=== PATIENT | male | born 1960 | race African-American/Black ===

== ENCOUNTER 2016-06-17 18:36 | Inpatient (IN) | payer OTHER ==
[2016-06-17] MEDS ORDERED: SODIUM CHLORIDE 0.9% 500 ML INFUS.BAG IV ONE (19:38)
[2016-06-17] MEDS ORDERED: morphine CARPU-JECT 2 MG/1 ML DISP.SYRIN IVPUSH ONE (19:38)
--- NOTE | 2016-06-17 19:41 | PDOC ---
History of Present Illness - General History Source: Patient, Old Records Exam Limitations: No Limitations, Other - History of Present Illness Initial Comments: 06/17/16 19:53 The patient is a 56 year old male with significant past medical history of ESRD on HD (MWF), hypertension, diabetes with neuropathy, and etoh abuse who presents to the ED BIBA from [facility] with generalized body aches and weakness. Patient is a poor historian. He describes his pain as soreness. The patient denies fever, chills, cough, SOB, and chest pain. The patient denies nausea, vomiting, and diarrhea. Allergies: NKDA Social History: etoh abuse; polysubstance abuse (heroin, cocaine, marijuana) Past Surgical History: Denies abdominal surgery PCP: Dr. José Browne Nephrology: Dr. Ben Lunsford <Pau Villavicencio - Last Filed: 06/18/16 00:44> <Brittany Rosado - Last Filed: 06/18/16 01:59> - General Chief Complaint: Pain Stated Complaint: ABD PAIN Past History <Pau Villavicencio - Last Filed: 06/18/16 00:44> - Past Medical History Anemia: Yes (NOT ON SUPPLEMENT CURRENTLY) Asthma: No Cancer: No Cardiac Disorders: No CVA: No COPD: No CHF: No Dementia: No Diabetes: Yes (Patient reported history of diabetes, but not on medication at this time,) GI Disorders: No Disorders: Yes (ESRD) HTN: Yes (Patient reported history of HTN) Hypercholesterolemia: No Kidney Stones: No Liver Disease: No Suicide Attempt (Hx): No Seizures: No Thyroid Disease: No - Surgical History Abdominal Surgery: No Appendectomy: No Cardiac Surgery: No Cholecystectomy: No Lung Surgery: No Neurologic Surgery: No Orthopedic Surgery: Yes (GANGLIONIC CYST SX IN 1987 [facility]; left rotator cuff sx) - Reproductive History Testicular Surgery: No - Immunization History Immunization Up to Date: No - Psycho/Social/Smoking Cessation Hx Anxiety: No Suicidal Ideation: No Smoking History: Former smoker Have you smoked in the past 12 months: No Information on smoking cessation initiated: No 'Breaking Loose' booklet given: 05/15/14 Hx Alcohol Use: No Drug/Substance Use Hx: No Substance Use Type: Heroin, Marijuana Hx Substance Use Treatment: Yes <Brittany Rosado - Last Filed: 06/18/16 01:59> - Past Medical History Allergies/Adverse Reactions: Allergies Allergy/AdvReac Type Severity Reaction Status Date / Time No Known Drug Allergies Allergy Unknown Verified 06/17/16 19:01 lactose AdvReac Unknown LACTOSE Verified 06/17/16 19:01 INTOLERANCE Home Medications: Ambulatory Orders Amlodipine Besylate [Norvasc -] 10 mg PO DAILY #30 tablet 07/31/14 Ferrous Sulfate [Feosol] 325 mg PO TID #90 ud 07/31/14 Gabapentin [Neurontin -] 600 mg PO Q8H 30 Days 07/31/14 Acetaminophen [Tylenol .Regular Strength -] 650 mg PO Q6H PRN #0 tablet Aspirin [Ecotrin] 81 mg PO DAILY #30 tablet.dr 01/22/15 Furosemide [Lasix -] 40 mg PO DAILY tablet 01/22/15 Hydralazine HCl [Apresoline -] 100 mg PO TID tablet 01/22/15 Thiamine HCl [Vitamin B1 -] 100 mg PO HS tablet 01/22/15 Cinacalcet HCl [Sensipar -] 30 mg PO DAILY 03/13/16 Oxycodone HCl/Acetaminophen [Percocet 5-325 mg Tablet] 1 - 2 tab PO Q8H PRN Sevelamer Carbonate [Renvela] 800 mg PO TID 03/13/16 Vitamin B Complex 1 each PO DAILY 03/13/16 Meloxicam [Mobic] 1 tab PO DAILY PRN #30 03/14/16 Review of Systems - Review of Systems Able to Perform ROS?: Yes Comments:: 06/17/16 19:53 CONSTITUTIONAL: +generalized weakness Absent: fever, no chills, no fatigue EYES: Absent: visual changes ENT: Absent: ear pain, no sore throat CARDIOVASCULAR: Absent: chest pain, no palpitations RESPIRATORY: Absent: cough, no SOB GI: Absent: no nausea, no vomiting, no constipation, no diarrhea GENITOURINARY: Absent: dysuria, no frequency, no hematuria MUSKULOSKELETAL: +generalized body aches SKIN: Absent: rash NEURO: Absent: headache <Pau Villavicencio - Last Filed: 06/18/16 00:44> *Physical Exam - Vital Signs Last Vital Signs Temp Pulse Resp BP Pulse Ox 98.6 F 120 H 20 131/76 92 L 06/17/16 18:38 06/17/16 18:38 06/17/16 18:38 06/17/16 18:38 06/17/16 18:38 - Physical Exam Comments: 06/18/16 00:43 GENERAL: Pt is afebrile. Well developed, well nourished. Awake and alert. Mild-moderate distress. HEENT: Normocephalic, atraumatic. PERRLA, EOMI. No conjunctival pallor. Sclera are icteric. Moist mucous membranes. Oropharynx is clear. Chest pain with swallowing. NECK: Supple. Full ROM. No JVD. Carotid pulses 2+ and symmetric, without bruits. No thyromegaly. No lymphadenopathy. CARDIOVASCULAR: Tachycardia. Regular rhythm. No murmurs, rubs, or gallops. Distal pulses are 2+ and symmetric. PULMONARY: No evidence of respiratory distress. Lungs clear to auscultation bilaterally. No wheezing, rales or rhonchi. ABDOMINAL: Soft. Diffuse abdominal tenderness. Distended. Positive guarding. No rebound. No organomegaly. Normoactive bowel sounds. MUSCULOSKELETAL Normal range of motion at all joints. No bony deformities. No CVA tenderness. EXTREMITIES: No cyanosis. No clubbing. No edema. AV fistula left upper extremity. No calf tenderness. SKIN: Warm and dry. Normal capillary refill. No rashes. No jaundice. NEUROLOGICAL: Alert and awake. Answering yes and no questions, but distracted secondary to pain. Cranial nerves 2-12 grossly intact. Moving all extremities. PSYCHIATRIC: Answering yes and no questions, but distracted secondary to pain. <Pau Villavicencio - Last Filed: 06/18/16 00:44> - Vital Signs Last Vital Signs Temp Pulse Resp BP Pulse Ox 98.6 F 120 H 20 131/76 92 L 06/17/16 18:38 06/17/16 18:38 06/17/16 18:38 06/17/16 18:38 06/17/16 18:38 <Brittany Rosado - Last Filed: 06/18/16 01:59> ED Treatment Course - LABORATORY CBC & Chemistry Diagram: 06/17/16 19:34 06/17/16 21:00 - RADIOLOGY Radiograph Interpretation: 06/17/16 22:03 CT/ABDOMEN PELVIS CT WITH CONTR CT/CHEST CT WITH CONTRAST Radiologist's Impression: Chest CT with intravenous contrast Abdomen and pelvis CT with intravenous contrast Clinical information: evaluate for dissection; abdominal pain, total body pain Multiplanar arterial phase imaging was performed following the intravenous administration of nonionic contrast. No previous CT studies are available at this facility for direct comparison. Evaluation of the thoracic and abdominal aorta demonstrates no evidence of aneurysm, dissection, intramural hematoma or penetrating atherosclerotic ulcer. The periaortic soft tissue planes appear intact. No mediastinal or retroperitoneal hematoma is identified. There is concentric continuous wall thickening involving the length of the thoracic esophagus with probable associated mild dilatation of the esophageal lumen. Minimal bilateral pleural effusions are visualized. Mild bibasilar opacity probably representing atelectasis, and less likely combination of atelectasis and infiltrate. Correlate clinically. The remaining intrathoracic structures demonstrate no definite CT abnormality. No discrete lymphadenopathy. A small amount of free intraperitoneal fluid is seen within the rectovesical space of the lower pelvis. There is mild dilatation of several mid and distal jejunal bowel loops with probable minimal to mild dilatation of several ileal bowel loops. No obvious associated wall edema is identified. Possible mild concentric wall thickening is seen along the ascending and descending colon. Evaluation this regard is somewhat difficult due to lack of intraluminal contrast. No definite pericolonic or perienteric edema. The appendix cannot be definitely visualized however there are no indirect CT signs of acute appendicitis. No CT evidence of acute diverticulitis. Bilateral renal atrophy. The patient is scheduled for dialysis following this CT exam. On the basis of arterial phase imaging only, the liver, spleen, pancreas, gallbladder, and adrenal glands demonstrate no obvious abnormality. No definite abdominal/pelvic lymphadenopathy. Marked L4-L5 degenerative facet arthropathy. Minimal to mild L4-L5 spondylolisthesis. Moderate to marked L5-S1 degenerative disc space narrowing. IMPRESSION: No dissection is seen involving the thoracoabdominal aorta. There is continuous concentric wall thickening involving the length of the thoracic esophagus with associated mild dilatation of the esophageal lumen - ? severe esophagitis. Minimal bilateral pleural effusions. Mild bibasilar pulmonary opacity probably on the basis of atelectasis (versus representing a combination of atelectasis and small infiltrates). A small amount of free fluid is seen within the lower pelvis in the region of the rectovesical space. There is mild dilatation of several small bowel loops probably on the basis of an ileus. There is no definite evidence of obstruction at this time. Correlate with close follow-up radiography or CT. Allowing for lack of intraluminal contrast there is probable mild concentric continuous wall thickening along the length of the ascending and descending colon suggestive of possible acute colitis. Bilateral renal atrophy. <Pau Villavicencio - Last Filed: 06/18/16 00:44> - LABORATORY CBC & Chemistry Diagram: 06/17/16 19:34 06/17/16 21:00 <Brittany Rosado - Last Filed: 06/18/16 01:59> Medical Decision Making - Medical Decision Making 06/17/16 19:[address] José Browne (via answering service) at 19:54 Awaiting call back Patient's case discussed with Dr. Browne at 19:55 06/17/16 19:[address] Ben Lunsford (via answering service) at 19:59 Awaiting call back Patient's case discussed with Dr. Lunsford at 20:02 06/17/16 22:[address] José Browne (via answering service) at 22:07 Awaiting call back Patient's case discussed with Dr. Browne at 22:12 06/17/16 22:[address] Ben Lunsford (via answering service) at 22:14 Awaiting call back Patient's case discussed with Dr. Lunsford at 22:18 <HerbkenyattabuddyPau - Last Filed: 06/18/16 00:44> - Medical Decision Making 06/18/16 01:51 Pt comes from [facility] for abdominal pain. Pt is ESRD and states that he gets dialysis M,W,F. Pt states that he did not miss dialysis sessions; however , he has peaked T waves on EKG and based on this we treated with insulin and D50. Pt has diffuse abdominal pain and is tachycardic to 122. He states that his abdominal pain radiates to his back and he has total body pains. Pt's BP is low and I am concerned about severe pathology/sepsis/dissection. CT abd pelvis and chest with IV contrast demonstrates no dissection, but pt has esophagitis, and ileus, and possible pneumonia (atelectasis vs infiltrate) seen on CT scan. Pt will be treated with abx, as he has an elevated lactic acid. Case was also discussed with MARIANNE Browne as well as group product manager, who came in to dialyze the patient given that his BUN and Cr are double/triple what it normally is. Pt will be admitted to the ICU for hyperkalemia, ileus, tachycardia, esophagitis, pneumonia, fluid overload, hyponatremia. <Brittany Rosado - Last Filed: 06/18/16 01:59> *DC/Admit/Observation/Transfer - Attestations Scribe Attestion: 06/17/16 19:54 Documentation prepared by Pau Villavicenico, acting as medical instrument technician for Brittany Rosado MD <Pau Villavicencio - Last Filed: 06/18/16 00:44> - Discharge Dispostion Admit: Yes <Brittany Rosado - Last Filed: 06/18/16 01:59> Diagnosis at time of Disposition: Esophagitis, Pneumonia, Ileus, Sepsis - Discharge Dispostion Condition at time of disposition: Poor - Referrals
[2016-06-17 19:47] LABS: MCH 32.4 pg (25.7-33.7); MCHC 34.2 g/dl (32.0-35.9); MEAN CELL VOLUME 94.8 fl (80-96); MEAN PLT VOLUME 9.1 fl (7.5-11.1); PLATELET COUNT 235 K/MM3 (134-434); RDW 15.1 % (11.9-15.9); WHITE BLOOD COUNT 9.5 K/mm3 (4.0-10.0)
[2016-06-17] MEDS ORDERED: DEXTROSE 50%-WATER 50 ML VIAL IVPUSH ONE (19:49)
[2016-06-17] MEDS ORDERED: INSULIN REGULAR HUMAN 100 UNITS/ML *VIAL IVPUSH ONE (19:49)
[2016-06-17 20:14] LABS: INR 1.31 (0.82-1.09); PROTHROMBIN TIME (PATIENT) 14.5 SEC (9.98-11.88)
[2016-06-17] MEDS ORDERED: INSULIN REGULAR HUMAN 100 UNITS/ML *VIAL ONE (20:35)
[2016-06-17] MEDS ORDERED: DEXTROSE 50%-WATER 50 ML DISP.SYRIN ONE (20:35)
[2016-06-17 21:30] LABS: METAMYELOCYTE 5 % (0-2); PLATELET COMMENT2 MOD LARGE PLTS; PLATELET ESTIMATE ADEQUATE (NORMAL)
[2016-06-17 21:31] LABS: PLATELET COMMENT3 FEW GIANT PLTS
[2016-06-17 21:32] LABS: ALBUMIN 2.5 g/dl (3.4-5.0); BILIRUBIN,TOTAL 0.6 mg/dL (0.2-1.0); CALCIUM 8.7 mg/dL (8.5-10.1); TOT PROT 6.5 g/dl (6.4-8.2)
[2016-06-17 21:38] LABS: TROPONIN I 0.02 ng/ml (0.00-0.05)
[2016-06-17 21:52] LABS: CREATININE 19.7 mg/dL (0.7-1.3)
[2016-06-17] MEDS ORDERED: PIPERACILLIN/TAZOB 3.375 GM 3.375 GM in DEXTROSE 5%-WATER - 50 ML IVPB ONE (22:00)
[2016-06-17] MEDS ORDERED: METRONIDAZOLE 500 MG PREMIXED 100 ML IVPB ONE ×2 (22:01→23:09)
[2016-06-17] MEDS ORDERED: SODIUM POLYSTYRENE SULFONATE 15 GM/60 ML BOTTLE PO ONE (22:19)
[2016-06-17] MEDS ORDERED: PIPERACILLIN/TAZOB 3.375 GM 50 ML IVPB ONE (23:09)
[2016-06-17] MEDS ORDERED: SODIUM POLYSTYRENE SULFONATE 15 GM/60 ML BOTTLE ONE (23:09)
--- NOTE | 2016-06-17 23:30 | CONSULT ---
Consult Consult Specialty:: nephrology - History of Present Illness Chief Complaint: weakness, body aches History of Present Illness: This is a 56 year old man with a history of dm, htn, esrd, etoh and substance abuse who presents with c/o generalized weakness and pain. he missed dialysis yesterday. History is very difficult as he repeats himself and does not remember what is said to him. He is uremic and hyponatremic. So Im here for emergent HD. - History Source History Provided By: Patient, Medical Record Limitations to Obtaining History: Poor Historian - Past Medical History Cardio/Vascular: Yes: HTN, Hyperlipdemia Renal/: Yes: Renal Inusuff, Hemodialysis Endocrine: Yes: Diabetes Mellitus Additional Medical History: polysubstance abuse - Past Surgical History Past Surgical History: Yes: AV Fistula/Graft - Alcohol/Substance Use Hx Alcohol Use: No History of Substance Use: reports: Cocaine, Heroin, Marijuana - Smoking History Smoking history: Former smoker Have you smoked in the past 12 months: No - Social History Usual Living Arrangement: Assisted Living Home Medications - Allergies Allergies/Adverse Reactions: Allergies Allergy/AdvReac Type Severity Reaction Status Date / Time No Known Drug Allergies Allergy Unknown Verified 06/17/16 19:01 lactose AdvReac Unknown LACTOSE Verified 06/17/16 19:01 INTOLERANCE - Home Medications Home Medications: Ambulatory Orders Amlodipine Besylate [Norvasc -] 10 mg PO DAILY #30 tablet 07/31/14 Ferrous Sulfate [Feosol] 325 mg PO TID #90 ud 07/31/14 Gabapentin [Neurontin -] 600 mg PO Q8H 30 Days 07/31/14 Acetaminophen [Tylenol .Regular Strength -] 650 mg PO Q6H PRN #0 tablet Aspirin [Ecotrin] 81 mg PO DAILY #30 tablet. 01/22/15 Furosemide [Lasix -] 40 mg PO DAILY tablet 01/22/15 Hydralazine HCl [Apresoline -] 100 mg PO TID tablet 01/22/15 Thiamine HCl [Vitamin B1 -] 100 mg PO HS tablet 01/22/15 Cinacalcet HCl [Sensipar -] 30 mg PO DAILY 03/13/16 Oxycodone HCl/Acetaminophen [Percocet 5-325 mg Tablet] 1 - 2 tab PO Q8H PRN Sevelamer Carbonate [Renvela] 800 mg PO TID 03/13/16 Vitamin B Complex 1 each PO DAILY 03/13/16 Meloxicam [Mobic] 1 tab PO DAILY PRN #30 03/14/16 Family Disease History - Family Disease History Family Disease History: Diabetes: Mother (ESRD), Brother (ESRD), CA: Father ( stomach,), Other: Mother, Brother Review of Systems Unable to obtain ROS, reason: pt is a poor historian Nephrology Consult - Height Height: 5 ft 9 in - Weight Weight: 205 lb - BMI Body Mass Index (BMI): 30.2 - Lab Results CBC,BMP: CBC, BMP 06/17/16 19:34 06/17/16 21:00 Anion Gap: Anion Gap Anion Gap 25 (8-16) H 06/17/16 21:00 - Imaging Chest X-ray: Image Reviewed Cat Scan: Report Reviewed (no aortic dissection) - Physical Examination Vital Signs: Vital Signs Temperature 98.6 F 06/17/16 18:38 Pulse Rate 120 H 06/17/16 18:38 Respiratory Rate 20 06/17/16 18:38 Blood Pressure 131/76 06/17/16 18:38 O2 Sat by Pulse Oximetry (%) 92 L 06/17/16 18:38 Constitutional: Yes: Well Nourished, No Distress Eyes: Yes: Conjunctiva Clear HENT: Yes: Atraumatic, Normocephalic Neck: Yes: Supple, Trachea Midline Cardiovascular: Yes: Regular Rate and Rhythm, Tachycardia Respiratory: Yes: Diminished Gastrointestinal: Yes: Normal Bowel Sounds Renal/: No: Bladder Distention Access for Hemodialysis: AV Fistula Musculoskeletal: Yes: Muscle Pain Extremities: Yes: WNL Edema: No Neurological: Yes: Alert, Oriented (not to time), Asterixis, Confusion, Tremors Psychiatric: Yes: Alert Assessment/Plan IMPRESSION esrd encephalopathy- probably uremic but also from medications since he is on gabapentin which can do this Uremia in part due to missing treatments, but will need to evaluate access as well bandemia of 30 percent with other immature polys- ?sepsis vs CML (doubt) dm htn h/o etoh use on thiamine chronically hyperkalemia hyponatremia PLAN hold neurontin for now will attempt to dialyze tonight to get kayexalate in the mean time sepsis work up HD should help sodium and potassium MV
[2016-06-18 00:51] VITALS: BMI 29.2
--- NOTE | 2016-06-18 00:56 | CONSULT ---
Consult Consult Specialty:: Pulm/CC - History of Present Illness History of Present Illness: Pt is a 56yr old man with PMHx of HTN, ESRD (HD on M//), DM, neuropathy. He presents to the ER from [facility] with CC of body aches and weakness. In the ER his initial vital signs are 131/76, HR 120, RR 20, 92%, 98.6. Labs notable for BUN/Cr 183/19.7, K 6.9, 30% bands and lactic acid of 3.879. CT shows bilateral pleural effusions, esophagitis, ileus without definite obstruction and possible acute colitis. Pt admitted to the ICU for emergency HD and continued management. Upon assessment pt is confused, unable to get further history. Uremic breath. - Past Medical History Cardio/Vascular: Yes: HTN, Hyperlipdemia Renal/: Yes: Renal Inusuff, Hemodialysis Endocrine: Yes: Diabetes Mellitus Additional Medical History: polysubstance abuse - Past Surgical History Past Surgical History: Yes: AV Fistula/Graft - Alcohol/Substance Use Hx Alcohol Use: No History of Substance Use: reports: Cocaine, Heroin, Marijuana - Smoking History Smoking history: Former smoker Have you smoked in the past 12 months: No - Social History Usual Living Arrangement: Assisted Living <Raegan Diego - Last Filed: 06/18/16 05:32> Home Medications <Raegan Diego - Last Filed: 06/18/16 05:32> <Heriberto Nath MD - Last Filed: 06/18/16 11:40> - Allergies Allergies/Adverse Reactions: Allergies Allergy/AdvReac Type Severity Reaction Status Date / Time No Known Drug Allergies Allergy Unknown Verified 06/17/16 19:01 lactose AdvReac Unknown LACTOSE Verified 06/17/16 19:01 INTOLERANCE - Home Medications Home Medications: Ambulatory Orders Amlodipine Besylate [Norvasc -] 10 mg PO DAILY #30 tablet 07/31/14 Ferrous Sulfate [Feosol] 325 mg PO TID #90 ud 07/31/14 Gabapentin [Neurontin -] 600 mg PO Q8H 30 Days 07/31/14 Acetaminophen [Tylenol .Regular Strength -] 650 mg PO Q6H PRN #0 tablet Aspirin [Ecotrin] 81 mg PO DAILY #30 tablet. 01/22/15 Furosemide [Lasix -] 40 mg PO DAILY tablet 01/22/15 Hydralazine HCl [Apresoline -] 100 mg PO TID tablet 01/22/15 Thiamine HCl [Vitamin B1 -] 100 mg PO HS tablet 01/22/15 Cinacalcet HCl [Sensipar -] 30 mg PO DAILY 03/13/16 Oxycodone HCl/Acetaminophen [Percocet 5-325 mg Tablet] 1 - 2 tab PO Q8H PRN Sevelamer Carbonate [Renvela] 800 mg PO TID 03/13/16 Vitamin B Complex 1 each PO DAILY 03/13/16 Meloxicam [Mobic] 1 tab PO DAILY PRN #30 03/14/16 Family Disease History - Family Disease History Family History: Unable to Obtain Family Disease History: Diabetes: Mother (ESRD), Brother (ESRD), CA: Father ( stomach,), Other: Mother, Brother <Raegan Diego - Last Filed: 06/18/16 05:32> Review of Systems Unable to obtain ROS, reason: ALF <Raegan Diego - Last Filed: 06/18/16 05:32> Physical Exam Vital Signs: Vital Signs Period Temp Pulse Resp BP Sys/Galaviz Pulse Ox Last 24 Hr 98.6 F-98.8 F 75-120 18-22 128-139/70-87 92-100 Intake & Output 06/15/16 06/16/16 06/17/16 06/18/16 23:59 23:59 23:59 23:59 Weight 205 lb 198 lb 5 oz Constitutional: Yes: Well Nourished Eyes: Yes: PERRL, Sclera Icterus HENT: Yes: Other (uremic breath) Neck: Yes: WNL Cardiovascular: Yes: Tachycardia Respiratory: Yes: Diminished (bilaterally), On Nasal O2. No: Rhonchi, Wheezes Gastrointestinal: Yes: Normal Bowel Sounds, Abdomen, Obese, Distention, Tenderness (diffuse) ...Rectal Exam: Yes: Deferred Renal/: Yes: CVA Tenderness - Left, CVA Tenderness - Right, Oliguria Edema: No Peripheral Pulses WNL: (+2 rt radial, lt ulner w/ doppler, rt pedal w/ doppler , lt pedal/radial not) Integumentary: Yes: Other (appears dry) Neurological: Yes: Confusion, Other (no focal deficit appreciated) Labs: Abnormal Lab Results 06/17/16 06/17/16 06/17/16 19:34 19:34 19:47 RBC 3.81 L D Neutrophils % 26.0 L D Monocytes % 17.0 H D Band Neutrophils 30.0 H Metamyelocytes 5 H INR 1.31 H Sodium Potassium Chloride Anion Gap BUN Creatinine Random Glucose Lactic Acid 3.879 H* CK-MB (CK-2) Albumin 06/17/16 06/17/16 21:00 23:30 RBC Neutrophils % Monocytes % Band Neutrophils Metamyelocytes INR Sodium 125 L D Potassium 6.9 H* D Chloride 79 L D Anion Gap 25 H BUN 183 H* D Creatinine 19.7 H* D Random Glucose 220 H D Lactic Acid 2.287 H* CK-MB (CK-2) 3.977 H Albumin 2.5 L D <Raegan Diego - Last Filed: 06/18/16 05:32> Vital Signs: Vital Signs Temperature 97.9 F 06/18/16 10:00 Pulse Rate 112 H 06/18/16 10:00 Respiratory Rate 20 06/18/16 10:00 Blood Pressure 158/70 06/18/16 10:00 O2 Sat by Pulse Oximetry (%) 98 06/18/16 00:21 Labs: CBC, BMP 06/18/16 04:30 06/18/16 04:30 <Heriberto Nath MD - Last Filed: 06/18/16 11:40> Imaging - Results Chest X-ray: Image Reviewed Cat Scan: Report Reviewed <Raegan Diego - Last Filed: 06/18/16 05:32> Assessment/Plan Pt is a 56yr old man with PMHx of HTN, ESRD (HD on M/W/F), DM, neuropathy. Now in the ICU for acute on chronic renal failure with profound uremia requiring emergency HD with AMS and sepsis. Pulm -o2 support prn for sat >94% -STAT abg -f/u chest xray in a.m ID: Sepsis AEB bandemia, lactic acidosis, tachycardic. Possible sources - hcap, acute colitis. -Consult -F/U cultures -Empiric Vanc/Zosyn -Flagyl -Trend lactic acid -HIV testing Renal: -Dr. Lunsford following -STAT HD -Renal dose medication -Will likely need HD again tomorrow -Repeat labs after HD Neuro: AMS likely in setting of metabolic encephalopathy from uremia -Consult -Seizure precautions -Monitor BUN -f/u ammonia level -Neuro checks -Consider head CT -Pain management GI: Esophagitis, ileus, possible acute colitis -Consult -NPO for now -PPI -F/U ammonia level -f/u hepatitis panel Cardiovascular -f/u enzymes -BP control -Unable to appreciate left pedal with doppler, will get duplex Prophylactic -DVT <Raegna Diego - Last Filed: 06/18/16 05:32> Pt seen and examined, agree with above, will HD today, trend lactate, continue empiric antibiotics, f/u cultures, get fistulogram to evaluate access Heriberto Nath MD <Heriberto Nath MD - Last Filed: 06/18/16 11:40>
[2016-06-18] MEDS ORDERED: VANCOMYCIN 1 GRAM (PRE-DOCKED) 250 ML IVPB ONE (01:06)
[2016-06-18 01:09] LABS: ARTERIAL BLD GAS O2 SATURATION 95.1 % (90-98.9); ARTERIAL BLOOD GAS BASE EXCESS -6.2 meq/l (-2-2); ARTERIAL BLOOD GAS HCO3 19.3 meq/L (22-26)
[2016-06-18 01:10] LABS: ALLENS TEST POSITIVE; ART PUNCT SITE RIGHT RADIAL; LPM/O2% 2.0LPM; PT. ON O2? YES; TYPE OF O2 NASAL CANNULA
[2016-06-18] MEDS ORDERED: METRONIDAZOLE 500 MG PREMIXED 100 ML IVPB SCH (02:00)
[2016-06-18] MEDS ORDERED: SODIUM CHLORIDE IVPB ONE (02:21)
[2016-06-18] MEDS ORDERED: PANTOPRAZOLE SODIUM IVPB ONE (02:21)
[2016-06-18] MEDS ORDERED: PANTOPRAZOLE IVPB ONE (05:00)
[2016-06-18] MEDS: hydrALAZINE HCL 50 MG TABLET (FP) PO SCH ×3 (05:03→21:46)
[2016-06-18 05:39] LABS: MCH 32.1 pg (25.7-33.7); MCHC 34.2 g/dl (32.0-35.9); MEAN CELL VOLUME 93.8 fl (80-96); MEAN PLT VOLUME 9.1 fl (7.5-11.1); PLATELET COUNT 239 K/MM3 (134-434); RDW 14.8 % (11.9-15.9); WHITE BLOOD COUNT 9.3 K/mm3 (4.0-10.0)
[2016-06-18 05:58] LABS: INR 1.24 (0.82-1.09); PROTHROMBIN TIME (PATIENT) 13.7 SEC (9.98-11.88)
[2016-06-18] MEDS ORDERED: GABAPENTIN 300 MG CAPSULE (FP) PO SCH (06:00)
[2016-06-18 06:01] LABS: ACTIVATED PTT 26.9 SECONDS (26.9-34.4)
[2016-06-18 06:05] LABS: ALBUMIN 3.1 g/dl (3.4-5.0); BILIRUBIN,TOTAL 0.7 mg/dL (0.2-1.0); CALCIUM 8.6 mg/dL (8.5-10.1); PHOSPHOROUS 4.2 mg/dL (2.5-4.9); TOT PROT 7.8 g/dl (6.4-8.2)
[2016-06-18 06:06] LABS: CHOLESTEROL 163 mg/dL (50-200); LDL CHOLESTEROL (ONLY SJRH) 48 mg/dL (5-100)
[2016-06-18 06:11] LABS: TROPONIN I 0.02 ng/ml (0.00-0.05)
[2016-06-18] MEDS ORDERED: LEVOFLOXACIN 500 MG IVPB 100 ML IVPB ONE (08:00)
[2016-06-18 09:33] LABS: CREATININE 9.3 mg/dL (0.7-1.3)
[2016-06-18] MEDS ORDERED: PANTOPRAZOLE SODIUM 100 ML IVPB SCH (10:00)
--- NOTE | 2016-06-18 10:08 | HP ---
Admitting History and Physical - Primary Care Physician PCP: José Browne - Admission Chief Complaint: body aches, abd pain , chills History of Present Illness: 56 yrs old male sent from [facility] for abdominal pain , weakness and chills He has been c/o abd pain intermittent for a few days No nausea or vomiting No fever Never missed dialysis- was found to have hyperkalemia with peaked T waves on EKG - had a ct scan which showed ileus , Pneumonia, acute colitis Currently he is awake, but is confused-- his baseline is AAOx3 He received dialysis early this AM He has tremors History Source: Patient Limitations to Obtaining History: No Limitations - Past Medical History Cardiovascular: Yes: HTN, Hyperlipdemia Renal/: Yes: Renal Inusuff, Hemodialysis Heme/Onc: Yes: Anemia Endocrine: Yes: Diabetes Mellitus - Past Surgical History Past Surgical History: Yes: AV Fistula/Graft - Smoking History Smoking history: Former smoker Have you smoked in the past 12 months: No - Alcohol/Substance Use Hx Alcohol Use: No History of Substance Use: reports: Cocaine, Heroin, Marijuana Home Medications - Allergies Allergies/Adverse Reactions: Allergies Allergy/AdvReac Type Severity Reaction Status Date / Time No Known Drug Allergies Allergy Unknown Verified 06/17/16 19:01 lactose AdvReac Unknown LACTOSE Verified 06/17/16 19:01 INTOLERANCE - Home Medications Home Medications: Ambulatory Orders Amlodipine Besylate [Norvasc -] 10 mg PO DAILY #30 tablet 07/31/14 Ferrous Sulfate [Feosol] 325 mg PO TID #90 ud 07/31/14 Gabapentin [Neurontin -] 600 mg PO Q8H 30 Days 07/31/14 Acetaminophen [Tylenol .Regular Strength -] 650 mg PO Q6H PRN #0 tablet Aspirin [Ecotrin] 81 mg PO DAILY #30 tablet. 01/22/15 Furosemide [Lasix -] 40 mg PO DAILY tablet 01/22/15 Hydralazine HCl [Apresoline -] 100 mg PO TID tablet 01/22/15 Thiamine HCl [Vitamin B1 -] 100 mg PO HS tablet 01/22/15 Cinacalcet HCl [Sensipar -] 30 mg PO DAILY 03/13/16 Oxycodone HCl/Acetaminophen [Percocet 5-325 mg Tablet] 1 - 2 tab PO Q8H PRN Sevelamer Carbonate [Renvela] 800 mg PO TID 03/13/16 Vitamin B Complex 1 each PO DAILY 03/13/16 Meloxicam [Mobic] 1 tab PO DAILY PRN #30 03/14/16 Family Disease History - Family Disease History Family Disease History: Diabetes: Mother (ESRD), Brother (ESRD), CA: Father ( stomach,), Other: Mother, Brother Review of Systems - Review of Systems Constitutional: reports: Loss of Appetite, Weakness. denies: Chills, Fever Cardiovascular: denies: Chest Pain, Palpitations Respiratory: denies: Cough, SOB Gastrointestinal: reports: Abdominal Pain Physical Examination Vital Signs: Vital Signs Temperature 98.4 F 06/18/16 06:00 Pulse Rate 111 H 06/18/16 08:00 Respiratory Rate 14 06/18/16 08:00 Blood Pressure 117/71 06/18/16 08:00 O2 Sat by Pulse Oximetry (%) 98 06/18/16 00:21 Constitutional: Yes: No Distress, Calm Cardiovascular: Yes: Regular Rate and Rhythm Respiratory: Yes: Diminished Gastrointestinal: Yes: Normal Bowel Sounds, Soft, Tenderness (lowe quadrant- left). No: Abdomen, Obese, Distention Extremities: Yes: Other (left AVF- thrill+) Edema: No Neurological: Yes: Alert, Other (confused) Psychiatric: Yes: Alert Labs: CBC, BMP 06/18/16 04:30 06/18/16 04:30 Imaging - Results Chest X-ray: Image Reviewed Cat Scan: Image Reviewed (possibility of pneumonia vs atelectasis, colitis and Ileus) EKG: Image Reviewed (Sinus tachycardia, peaked T waves) Problem List - Problems (1) Esophagitis Code(s): K20.9 - ESOPHAGITIS, UNSPECIFIED (2) Ileus Code(s): K56.7 - ILEUS, UNSPECIFIED (3) Pneumonia Code(s): J18.9 - PNEUMONIA, UNSPECIFIED ORGANISM Qualifiers: Pneumonia type: due to unspecified organism (4) Sepsis Code(s): A41.9 - SEPSIS, UNSPECIFIED ORGANISM (5) Hyperkalemia Code(s): E87.5 - HYPERKALEMIA (6) HTN (hypertension) Code(s): I10 - ESSENTIAL (PRIMARY) HYPERTENSION (7) Uremia Code(s): N19 - UNSPECIFIED KIDNEY FAILURE Assessment/Plan PLAN -- pt was dialysed this AM -- still has tremors -- Nephrology evaluation and GI evaluation --GI prophylaxis and esophagitis-- PPI -- on Iv antibiotics for colitis, possible pneumonia -- Blood cultures pending -- stool for cdiff pending -- influenza negative -- clear liquid diet -- nebs as needed -- DVT prophylaxis- Heparin sc -- time spent 40 min -- examination , documentation , records, speaking to staff
[2016-06-18] MEDS: VITAMIN B COMPLEX W/C COMBO TABLET (FP) PO SCH (11:02)
[2016-06-18] MEDS: FUROSEMIDE 40 MG TABLET (FP) PO SCH (11:02)
[2016-06-18] MEDS: amLODIPine BESYLATE 10 MG TABLET (FP) PO SCH (11:02)
[2016-06-18] MEDS: SEVELAMER CARBONATE 800 MG TAB (FP) PO SCH ×3 (11:02→18:36)
[2016-06-18] MEDS: FERROUS SO4 325 MG TABLET (FP) PO SCH ×3 (11:02→18:36)
--- NOTE | 2016-06-18 11:03 | PN ---
Progress Note, Physician History of Present Illness: Pt seen and examined at bedside. He denies shortness of breath. He denies chest pain. He tolerated HD last night. - Current Medication List Current Medications: Active Medications Acetaminophen (Tylenol -) 650 mg PO Q6H PRN PRN Reason: FEVER OR PAIN Amlodipine Besylate (Norvasc -) 10 mg PO DAILY [facility] Aspirin (Asa -) 81 mg PO DAILY [facility] Cinacalcet (Sensipar -) 30 mg PO DAILY [facility] Ferrous Sulfate (Feosol -) 325 mg PO TIDCM TUNG Furosemide (Lasix -) 40 mg PO DAILY [facility] Heparin Sodium (Porcine) (Heparin -) 5,000 unit SQ BID TUNG Hydralazine HCl (Apresoline -) 100 mg PO TID TUNG Last Admin: 06/18/16 05:03 Dose: 100 mg Levofloxacin (Levaquin 250 Mg Premixed Ivpb -) 50 mls @ 50 mls/hr IVPB Q48H TUNG Pantoprazole Sodium (Protonix 40mg Ivpb (Pre-Docked)) 100 mls @ 200 mls/hr IVPB BID TUNG Metronidazole (Flagyl 500mg Premixed Ivpb -) 100 mls @ 100 mls/hr IVPB Q8H-IV [facility] Multivitamins (Total B With C -) 1 each PO DAILY T[facility]G Sevelamer Carbonate (Renvela -) 800 mg PO TIDCM TUNG Thiamine HCl (Vitamin B1 -) 100 mg PO HS TUNG - Objective Vital Signs: Vital Signs Temperature 97.9 F 06/18/16 10:00 Pulse Rate 112 H 06/18/16 10:00 Respiratory Rate 20 06/18/16 10:00 Blood Pressure 158/70 06/18/16 10:00 O2 Sat by Pulse Oximetry (%) 98 06/18/16 00:21 Constitutional: Yes: Calm Eyes: Yes: Conjunctiva Clear HENT: Yes: Atraumatic Cardiovascular: Yes: S1, S2 Respiratory: Yes: On Nasal O2 Gastrointestinal: Yes: Soft Genitourinary: Yes: WNL Musculoskeletal: Yes: WNL Edema: No Neurological: Yes: Oriented Psychiatric: Yes: Oriented Labs: CBC, BMP 06/18/16 04:30 06/18/16 04:30 INR, PTT INR 1.24 (0.82-1.09) H 06/18/16 04:30 - ....Imaging Chest X-ray: Report Reviewed Problem List - Problems (1) Hyperkalemia Code(s): E87.5 - HYPERKALEMIA (2) HTN (hypertension) Code(s): I10 - ESSENTIAL (PRIMARY) HYPERTENSION (3) ESRD (end stage renal disease) Code(s): N18.6 - END STAGE RENAL DISEASE Assessment/Plan Current Medications Generic Name Dose Route Start Last Admin Trade Name Freq PRN Reason Stop Dose Admin Acetaminophen 650 mg 06/17/16 23:04 Tylenol - PO Q6H PRN FEVER OR PAIN Amlodipine Besylate 10 mg 06/18/16 10:00 Norvasc - PO DAILY [facility] Aspirin 81 mg 06/18/16 10:00 Asa - PO DAILY [facility] Cinacalcet 30 mg 06/18/16 10:00 Sensipar - PO DAILY [facility] Ferrous Sulfate 325 mg 06/18/16 08:00 Feosol - PO TIDCM T[facility]G Furosemide 40 mg 06/18/16 10:00 Lasix - PO DAILY [facility] Heparin Sodium (Porcine) 5,000 unit 06/18/16 22:00 Heparin - SQ BID TUNG Hydralazine HCl 100 mg 06/18/16 06:00 06/18/16 05:03 Apresoline - PO 100 mg TID [facility]UNG Administration Levofloxacin 50 mls @ 50 mls/hr 06/20/16 10:00 Levaquin 250 Mg Premixed Ivpb - IVPB Q48H TUNG Pantoprazole Sodium 100 mls @ 200 mls/hr 06/18/16 10:00 Protonix 40mg Ivpb (Pre-Docked) IVPB BID TUNG Metronidazole 100 mls @ 100 mls/hr 06/18/16 10:00 Flagyl 500mg Premixed Ivpb - IVPB Q8H-IV [facility]G Multivitamins 1 each 06/18/16 10:00 Total B With C - PO DAILY [facility] Sevelamer Carbonate 800 mg 06/18/16 08:00 Renvela - PO TIDCM TUNG Thiamine HCl 100 mg 06/18/16 22:00 Vitamin B1 - PO HS TUNG Impression 1. ESRD 2. hyperkalemia 3. HTN 4. non compliance 5. DM 6. encephalopathy 7. hyponatremia Plan - will arrange for HD today - pt was dialyzed for 2 hours last night - discussed compliance with pt - monitor bp - resume home meds - monitor mental status Dr Almazan
[2016-06-18 11:05] LABS: METAMYELOCYTE 4 % (0-2)
[2016-06-18] MEDS: METRONIDAZOLE 500 MG PREMIXED 100 ML IVPB SCH ×2 (11:24→18:35)
[2016-06-18] MEDS: ASPIRIN 81 MG CHEWABLE TABLETS PO SCH (11:24)
--- NOTE | 2016-06-18 11:58 | EKG ---
Test Reason : Blood Pressure : / mmHG Vent. Rate : 122 BPM Atrial Rate : 122 BPM P-R Int : 166 ms QRS Dur : 094 ms QT Int : 312 ms P-R-T Axes : 032 029 007 degrees QTc Int : 444 ms SINUS TACHYCARDIA POSSIBLE LEFT ATRIAL ENLARGEMENT ANTERIOR INFARCT , AGE UNDETERMINED ABNORMAL ECG WHEN COMPARED WITH ECG OF 13-MAR-2016 05:45, VENT. RATE HAS INCREASED BY 56 BPM Confirmed by ASHU KENNEY, DARBY ([id number]) on 06/18/2016 11:58:14 AM Referred By: Confirmed By:DARBY WAKEFIELD MD
--- NOTE | 2016-06-18 14:30 | PN ---
Progress Note, Physician History of Present Illness: patient feels better still confused but improved - Current Medication List Current Medications: Active Medications Acetaminophen (Tylenol -) 650 mg PO Q6H PRN PRN Reason: FEVER OR PAIN Amlodipine Besylate (Norvasc -) 10 mg PO DAILY [facility] Last Admin: 06/18/16 11:02 Dose: 10 mg Aspirin (Asa -) 81 mg PO DAILY [facility] Last Admin: 06/18/16 11:24 Dose: 81 mg Cinacalcet (Sensipar -) 30 mg PO DAILY [facility] Ferrous Sulfate (Feosol -) 325 mg PO TIDCM [facility] Last Admin: 06/18/16 11:02 Dose: 325 mg Furosemide (Lasix -) 40 mg PO DAILY [facility] Last Admin: 06/18/16 11:02 Dose: 40 mg Heparin Sodium (Porcine) (Heparin -) 5,000 unit SQ BID [facility] Hydralazine HCl (Apresoline -) 100 mg PO TID [facility] Last Admin: 06/18/16 05:03 Dose: 100 mg Levofloxacin (Levaquin 250 Mg Premixed Ivpb -) 50 mls @ 50 mls/hr IVPB Q48H [facility] Metronidazole (Flagyl 500mg Premixed Ivpb -) 100 mls @ 100 mls/hr IVPB Q8H-IV [facility] Last Admin: 06/18/16 11:24 Dose: 100 mls/hr Multivitamins (Total B With C -) 1 each PO DAILY [facility] Last Admin: 06/18/16 11:02 Dose: 1 each Sevelamer Carbonate (Renvela -) 800 mg PO TIDCM [facility] Last Admin: 06/18/16 11:02 Dose: 800 mg Thiamine HCl (Vitamin B1 -) 100 mg PO [facility] - Objective Vital Signs: Vital Signs Temperature 98.0 F 06/18/16 14:00 Pulse Rate 109 H 06/18/16 14:00 Respiratory Rate 12 06/18/16 14:00 Blood Pressure 135/81 06/18/16 14:00 O2 Sat by Pulse Oximetry (%) 98 06/18/16 09:00 Constitutional: Yes: Well Nourished Eyes: Yes: EOM Intact HENT: Yes: Atraumatic Cardiovascular: Yes: Tachycardia Respiratory: Yes: CTA Bilaterally Gastrointestinal: Yes: Soft, Abdomen, Obese, Tenderness (mildly tender) Edema: No Neurological: Yes: [employer] Labs: CBC, BMP 06/18/16 04:30 06/18/16 04:30 INR, PTT INR 1.24 (0.82-1.09) H 06/18/16 04:30 Assessment/Plan Pt is a 56yr old man with PMHx of HTN, ESRD (HD on M/W/F), DM, neuropathy. Now in the ICU for acute on chronic renal failure with profound uremia hyperkalemia requiring emergency HD with AMS. patient missed dialysis Sepsis: possible PNA likely colitis continue levaquin flagyl f/u culture Trend CBC ESRD: dialyzed yesterday will dialyze again today trend lytes Will need fistulagram/duplex to evaluate access given patient symptomatic and lab abnormalities from missing only 1 session of dialysis HTN: continue hydralazine continue lasix continue norvasc AMS: liekly from uremia improving with dialysis trend BUN continue thiamine Anemia: continue iron PPx: HSQ Protonix PT consult FEN: no IVF hyperkalemia will dialyze on diet
[2016-06-18] MEDS: CINACALCET HCL 30 MG TAB (FP) PO SCH (17:54)
[2016-06-18] MEDS: ACETAMINOPHEN 325 MG TABLET (FP) PO PRN (21:47)
[2016-06-18] MEDS: HEPARIN NA (PORCINE) 5,000 UNITS/ML 1ML VIAL SQ SCH (21:47)
[2016-06-18] MEDS ORDERED: THIAMINE HCL 100 MG TABLET (FP) PO SCH (22:00)
--- NOTE | 2016-06-18 23:22 | CONSULT ---
Consult Consult Specialty:: GI Referred by:: Hospitalist Reason for Consultation:: colitis on CT and esophagitis on CT - History of Present Illness Chief Complaint: abdominal pain History of Present Illness: 56 M with DM, HTN, ESRD on HD, polysubstance abuse, admitted with weakness and abdominal pain. He is a poor historian and has poor short-term memory. - History Source History Provided By: Patient, Medical Record, Caregiver Limitations to Obtaining History: Clinical Condition - Past Medical History Cardio/Vascular: Yes: HTN, Hyperlipdemia Renal/: Yes: Renal Inusuff, Hemodialysis Endocrine: Yes: Diabetes Mellitus Additional Medical History: polysubstance abuse - Past Surgical History Past Surgical History: Yes: AV Fistula/Graft - Alcohol/Substance Use Hx Alcohol Use: No History of Substance Use: reports: Cocaine, Heroin, Marijuana - Smoking History Smoking history: Former smoker Have you smoked in the past 12 months: No - Social History Usual Living Arrangement: Assisted Living Home Medications - Allergies Allergies/Adverse Reactions: Allergies Allergy/AdvReac Type Severity Reaction Status Date / Time No Known Drug Allergies Allergy Unknown Verified 06/17/16 19:01 lactose AdvReac Unknown LACTOSE Verified 06/17/16 19:01 INTOLERANCE - Home Medications Home Medications: Ambulatory Orders Amlodipine Besylate [Norvasc -] 10 mg PO DAILY #30 tablet 07/31/14 Ferrous Sulfate [Feosol] 325 mg PO TID #90 ud 07/31/14 Gabapentin [Neurontin -] 600 mg PO Q8H 30 Days 07/31/14 Acetaminophen [Tylenol .Regular Strength -] 650 mg PO Q6H PRN #0 tablet Aspirin [Ecotrin] 81 mg PO DAILY #30 tablet. 01/22/15 Furosemide [Lasix -] 40 mg PO DAILY tablet 01/22/15 Hydralazine HCl [Apresoline -] 100 mg PO TID tablet 01/22/15 Thiamine HCl [Vitamin B1 -] 100 mg PO HS tablet 01/22/15 Cinacalcet HCl [Sensipar -] 30 mg PO DAILY 03/13/16 Oxycodone HCl/Acetaminophen [Percocet 5-325 mg Tablet] 1 - 2 tab PO Q8H PRN Sevelamer Carbonate [Renvela] 800 mg PO TID 03/13/16 Vitamin B Complex 1 each PO DAILY 03/13/16 Meloxicam [Mobic] 1 tab PO DAILY PRN #30 03/14/16 Family Disease History - Family Disease History Family Disease History: Diabetes: Mother (ESRD), Brother (ESRD), CA: Father ( stomach,), Other: Mother, Brother Physical Exam-GI Vital Signs: Vital Signs Temperature 98.1 F 06/18/16 18:00 Pulse Rate 102 H 06/18/16 20:00 Respiratory Rate 21 06/18/16 20:00 Blood Pressure 129/94 06/18/16 20:00 O2 Sat by Pulse Oximetry (%) 98 06/18/16 20:57 Constitutional: Yes: Well Nourished, No Distress HENT: Yes: Normocephalic Neck: Yes: Supple Cardiovascular: Yes: Regular Rate and Rhythm Respiratory: Yes: CTA Bilaterally Gastrointestinal Inspection: Yes: Distention ...Auscultate: Yes: Normoactive Bowel Sounds ...Palpate: Yes: Tenderness (diffuse with no rebouond) ...Percussion: Yes: Tympanitic Neurological: Yes: Confusion Labs: CBC, BMP 06/18/16 04:30 06/18/16 04:30 INR, PTT INR 1.24 (0.82-1.09) H 06/18/16 04:30 Assessment/Plan BUN 183/Cr 19.7 on admission with abdominal pain on admission. Lactate 3.88 likely related to renal failure. CT shows circumerential thickening in the colon (?ischemia) and the esophagus ( likely esophagitis) Rec: Gentle hydration, AbRx and bowel rest at this time. Check CPK and myoglobin Follow CBC, lactate. IV PPI started AXR in AM
[2016-06-19] MEDS: PANTOPRAZOLE SODIUM 100 ML IVPB SCH ×2 (03:12→09:14)
[2016-06-19] MEDS: METRONIDAZOLE 500 MG PREMIXED 100 ML IVPB SCH ×3 (03:13→17:06)
[2016-06-19 06:04] LABS: BASOPHIL 0.2 % (0-2.0); EOSINOPHIL 0.6 % (0-4.5); MCH 32.1 pg (25.7-33.7); MCHC 33.8 g/dl (32.0-35.9); MEAN PLT VOLUME 8.5 fl (7.5-11.1); NEUTROPHILS 79.1 % (42.8-82.8); PLATELET COUNT 199 K/MM3 (134-434); RDW 14.8 % (11.9-15.9); WHITE BLOOD COUNT 13.4 K/mm3 (4.0-10.0)
[2016-06-19] MEDS: hydrALAZINE HCL 50 MG TABLET (FP) PO SCH ×3 (06:56→22:18)
[2016-06-19 07:02] LABS: ALBUMIN 2.4 g/dl (3.4-5.0); BILIRUBIN,TOTAL 0.6 mg/dL (0.2-1.0); CALCIUM 8.7 mg/dL (8.5-10.1); MAGNESIUM 2.1 mg/dL (1.8-2.4); PHOSPHOROUS 6.7 mg/dL (2.5-4.9)
[2016-06-19 07:31] LABS: ARTERIAL BLOOD GAS BASE EXCESS 3.8 meq/l (-2-2); ARTERIAL BLOOD GAS HCO3 27.7 meq/L (22-26); ARTERIAL BLOOD GAS PO2 90.1 mmHg (80-100); ARTERIAL BLOOD GAS pH 7.45 (7.35-7.45)
[2016-06-19 07:32] LABS: ALLENS TEST POSITIVE; ART PUNCT SITE RIGHT RADIAL; LPM/O2% 2 LPM; PT. ON O2? YES; TYPE OF O2 N/C
[2016-06-19 08:06] LABS: CREATININE 9.2 mg/dL (0.7-1.3)
[2016-06-19] MEDS: SEVELAMER CARBONATE 800 MG TAB (FP) PO SCH ×3 (09:13→17:06)
[2016-06-19] MEDS: HEPARIN NA (PORCINE) 5,000 UNITS/ML 1ML VIAL SQ SCH ×2 (09:14→22:18)
[2016-06-19] MEDS: ASPIRIN 81 MG CHEWABLE TABLETS PO SCH (09:14)
[2016-06-19] MEDS: amLODIPine BESYLATE 10 MG TABLET (FP) PO SCH (09:14)
[2016-06-19] MEDS: CINACALCET HCL 30 MG TAB (FP) PO SCH (09:14)
[2016-06-19] MEDS: ACETAMINOPHEN 325 MG TABLET (FP) PO PRN (09:15)
[2016-06-19] MEDS: VITAMIN B COMPLEX W/C COMBO TABLET (FP) PO SCH (09:15)
[2016-06-19] MEDS: FERROUS SO4 325 MG TABLET (FP) PO SCH ×3 (09:15→17:06)
--- NOTE | 2016-06-19 10:04 | PN ---
Progress Note, Physician Chief Complaint: Had dialysis yesterday No jerky movements has pain in abdomen- not severe No SOB - Current Medication List Current Medications: Active Medications Acetaminophen (Tylenol -) 650 mg PO Q6H PRN PRN Reason: FEVER OR PAIN Last Admin: 06/19/16 09:15 Dose: 650 mg Amlodipine Besylate (Norvasc -) 10 mg PO DAILY [facility] Last Admin: 06/19/16 09:14 Dose: 10 mg Aspirin (Asa -) 81 mg PO DAILY [facility] Last Admin: 06/19/16 09:14 Dose: 81 mg Cinacalcet (Sensipar -) 30 mg PO DAILY [facility] Last Admin: 06/19/16 09:14 Dose: 30 mg Ferrous Sulfate (Feosol -) 325 mg PO TIDCM [facility] Last Admin: 06/19/16 09:15 Dose: 325 mg Furosemide (Lasix -) 40 mg PO DAILY [facility] Last Admin: 06/18/16 11:02 Dose: 40 mg Heparin Sodium (Porcine) (Heparin -) 5,000 unit SQ BID [facility] Last Admin: 06/19/16 09:14 Dose: 5,000 unit Hydralazine HCl (Apresoline -) 100 mg PO TID [facility] Last Admin: 06/19/16 06:56 Dose: 100 mg Levofloxacin (Levaquin 250 Mg Premixed Ivpb -) 50 mls @ 50 mls/hr IVPB Q48H TUNG Metronidazole (Flagyl 500mg Premixed Ivpb -) 100 mls @ 100 mls/hr IVPB Q8H-IV [facility] Last Admin: 06/19/16 09:56 Dose: 100 mls/hr Pantoprazole Sodium (Protonix 40mg Ivpb (Pre-Docked)) 100 mls @ 200 mls/hr IVPB BID [facility] Last Admin: 06/19/16 09:14 Dose: 200 mls/hr Multivitamins (Total B With C -) 1 each PO DAILY [facility] Last Admin: 06/19/16 09:15 Dose: 1 each Sevelamer Carbonate (Renvela -) 800 mg PO TIDCM [facility] Last Admin: 06/19/16 09:13 Dose: 800 mg Thiamine HCl (Vitamin B1 -) 100 mg PO HS [facility] Last Admin: 06/18/16 21:47 Dose: 100 mg - Objective Vital Signs: Vital Signs Temperature 98.8 F 06/19/16 09:59 Pulse Rate 98 H 06/19/16 09:59 Respiratory Rate 22 06/19/16 09:59 Blood Pressure 148/73 06/19/16 09:59 O2 Sat by Pulse Oximetry (%) 95 06/19/16 09:40 Constitutional: Yes: No Distress, Calm Cardiovascular: Yes: Regular Rate and Rhythm Respiratory: Yes: Diminished Gastrointestinal: Yes: Normal Bowel Sounds, Soft, Tenderness (right and left LQ) . No: Distention, Vomiting Edema: No Psychiatric: Yes: Alert, Oriented Labs: CBC, BMP 06/19/16 05:05 06/19/16 05:05 INR, PTT INR 1.24 (0.82-1.09) H 06/18/16 04:30 - ....Imaging X-ray: Report Reviewed Problem List - Problems (1) Esophagitis Code(s): K20.9 - ESOPHAGITIS, UNSPECIFIED (2) Ileus Code(s): K56.7 - ILEUS, UNSPECIFIED (3) Pneumonia Code(s): J18.9 - PNEUMONIA, UNSPECIFIED ORGANISM Qualifiers: Pneumonia type: due to unspecified organism (4) Sepsis Code(s): A41.9 - SEPSIS, UNSPECIFIED ORGANISM (5) Hyperkalemia Code(s): E87.5 - HYPERKALEMIA (6) HTN (hypertension) Code(s): I10 - ESSENTIAL (PRIMARY) HYPERTENSION (7) Uremia Code(s): N19 - UNSPECIFIED KIDNEY FAILURE Assessment/Plan PLAN -- pt was dialysed yesterday -- Nephrology evaluation and GI evaluation appreciated -- spoke with [employer] -- possibly pt consumed alcohol? unsure as pt is [place] resident but he does go out on pass --GI prophylaxis and esophagitis-- PPI -- on Iv antibiotics for colitis, possible pneumonia -- Blood cultures negative -- stool for cdiff negative -- influenza negative -- tolerating liquid diet -- nebs as needed -- DVT prophylaxis- Heparin sc
[2016-06-19] MEDS: FUROSEMIDE 40 MG TABLET (FP) PO SCH (10:33)
--- NOTE | 2016-06-19 10:51 | PN ---
Progress Note, Physician History of Present Illness: Pt seen and examined at bedside. He is more awake and alert today. He denies shortness of breath. - Current Medication List Current Medications: Active Medications Acetaminophen (Tylenol -) 650 mg PO Q6H PRN PRN Reason: FEVER OR PAIN Last Admin: 06/19/16 09:15 Dose: 650 mg Amlodipine Besylate (Norvasc -) 10 mg PO DAILY [facility] Last Admin: 06/19/16 09:14 Dose: 10 mg Aspirin (Asa -) 81 mg PO DAILY [facility] Last Admin: 06/19/16 09:14 Dose: 81 mg Cinacalcet (Sensipar -) 30 mg PO DAILY [facility] Last Admin: 06/19/16 09:14 Dose: 30 mg Ferrous Sulfate (Feosol -) 325 mg PO TIDCM [facility] Last Admin: 06/19/16 09:15 Dose: 325 mg Furosemide (Lasix -) 40 mg PO DAILY [facility] Last Admin: 06/19/16 10:33 Dose: 40 mg Heparin Sodium (Porcine) (Heparin -) 5,000 unit SQ BID [facility] Last Admin: 06/19/16 09:14 Dose: 5,000 unit Hydralazine HCl (Apresoline -) 100 mg PO TID [facility] Last Admin: 06/19/16 06:56 Dose: 100 mg Levofloxacin (Levaquin 250 Mg Premixed Ivpb -) 50 mls @ 50 mls/hr IVPB Q48H [facility]G Metronidazole (Flagyl 500mg Premixed Ivpb -) 100 mls @ 100 mls/hr IVPB Q8H-IV [facility] Last Admin: 06/19/16 09:56 Dose: 100 mls/hr Pantoprazole Sodium (Protonix 40mg Ivpb (Pre-Docked)) 100 mls @ 200 mls/hr IVPB BID [facility] Last Admin: 06/19/16 09:14 Dose: 200 mls/hr Multivitamins (Total B With C -) 1 each PO DAILY [facility] Last Admin: 06/19/16 09:15 Dose: 1 each Sevelamer Carbonate (Renvela -) 800 mg PO TIDCM [facility] Last Admin: 06/19/16 09:13 Dose: 800 mg Thiamine HCl (Vitamin B1 -) 100 mg PO HS [facility] Last Admin: 06/18/16 21:47 Dose: 100 mg - Objective Vital Signs: Vital Signs Temperature 98.8 F 06/19/16 09:59 Pulse Rate 98 H 06/19/16 09:59 Respiratory Rate 22 06/19/16 09:59 Blood Pressure 148/73 06/19/16 09:59 O2 Sat by Pulse Oximetry (%) 95 06/19/16 09:40 Constitutional: Yes: Calm Eyes: Yes: Conjunctiva Clear HENT: Yes: Atraumatic Cardiovascular: Yes: S1, S2 Respiratory: Yes: CTA Bilaterally, On Nasal O2 Gastrointestinal: Yes: Soft Musculoskeletal: Yes: WNL Edema: No Neurological: Yes: Oriented Psychiatric: Yes: Oriented Labs: CBC, BMP 06/19/16 05:05 06/19/16 05:05 INR, PTT INR 1.24 (0.82-1.09) H 06/18/16 04:30 Problem List - Problems (1) Hyperkalemia Code(s): E87.5 - HYPERKALEMIA (2) HTN (hypertension) Code(s): I10 - ESSENTIAL (PRIMARY) HYPERTENSION (3) ESRD (end stage renal disease) Code(s): N18.6 - END STAGE RENAL DISEASE Assessment/Plan Current Medications Generic Name Dose Route Start Last Admin Trade Name Freq PRN Reason Stop Dose Admin Acetaminophen 650 mg 06/17/16 23:04 06/19/16 09:15 Tylenol - PO 650 mg Q6H PRN Administration FEVER OR PAIN Amlodipine Besylate 10 mg 06/18/16 10:00 06/19/16 09:14 Norvasc - PO 10 mg DAILY [facility] Administration Aspirin 81 mg 06/18/16 10:00 06/19/16 09:14 Asa - PO 81 mg DAILY [facility] Administration Cinacalcet 30 mg 06/18/16 10:00 06/19/16 09:14 Sensipar - PO 30 mg DAILY [facility] Administration Ferrous Sulfate 325 mg 06/18/16 08:00 06/19/16 09:15 Feosol - PO 325 mg TIDCM [facility] Administration Furosemide 40 mg 06/18/16 10:00 06/19/16 10:33 Lasix - PO 40 mg DAILY [facility] Administration Heparin Sodium (Porcine) 5,000 unit 06/18/16 22:00 06/19/16 09:14 Heparin - SQ 5,000 unit BID [facility] Administration Hydralazine HCl 100 mg 06/18/16 06:00 06/19/16 06:56 Apresoline - PO 100 mg TID [facility] Administration Levofloxacin 50 mls @ 50 mls/hr 06/20/16 10:00 Levaquin 250 Mg Premixed Ivpb - IVPB Q48H [facility] Metronidazole 100 mls @ 100 mls/hr 06/18/16 10:00 06/19/16 09:56 Flagyl 500mg Premixed Ivpb - IVPB 100 mls/hr Q8H-IV [facility] Administration Pantoprazole Sodium 100 mls @ 200 mls/hr 06/18/16 23:45 06/19/16 09:14 Protonix 40mg Ivpb (Pre-Docked) IVPB 200 mls/hr BID [facility] Administration Multivitamins 1 each 06/18/16 10:00 06/19/16 09:15 Total B With C - PO 1 each DAILY [facility] Administration Sevelamer Carbonate 800 mg 06/18/16 08:00 06/19/16 09:13 Renvela - PO 800 mg TIDCM [facility] Administration Thiamine HCl 100 mg 06/18/16 22:00 06/18/16 21:47 Vitamin B1 - PO 100 mg HS [facility] Administration Impression 1. ESRD 2. hyperkalemia 3. HTN 4. non compliance 5. DM 6. encephalopathy 7. hyponatremia Plan - will arrange for HD tomorrow - would not restart neurontin at this time, will need lower dose - epogen for anemia - mental status is markedly improved - will increase HD time to 4 hours - will order pre and post BUN to calculate URR - monitor bp - monitor mental status Dr Almazan
--- NOTE | 2016-06-19 11:56 | PN ---
Teaching Attending Note Name of Resident: Gerry Monaco ATTENDING PHYSICIAN STATEMENT I saw and evaluated the patient. I reviewed the resident's note and discussed the case with the resident. I agree with the resident's findings and plan as documented. SUBJECTIVE: Pt seen and examined in the ICU. Dialyzed yesterday. More alert, awake today. No shortness of breath or chest pain. OBJECTIVE: Last Vital Signs Temp Pulse Resp BP Pulse Ox 98.8 F 98 H 22 148/73 95 06/19/16 09:59 06/19/16 09:59 06/19/16 09:59 06/19/16 09:59 06/19/16 11:47 Intake & Output 06/16/16 06/17/16 06/18/16 06/19/16 23:59 23:59 23:59 23:59 Intake Total 2450 440 Balance 2450 440 Weight 205 lb 197 lb 1 oz Gen: more alert, awake, asterixis improving Heart: RRR Lung: decreased breath sounds at the bases Abd: soft, nontender Ext: no edema CBC, BMP 06/19/16 05:05 06/19/16 05:05 Active Medications Acetaminophen (Tylenol -) 650 mg PO Q6H PRN PRN Reason: FEVER OR PAIN Last Admin: 06/19/16 09:15 Dose: 650 mg Amlodipine Besylate (Norvasc -) 10 mg PO DAILY [facility] Last Admin: 06/19/16 09:14 Dose: 10 mg Aspirin (Asa -) 81 mg PO DAILY [facility] Last Admin: 06/19/16 09:14 Dose: 81 mg Cinacalcet (Sensipar -) 30 mg PO DAILY [facility] Last Admin: 06/19/16 09:14 Dose: 30 mg Epoetin Mario (Epogen -) 4,000 units IVPUSH ONCE ONE Stop: 06/20/16 10:52 Ferrous Sulfate (Feosol -) 325 mg PO TIDCM [facility] Last Admin: 06/19/16 09:15 Dose: 325 mg Furosemide (Lasix -) 40 mg PO DAILY [facility] Last Admin: 06/19/16 10:33 Dose: 40 mg Heparin Sodium (Porcine) (Heparin -) 5,000 unit SQ BID [facility] Last Admin: 06/19/16 09:14 Dose: 5,000 unit Hydralazine HCl (Apresoline -) 100 mg PO TID [facility] Last Admin: 06/19/16 06:56 Dose: 100 mg Levofloxacin (Levaquin 250 Mg Premixed Ivpb -) 50 mls @ 50 mls/hr IVPB Q48H TUNG Metronidazole (Flagyl 500mg Premixed Ivpb -) 100 mls @ 100 mls/hr IVPB Q8H-IV [facility] Last Admin: 06/19/16 09:56 Dose: 100 mls/hr Pantoprazole Sodium (Protonix 40mg Ivpb (Pre-Docked)) 100 mls @ 200 mls/hr IVPB BID [facility] Last Admin: 06/19/16 09:14 Dose: 200 mls/hr Multivitamins (Total B With C -) 1 each PO DAILY [facility] Last Admin: 06/19/16 09:15 Dose: 1 each Sevelamer Carbonate (Renvela -) 800 mg PO TIDCM [facility] Last Admin: 06/19/16 09:13 Dose: 800 mg Thiamine HCl (Vitamin B1 -) 100 mg PO HS [facility] Last Admin: 06/18/16 21:47 Dose: 100 mg ASSESSMENT AND PLAN: Altered Mental Status likely from Uremia from missed HD session vs med effect ESRD on HD Hyperkalemia improved Hyponatremia improved r/o Colitis DM Anemia - HD per renal - on empiric antibiotics - f/u cultures - BP control - PO as tolerated - DVT prophylaxis - can monitor on floor
--- NOTE | 2016-06-19 12:02 | PN ---
Progress Note, Physician History of Present Illness: patient feels better mental status improved - Current Medication List Current Medications: Active Medications Acetaminophen (Tylenol -) 650 mg PO Q6H PRN PRN Reason: FEVER OR PAIN Last Admin: 06/19/16 09:15 Dose: 650 mg Amlodipine Besylate (Norvasc -) 10 mg PO DAILY [facility] Last Admin: 06/19/16 09:14 Dose: 10 mg Aspirin (Asa -) 81 mg PO DAILY [facility] Last Admin: 06/19/16 09:14 Dose: 81 mg Cinacalcet (Sensipar -) 30 mg PO DAILY [facility] Last Admin: 06/19/16 09:14 Dose: 30 mg Epoetin Mario (Epogen -) 4,000 units IVPUSH ONCE ONE Stop: 06/20/16 10:52 Ferrous Sulfate (Feosol -) 325 mg PO TIDCM [facility] Last Admin: 06/19/16 09:15 Dose: 325 mg Furosemide (Lasix -) 40 mg PO DAILY [facility] Last Admin: 06/19/16 10:33 Dose: 40 mg Heparin Sodium (Porcine) (Heparin -) 5,000 unit SQ BID [facility] Last Admin: 06/19/16 09:14 Dose: 5,000 unit Hydralazine HCl (Apresoline -) 100 mg PO TID [facility] Last Admin: 06/19/16 06:56 Dose: 100 mg Levofloxacin (Levaquin 250 Mg Premixed Ivpb -) 50 mls @ 50 mls/hr IVPB Q48H TUNG Metronidazole (Flagyl 500mg Premixed Ivpb -) 100 mls @ 100 mls/hr IVPB Q8H-IV [facility] Last Admin: 06/19/16 09:56 Dose: 100 mls/hr Pantoprazole Sodium (Protonix 40mg Ivpb (Pre-Docked)) 100 mls @ 200 mls/hr IVPB BID [facility] Last Admin: 06/19/16 09:14 Dose: 200 mls/hr Multivitamins (Total B With C -) 1 each PO DAILY [facility] Last Admin: 06/19/16 09:15 Dose: 1 each Sevelamer Carbonate (Renvela -) 800 mg PO TIDCM [facility] Last Admin: 06/19/16 09:13 Dose: 800 mg Thiamine HCl (Vitamin B1 -) 100 mg PO HS [facility] Last Admin: 06/18/16 21:47 Dose: 100 mg - Objective Vital Signs: Vital Signs Temperature 98.8 F 06/19/16 09:59 Pulse Rate 98 H 06/19/16 09:59 Respiratory Rate 22 06/19/16 09:59 Blood Pressure 148/73 06/19/16 09:59 O2 Sat by Pulse Oximetry (%) 95 06/19/16 11:47 Constitutional: Yes: Well Nourished Eyes: Yes: EOM Intact HENT: Yes: Atraumatic Cardiovascular: Yes: RRR Respiratory: Yes: CTA Bilaterally Gastrointestinal: Yes: Soft, Abdomen, Obese, no tenderness Edema: No Labs: CBC, BMP 06/19/16 05:05 06/19/16 05:05 INR, PTT INR 1.24 (0.82-1.09) H 06/18/16 04:30 - ....Imaging X-ray: Report Reviewed, Image Reviewed (abdominal XR) Assessment/Plan Pt is a 56yr old man with PMHx of HTN, ESRD (HD on M/W/F), DM, neuropathy. Now in the ICU for acute on chronic renal failure with profound uremia hyperkalemia requiring emergency HD with AMS. patient missed dialysis Sepsis: possible PNA likely colitis GI consult appreciated KUB showed distended loops continue levaquin flagyl f/u culture no growth so far Trend CBC ESRD: dialyzed yesterday will dialyze again tomorrow trend lytes fistula duplex no significant stenosis HTN: continue hydralazine continue lasix continue norvasc AMS: likely from uremia-resolved cotnineu thiamine Anemia: continue iron PPx: HSQ Protonix PT consult FEN: no IVF no electrolyte issues on diet
--- NOTE | 2016-06-19 20:23 | PN ---
GI Progress Note Subjective: seen in the ICU, complaining of indigestion and abdominal distention - Objective Vital Signs: Vital Signs Temperature 98.4 F 06/19/16 18:00 Pulse Rate 91 H 06/19/16 18:00 Respiratory Rate 18 06/19/16 18:00 Blood Pressure 116/73 06/19/16 18:00 O2 Sat by Pulse Oximetry (%) 95 06/19/16 15:25 Constitutional: No Distress Eyes: Yes: Conjunctiva Clear HENT: Yes: Atraumatic Neck: Yes: Supple Cardiovascular: Yes: Regular Rate and Rhythm Respiratory: Yes: CTA Bilaterally Gastrointestinal Inspection: Yes: Distention ...Auscultate: Yes: Normoactive Bowel Sounds ...Palpate: Yes: Soft. No: Firm/Rigid, Guarding, Hepatomegaly, Mass, Pulsatile Mass, Splenomegaly, Tenderness ...Percussion: Yes: Tympanitic Labs: CBC, BMP 06/19/16 05:05 06/19/16 05:05 INR, PTT INR 1.24 (0.82-1.09) H 06/18/16 04:30 Problem List - Problems (1) Ileus Assessment/Plan: vs SBO R> NGT keep NPO KUB in AM surgical consult Code(s): K56.7 - ILEUS, UNSPECIFIED
--- NOTE | 2016-06-19 20:49 | CONSULT ---
Consult Consult Specialty:: Surgery Referred by:: Pavan Kumar - History of Present Illness Chief Complaint: Abdominal discomfort, ? upper abdominal pain.. - History Source History Provided By: Patient Limitations to Obtaining History: No Limitations - Past Medical History Cardio/Vascular: Yes: HTN, Hyperlipdemia Renal/: Yes: Renal Inusuff, Hemodialysis Endocrine: Yes: Diabetes Mellitus Additional Medical History: polysubstance abuse - Past Surgical History Past Surgical History: Yes: AV Fistula/Graft - Alcohol/Substance Use Hx Alcohol Use: No History of Substance Use: reports: Cocaine, Heroin, Marijuana - Smoking History Smoking history: Former smoker Have you smoked in the past 12 months: No - Social History Usual Living Arrangement: Assisted Living Home Medications - Allergies Allergies/Adverse Reactions: Allergies Allergy/AdvReac Type Severity Reaction Status Date / Time No Known Drug Allergies Allergy Unknown Verified 06/17/16 19:01 lactose AdvReac Unknown LACTOSE Verified 06/17/16 19:01 INTOLERANCE - Home Medications Home Medications: Ambulatory Orders Amlodipine Besylate [Norvasc -] 10 mg PO DAILY #30 tablet 07/31/14 Ferrous Sulfate [Feosol] 325 mg PO TID #90 ud 07/31/14 Gabapentin [Neurontin -] 600 mg PO Q8H 30 Days 07/31/14 Acetaminophen [Tylenol .Regular Strength -] 650 mg PO Q6H PRN #0 tablet Aspirin [Ecotrin] 81 mg PO DAILY #30 tablet.dr 01/22/15 Furosemide [Lasix -] 40 mg PO DAILY tablet 01/22/15 Hydralazine HCl [Apresoline -] 100 mg PO TID tablet 01/22/15 Thiamine HCl [Vitamin B1 -] 100 mg PO HS tablet 01/22/15 Cinacalcet HCl [Sensipar -] 30 mg PO DAILY 03/13/16 Oxycodone HCl/Acetaminophen [Percocet 5-325 mg Tablet] 1 - 2 tab PO Q8H PRN Sevelamer Carbonate [Renvela] 800 mg PO TID 03/13/16 Vitamin B Complex 1 each PO DAILY 03/13/16 Meloxicam [Mobic] 1 tab PO DAILY PRN #30 03/14/16 Family Disease History - Family Disease History Family Disease History: Diabetes: Mother (ESRD), Brother (ESRD), CA: Father ( stomach,), Other: Mother, Brother Review of Systems - Review of Systems Gastrointestinal: reports: Abdominal Pain, Bloating Physical Exam Vital Signs: Vital Signs Temperature 98.4 F 06/19/16 18:00 Pulse Rate 91 H 06/19/16 18:00 Respiratory Rate 18 06/19/16 18:00 Blood Pressure 116/73 06/19/16 18:00 O2 Sat by Pulse Oximetry (%) 95 06/19/16 15:25 Gastrointestinal: Yes: WNL, Normal Bowel Sounds, Soft Labs: CBC, BMP 06/19/16 05:05 06/19/16 05:05 Imaging - Results X-ray: Report Reviewed, Image Reviewed Cat Scan: Report Reviewed, Image Reviewed Problem List - Problems (1) Abdominal distention Code(s): R14.0 - ABDOMINAL DISTENSION (GASEOUS) (2) Colitis Code(s): K52.9 - NONINFECTIVE GASTROENTERITIS AND COLITIS, UNSPECIFIED (3) Renal failure Code(s): N19 - UNSPECIFIED KIDNEY FAILURE (4) Essential hypertension Code(s): I10 - ESSENTIAL (PRIMARY) HYPERTENSION (5) Sepsis Code(s): A41.9 - SEPSIS, UNSPECIFIED ORGANISM Assessment/Plan Patient does not seem to have intestinal obstruction , NG tube is placed, very little gastric contents aspirated . Patient feels better after insertion of NG tube. CT scan was done only with IV contrast and no oral contrast. Will repeat abdominal CT scan with oral contrast only. will follow. Doubt any acute intrabdominal process, needing acute surgical intervention.
[2016-06-19] MEDS ORDERED: hydrALAZINE HCL 20 MG/ML VIAL IVPUSH PRN (22:13)
[2016-06-19] MEDS: PANTOPRAZOLE SODIUM 40MG/100 ML IVPB SCH (22:18)
[2016-06-19] MEDS: THIAMINE HCL 100 MG TABLET (FP) PO SCH (22:19)
[2016-06-20 00:07] LABS: HEP B SURFACE AB Reactive (.)
[2016-06-20] MEDS: METRONIDAZOLE 500 MG PREMIXED 100 ML IVPB SCH ×3 (03:00→17:50)
[2016-06-20 06:15] LABS: MCH 32.4 pg (25.7-33.7); MCHC 33.9 g/dl (32.0-35.9); MEAN CELL VOLUME 95.5 fl (80-96); MEAN PLT VOLUME 8.3 fl (7.5-11.1); PLATELET COUNT 229 K/MM3 (134-434); RDW 14.6 % (11.9-15.9); WHITE BLOOD COUNT 16.8 K/mm3 (4.0-10.0)
[2016-06-20] MEDS: hydrALAZINE HCL 50 MG TABLET (FP) PO SCH ×3 (07:00→21:30)
[2016-06-20 07:30] LABS: CALCIUM 8.6 mg/dL (8.5-10.1)
[2016-06-20] MEDS: FERROUS SO4 325 MG TABLET (FP) PO SCH ×3 (08:00→16:50)
[2016-06-20] MEDS: SEVELAMER CARBONATE 800 MG TAB (FP) PO SCH ×3 (08:00→16:50)
[2016-06-20 08:38] LABS: CREATININE 11.9 mg/dL (0.7-1.3)
[2016-06-20] MEDS ORDERED: EPOETIN ALFA 2,000 UNITS/1 ML VIAL IVPUSH ONE ×2 (09:00→10:51)
[2016-06-20] MEDS: amLODIPine BESYLATE 10 MG TABLET (FP) PO SCH (09:35)
[2016-06-20] MEDS: FUROSEMIDE 40 MG TABLET (FP) PO SCH (09:35)
[2016-06-20] MEDS: ASPIRIN 81 MG CHEWABLE TABLETS PO SCH (09:35)
[2016-06-20] MEDS: CINACALCET HCL 30 MG TAB (FP) PO SCH (09:36)
[2016-06-20] MEDS: VITAMIN B COMPLEX W/C COMBO TABLET (FP) PO SCH (09:37)
--- NOTE | 2016-06-20 09:48 | PN ---
Progress Note, Physician History of Present Illness: feels worse today more tired appearing than yesterday NG tube placed by GI feculent vomitus this AM being dialyzed for CT ABD this AM with PO contrast - Current Medication List Current Medications: Active Medications Acetaminophen (Tylenol -) 650 mg PO Q6H PRN PRN Reason: FEVER OR PAIN Amlodipine Besylate (Norvasc -) 10 mg PO DAILY [facility] Last Admin: 06/20/16 09:35 Dose: Not Given Aspirin (Asa -) 81 mg PO DAILY [facility] Last Admin: 06/20/16 09:35 Dose: Not Given Cinacalcet (Sensipar -) 30 mg PO DAILY [facility] Last Admin: 06/20/16 09:36 Dose: Not Given Ferrous Sulfate (Feosol -) 325 mg PO TIDCM [facility] Last Admin: 06/20/16 08:00 Dose: Not Given Furosemide (Lasix -) 40 mg PO DAILY [facility] Last Admin: 06/20/16 09:35 Dose: Not Given Heparin Sodium (Porcine) (Heparin -) 5,000 unit SQ BID [facility] Last Admin: 06/19/16 22:18 Dose: 5,000 unit Hydralazine HCl (Apresoline -) 100 mg PO TID [facility] Last Admin: 06/20/16 07:00 Dose: Not Given Hydralazine HCl (Apresoline Injection -) 10 mg IVPUSH Q6H PRN PRN Reason: HYPERTENSION Metronidazole (Flagyl 500mg Premixed Ivpb -) 100 mls @ 100 mls/hr IVPB Q8H-IV [facility] Last Admin: 06/20/16 03:00 Dose: 100 mls/hr Levofloxacin (Levaquin 250 Mg Premixed Ivpb -) 50 mls @ 50 mls/hr IVPB Q48H TUNG Pantoprazole Sodium (Protonix 40mg Ivpb (Pre-Docked)) 100 mls @ 200 mls/hr IVPB BID [facility] Last Admin: 06/19/16 22:18 Dose: 200 mls/hr Multivitamins (Total B With C -) 1 each PO DAILY [facility] Last Admin: 06/20/16 09:37 Dose: Not Given Sevelamer Carbonate (Renvela -) 800 mg PO TIDCM [facility] Last Admin: 06/20/16 08:00 Dose: Not Given Thiamine HCl (Vitamin B1 -) 100 mg PO HS [facility] Last Admin: 06/19/16 22:19 Dose: Not Given - Objective Vital Signs: Vital Signs Temperature 98.1 F 06/20/16 06:55 Pulse Rate 105 H 06/20/16 08:00 Respiratory Rate 21 06/20/16 08:00 Blood Pressure 147/81 06/20/16 08:00 O2 Sat by Pulse Oximetry (%) 96 06/20/16 08:00 Constitutional: Yes: Well Nourished Eyes: Yes: EOM Intact HENT: Yes: Atraumatic Cardiovascular: Yes: RRR Respiratory: Yes: CTA Bilaterally Gastrointestinal: Yes: Soft, Abdomen obese mildly distended slight tenderness to palpation over epigastrium Edema: No Labs: CBC, BMP 06/20/16 05:35 06/20/16 06:00 INR, PTT INR 1.24 (0.82-1.09) H 06/18/16 04:30 - ....Imaging X-ray: Report Reviewed, Image Reviewed Assessment/Plan Pt is a 56yr old man with PMHx of HTN, ESRD (HD on /W/), DM, neuropathy. Now in the ICU for acute on chronic renal failure with profound uremia hyperkalemia requiring emergency HD with AMS. patient missed dialysis Sepsis: possible PNA likely colitis GI consult appreciated surgery consult appreciated patient now with NGT concern for SBO will get CT scan with PO contrast KUB showed distended loops unchanged continue levaquin flagyl f/u culture no growth so far Trend CBC ESRD: dialyzed today trend lytes fistula duplex no significant stenosis HTN: continue hydralazine continue lasix continue norvasc AMS: likely from uremia-resolved cotnineu thiamine Anemia: continue iron PPx: HSQ Protonix PT consult FEN: no IVF no electrolyte issues on diet
[2016-06-20] MEDS: PANTOPRAZOLE SODIUM 40MG/100 ML IVPB SCH ×2 (09:52→21:28)
[2016-06-20] MEDS: LEVOFLOXACIN 250 MG IVPB 50 ML IVPB SCH (09:52)
[2016-06-20] MEDS ORDERED: LEVOFLOXACIN 250 MG IVPB 50 ML IVPB SCH (10:00)
--- NOTE | 2016-06-20 11:18 | PN ---
Progress Note (short form) - Note Progress Note: SUBJECTIVE: Patient seen and examined in the ICU. Just finished dialysis. All follow ups noted. Feels better now. Reports pain is better. OBJECTIVE: Vital Signs - 8 hr 06/20/16 06/20/16 06/20/16 04:00 06:00 06:55 Temperature 97 F L 98.1 F Pulse Rate 95 H 92 H 91 H Respiratory 19 20 23 Rate Blood Pressure 121/71 132/78 136/73 O2 Sat by Pulse Oximetry (%) 06/20/16 06/20/16 06/20/16 07:00 07:30 08:00 Temperature Pulse Rate 88 98 H 105 H Respiratory 25 H 17 21 Rate Blood Pressure 132/78 150/82 147/81 O2 Sat by Pulse 94 L Oximetry (%) 06/20/16 06/20/16 06/20/16 08:30 09:00 09:30 Temperature Pulse Rate 113 H 112 H 111 H Respiratory 18 17 15 Rate Blood Pressure 114/68 120/85 132/106 O2 Sat by Pulse Oximetry (%) 06/20/16 06/20/16 06/20/16 10:00 10:30 11:00 Temperature 97.2 F L Pulse Rate 116 H 113 H 113 H Respiratory 22 21 18 Rate Blood Pressure 133/83 128/89 100/63 O2 Sat by Pulse Oximetry (%) 06/20/16 11:14 Temperature Pulse Rate 117 H Respiratory 24 Rate Blood Pressure 124/79 O2 Sat by Pulse Oximetry (%) Intake & Output 06/19/16 06/20/16 06/20/16 23:59 07:59 15:59 Intake Total 1130 200 Output Total 0 25 Balance 1130 175 Weight 89 kg Intake: IVPB 100 200 Oral 1030 Output: Gastric Drainage 25 Urine 0 Void 0 Other: Voiding Method Urinal # Unmeasured Voids Void 0 Weight Measurement Method Built in [facility] Active Medications Acetaminophen (Tylenol -) 650 mg PO Q6H PRN PRN Reason: FEVER OR PAIN Amlodipine Besylate (Norvasc -) 10 mg PO DAILY [facility] Last Admin: 06/20/16 09:35 Dose: Not Given Aspirin (Asa -) 81 mg PO DAILY [facility] Last Admin: 06/20/16 09:35 Dose: Not Given Cinacalcet (Sensipar -) 30 mg PO DAILY [facility] Last Admin: 06/20/16 09:36 Dose: Not Given Ferrous Sulfate (Feosol -) 325 mg PO TIDCM [facility] Last Admin: 06/20/16 08:00 Dose: Not Given Furosemide (Lasix -) 40 mg PO DAILY [facility] Last Admin: 06/20/16 09:35 Dose: Not Given Heparin Sodium (Porcine) (Heparin -) 5,000 unit SQ BID [facility] Last Admin: 06/19/16 22:18 Dose: 5,000 unit Hydralazine HCl (Apresoline -) 100 mg PO TID [facility] Last Admin: 06/20/16 07:00 Dose: Not Given Hydralazine HCl (Apresoline Injection -) 10 mg IVPUSH Q6H PRN PRN Reason: HYPERTENSION Metronidazole (Flagyl 500mg Premixed Ivpb -) 100 mls @ 100 mls/hr IVPB Q8H-IV [facility] Last Admin: 06/20/16 09:52 Dose: 100 mls/hr Levofloxacin (Levaquin 250 Mg Premixed Ivpb -) 50 mls @ 50 mls/hr IVPB Q48H [facility] Last Admin: 06/20/16 09:52 Dose: 50 mls/hr Pantoprazole Sodium (Protonix 40mg Ivpb (Pre-Docked)) 100 mls @ 200 mls/hr IVPB BID [facility] Last Admin: 06/20/16 09:52 Dose: 200 mls/hr Multivitamins (Total B With C -) 1 each PO DAILY [facility] Last Admin: 06/20/16 09:37 Dose: Not Given Sevelamer Carbonate (Renvela -) 800 mg PO TIDCM [facility] Last Admin: 06/20/16 08:00 Dose: Not Given Thiamine HCl (Vitamin B1 -) 100 mg PO [facility] Last Admin: 06/19/16 22:19 Dose: Not Given CBC, BMP 06/20/16 05:35 Laboratory Results - last 24 hr 06/18/16 06/19/16 06/20/16 04:30 16:17 05:35 WBC 16.8 H RBC 2.91 L Hgb 9.4 L Hct 27.8 L MCV 95.5 MCHC 33.9 RDW 14.6 Plt Count 229 MPV 8.3 Sodium Potassium Chloride Carbon Dioxide Anion Gap BUN Creatinine POC Glucometer [id number] Random Glucose Lactic Acid Calcium Phosphorus Hepatitis A IgM Ab Negative Hepatitis A Ab Total Positive H Hep Bs Antigen Negative Hep Bs Antibody Reactive Hep B Core Total Ab Negative 06/20/16 06/20/16 06/20/16 05:35 05:35 06:00 WBC RBC Hgb Hct MCV MCHC RDW Plt Count MPV Sodium 135 L Potassium 4.8 Chloride 94 L Carbon Dioxide 27 Anion Gap 14 BUN 92 H D Creatinine 11.9 H* D POC Glucometer Random Glucose 110 H Lactic Acid 0.743 Calcium 8.6 Phosphorus 7.8 H Hepatitis A IgM Ab Hepatitis A Ab Total Hep Bs Antigen Hep Bs Antibody Hep B Core Total Ab Microbiology 06/17/16 23:30 Blood Culture - Preliminary Blood - Peripheral Venous NO GROWTH OBTAINED AFTER 48 HOURS, INCUBATION TO CONTINUE FOR 3 DAYS. 06/17/16 23:30 Blood Culture - Preliminary Blood - Peripheral Venous NO GROWTH OBTAINED AFTER 48 HOURS, INCUBATION TO CONTINUE FOR 3 DAYS. PHYSICAL EXAMINATION: Constitutional: Yes: No Distress, Calm NG Tube is present. Cardiovascular: Yes: Regular Rate and Rhythm Respiratory: Yes: Diminished Gastrointestinal: Yes: Quiet/ Soft. Edema: No Psychiatric: Yes: Alert, Oriented ASSESSMENT & PLAN: - Small bowel ileus versus obstruction. - Surgical consult noted. - Continue present care. - Monitor labs. - KUB noted. - CT scan with oral contrast pending. - Will follow. - Continue close monitoring. Problem List - Problems (1) Esophagitis Code(s): K20.9 - ESOPHAGITIS, UNSPECIFIED (2) Ileus Code(s): K56.7 - ILEUS, UNSPECIFIED (3) Pneumonia Code(s): J18.9 - PNEUMONIA, UNSPECIFIED ORGANISM Qualifiers: Pneumonia type: due to unspecified organism (4) Sepsis Code(s): A41.9 - SEPSIS, UNSPECIFIED ORGANISM (5) Hyperkalemia Code(s): E87.5 - HYPERKALEMIA (6) HTN (hypertension) Code(s): I10 - ESSENTIAL (PRIMARY) HYPERTENSION (7) Uremia Code(s): N19 - UNSPECIFIED KIDNEY FAILURE Documentation prepared by Dawn Ward, acting as a medical review specialist for José Browne MD.
[2016-06-20 11:46] LABS: CREATININE 3.5 mg/dL (0.7-1.3)
[2016-06-20] MEDS ORDERED: HEPARIN NA (PORCINE) 5,000 UNITS/ML 1ML VIAL ONE (12:07)
--- NOTE | 2016-06-20 12:21 | PN ---
Teaching Attending Note Name of Resident: Gerry Monaco ATTENDING PHYSICIAN STATEMENT I saw and evaluated the patient. I reviewed the resident's note and discussed the case with the resident. I agree with the resident's findings and plan as documented. SUBJECTIVE: Patient seen and examined in the ICU. Currently on HD. Apparently more awake and alert than yesterday. NGT in place. Reports some abdominal discomfort. Intake & Output 06/17/16 06/18/16 06/19/16 06/20/16 23:59 23:59 23:59 23:59 Intake Total 2450 2310 200 Output Total 0 25 Balance 2450 2310 175 Weight 205 lb 197 lb 1 oz 196 lb 3.382 oz Last Vital Signs Temp Pulse Resp BP Pulse Ox 97.0 F L 117 H 24 122/74 96 06/20/16 12:00 06/20/16 12:00 06/20/16 12:00 06/20/16 12:00 06/20/16 08:00 Active Medications Acetaminophen (Tylenol -) 650 mg PO Q6H PRN PRN Reason: FEVER OR PAIN Amlodipine Besylate (Norvasc -) 10 mg PO DAILY [facility] Last Admin: 06/20/16 09:35 Dose: Not Given Aspirin (Asa -) 81 mg PO DAILY [facility] Last Admin: 06/20/16 09:35 Dose: Not Given Cinacalcet (Sensipar -) 30 mg PO DAILY [facility] Last Admin: 06/20/16 09:36 Dose: Not Given Ferrous Sulfate (Feosol -) 325 mg PO TIDCM [facility] Last Admin: 06/20/16 12:07 Dose: Not Given Furosemide (Lasix -) 40 mg PO DAILY [facility] Last Admin: 06/20/16 09:35 Dose: Not Given Heparin Sodium (Porcine) (Heparin -) 5,000 unit SQ BID [facility] Last Admin: 06/19/16 22:18 Dose: 5,000 unit Hydralazine HCl (Apresoline -) 100 mg PO TID [facility] Last Admin: 06/20/16 07:00 Dose: Not Given Hydralazine HCl (Apresoline Injection -) 10 mg IVPUSH Q6H PRN PRN Reason: HYPERTENSION Metronidazole (Flagyl 500mg Premixed Ivpb -) 100 mls @ 100 mls/hr IVPB Q8H-IV [facility] Last Admin: 06/20/16 09:52 Dose: 100 mls/hr Levofloxacin (Levaquin 250 Mg Premixed Ivpb -) 50 mls @ 50 mls/hr IVPB Q48H [facility] Last Admin: 06/20/16 09:52 Dose: 50 mls/hr Pantoprazole Sodium (Protonix 40mg Ivpb (Pre-Docked)) 100 mls @ 200 mls/hr IVPB BID [facility] Last Admin: 06/20/16 09:52 Dose: 200 mls/hr Morphine Sulfate (Morphine Injection -) 2 mg IVPUSH Q3H PRN PRN Reason: PAIN Multivitamins (Total B With C -) 1 each PO DAILY [facility] Last Admin: 06/20/16 09:37 Dose: Not Given Sevelamer Carbonate (Renvela -) 800 mg PO TIDCM [facility] Last Admin: 06/20/16 12:07 Dose: Not Given Thiamine HCl (Vitamin B1 -) 100 mg PO HS [facility] Last Admin: 06/19/16 22:19 Dose: Not Given Gen: more alert, awake, asterixis improving Heart: RRR Lung: decreased breath sounds at the bases Abd: soft, nontender Ext: no edema Laboratory Results - last 24 hr 06/18/16 06/19/16 06/20/16 04:30 16:17 05:35 WBC 16.8 H RBC 2.91 L Hgb 9.4 L Hct 27.8 L MCV 95.5 MCHC 33.9 RDW 14.6 Plt Count 229 MPV 8.3 Sodium Potassium Chloride Carbon Dioxide Anion Gap BUN Creatinine POC Glucometer [id number] Random Glucose Lactic Acid Calcium Phosphorus Hepatitis A IgM Ab Negative Hepatitis A Ab Total Positive H Hep Bs Antigen Negative Hep Bs Antibody Reactive Hep B Core Total Ab Negative 06/20/16 06/20/16 06/20/16 05:35 05:35 06:00 WBC RBC Hgb Hct MCV MCHC RDW Plt Count MPV Sodium 135 L Potassium 4.8 Chloride 94 L Carbon Dioxide 27 Anion Gap 14 BUN 92 H D Creatinine 11.9 H* D POC Glucometer Random Glucose 110 H Lactic Acid 0.743 Calcium 8.6 Phosphorus 7.8 H Hepatitis A IgM Ab Hepatitis A Ab Total Hep Bs Antigen Hep Bs Antibody Hep B Core Total Ab 06/20/16 11:05 WBC RBC Hgb Hct MCV MCHC RDW Plt Count MPV Sodium Potassium Chloride Carbon Dioxide Anion Gap BUN 26 H D Creatinine 3.5 H D POC Glucometer Random Glucose Lactic Acid Calcium Phosphorus Hepatitis A IgM Ab Hepatitis A Ab Total Hep Bs Antigen Hep Bs Antibody Hep B Core Total Ab ASSESSMENT AND PLAN: Altered Mental Status likely from Uremia from missed HD session vs med effect ESRD on HD Hyperkalemia improved Hyponatremia improved r/o Colitis DM Anemia - HD per renal - on empiric antibiotics - For repeat CT Ab/Pelvis with oral contrast - PO as tolerated - DVT prophylaxis - Pain control - Floor is no acute pathology on repeat imaging Dr Kan CCTime 35"
[2016-06-20] MEDS: morphine CARPU-JECT 2 MG/1 ML DISP.SYRIN IVPUSH PRN (12:25)
[2016-06-20] MEDS: HEPARIN NA (PORCINE) 5,000 UNITS/ML 1ML VIAL SQ SCH ×2 (12:29→21:30)
--- NOTE | 2016-06-20 16:56 | PN ---
Progress Note, Physician History of Present Illness: Pt seen and examined at bedside. He complains of nausea today. - Current Medication List Current Medications: Active Medications Acetaminophen (Tylenol -) 650 mg PO Q6H PRN PRN Reason: FEVER OR PAIN Amlodipine Besylate (Norvasc -) 10 mg PO DAILY [facility] Last Admin: 06/20/16 09:35 Dose: Not Given Aspirin (Asa -) 81 mg PO DAILY [facility] Last Admin: 06/20/16 09:35 Dose: Not Given Cinacalcet (Sensipar -) 30 mg PO DAILY [facility] Last Admin: 06/20/16 09:36 Dose: Not Given Ferrous Sulfate (Feosol -) 325 mg PO TIDCM [facility] Last Admin: 06/20/16 16:50 Dose: Not Given Furosemide (Lasix -) 40 mg PO DAILY [facility] Last Admin: 06/20/16 09:35 Dose: Not Given Heparin Sodium (Porcine) (Heparin -) 5,000 unit SQ BID [facility] Last Admin: 06/20/16 12:29 Dose: 5,000 unit Hydralazine HCl (Apresoline -) 100 mg PO TID [facility] Last Admin: 06/20/16 13:30 Dose: Not Given Hydralazine HCl (Apresoline Injection -) 10 mg IVPUSH Q6H PRN PRN Reason: HYPERTENSION Metronidazole (Flagyl 500mg Premixed Ivpb -) 100 mls @ 100 mls/hr IVPB Q8H-IV [facility] Last Admin: 06/20/16 09:52 Dose: 100 mls/hr Levofloxacin (Levaquin 250 Mg Premixed Ivpb -) 50 mls @ 50 mls/hr IVPB Q48H [facility] Last Admin: 06/20/16 09:52 Dose: 50 mls/hr Pantoprazole Sodium (Protonix 40mg Ivpb (Pre-Docked)) 100 mls @ 200 mls/hr IVPB BID [facility] Last Admin: 06/20/16 09:52 Dose: 200 mls/hr Morphine Sulfate (Morphine Injection -) 2 mg IVPUSH Q3H PRN PRN Reason: PAIN Last Admin: 06/20/16 12:25 Dose: 2 mg Multivitamins (Total B With C -) 1 each PO DAILY [facility] Last Admin: 06/20/16 09:37 Dose: Not Given Sevelamer Carbonate (Renvela -) 800 mg PO TIDCM [facility] Last Admin: 06/20/16 16:50 Dose: Not Given Thiamine HCl (Vitamin B1 -) 100 mg PO HS [facility] Last Admin: 06/19/16 22:19 Dose: Not Given - Objective Vital Signs: Vital Signs Temperature 97.0 F L 06/20/16 12:00 Pulse Rate 117 H 06/20/16 12:00 Respiratory Rate 24 06/20/16 12:00 Blood Pressure 122/74 06/20/16 12:00 O2 Sat by Pulse Oximetry (%) 96 06/20/16 08:00 Constitutional: Yes: Calm Eyes: Yes: Conjunctiva Clear HENT: Yes: Atraumatic Neck: Yes: Supple Cardiovascular: Yes: S1, S2 Respiratory: Yes: CTA Bilaterally Gastrointestinal: Yes: Soft, Other (has ng tube) Genitourinary: Yes: WNL Musculoskeletal: Yes: WNL Edema: No Neurological: Yes: Oriented Psychiatric: Yes: Oriented Labs: CBC, BMP 06/20/16 05:35 06/20/16 11:05 INR, PTT INR 1.24 (0.82-1.09) H 06/18/16 04:30 Problem List - Problems (1) Hyperkalemia Code(s): E87.5 - HYPERKALEMIA (2) HTN (hypertension) Code(s): I10 - ESSENTIAL (PRIMARY) HYPERTENSION (3) ESRD (end stage renal disease) Code(s): N18.6 - END STAGE RENAL DISEASE Assessment/Plan Current Medications Generic Name Dose Route Start Last Admin Trade Name Freq PRN Reason Stop Dose Admin Acetaminophen 650 mg 06/19/16 12:07 Tylenol - PO Q6H PRN FEVER OR PAIN Amlodipine Besylate 10 mg 06/20/16 10:00 06/20/16 09:35 Norvasc - PO Not Given DAILY [facility] Aspirin 81 mg 06/20/16 10:00 06/20/16 09:35 Asa - PO Not Given DAILY [facility] Cinacalcet 30 mg 06/20/16 10:00 06/20/16 09:36 Sensipar - PO Not Given DAILY [facility] Ferrous Sulfate 325 mg 06/19/16 17:30 06/20/16 16:50 Feosol - PO Not Given TIDCM [facility] Furosemide 40 mg 06/20/16 10:00 06/20/16 09:35 Lasix - PO Not Given DAILY [facility] Heparin Sodium (Porcine) 5,000 unit 06/19/16 22:00 06/20/16 12:29 Heparin - SQ 5,000 unit BID [facility] Administration Hydralazine HCl 100 mg 06/19/16 14:00 06/20/16 13:30 Apresoline - PO Not Given TID [facility] Hydralazine HCl 10 mg 06/19/16 22:13 Apresoline Injection - IVPUSH Q6H PRN HYPERTENSION Metronidazole 100 mls @ 100 mls/hr 06/19/16 18:00 06/20/16 09:52 Flagyl 500mg Premixed Ivpb - IVPB 100 mls/hr Q8H-IV [facility] Administration Levofloxacin 50 mls @ 50 mls/hr 06/20/16 10:00 06/20/16 09:52 Levaquin 250 Mg Premixed Ivpb - IVPB 50 mls/hr Q48H [facility] Administration Pantoprazole Sodium 100 mls @ 200 mls/hr 06/19/16 22:00 06/20/16 09:52 Protonix 40mg Ivpb (Pre-Docked) IVPB 200 mls/hr BID [facility] Administration Morphine Sulfate 2 mg 06/20/16 12:11 06/20/16 12:25 Morphine Injection - IVPUSH 2 mg Q3H PRN Administration PAIN Multivitamins 1 each 06/20/16 10:00 06/20/16 09:37 Total B With C - PO Not Given DAILY [facility] Sevelamer Carbonate 800 mg 06/19/16 17:30 06/20/16 16:50 Renvela - PO Not Given TIDCM [facility] Thiamine HCl 100 mg 06/19/16 22:00 06/19/16 22:19 Vitamin B1 - PO Not Given HS [facility] Impression 1. ESRD 2. hyperkalemia 3. HTN 4. non compliance 5. DM 6. encephalopathy 7. hyponatremia Plan - pt did well on HD - URR is about 71 - follow up abdominal ct scan - cont current meds - neurontin on hold - epogen for anemia - mental status is markedly improved - will increase HD time to 4 hours - monitor bp - monitor mental status Dr Almazan
--- NOTE | 2016-06-20 18:23 | PN ---
Progress Note, Physician Chief Complaint: Upper abdominal discomfort , pain. Has not had a bowel movement. NG tube in place. Gastric drainage only 250 ml in 24 hours. - Current Medication List Current Medications: Active Medications Acetaminophen (Tylenol -) 650 mg PO Q6H PRN PRN Reason: FEVER OR PAIN Amlodipine Besylate (Norvasc -) 10 mg PO DAILY [facility] Last Admin: 06/20/16 09:35 Dose: Not Given Aspirin (Asa -) 81 mg PO DAILY [facility] Last Admin: 06/20/16 09:35 Dose: Not Given Cinacalcet (Sensipar -) 30 mg PO DAILY [facility] Last Admin: 06/20/16 09:36 Dose: Not Given Ferrous Sulfate (Feosol -) 325 mg PO TIDCM [facility] Last Admin: 06/20/16 16:50 Dose: Not Given Furosemide (Lasix -) 40 mg PO DAILY [facility] Last Admin: 06/20/16 09:35 Dose: Not Given Heparin Sodium (Porcine) (Heparin -) 5,000 unit SQ BID [facility] Last Admin: 06/20/16 12:29 Dose: 5,000 unit Hydralazine HCl (Apresoline -) 100 mg PO TID [facility] Last Admin: 06/20/16 13:30 Dose: Not Given Hydralazine HCl (Apresoline Injection -) 10 mg IVPUSH Q6H PRN PRN Reason: HYPERTENSION Metronidazole (Flagyl 500mg Premixed Ivpb -) 100 mls @ 100 mls/hr IVPB Q8H-IV [facility] Last Admin: 06/20/16 17:50 Dose: 100 mls/hr Levofloxacin (Levaquin 250 Mg Premixed Ivpb -) 50 mls @ 50 mls/hr IVPB Q48H [facility] Last Admin: 06/20/16 09:52 Dose: 50 mls/hr Pantoprazole Sodium (Protonix 40mg Ivpb (Pre-Docked)) 100 mls @ 200 mls/hr IVPB BID [facility] Last Admin: 06/20/16 09:52 Dose: 200 mls/hr Morphine Sulfate (Morphine Injection -) 2 mg IVPUSH Q3H PRN PRN Reason: PAIN Last Admin: 06/20/16 12:25 Dose: 2 mg Multivitamins (Total B With C -) 1 each PO DAILY [facility] Last Admin: 06/20/16 09:37 Dose: Not Given Sevelamer Carbonate (Renvela -) 800 mg PO TIDCM [facility] Last Admin: 06/20/16 16:50 Dose: Not Given Thiamine HCl (Vitamin B1 -) 100 mg PO HS [facility] Last Admin: 06/19/16 22:19 Dose: Not Given - Objective Vital Signs: Vital Signs Temperature 97.0 F L 06/20/16 12:00 Pulse Rate 117 H 06/20/16 12:00 Respiratory Rate 24 06/20/16 12:00 Blood Pressure 122/74 06/20/16 12:00 O2 Sat by Pulse Oximetry (%) 96 06/20/16 08:00 Labs: CBC, BMP 06/20/16 05:35 06/20/16 11:05 INR, PTT INR 1.24 (0.82-1.09) H 06/18/16 04:30 Problem List - Problems (1) Abdominal distention Code(s): R14.0 - ABDOMINAL DISTENSION (GASEOUS) (2) Colitis Code(s): K52.9 - NONINFECTIVE GASTROENTERITIS AND COLITIS, UNSPECIFIED (3) Renal failure Code(s): N19 - UNSPECIFIED KIDNEY FAILURE (4) Essential hypertension Code(s): I10 - ESSENTIAL (PRIMARY) HYPERTENSION (5) Sepsis Code(s): A41.9 - SEPSIS, UNSPECIFIED ORGANISM Assessment/Plan Abdomen is mildly distended, soft . Not tender. Ct scan reviewed, suggestive of mid small bowel obstruction , with thickening of distal esophagus. No colitis seen on repeat abdominal CT with oral conrtrast. If intestinal obstruction persists, he may need surgical intervention. Patient is informed. Continue NG tube aspiration, hydrate. Follow up abdominal X-ray tomorrow.
[2016-06-20] MEDS: DEXTROSE 5%-NORMAL SALINE 1,000 ML IV SCH (21:30)
[2016-06-20] MEDS: ACETAMINOPHEN 325 MG TABLET (FP) PO PRN (21:31)
[2016-06-20] MEDS: THIAMINE HCL 100 MG TABLET (FP) PO SCH (21:31)
[2016-06-21] MEDS: METRONIDAZOLE 500 MG PREMIXED 100 ML IVPB SCH ×3 (02:59→17:08)
[2016-06-21] MEDS: hydrALAZINE HCL 50 MG TABLET (FP) PO SCH ×3 (06:30→21:41)
[2016-06-21 07:49] LABS: MCH 32.4 pg (25.7-33.7); MCHC 33.3 g/dl (32.0-35.9); MEAN CELL VOLUME 97.3 fl (80-96); MEAN PLT VOLUME 7.9 fl (7.5-11.1); PLATELET COUNT 253 K/MM3 (134-434); RDW 14.6 % (11.9-15.9); WHITE BLOOD COUNT 19.5 K/mm3 (4.0-10.0)
[2016-06-21 08:38] LABS: CALCIUM 8.7 mg/dL (8.5-10.1); MAGNESIUM 2.1 mg/dL (1.8-2.4); PHOSPHOROUS 6.2 mg/dL (2.5-4.9)
[2016-06-21 09:06] LABS: CREATININE 8.2 mg/dL (0.7-1.3)
--- NOTE | 2016-06-21 09:10 | PN ---
Progress Note (short form) - Note Progress Note: Feels better. denies pain. Had 2 bowel movements last night and one today. passing gas. denies pain. kub - still shows sbo. wbc rising - pt is non toxic looking / afebrile Vital Signs Temp 99.6 F 06/21/16 05:48 Pulse 112 H 06/21/16 05:48 Resp 18 06/21/16 05:48 BP 144/64 06/21/16 05:48 Pulse Ox 96 06/20/16 21:00 Intake & Output 06/20/16 06/20/16 06/21/16 11:59 23:59 11:59 Intake Total 200 450 400 Output Total 25 250 0 Balance 175 200 400 Weight 196 lb 3.382 oz 192 lb Intake: IV 300 D5-Ns - 1,000 ml @ 40 mls 300 /hr IV ASDIR [facility] Rx#: [id number] IVPB 200 450 100 Oral 0 Output: Gastric Drainage 25 250 Urine 0 0 Void 0 0 Other: Voiding Method Urinal Urinal Bowel Movement Yes Weight Measurement Method [facility] Active Medications Acetaminophen (Tylenol -) 650 mg PO Q6H PRN PRN Reason: FEVER OR PAIN Last Admin: 06/20/16 21:31 Dose: 650 mg Amlodipine Besylate (Norvasc -) 10 mg PO DAILY [facility] Last Admin: 06/20/16 09:35 Dose: Not Given Aspirin (Asa -) 81 mg PO DAILY [facility] Last Admin: 06/20/16 09:35 Dose: Not Given Cinacalcet (Sensipar -) 30 mg PO DAILY [facility] Last Admin: 06/20/16 09:36 Dose: Not Given Ferrous Sulfate (Feosol -) 325 mg PO TIDCM [facility] Last Admin: 06/20/16 16:50 Dose: Not Given Furosemide (Lasix -) 40 mg PO DAILY [facility] Last Admin: 06/20/16 09:35 Dose: Not Given Heparin Sodium (Porcine) (Heparin -) 5,000 unit SQ BID [facility] Last Admin: 06/20/16 21:30 Dose: 5,000 unit Hydralazine HCl (Apresoline -) 100 mg PO TID [facility] Last Admin: 06/21/16 06:30 Dose: Not Given Hydralazine HCl (Apresoline Injection -) 10 mg IVPUSH Q6H PRN PRN Reason: HYPERTENSION Metronidazole (Flagyl 500mg Premixed Ivpb -) 100 mls @ 100 mls/hr IVPB Q8H-IV [facility] Last Admin: 06/21/16 02:59 Dose: 100 mls/hr Levofloxacin (Levaquin 250 Mg Premixed Ivpb -) 50 mls @ 50 mls/hr IVPB Q48H [facility] Last Admin: 06/20/16 09:52 Dose: 50 mls/hr Pantoprazole Sodium (Protonix 40mg Ivpb (Pre-Docked)) 100 mls @ 200 mls/hr IVPB BID [facility] Last Admin: 06/20/16 21:28 Dose: 200 mls/hr Dextrose/Sodium Chloride (D5-Ns -) 1,000 mls @ 40 mls/hr IV ASDIR [facility] Last Admin: 06/20/16 21:30 Dose: 40 mls/hr Insulin Aspart (Novolog Vial Sliding Scale -) 1 vial SQ BIDAC [facility] PRN Reason: Protocol Morphine Sulfate (Morphine Injection -) 2 mg IVPUSH Q3H PRN PRN Reason: PAIN Last Admin: 06/20/16 12:25 Dose: 2 mg Multivitamins (Total B With C -) 1 each PO DAILY [facility] Last Admin: 06/20/16 09:37 Dose: Not Given Sevelamer Carbonate (Renvela -) 800 mg PO TIDCM [facility] Last Admin: 06/20/16 16:50 Dose: Not Given Thiamine HCl (Vitamin B1 -) 100 mg PO HS [facility] Last Admin: 06/20/16 21:31 Dose: Not Given CBC, BMP 06/21/16 07:30 06/21/16 07:30 PHYSICAL EXAMINATION: Constitutional: Yes: No Distress, Calm NG Tube is present. Cardiovascular: Yes: Regular Rate and Rhythm Respiratory: Yes: Diminished at bases Gastrointestinal: Yes: Quiet/ Soft./ non tender Edema: No Psychiatric: Yes: Alert, Oriented ASSESSMENT & PLAN: - clinically better. - continue present care - Continue close monitoring. surgery to follow will follow monitor cbc ambulate Problem List - Problems (1) Esophagitis Code(s): K20.9 - ESOPHAGITIS, UNSPECIFIED (2) Ileus Code(s): K56.7 - ILEUS, UNSPECIFIED (3) Pneumonia Code(s): J18.9 - PNEUMONIA, UNSPECIFIED ORGANISM Qualifiers: Pneumonia type: due to unspecified organism (4) Sepsis Code(s): A41.9 - SEPSIS, UNSPECIFIED ORGANISM (5) Hyperkalemia Code(s): E87.5 - HYPERKALEMIA (6) HTN (hypertension) Code(s): I10 - ESSENTIAL (PRIMARY) HYPERTENSION (7) Uremia Code(s): N19 - UNSPECIFIED KIDNEY FAILURE
[2016-06-21] MEDS: FUROSEMIDE 40 MG TABLET (FP) PO SCH (09:25)
[2016-06-21] MEDS: amLODIPine BESYLATE 10 MG TABLET (FP) PO SCH (09:25)
[2016-06-21] MEDS: CINACALCET HCL 30 MG TAB (FP) PO SCH (09:25)
[2016-06-21] MEDS: VITAMIN B COMPLEX W/C COMBO TABLET (FP) PO SCH (09:25)
[2016-06-21] MEDS: ASPIRIN 81 MG CHEWABLE TABLETS PO SCH (09:26)
[2016-06-21] MEDS: FERROUS SO4 325 MG TABLET (FP) PO SCH ×3 (09:26→16:45)
[2016-06-21] MEDS: SEVELAMER CARBONATE 800 MG TAB (FP) PO SCH ×3 (09:26→16:45)
[2016-06-21] MEDS: PANTOPRAZOLE SODIUM 40MG/100 ML IVPB SCH ×2 (09:39→21:49)
[2016-06-21] MEDS: HEPARIN NA (PORCINE) 5,000 UNITS/ML 1ML VIAL SQ SCH ×2 (09:41→21:49)
[2016-06-21 11:05] LABS: ANISOCYTOSIS 1+; HYPOCHROMIA 1+; PLATELET COMMENT2 NO CLOTTING DETECTED; PLATELET COMMENT3 FEW LARGE PLTS; PLATELET ESTIMATE ADEQUATE (NORMAL); POIKILOCYTOSIS 1+
--- NOTE | 2016-06-21 11:16 | PN ---
Progress Note (short form) - Note Progress Note: RENAL Pt is awake and alert had an ngt in place felt hungry Current Medications Generic Name Dose Route Start Last Admin Trade Name Freq PRN Reason Stop Dose Admin Acetaminophen 650 mg 06/19/16 12:07 06/20/16 21:31 Tylenol - PO 650 mg Q6H PRN Administration FEVER OR PAIN Amlodipine Besylate 10 mg 06/20/16 10:00 06/21/16 09:25 Norvasc - PO Not Given DAILY [facility] Aspirin 81 mg 06/20/16 10:00 06/21/16 09:26 Asa - PO Not Given DAILY [facility] Cinacalcet 30 mg 06/20/16 10:00 06/21/16 09:25 Sensipar - PO Not Given DAILY [facility] Ferrous Sulfate 325 mg 06/19/16 17:30 06/21/16 09:26 Feosol - PO Not Given TIDCM [facility] Furosemide 40 mg 06/20/16 10:00 06/21/16 09:25 Lasix - PO Not Given DAILY [facility] Heparin Sodium (Porcine) 5,000 unit 06/19/16 22:00 06/21/16 09:41 Heparin - SQ 5,000 unit BID [facility] Administration Hydralazine HCl 100 mg 06/19/16 14:00 06/21/16 06:30 Apresoline - PO Not Given TID [facility] Hydralazine HCl 10 mg 06/19/16 22:13 Apresoline Injection - IVPUSH Q6H PRN HYPERTENSION Metronidazole 100 mls @ 100 mls/hr 06/19/16 18:00 06/21/16 09:41 Flagyl 500mg Premixed Ivpb - IVPB 100 mls/hr Q8H-IV [facility] Administration Levofloxacin 50 mls @ 50 mls/hr 06/20/16 10:00 06/20/16 09:52 Levaquin 250 Mg Premixed Ivpb - IVPB 50 mls/hr Q48H [facility] Administration Pantoprazole Sodium 100 mls @ 200 mls/hr 06/19/16 22:00 06/21/16 09:39 Protonix 40mg Ivpb (Pre-Docked) IVPB 200 mls/hr BID [facility] Administration Dextrose/Sodium Chloride 1,000 mls @ 40 mls/hr 06/20/16 20:30 06/20/16 21:30 D5-Ns - IV 40 mls/hr ASDIR [facility] Administration Insulin Aspart 1 vial 06/21/16 16:30 Novolog Vial Sliding Scale - SQ BIDAC [facility] Protocol Morphine Sulfate 2 mg 06/20/16 12:11 06/20/16 12:25 Morphine Injection - IVPUSH 2 mg Q3H PRN Administration PAIN Multivitamins 1 each 06/20/16 10:00 06/21/16 09:25 Total B With C - PO Not Given DAILY [facility] Sevelamer Carbonate 800 mg 06/19/16 17:30 06/21/16 09:26 Renvela - PO Not Given TIDCM [facility] Thiamine HCl 100 mg 06/19/16 22:00 06/20/16 21:31 Vitamin B1 - PO Not Given [facility] Last Vital Signs Temp Pulse Resp BP Pulse Ox 99.6 F 112 H 18 144/64 96 06/21/16 05:48 06/21/16 05:48 06/21/16 05:48 06/21/16 05:48 06/20/16 21:00 PE awake and alert lying flat comfortably lungs clear cvs [id number] rr +tu abd soft ext no edema neuro a+ox3 CBC, BMP 06/21/16 09:17 06/21/16 07:30 Impression 1. ESRD 2. hyperkalemia resolved 3. HTN 4. non compliance 5. DM 6. encephalopathy in part due to gabapentin 7. hyponatremia Plan - neurontin on hold - epogen for anemia - mental status is markedly improved - monitor bp - monitor mental status - would consider feeding MV
[2016-06-21] MEDS ORDERED: SODIUM PHOSPHATE/NA BIPHOS 133 ML ENEMA PR ONE (14:49)
--- NOTE | 2016-06-21 15:19 | PN ---
Progress Note, Physician - Current Medication List Current Medications: Active Medications Acetaminophen (Tylenol -) 650 mg PO Q6H PRN PRN Reason: FEVER OR PAIN Last Admin: 06/20/16 21:31 Dose: 650 mg Amlodipine Besylate (Norvasc -) 10 mg PO DAILY [facility] Last Admin: 06/21/16 09:25 Dose: Not Given Aspirin (Asa -) 81 mg PO DAILY [facility] Last Admin: 06/21/16 09:26 Dose: Not Given Cinacalcet (Sensipar -) 30 mg PO DAILY [facility] Last Admin: 06/21/16 09:25 Dose: Not Given Ferrous Sulfate (Feosol -) 325 mg PO TIDCM [facility] Last Admin: 06/21/16 12:10 Dose: Not Given Furosemide (Lasix -) 40 mg PO DAILY [facility] Last Admin: 06/21/16 09:25 Dose: Not Given Heparin Sodium (Porcine) (Heparin -) 5,000 unit SQ BID [facility] Last Admin: 06/21/16 09:41 Dose: 5,000 unit Hydralazine HCl (Apresoline -) 100 mg PO TID [facility] Last Admin: 06/21/16 14:00 Dose: Not Given Hydralazine HCl (Apresoline Injection -) 10 mg IVPUSH Q6H PRN PRN Reason: HYPERTENSION Metronidazole (Flagyl 500mg Premixed Ivpb -) 100 mls @ 100 mls/hr IVPB Q8H-IV [facility] Last Admin: 06/21/16 09:41 Dose: 100 mls/hr Levofloxacin (Levaquin 250 Mg Premixed Ivpb -) 50 mls @ 50 mls/hr IVPB Q48H [facility] Last Admin: 06/20/16 09:52 Dose: 50 mls/hr Pantoprazole Sodium (Protonix 40mg Ivpb (Pre-Docked)) 100 mls @ 200 mls/hr IVPB BID [facility] Last Admin: 06/21/16 09:39 Dose: 200 mls/hr Dextrose/Sodium Chloride (D5-Ns -) 1,000 mls @ 40 mls/hr IV ASDIR [facility] Last Admin: 06/20/16 21:30 Dose: 40 mls/hr Insulin Aspart (Novolog Vial Sliding Scale -) 1 vial SQ BIDAC [facility] PRN Reason: Protocol Morphine Sulfate (Morphine Injection -) 2 mg IVPUSH Q3H PRN PRN Reason: PAIN Last Admin: 06/20/16 12:25 Dose: 2 mg Multivitamins (Total B With C -) 1 each PO DAILY [facility] Last Admin: 06/21/16 09:25 Dose: Not Given Sevelamer Carbonate (Renvela -) 800 mg PO TIDCM [facility] Last Admin: 06/21/16 12:10 Dose: Not Given Sodium Phosphate (Fleet Adult Rectal Enema -) 133 ml [place] ONCE ONE Stop: 06/21/16 14:50 Thiamine HCl (Vitamin B1 -) 100 mg PO HS [facility] Last Admin: 06/20/16 21:31 Dose: Not Given - Objective Vital Signs: Vital Signs Temperature 98.4 F 06/21/16 13:56 Pulse Rate 95 H 06/21/16 13:56 Respiratory Rate 20 06/21/16 13:56 Blood Pressure 133/80 06/21/16 13:56 O2 Sat by Pulse Oximetry (%) 96 06/20/16 21:00 Labs: CBC, BMP 06/21/16 09:17 06/21/16 07:30 INR, PTT INR 1.24 (0.82-1.09) H 06/18/16 04:30 Problem List - Problems (1) Abdominal distention Code(s): R14.0 - ABDOMINAL DISTENSION (GASEOUS) (2) Colitis Code(s): K52.9 - NONINFECTIVE GASTROENTERITIS AND COLITIS, UNSPECIFIED (3) Renal failure Code(s): N19 - UNSPECIFIED KIDNEY FAILURE (4) Essential hypertension Code(s): I10 - ESSENTIAL (PRIMARY) HYPERTENSION (5) Sepsis Code(s): A41.9 - SEPSIS, UNSPECIFIED ORGANISM Assessment/Plan Surgery: Patient feels better , has had 2-3 bowel movements , with well formed stools. This is witmessed by the nurse. He denies any abdominal pain. Abdomen is soft , not distended , not tender. WBC is rising, [address]. Creatinine 8.2 Abdominal X-ray still suggestive of small intestinal obstruction. Clinically , patient does not appear to be obstructed. There is no NG output. he is not nauseous, and not vomiting. Will hold laparotomy. Repeat abdominal X-ray. Renal consult .
[2016-06-21] MEDS: INSULIN SLIDING SCALE (NOVOLOG) 1 VIAL SQ SCH (16:11)
[2016-06-21] MEDS: DEXTROSE 5%-NORMAL SALINE 1,000 ML IV SCH (20:30)
[2016-06-21] MEDS: THIAMINE HCL 100 MG TABLET (FP) PO SCH (21:41)
[2016-06-22] MEDS: METRONIDAZOLE 500 MG PREMIXED 100 ML IVPB SCH ×3 (01:25→17:07)
[2016-06-22] MEDS: morphine CARPU-JECT 2 MG/1 ML DISP.SYRIN IVPUSH PRN (01:38)
[2016-06-22] MEDS: hydrALAZINE HCL 50 MG TABLET (FP) PO SCH ×3 (06:15→21:53)
[2016-06-22] MEDS: INSULIN SLIDING SCALE (NOVOLOG) 1 VIAL SQ SCH ×2 (06:18→16:34)
[2016-06-22] MEDS: SEVELAMER CARBONATE 800 MG TAB (FP) PO SCH ×3 (08:08→16:35)
[2016-06-22] MEDS: FERROUS SO4 325 MG TABLET (FP) PO SCH ×3 (08:08→16:35)
[2016-06-22 08:49] LABS: BASOPHIL 0.2 % (0-2.0); EOSINOPHIL 0.8 % (0-4.5); MCH 32.3 pg (25.7-33.7); MCHC 32.8 g/dl (32.0-35.9); MEAN CELL VOLUME 98.5 fl (80-96); MEAN PLT VOLUME 7.8 fl (7.5-11.1); NEUTROPHILS 82.4 % (42.8-82.8); PLATELET COUNT 266 K/MM3 (134-434); RDW 14.6 % (11.9-15.9); WHITE BLOOD COUNT 16.7 K/mm3 (4.0-10.0)
[2016-06-22] MEDS: FUROSEMIDE 40 MG TABLET (FP) PO SCH (09:51)
[2016-06-22] MEDS: CINACALCET HCL 30 MG TAB (FP) PO SCH (09:51)
[2016-06-22] MEDS: amLODIPine BESYLATE 10 MG TABLET (FP) PO SCH (09:51)
[2016-06-22] MEDS: ASPIRIN 81 MG CHEWABLE TABLETS PO SCH (09:51)
[2016-06-22] MEDS: VITAMIN B COMPLEX W/C COMBO TABLET (FP) PO SCH (09:53)
[2016-06-22] MEDS ORDERED: EPOETIN ALFA 2,000 UNITS/1 ML VIAL IVPUSH ONE (10:00)
[2016-06-22] MEDS: HEPARIN NA (PORCINE) 5,000 UNITS/ML 1ML VIAL SQ SCH ×2 (10:08→21:53)
[2016-06-22] MEDS: PANTOPRAZOLE SODIUM 40MG/100 ML IVPB SCH ×2 (10:08→21:53)
--- NOTE | 2016-06-22 10:34 | PN ---
Progress Note (short form) - Note Progress Note: RENAL Pt is awake and alert had an ngt in place no ngt output Current Medications Generic Name Dose Route Start Last Admin Trade Name Freq PRN Reason Stop Dose Admin Acetaminophen 650 mg 06/19/16 12:07 06/20/16 21:31 Tylenol - PO 650 mg Q6H PRN Administration FEVER OR PAIN Amlodipine Besylate 10 mg 06/20/16 10:00 06/22/16 09:51 Norvasc - PO Not Given DAILY [facility] Aspirin 81 mg 06/20/16 10:00 06/22/16 09:51 Asa - PO Not Given DAILY [facility] Cinacalcet 30 mg 06/20/16 10:00 06/22/16 09:51 Sensipar - PO Not Given DAILY [facility] Ferrous Sulfate 325 mg 06/19/16 17:30 06/22/16 08:08 Feosol - PO Not Given TIDCM [facility] Furosemide 40 mg 06/20/16 10:00 06/22/16 09:51 Lasix - PO Not Given DAILY [facility] Heparin Sodium (Porcine) 5,000 unit 06/19/16 22:00 06/22/16 10:08 Heparin - SQ 5,000 unit BID [facility] Administration Hydralazine HCl 100 mg 06/19/16 14:00 06/22/16 06:15 Apresoline - PO Not Given TID [facility] Hydralazine HCl 10 mg 06/19/16 22:13 Apresoline Injection - IVPUSH Q6H PRN HYPERTENSION Metronidazole 100 mls @ 100 mls/hr 06/19/16 18:00 06/22/16 10:09 Flagyl 500mg Premixed Ivpb - IVPB 100 mls/hr Q8H-IV [facility] Administration Levofloxacin 50 mls @ 50 mls/hr 06/20/16 10:00 06/20/16 09:52 Levaquin 250 Mg Premixed Ivpb - IVPB 50 mls/hr Q48H [facility] Administration Pantoprazole Sodium 100 mls @ 200 mls/hr 06/19/16 22:00 06/22/16 10:08 Protonix 40mg Ivpb (Pre-Docked) IVPB 200 mls/hr BID [facility] Administration Dextrose/Sodium Chloride 1,000 mls @ 40 mls/hr 06/20/16 20:30 06/21/16 20:30 D5-Ns - IV Not Given ASDIR [facility] Insulin Aspart 1 vial 06/21/16 16:30 06/22/16 06:18 Novolog Vial Sliding Scale - SQ Not Given BIDAC [facility] Protocol Morphine Sulfate 2 mg 06/20/16 12:11 06/22/16 01:38 Morphine Injection - IVPUSH 2 mg Q3H PRN Administration PAIN Multivitamins 1 each 06/20/16 10:00 06/22/16 09:53 Total B With C - PO Not Given DAILY [facility] Sevelamer Carbonate 800 mg 06/19/16 17:30 06/22/16 08:08 Renvela - PO Not Given TIDCM [facility] Thiamine HCl 100 mg 06/19/16 22:00 06/21/16 21:41 Vitamin B1 - PO Not Given [facility] Last Vital Signs Temp Pulse Resp BP Pulse Ox 98.1 F 99 H 20 157/89 94 L 06/22/16 09:00 06/22/16 09:00 06/22/16 09:00 06/22/16 09:00 06/21/16 22:00 PE awake and alert lying flat comfortably lungs clear cvs s1s2 rr +tu abd soft ext no edema neuro a+ox3 CBC, BMP 06/22/16 07:45 06/21/16 07:30 Impression 1. ESRD 2. hyperkalemia resolved 3. HTN 4. non compliance 5. DM 6. encephalopathy in part due to gabapentin 7. hyponatremia Plan - neurontin on hold - epogen for anemia - mental status is markedly improved - monitor bp - monitor mental status - would consider feeding. Surgery holding laparotomy -HD tomorrow MV
--- NOTE | 2016-06-22 11:16 | PN ---
Progress Note (short form) - Note Progress Note: Anxious. wants ngt out no out put denies pain. passing gas. having bm Vital Signs Period Temp Pulse Resp BP Sys/Galaviz Pulse Ox Last 24 Hr 97.6 F-98.9 F 92-101 18-20 133-157/80-89 94 Active Medications Acetaminophen (Tylenol -) 650 mg PO Q6H PRN PRN Reason: FEVER OR PAIN Last Admin: 06/20/16 21:31 Dose: 650 mg Amlodipine Besylate (Norvasc -) 10 mg PO DAILY [facility] Last Admin: 06/22/16 09:51 Dose: Not Given Aspirin (Asa -) 81 mg PO DAILY [facility] Last Admin: 06/22/16 09:51 Dose: Not Given Cinacalcet (Sensipar -) 30 mg PO DAILY [facility] Last Admin: 06/22/16 09:51 Dose: Not Given Epoetin Mario (Epogen -) 4,000 units IVPUSH ONCE ONE Stop: 06/22/16 10:38 Ferrous Sulfate (Feosol -) 325 mg PO TIDCM [facility] Last Admin: 06/22/16 08:08 Dose: Not Given Furosemide (Lasix -) 40 mg PO DAILY [facility] Last Admin: 06/22/16 09:51 Dose: Not Given Heparin Sodium (Porcine) (Heparin -) 5,000 unit SQ BID [facility] Last Admin: 06/22/16 10:08 Dose: 5,000 unit Heparin Sodium (Porcine) (Heparin -) 1,000 unit IVPUSH ONCE ONE Stop: 06/22/16 10:38 Heparin Sodium (Porcine) (Heparin -) 500 unit IVPUSH Q1H [facility] Stop: 06/22/16 12:46 Hydralazine HCl (Apresoline -) 100 mg PO TID [facility] Last Admin: 06/22/16 06:15 Dose: Not Given Hydralazine HCl (Apresoline Injection -) 10 mg IVPUSH Q6H PRN PRN Reason: HYPERTENSION Metronidazole (Flagyl 500mg Premixed Ivpb -) 100 mls @ 100 mls/hr IVPB Q8H-IV [facility] Last Admin: 06/22/16 10:09 Dose: 100 mls/hr Levofloxacin (Levaquin 250 Mg Premixed Ivpb -) 50 mls @ 50 mls/hr IVPB Q48H [facility] Last Admin: 06/20/16 09:52 Dose: 50 mls/hr Pantoprazole Sodium (Protonix 40mg Ivpb (Pre-Docked)) 100 mls @ 200 mls/hr IVPB BID [facility] Last Admin: 06/22/16 10:08 Dose: 200 mls/hr Dextrose/Sodium Chloride (D5-Ns -) 1,000 mls @ 40 mls/hr IV ASDIR [facility] Last Admin: 06/21/16 20:30 Dose: Not Given Insulin Aspart (Novolog Vial Sliding Scale -) 1 vial SQ BIDAC [facility] PRN Reason: Protocol Last Admin: 06/22/16 06:18 Dose: Not Given Morphine Sulfate (Morphine Injection -) 2 mg IVPUSH Q3H PRN PRN Reason: PAIN Last Admin: 06/22/16 01:38 Dose: 2 mg Multivitamins (Total B With C -) 1 each PO DAILY [facility] Last Admin: 06/22/16 09:53 Dose: Not Given Sevelamer Carbonate (Renvela -) 800 mg PO TIDCM [facility] Last Admin: 06/22/16 08:08 Dose: Not Given Thiamine HCl (Vitamin B1 -) 100 mg PO HS [facility] Last Admin: 06/21/16 21:41 Dose: Not Given CBC, BMP 06/22/16 07:45 06/21/16 07:30 fua -- sbo PHYSICAL EXAMINATION: Constitutional: Yes: No Distress, Anxious NG Tube is present. Cardiovascular: Yes: Regular Rate and Rhythm Respiratory: Yes: Diminished at bases Gastrointestinal: Yes: Quiet/ Soft./ non tender Edema: No Psychiatric: Yes: Alert, Oriented ASSESSMENT & PLAN: - clinically better. - continue present care - surgery to follow - decreased wbc - surgery to follow - start on feeding ? surgery to update- continue mild hydration for now - will follow Problem List - Problems (1) Esophagitis Code(s): K20.9 - ESOPHAGITIS, UNSPECIFIED (2) Ileus Code(s): K56.7 - ILEUS, UNSPECIFIED (3) Pneumonia Code(s): J18.9 - PNEUMONIA, UNSPECIFIED ORGANISM Qualifiers: Pneumonia type: due to unspecified organism (4) Sepsis Code(s): A41.9 - SEPSIS, UNSPECIFIED ORGANISM (5) Hyperkalemia Code(s): E87.5 - HYPERKALEMIA (6) HTN (hypertension) Code(s): I10 - ESSENTIAL (PRIMARY) HYPERTENSION (7) Uremia Code(s): N19 - UNSPECIFIED KIDNEY FAILURE
[2016-06-22] MEDS: PHENOL 177 ML SPRAY BOTTLE MM PRN (12:10)
[2016-06-22] MEDS: LEVOFLOXACIN 250 MG IVPB 50 ML IVPB SCH (12:11)
--- NOTE | 2016-06-22 14:09 | PN ---
Progress Note, Physician - Current Medication List Current Medications: Active Medications Acetaminophen (Tylenol -) 650 mg PO Q6H PRN PRN Reason: FEVER OR PAIN Last Admin: 06/20/16 21:31 Dose: 650 mg Amlodipine Besylate (Norvasc -) 10 mg PO DAILY [facility] Last Admin: 06/22/16 09:51 Dose: Not Given Aspirin (Asa -) 81 mg PO DAILY [facility] Last Admin: 06/22/16 09:51 Dose: Not Given Cinacalcet (Sensipar -) 30 mg PO DAILY [facility] Last Admin: 06/22/16 09:51 Dose: Not Given Epoetin Mario (Epogen -) 4,000 units IVPUSH ONCE ONE Stop: 06/22/16 10:38 Ferrous Sulfate (Feosol -) 325 mg PO TIDCM [facility] Last Admin: 06/22/16 11:46 Dose: Not Given Furosemide (Lasix -) 40 mg PO DAILY [facility] Last Admin: 06/22/16 09:51 Dose: Not Given Heparin Sodium (Porcine) (Heparin -) 5,000 unit SQ BID [facility] Last Admin: 06/22/16 10:08 Dose: 5,000 unit Heparin Sodium (Porcine) (Heparin -) 1,000 unit IVPUSH ONCE ONE Stop: 06/22/16 10:38 Heparin Sodium (Porcine) (Heparin -) 500 unit IVPUSH Q1H [facility] Stop: 06/22/16 12:46 Hydralazine HCl (Apresoline -) 100 mg PO TID [facility] Last Admin: 06/22/16 06:15 Dose: Not Given Hydralazine HCl (Apresoline Injection -) 10 mg IVPUSH Q6H PRN PRN Reason: HYPERTENSION Metronidazole (Flagyl 500mg Premixed Ivpb -) 100 mls @ 100 mls/hr IVPB Q8H-IV [facility] Last Admin: 06/22/16 10:09 Dose: 100 mls/hr Levofloxacin (Levaquin 250 Mg Premixed Ivpb -) 50 mls @ 50 mls/hr IVPB Q48H [facility] Last Admin: 06/22/16 12:11 Dose: 50 mls/hr Pantoprazole Sodium (Protonix 40mg Ivpb (Pre-Docked)) 100 mls @ 200 mls/hr IVPB BID [facility] Last Admin: 06/22/16 10:08 Dose: 200 mls/hr Dextrose/Sodium Chloride (D5-Ns -) 1,000 mls @ 40 mls/hr IV ASDIR [facility] Last Admin: 06/21/16 20:30 Dose: Not Given Insulin Aspart (Novolog Vial Sliding Scale -) 1 vial SQ BIDAC [facility] PRN Reason: Protocol Last Admin: 06/22/16 06:18 Dose: Not Given Morphine Sulfate (Morphine Injection -) 2 mg IVPUSH Q3H PRN PRN Reason: PAIN Last Admin: 06/22/16 01:38 Dose: 2 mg Multivitamins (Total B With C -) 1 each PO DAILY [facility] Last Admin: 06/22/16 09:53 Dose: Not Given Phenol/Menthol (Chloraseptic -) 1 spray MM Q6H PRN Last Admin: 06/22/16 12:10 Dose: 1 spray Sevelamer Carbonate (Renvela -) 800 mg PO TIDCM [facility] Last Admin: 06/22/16 11:46 Dose: Not Given Thiamine HCl (Vitamin B1 -) 100 mg PO HS [facility] Last Admin: 06/21/16 21:41 Dose: Not Given - Objective Vital Signs: Vital Signs Temperature 98.1 F 06/22/16 09:00 Pulse Rate 99 H 06/22/16 09:00 Respiratory Rate 20 06/22/16 09:00 Blood Pressure 157/89 06/22/16 09:00 O2 Sat by Pulse Oximetry (%) 94 L 06/22/16 09:00 Labs: CBC, BMP 06/22/16 07:45 06/21/16 07:30 INR, PTT INR 1.24 (0.82-1.09) H 06/18/16 04:30 Problem List - Problems (1) Abdominal distention Code(s): R14.0 - ABDOMINAL DISTENSION (GASEOUS) (2) Colitis Code(s): K52.9 - NONINFECTIVE GASTROENTERITIS AND COLITIS, UNSPECIFIED (3) Renal failure Code(s): N19 - UNSPECIFIED KIDNEY FAILURE (4) Essential hypertension Code(s): I10 - ESSENTIAL (PRIMARY) HYPERTENSION (5) Sepsis Code(s): A41.9 - SEPSIS, UNSPECIFIED ORGANISM Assessment/Plan Surgery: Patient has no abdominal pain, He has been passing flatus. Abdomen is soft , not tender and not distended. NG drainage , nil , inspite of patient taking ice chips. Clinically does nor appear to have intestinal obstruction, But there is no change in radiological findings. Patient was explained and informed. WBC [id number]. Will repeat abdominal CT scan tomorrow with oral contrast , tomorrow as per radiologist's suggestion. Will clamp NG tube and resume liquid diet. Diagnosis: Renal failure, ? Intestinal obstruction , ? partial, Esophageal thickening, ?Colonic thickening. Anemia. Pneumonia.
[2016-06-22] MEDS: DEXTROSE 5%-NORMAL SALINE 1,000 ML IV SCH ×2 (15:07→20:30)
[2016-06-22 17:26] LABS: URINE APPEARANCE SLCLOUDY; URINE BILIRUBIN NEGATIVE (NEGATIVE); URINE COLOR AMBER; URINE GLUCOSE (UA) NEGATIVE (NEGATIVE); URINE KETONE NEGATIVE (NEGATIVE); URINE NITRITE POSITIVE (NEGATIVE); URINE UROBILINOGEN NEGATIVE E.U./dl (0.2-1.0)
[2016-06-22 17:28] LABS: URINE BLOOD 2+ (NEGATIVE); URINE LEUK ESTERASE 1+ (NEGATIVE); URINE PROTEIN 2+ (NEGATIVE)
[2016-06-22 17:35] LABS: URINE MUCUS RARE; URINE RBC 2 /hpf (0-3); URINE WBC 6 /hpf (3-5)
[2016-06-22] MEDS: THIAMINE HCL 100 MG TABLET (FP) PO SCH (21:52)
[2016-06-23] MEDS: METRONIDAZOLE 500 MG PREMIXED 100 ML IVPB SCH ×4 (01:20→17:12)
[2016-06-23] MEDS: INSULIN SLIDING SCALE (NOVOLOG) 1 VIAL SQ SCH ×2 (06:09→16:16)
[2016-06-23] MEDS: hydrALAZINE HCL 50 MG TABLET (FP) PO SCH ×4 (06:17→22:35)
[2016-06-23] MEDS: FERROUS SO4 325 MG TABLET (FP) PO SCH ×4 (07:48→16:42)
[2016-06-23] MEDS: SEVELAMER CARBONATE 800 MG TAB (FP) PO SCH ×3 (07:48→16:42)
[2016-06-23] MEDS ORDERED: EPOETIN ALFA 2,000 UNITS/1 ML VIAL IVPUSH ONE (10:00)
[2016-06-23] MEDS ORDERED: HEPARIN NA (PORCINE) 5,000 UNITS/ML 1ML VIAL IVPUSH ONE (10:00)
--- NOTE | 2016-06-23 10:09 | PN ---
Progress Note (short form) - Note Progress Note: Subjective Patient seen and examined. Comfortable. Just came back from CT scan. All follow ups noted. Having bowel movements now. Denies any pain. Objective Last Vital Signs Temp Pulse Resp BP Pulse Ox 98.3 F 92 H 20 155/102 94 L 06/23/16 08:20 06/23/16 08:20 06/23/16 08:20 06/23/16 08:20 06/23/16 08:20 CBC, BMP 06/22/16 07:45 06/21/16 07:30 PHYSICAL EXAMINATION: Constitutional: Yes: Comfortable. Cardiovascular: Yes: Regular Rate and Rhythm Respiratory: Yes: Diminished at bases Gastrointestinal: Yes: Quiet/ Soft./ non tender Edema: No Psychiatric: Yes: Alert, Oriented ASSESSMENT & PLAN: - Stable - Follow up CT scan - Patient to have HD now. - Further recommendations after CT scan report. - Will review. - Repeat CBC with dialysis today. Will follow. Documentation prepared by Autumn Kidd, acting as a medical assistant float for José Browne MD.
[2016-06-23] MEDS: ASPIRIN 81 MG CHEWABLE TABLETS PO SCH (10:20)
[2016-06-23] MEDS: FUROSEMIDE 40 MG TABLET (FP) PO SCH (10:20)
[2016-06-23] MEDS: CINACALCET HCL 30 MG TAB (FP) PO SCH (10:20)
[2016-06-23] MEDS: amLODIPine BESYLATE 10 MG TABLET (FP) PO SCH (10:20)
[2016-06-23] MEDS: HEPARIN NA (PORCINE) 5,000 UNITS/ML 1ML VIAL IVPUSH SCH ×3 (10:30→12:36)
[2016-06-23] MEDS: VITAMIN B COMPLEX W/C COMBO TABLET (FP) PO SCH (11:50)
[2016-06-23 14:40] LABS: BASOPHIL 0.2 % (0-2.0); EOSINOPHIL 0.5 % (0-4.5); MCH 32.1 pg (25.7-33.7); MCHC 33.2 g/dl (32.0-35.9); MEAN CELL VOLUME 96.6 fl (80-96); PLATELET COUNT 325 K/MM3 (134-434); RDW 14.3 % (11.9-15.9); WHITE BLOOD COUNT 16.3 K/mm3 (4.0-10.0)
--- NOTE | 2016-06-23 14:44 | PN ---
Progress Note, Physician History of Present Illness: Pt seen and examined at bedside. He is awake and alert. He is currently getting HD. He complains of loose stool. - Current Medication List Current Medications: Active Medications Acetaminophen (Tylenol -) 650 mg PO Q6H PRN PRN Reason: FEVER OR PAIN Last Admin: 06/20/16 21:31 Dose: 650 mg Amlodipine Besylate (Norvasc -) 10 mg PO DAILY [facility] Last Admin: 06/23/16 10:20 Dose: Not Given Aspirin (Asa -) 81 mg PO DAILY [facility] Last Admin: 06/23/16 10:20 Dose: Not Given Cinacalcet (Sensipar -) 30 mg PO DAILY [facility] Last Admin: 06/23/16 10:20 Dose: Not Given Ferrous Sulfate (Feosol -) 325 mg PO TIDCM [facility] Last Admin: 06/23/16 13:39 Dose: Not Given Furosemide (Lasix -) 40 mg PO DAILY [facility] Last Admin: 06/23/16 10:20 Dose: Not Given Heparin Sodium (Porcine) (Heparin -) 5,000 unit SQ BID [facility] Last Admin: 06/22/16 21:53 Dose: 5,000 unit Hydralazine HCl (Apresoline -) 100 mg PO TID [facility] Last Admin: 06/23/16 06:17 Dose: 100 mg Hydralazine HCl (Apresoline Injection -) 10 mg IVPUSH Q6H PRN PRN Reason: HYPERTENSION Metronidazole (Flagyl 500mg Premixed Ivpb -) 100 mls @ 100 mls/hr IVPB Q8H-IV [facility] Last Admin: 06/23/16 01:20 Dose: 100 mls/hr Levofloxacin (Levaquin 250 Mg Premixed Ivpb -) 50 mls @ 50 mls/hr IVPB Q48H [facility] Last Admin: 06/22/16 12:11 Dose: 50 mls/hr Pantoprazole Sodium (Protonix 40mg Ivpb (Pre-Docked)) 100 mls @ 200 mls/hr IVPB BID [facility] Last Admin: 06/22/16 21:53 Dose: 200 mls/hr Dextrose/Sodium Chloride (D5-Ns -) 1,000 mls @ 40 mls/hr IV ASDIR [facility] Last Admin: 06/22/16 20:30 Dose: Not Given Insulin Aspart (Novolog Vial Sliding Scale -) 1 vial SQ BIDAC [facility] PRN Reason: Protocol Last Admin: 06/23/16 06:09 Dose: Not Given Multivitamins (Total B With C -) 1 each PO DAILY [facility] Last Admin: 06/23/16 11:50 Dose: Not Given Phenol/Menthol (Chloraseptic -) 1 spray MM Q6H PRN Last Admin: 06/22/16 12:10 Dose: 1 spray Sevelamer Carbonate (Renvela -) 800 mg PO TIDCM [facility] Last Admin: 06/23/16 13:39 Dose: Not Given Thiamine HCl (Vitamin B1 -) 100 mg PO HS [facility] Last Admin: 06/22/16 21:52 Dose: 100 mg - Objective Vital Signs: Vital Signs Temperature 97.8 F 06/23/16 10:30 Pulse Rate 80 06/23/16 14:05 Respiratory Rate 18 06/23/16 14:05 Blood Pressure 113/60 06/23/16 14:05 O2 Sat by Pulse Oximetry (%) 94 L 06/23/16 08:20 Constitutional: Yes: Calm Cardiovascular: Yes: S1, S2 Respiratory: Yes: CTA Bilaterally Gastrointestinal: Yes: Soft Genitourinary: Yes: WNL Musculoskeletal: Yes: WNL Edema: No Neurological: Yes: Oriented Psychiatric: Yes: Oriented Labs: CBC, BMP 06/21/16 07:30 INR, PTT INR 1.24 (0.82-1.09) H 06/18/16 04:30 Problem List - Problems (1) Hyperkalemia Code(s): E87.5 - HYPERKALEMIA (2) HTN (hypertension) Code(s): I10 - ESSENTIAL (PRIMARY) HYPERTENSION (3) ESRD (end stage renal disease) Code(s): N18.6 - END STAGE RENAL DISEASE Assessment/Plan Current Medications Generic Name Dose Route Start Last Admin Trade Name Freq PRN Reason Stop Dose Admin Acetaminophen 650 mg 06/19/16 12:07 06/20/16 21:31 Tylenol - PO 650 mg Q6H PRN Administration FEVER OR PAIN Amlodipine Besylate 10 mg 06/20/16 10:00 06/23/16 10:20 Norvasc - PO Not Given DAILY [facility] Aspirin 81 mg 06/20/16 10:00 06/23/16 10:20 Asa - PO Not Given DAILY [facility] Cinacalcet 30 mg 06/20/16 10:00 06/23/16 10:20 Sensipar - PO Not Given DAILY [facility] Ferrous Sulfate 325 mg 06/19/16 17:30 06/23/16 13:39 Feosol - PO Not Given TIDCM [facility] Furosemide 40 mg 06/20/16 10:00 06/23/16 10:20 Lasix - PO Not Given DAILY [facility] Heparin Sodium (Porcine) 5,000 unit 06/19/16 22:00 06/22/16 21:53 Heparin - SQ 5,000 unit BID [facility] Administration Hydralazine HCl 100 mg 06/19/16 14:00 06/23/16 06:17 Apresoline - PO 100 mg TID [facility] Administration Hydralazine HCl 10 mg 06/19/16 22:13 Apresoline Injection - IVPUSH Q6H PRN HYPERTENSION Metronidazole 100 mls @ 100 mls/hr 06/19/16 18:00 06/23/16 01:20 Flagyl 500mg Premixed Ivpb - IVPB 100 mls/hr Q8H-IV [facility] Administration Levofloxacin 50 mls @ 50 mls/hr 06/20/16 10:00 06/22/16 12:11 Levaquin 250 Mg Premixed Ivpb - IVPB 50 mls/hr Q48H [facility] Administration Pantoprazole Sodium 100 mls @ 200 mls/hr 06/19/16 22:00 06/22/16 21:53 Protonix 40mg Ivpb (Pre-Docked) IVPB 200 mls/hr BID [facility] Administration Dextrose/Sodium Chloride 1,000 mls @ 40 mls/hr 06/20/16 20:30 06/22/16 20:30 D5-Ns - IV Not Given ASDIR [facility] Insulin Aspart 1 vial 06/21/16 16:30 06/23/16 06:09 Novolog Vial Sliding Scale - SQ Not Given BIDAC [facility] Protocol Multivitamins 1 each 06/20/16 10:00 06/23/16 11:50 Total B With C - PO Not Given DAILY [facility] Phenol/Menthol 1 spray 06/22/16 11:25 06/22/16 12:10 Chloraseptic - MM 1 spray Q6H PRN Administration Sevelamer Carbonate 800 mg 06/19/16 17:30 06/23/16 13:39 Renvela - PO Not Given TIDCM [facility] Thiamine HCl 100 mg 06/19/16 22:00 06/22/16 21:52 Vitamin B1 - PO 100 mg HS [facility] Administration Impression 1. ESRD 2. hyperkalemia 3. HTN 4. non compliance 5. DM 6. encephalopathy 7. hyponatremia Plan - cont with HD today - surgery follow up - cont current meds - neurontin on hold - epogen for anemia - monitor bp - mental status is improving Dr Almazan
[2016-06-23] MEDS: PANTOPRAZOLE SODIUM 40MG/100 ML IVPB SCH ×3 (14:52→22:41)
[2016-06-23] MEDS: HEPARIN NA (PORCINE) 5,000 UNITS/ML 1ML VIAL SQ SCH ×2 (14:52→22:41)
[2016-06-23] MEDS: PHENOL 177 ML SPRAY BOTTLE MM PRN (16:08)
[2016-06-23] MEDS: VANCOMYCIN 250 MG/5 ML ORAL SOLUTION PO SCH (17:15)
[2016-06-23] MEDS: DEXTROSE 5%-NORMAL SALINE 1,000 ML IV SCH (20:30)
[2016-06-23] MEDS: THIAMINE HCL 100 MG TABLET (FP) PO SCH (22:36)
[2016-06-24] MEDS: VANCOMYCIN 250 MG/5 ML ORAL SOLUTION PO SCH ×4 (00:23→17:34)
[2016-06-24] MEDS: METRONIDAZOLE 500 MG PREMIXED 100 ML IVPB SCH ×3 (01:29→17:34)
[2016-06-24] MEDS: hydrALAZINE HCL 50 MG TABLET (FP) PO SCH ×3 (06:06→22:40)
[2016-06-24] MEDS: INSULIN SLIDING SCALE (NOVOLOG) 1 VIAL SQ SCH ×3 (06:08→16:27)
[2016-06-24] MEDS: DEXTROSE 5%-NORMAL SALINE 1,000 ML IV SCH ×2 (06:12→20:30)
[2016-06-24] MEDS: FERROUS SO4 325 MG TABLET (FP) PO SCH ×3 (08:04→17:36)
[2016-06-24] MEDS: SEVELAMER CARBONATE 800 MG TAB (FP) PO SCH ×3 (08:04→17:36)
--- NOTE | 2016-06-24 09:00 | PN ---
Progress Note, Physician - Current Medication List Current Medications: Active Medications Acetaminophen (Tylenol -) 650 mg PO Q6H PRN PRN Reason: FEVER OR PAIN Last Admin: 06/20/16 21:31 Dose: 650 mg Amlodipine Besylate (Norvasc -) 10 mg PO DAILY [facility] Last Admin: 06/23/16 10:20 Dose: Not Given Aspirin (Asa -) 81 mg PO DAILY [facility] Last Admin: 06/23/16 10:20 Dose: Not Given Cinacalcet (Sensipar -) 30 mg PO DAILY [facility] Last Admin: 06/23/16 10:20 Dose: Not Given Ferrous Sulfate (Feosol -) 325 mg PO TIDCM [facility] Last Admin: 06/24/16 08:04 Dose: Not Given Furosemide (Lasix -) 40 mg PO DAILY [facility] Last Admin: 06/23/16 10:20 Dose: Not Given Heparin Sodium (Porcine) (Heparin -) 5,000 unit SQ BID [facility] Last Admin: 06/23/16 22:41 Dose: 5,000 unit Hydralazine HCl (Apresoline -) 100 mg PO TID [facility] Last Admin: 06/24/16 06:06 Dose: Not Given Hydralazine HCl (Apresoline Injection -) 10 mg IVPUSH Q6H PRN PRN Reason: HYPERTENSION Metronidazole (Flagyl 500mg Premixed Ivpb -) 100 mls @ 100 mls/hr IVPB Q8H-IV [facility] Last Admin: 06/24/16 01:29 Dose: 100 mls/hr Pantoprazole Sodium (Protonix 40mg Ivpb (Pre-Docked)) 100 mls @ 200 mls/hr IVPB BID [facility] Last Admin: 06/23/16 22:41 Dose: 200 mls/hr Dextrose/Sodium Chloride (D5-Ns -) 1,000 mls @ 40 mls/hr IV ASDIR [facility] Last Admin: 06/24/16 06:12 Dose: 40 mls/hr Insulin Aspart (Novolog Vial Sliding Scale -) 1 vial SQ BIDAC [facility] PRN Reason: Protocol Last Admin: 06/24/16 06:08 Dose: Not Given Multivitamins (Total B With C -) 1 each PO DAILY [facility] Last Admin: 06/23/16 11:50 Dose: Not Given Phenol/Menthol (Chloraseptic -) 1 spray MM Q6H PRN Last Admin: 06/23/16 16:08 Dose: 1 spray Sevelamer Carbonate (Renvela -) 800 mg PO TIDCM [facility] Last Admin: 06/24/16 08:04 Dose: Not Given Thiamine HCl (Vitamin B1 -) 100 mg PO HS [facility] Last Admin: 06/23/16 22:36 Dose: Not Given Vancomycin HCl (Vancomycin Oral Solution) 250 mg PO Q6HPO [facility] Last Admin: 06/24/16 06:06 Dose: 250 mg - Objective Vital Signs: Vital Signs Temperature 99.0 F 06/24/16 06:46 Pulse Rate 101 H 06/24/16 06:46 Respiratory Rate 17 06/24/16 06:46 Blood Pressure 133/70 06/24/16 06:46 O2 Sat by Pulse Oximetry (%) 94 L 06/23/16 22:00 Labs: CBC, BMP 06/23/16 13:30 06/21/16 07:30 INR, PTT INR 1.24 (0.82-1.09) H 06/18/16 04:30 Problem List - Problems (1) Abdominal distention Code(s): R14.0 - ABDOMINAL DISTENSION (GASEOUS) (2) Colitis Code(s): K52.9 - NONINFECTIVE GASTROENTERITIS AND COLITIS, UNSPECIFIED (3) Renal failure Code(s): N19 - UNSPECIFIED KIDNEY FAILURE (4) Essential hypertension Code(s): I10 - ESSENTIAL (PRIMARY) HYPERTENSION (5) Sepsis Code(s): A41.9 - SEPSIS, UNSPECIFIED ORGANISM Assessment/Plan Surgery: Patient is having bowel movements. Abdomen is soft , not distended. Follow up CT scan , shows relief of intestinal obstruction , but thickening of the cecum and ascending colon. Patient needs upper and lower endoscopy, for thickening of the esophagus, as well as colonoscopy to rule out neoplasm , of the right colon , with intestinal obstruction. Will follow endoscopy findings.
[2016-06-24] MEDS: amLODIPine BESYLATE 10 MG TABLET (FP) PO SCH (09:18)
[2016-06-24] MEDS: ASPIRIN 81 MG CHEWABLE TABLETS PO SCH (09:18)
[2016-06-24] MEDS: CINACALCET HCL 30 MG TAB (FP) PO SCH (09:18)
[2016-06-24] MEDS: VITAMIN B COMPLEX W/C COMBO TABLET (FP) PO SCH (09:18)
[2016-06-24] MEDS: FUROSEMIDE 40 MG TABLET (FP) PO SCH (09:18)
[2016-06-24] MEDS: PANTOPRAZOLE SODIUM 40MG/100 ML IVPB SCH ×2 (09:21→22:39)
--- NOTE | 2016-06-24 11:59 | PN ---
Progress Note, Physician Chief Complaint: Events noted has pain on swallowing possible EGD today As per nurse, he vomits when he tries to eat food No abd pain no diarrhea - Current Medication List Current Medications: Active Medications Acetaminophen (Tylenol -) 650 mg PO Q6H PRN PRN Reason: FEVER OR PAIN Last Admin: 06/20/16 21:31 Dose: 650 mg Amlodipine Besylate (Norvasc -) 10 mg PO DAILY [facility] Last Admin: 06/24/16 09:18 Dose: Not Given Aspirin (Asa -) 81 mg PO DAILY [facility] Last Admin: 06/24/16 09:18 Dose: Not Given Cinacalcet (Sensipar -) 30 mg PO DAILY [facility] Last Admin: 06/24/16 09:18 Dose: Not Given Ferrous Sulfate (Feosol -) 325 mg PO TIDCM [facility] Last Admin: 06/24/16 11:44 Dose: Not Given Furosemide (Lasix -) 40 mg PO DAILY [facility] Last Admin: 06/24/16 09:18 Dose: Not Given Heparin Sodium (Porcine) (Heparin -) 5,000 unit SQ BID [facility] Last Admin: 06/23/16 22:41 Dose: 5,000 unit Hydralazine HCl (Apresoline -) 100 mg PO TID [facility] Last Admin: 06/24/16 06:06 Dose: Not Given Hydralazine HCl (Apresoline Injection -) 10 mg IVPUSH Q6H PRN PRN Reason: HYPERTENSION Metronidazole (Flagyl 500mg Premixed Ivpb -) 100 mls @ 100 mls/hr IVPB Q8H-IV [facility] Last Admin: 06/24/16 10:27 Dose: 100 mls/hr Pantoprazole Sodium (Protonix 40mg Ivpb (Pre-Docked)) 100 mls @ 200 mls/hr IVPB BID [facility] Last Admin: 06/24/16 09:21 Dose: 200 mls/hr Dextrose/Sodium Chloride (D5-Ns -) 1,000 mls @ 40 mls/hr IV ASDIR [facility] Last Admin: 06/24/16 06:12 Dose: 40 mls/hr Insulin Aspart (Novolog Vial Sliding Scale -) 1 vial SQ BIDAC [facility] PRN Reason: Protocol Last Admin: 06/24/16 06:08 Dose: Not Given Multivitamins (Total B With C -) 1 each PO DAILY [facility] Last Admin: 06/24/16 09:18 Dose: Not Given Phenol/Menthol (Chloraseptic -) 1 spray MM Q6H PRN Last Admin: 06/23/16 16:08 Dose: 1 spray Sevelamer Carbonate (Renvela -) 800 mg PO TIDCM [facility] Last Admin: 06/24/16 11:44 Dose: Not Given Thiamine HCl (Vitamin B1 -) 100 mg PO HS [facility] Last Admin: 06/23/16 22:36 Dose: Not Given Vancomycin HCl (Vancomycin Oral Solution) 250 mg PO Q6HPO [facility] Last Admin: 06/24/16 06:06 Dose: 250 mg - Objective Vital Signs: Vital Signs Temperature 98.2 F 06/24/16 10:00 Pulse Rate 99 H 06/24/16 10:00 Respiratory Rate 16 06/24/16 10:00 Blood Pressure 152/77 06/24/16 10:00 O2 Sat by Pulse Oximetry (%) 94 L 06/23/16 22:00 Constitutional: Yes: No Distress, Calm Cardiovascular: Yes: Regular Rate and Rhythm Respiratory: Yes: Diminished Gastrointestinal: Yes: Normal Bowel Sounds, Soft. No: Distention, Tenderness Edema: No Neurological: Yes: Alert, Oriented Labs: CBC, BMP 06/23/16 13:30 06/21/16 07:30 INR, PTT INR 1.24 (0.82-1.09) H 06/18/16 04:30 Problem List - Problems (1) Esophagitis Code(s): K20.9 - ESOPHAGITIS, UNSPECIFIED (2) Ileus Code(s): K56.7 - ILEUS, UNSPECIFIED (3) Pneumonia Code(s): J18.9 - PNEUMONIA, UNSPECIFIED ORGANISM Qualifiers: Pneumonia type: due to unspecified organism (4) Sepsis Code(s): A41.9 - SEPSIS, UNSPECIFIED ORGANISM (5) Hyperkalemia Code(s): E87.5 - HYPERKALEMIA (6) HTN (hypertension) Code(s): I10 - ESSENTIAL (PRIMARY) HYPERTENSION (7) Uremia Code(s): N19 - UNSPECIFIED KIDNEY FAILURE (8) Colitis Code(s): K52.9 - NONINFECTIVE GASTROENTERITIS AND COLITIS, UNSPECIFIED (9) ESRD (end stage renal disease) Code(s): N18.6 - END STAGE RENAL DISEASE Assessment/Plan PLAN -- HD per renal -- GI eval for EGD -- On iv antibiotics -- continue with meds -- repeat CT abd noted -- pain control -- continue with meds -- protonix IV -- Heparin sc for DVT prophylaxis
--- NOTE | 2016-06-24 12:24 | PN ---
Progress Note, Physician History of Present Illness: Pt seen and examined at bedside. He is awake and alert. He says he has appetite and wants to eat. He denies vomiting. He still has diarrhea. - Current Medication List Current Medications: Active Medications Acetaminophen (Tylenol -) 650 mg PO Q6H PRN PRN Reason: FEVER OR PAIN Last Admin: 06/20/16 21:31 Dose: 650 mg Amlodipine Besylate (Norvasc -) 10 mg PO DAILY [facility] Last Admin: 06/24/16 09:18 Dose: Not Given Aspirin (Asa -) 81 mg PO DAILY [facility] Last Admin: 06/24/16 09:18 Dose: Not Given Cinacalcet (Sensipar -) 30 mg PO DAILY [facility] Last Admin: 06/24/16 09:18 Dose: Not Given Ferrous Sulfate (Feosol -) 325 mg PO TIDCM [facility] Last Admin: 06/24/16 11:44 Dose: Not Given Furosemide (Lasix -) 40 mg PO DAILY [facility] Last Admin: 06/24/16 09:18 Dose: Not Given Heparin Sodium (Porcine) (Heparin -) 5,000 unit SQ BID [facility] Last Admin: 06/23/16 22:41 Dose: 5,000 unit Hydralazine HCl (Apresoline -) 100 mg PO TID [facility] Last Admin: 06/24/16 06:06 Dose: Not Given Hydralazine HCl (Apresoline Injection -) 10 mg IVPUSH Q6H PRN PRN Reason: HYPERTENSION Metronidazole (Flagyl 500mg Premixed Ivpb -) 100 mls @ 100 mls/hr IVPB Q8H-IV [facility] Last Admin: 06/24/16 10:27 Dose: 100 mls/hr Pantoprazole Sodium (Protonix 40mg Ivpb (Pre-Docked)) 100 mls @ 200 mls/hr IVPB BID [facility] Last Admin: 06/24/16 09:21 Dose: 200 mls/hr Dextrose/Sodium Chloride (D5-Ns -) 1,000 mls @ 40 mls/hr IV ASDIR [facility] Last Admin: 06/24/16 06:12 Dose: 40 mls/hr Insulin Aspart (Novolog Vial Sliding Scale -) 1 vial SQ BIDAC [facility] PRN Reason: Protocol Last Admin: 06/24/16 06:08 Dose: Not Given Multivitamins (Total B With C -) 1 each PO DAILY [facility] Last Admin: 06/24/16 09:18 Dose: Not Given Phenol/Menthol (Chloraseptic -) 1 spray MM Q6H PRN Last Admin: 06/23/16 16:08 Dose: 1 spray Sevelamer Carbonate (Renvela -) 800 mg PO TIDCM [facility] Last Admin: 06/24/16 11:44 Dose: Not Given Thiamine HCl (Vitamin B1 -) 100 mg PO HS [facility] Last Admin: 06/23/16 22:36 Dose: Not Given Vancomycin HCl (Vancomycin Oral Solution) 250 mg PO Q6HPO [facility] Last Admin: 06/24/16 12:13 Dose: 250 mg - Objective Vital Signs: Vital Signs Temperature 98.2 F 06/24/16 10:00 Pulse Rate 99 H 06/24/16 10:00 Respiratory Rate 16 06/24/16 10:00 Blood Pressure 152/77 06/24/16 10:00 O2 Sat by Pulse Oximetry (%) 94 L 06/23/16 22:00 Constitutional: Yes: Calm Eyes: Yes: Conjunctiva Clear HENT: Yes: Atraumatic Neck: Yes: Supple Cardiovascular: Yes: S1, S2 Gastrointestinal: Yes: Soft Musculoskeletal: Yes: WNL Extremities: Yes: Other (fitula with thrill and bruit) Edema: No Neurological: Yes: Oriented Psychiatric: Yes: Oriented Labs: CBC, BMP 06/23/16 13:30 06/21/16 07:30 INR, PTT INR 1.24 (0.82-1.09) H 06/18/16 04:30 Problem List - Problems (1) Hyperkalemia Code(s): E87.5 - HYPERKALEMIA (2) HTN (hypertension) Code(s): I10 - ESSENTIAL (PRIMARY) HYPERTENSION (3) ESRD (end stage renal disease) Code(s): N18.6 - END STAGE RENAL DISEASE Assessment/Plan Current Medications Generic Name Dose Route Start Last Admin Trade Name Freq PRN Reason Stop Dose Admin Acetaminophen 650 mg 06/19/16 12:07 06/20/16 21:31 Tylenol - PO 650 mg Q6H PRN Administration FEVER OR PAIN Amlodipine Besylate 10 mg 06/20/16 10:00 06/24/16 09:18 Norvasc - PO Not Given DAILY [facility] Aspirin 81 mg 06/20/16 10:00 06/24/16 09:18 Asa - PO Not Given DAILY [facility] Cinacalcet 30 mg 06/20/16 10:00 06/24/16 09:18 Sensipar - PO Not Given DAILY [facility] Ferrous Sulfate 325 mg 06/19/16 17:30 06/24/16 11:44 Feosol - PO Not Given TIDCM [facility] Furosemide 40 mg 06/20/16 10:00 06/24/16 09:18 Lasix - PO Not Given DAILY [facility] Heparin Sodium (Porcine) 5,000 unit 06/19/16 22:00 06/23/16 22:41 Heparin - SQ 5,000 unit BID [facility] Administration Hydralazine HCl 100 mg 06/19/16 14:00 06/24/16 06:06 Apresoline - PO Not Given TID [facility] Hydralazine HCl 10 mg 06/19/16 22:13 Apresoline Injection - IVPUSH Q6H PRN HYPERTENSION Metronidazole 100 mls @ 100 mls/hr 06/19/16 18:00 06/24/16 10:27 Flagyl 500mg Premixed Ivpb - IVPB 100 mls/hr Q8H-IV [facility] Administration Pantoprazole Sodium 100 mls @ 200 mls/hr 06/19/16 22:00 06/24/16 09:21 Protonix 40mg Ivpb (Pre-Docked) IVPB 200 mls/hr BID [facility] Administration Dextrose/Sodium Chloride 1,000 mls @ 40 mls/hr 06/20/16 20:30 06/24/16 06:12 D5-Ns - IV 40 mls/hr ASDIR [facility] Administration Insulin Aspart 1 vial 06/21/16 16:30 06/24/16 06:08 Novolog Vial Sliding Scale - SQ Not Given BIDAC [facility] Protocol Multivitamins 1 each 06/20/16 10:00 06/24/16 09:18 Total B With C - PO Not Given DAILY [facility] Phenol/Menthol 1 spray 06/22/16 11:25 06/23/16 16:08 Chloraseptic - MM 1 spray Q6H PRN Administration Sevelamer Carbonate 800 mg 06/19/16 17:30 06/24/16 11:44 Renvela - PO Not Given TIDCM [facility] Thiamine HCl 100 mg 06/19/16 22:00 06/23/16 22:36 Vitamin B1 - PO Not Given HS [facility] Vancomycin HCl 250 mg 06/23/16 18:00 06/24/16 12:13 Vancomycin Oral Solution PO 250 mg Q6HPO [facility] Administration Impression 1. ESRD 2. hyperkalemia 3. HTN 4. non compliance 5. DM 6. encephalopathy 7. hyponatremia 8. diarrhea Plan - pt tolerated HD yesterday - will arrange for HD in am - will order pre HD bloodwork - surgery input appreciated, upper and lower endoscopy was recommended - neurontin on hold - epogen for anemia - monitor bp Dr Almazan
[2016-06-24] MEDS: THIAMINE HCL 100 MG TABLET (FP) PO SCH (22:40)
[2016-06-25] MEDS: VANCOMYCIN 250 MG/5 ML ORAL SOLUTION PO SCH ×4 (00:28→17:12)
[2016-06-25] MEDS: METRONIDAZOLE 500 MG PREMIXED 100 ML IVPB SCH ×3 (01:47→17:15)
[2016-06-25] MEDS: hydrALAZINE HCL 50 MG TABLET (FP) PO SCH ×3 (06:04→22:19)
[2016-06-25] MEDS: INSULIN SLIDING SCALE (NOVOLOG) 1 VIAL SQ SCH ×2 (06:07→16:16)
[2016-06-25] MEDS: SEVELAMER CARBONATE 800 MG TAB (FP) PO SCH ×3 (08:11→17:16)
[2016-06-25] MEDS: FERROUS SO4 325 MG TABLET (FP) PO SCH ×3 (08:11→17:16)
[2016-06-25] MEDS: PANTOPRAZOLE SODIUM 40MG/100 ML IVPB SCH ×2 (09:44→22:19)
[2016-06-25] MEDS: FUROSEMIDE 40 MG TABLET (FP) PO SCH (11:30)
[2016-06-25] MEDS: amLODIPine BESYLATE 10 MG TABLET (FP) PO SCH (11:30)
[2016-06-25] MEDS: ASPIRIN 81 MG CHEWABLE TABLETS PO SCH (11:30)
[2016-06-25] MEDS: CINACALCET HCL 30 MG TAB (FP) PO SCH (11:31)
[2016-06-25] MEDS: VITAMIN B COMPLEX W/C COMBO TABLET (FP) PO SCH (11:31)
--- NOTE | 2016-06-25 11:37 | PN ---
Progress Note, Physician Chief Complaint: Events noted has pain on swallowing did not go for EGD - Current Medication List Current Medications: Active Medications Acetaminophen (Tylenol -) 650 mg PO Q6H PRN PRN Reason: FEVER OR PAIN Last Admin: 06/20/16 21:31 Dose: 650 mg Amlodipine Besylate (Norvasc -) 10 mg PO DAILY [facility] Last Admin: 06/25/16 11:30 Dose: Not Given Aspirin (Asa -) 81 mg PO DAILY [facility] Last Admin: 06/25/16 11:30 Dose: Not Given Cinacalcet (Sensipar -) 30 mg PO DAILY [facility] Last Admin: 06/25/16 11:31 Dose: Not Given Epoetin Mario (Epogen -) 4,000 units IVPUSH ONCE ONE Stop: 06/25/16 12:25 Ferrous Sulfate (Feosol -) 325 mg PO TIDCM [facility] Last Admin: 06/25/16 08:11 Dose: Not Given Furosemide (Lasix -) 40 mg PO DAILY [facility] Last Admin: 06/25/16 11:30 Dose: Not Given Heparin Sodium (Porcine) (Heparin -) 5,000 unit SQ BID [facility] Last Admin: 06/23/16 22:41 Dose: 5,000 unit Hydralazine HCl (Apresoline -) 100 mg PO TID [facility] Last Admin: 06/25/16 06:04 Dose: Not Given Hydralazine HCl (Apresoline Injection -) 10 mg IVPUSH Q6H PRN PRN Reason: HYPERTENSION Metronidazole (Flagyl 500mg Premixed Ivpb -) 100 mls @ 100 mls/hr IVPB Q8H-IV [facility] Last Admin: 06/25/16 10:40 Dose: 100 mls/hr Pantoprazole Sodium (Protonix 40mg Ivpb (Pre-Docked)) 100 mls @ 200 mls/hr IVPB BID [facility] Last Admin: 06/25/16 09:44 Dose: 200 mls/hr Dextrose/Sodium Chloride (D5-Ns -) 1,000 mls @ 40 mls/hr IV ASDIR [facility] Last Admin: 06/24/16 20:30 Dose: Not Given Insulin Aspart (Novolog Vial Sliding Scale -) 1 vial SQ BIDAC [facility] PRN Reason: Protocol Last Admin: 06/25/16 06:07 Dose: Not Given Multivitamins (Total B With C -) 1 each PO DAILY [facility] Last Admin: 06/25/16 11:31 Dose: Not Given Phenol/Menthol (Chloraseptic -) 1 spray MM Q6H PRN Last Admin: 06/23/16 16:08 Dose: 1 spray Sevelamer Carbonate (Renvela -) 800 mg PO TIDCM [facility] Last Admin: 06/25/16 08:11 Dose: Not Given Thiamine HCl (Vitamin B1 -) 100 mg PO HS [facility] Last Admin: 06/24/16 22:40 Dose: Not Given Vancomycin HCl (Vancomycin Oral Solution) 250 mg PO Q6HPO [facility] Last Admin: 06/25/16 06:04 Dose: 250 mg - Objective Vital Signs: Vital Signs Temperature 98.1 F 06/25/16 09:35 Pulse Rate 91 H 06/25/16 09:35 Respiratory Rate 20 06/25/16 09:35 Blood Pressure 159/76 06/25/16 09:35 O2 Sat by Pulse Oximetry (%) 95 06/24/16 22:00 Constitutional: Yes: No Distress Cardiovascular: Yes: Regular Rate and Rhythm Respiratory: Yes: Diminished Gastrointestinal: Yes: Normal Bowel Sounds, Soft. No: Distention, Tenderness Edema: No Labs: CBC, BMP 06/23/16 13:30 06/21/16 07:30 INR, PTT INR 1.24 (0.82-1.09) H 06/18/16 04:30 Problem List - Problems (1) Esophagitis Code(s): K20.9 - ESOPHAGITIS, UNSPECIFIED (2) Ileus Code(s): K56.7 - ILEUS, UNSPECIFIED (3) Pneumonia Code(s): J18.9 - PNEUMONIA, UNSPECIFIED ORGANISM Qualifiers: Pneumonia type: due to unspecified organism (4) Sepsis Code(s): A41.9 - SEPSIS, UNSPECIFIED ORGANISM (5) Hyperkalemia Code(s): E87.5 - HYPERKALEMIA (6) HTN (hypertension) Code(s): I10 - ESSENTIAL (PRIMARY) HYPERTENSION (7) Uremia Code(s): N19 - UNSPECIFIED KIDNEY FAILURE (8) Colitis Code(s): K52.9 - NONINFECTIVE GASTROENTERITIS AND COLITIS, UNSPECIFIED (9) ESRD (end stage renal disease) Code(s): N18.6 - END STAGE RENAL DISEASE Assessment/Plan PLAN -- HD per renal -- GI eval for EGD -- On iv antibiotics -- continue with meds -- spoke with surgeon-- will definitely need colonoscopy- if not then he recommends capsule endoscopy -- pain control -- continue with meds -- protonix IV -- Heparin sc for DVT prophylaxis
[2016-06-25] MEDS: DEXTROSE 5%-0.45% SALINE 1,000 ML IV SCH ×2 (12:57→17:07)
[2016-06-25 13:04] LABS: MCH 32.7 pg (25.7-33.7); MCHC 33.2 g/dl (32.0-35.9); MEAN CELL VOLUME 98.6 fl (80-96); MEAN PLT VOLUME 7.6 fl (7.5-11.1); PLATELET COUNT 344 K/MM3 (134-434); RDW 14.2 % (11.9-15.9); WHITE BLOOD COUNT 11.2 K/mm3 (4.0-10.0)
--- NOTE | 2016-06-25 13:42 | PN ---
Progress Note, Physician - Current Medication List Current Medications: Active Medications Acetaminophen (Tylenol -) 650 mg PO Q6H PRN PRN Reason: FEVER OR PAIN Last Admin: 06/20/16 21:31 Dose: 650 mg Amlodipine Besylate (Norvasc -) 10 mg PO DAILY [facility] Last Admin: 06/25/16 11:30 Dose: Not Given Cinacalcet (Sensipar -) 30 mg PO DAILY [facility] Last Admin: 06/25/16 11:31 Dose: Not Given Epoetin Mario (Epogen -) 4,000 units IVPUSH ONCE ONE Stop: 06/25/16 12:25 Ferrous Sulfate (Feosol -) 325 mg PO TIDCM [facility] Last Admin: 06/25/16 12:57 Dose: Not Given Furosemide (Lasix -) 40 mg PO DAILY [facility] Last Admin: 06/25/16 11:30 Dose: Not Given Heparin Sodium (Porcine) (Heparin -) 5,000 unit SQ BID [facility] Last Admin: 06/23/16 22:41 Dose: 5,000 unit Hydralazine HCl (Apresoline -) 100 mg PO TID [facility] Last Admin: 06/25/16 06:04 Dose: Not Given Hydralazine HCl (Apresoline Injection -) 10 mg IVPUSH Q6H PRN PRN Reason: HYPERTENSION Metronidazole (Flagyl 500mg Premixed Ivpb -) 100 mls @ 100 mls/hr IVPB Q8H-IV [facility] Last Admin: 06/25/16 10:40 Dose: 100 mls/hr Pantoprazole Sodium (Protonix 40mg Ivpb (Pre-Docked)) 100 mls @ 200 mls/hr IVPB BID [facility] Last Admin: 06/25/16 09:44 Dose: 200 mls/hr Dextrose/Sodium Chloride (D5-1/2ns -) 1,000 mls @ 30 mls/hr IV ASDIR [facility] Last Admin: 06/25/16 12:57 Dose: Not Given Insulin Aspart (Novolog Vial Sliding Scale -) 1 vial SQ BIDAC [facility] PRN Reason: Protocol Last Admin: 06/25/16 06:07 Dose: Not Given Multivitamins (Total B With C -) 1 each PO DAILY [facility] Last Admin: 06/25/16 11:31 Dose: Not Given Phenol/Menthol (Chloraseptic -) 1 spray MM Q6H PRN Last Admin: 06/23/16 16:08 Dose: 1 spray Sevelamer Carbonate (Renvela -) 800 mg PO TIDCM [facility] Last Admin: 06/25/16 12:57 Dose: Not Given Thiamine HCl (Vitamin B1 -) 100 mg PO HS [facility] Last Admin: 06/24/16 22:40 Dose: Not Given Vancomycin HCl (Vancomycin Oral Solution) 250 mg PO Q6HPO [facility] Last Admin: 06/25/16 12:57 Dose: Not Given - Objective Vital Signs: Vital Signs Temperature 98.4 F 06/25/16 11:53 Pulse Rate 87 06/25/16 12:30 Respiratory Rate 18 06/25/16 12:30 Blood Pressure 166/93 06/25/16 12:30 O2 Sat by Pulse Oximetry (%) 95 06/24/16 22:00 Labs: CBC, BMP 06/25/16 12:00 INR, PTT INR 1.24 (0.82-1.09) H 06/18/16 04:30 Problem List - Problems (1) Abdominal distention Code(s): R14.0 - ABDOMINAL DISTENSION (GASEOUS) (2) Colitis Code(s): K52.9 - NONINFECTIVE GASTROENTERITIS AND COLITIS, UNSPECIFIED (3) Renal failure Code(s): N19 - UNSPECIFIED KIDNEY FAILURE (4) Essential hypertension Code(s): I10 - ESSENTIAL (PRIMARY) HYPERTENSION (5) Sepsis Code(s): A41.9 - SEPSIS, UNSPECIFIED ORGANISM Assessment/Plan Surgery: Patient is tolerating diet. Needs complete g.i. work up, including upper endoscopy and colonoscopy, to rule out malignancy as the cause of intestinal obstruction. Capsule endoscopy is another alternative. [place] [id number].
[2016-06-25 13:51] LABS: ALBUMIN 2.4 g/dl (3.4-5.0); BILIRUBIN,TOTAL 0.7 mg/dL (0.2-1.0); CALCIUM 8.6 mg/dL (8.5-10.1); MAGNESIUM 1.9 mg/dL (1.8-2.4); PHOSPHOROUS 8.2 mg/dL (2.5-4.9); TOT PROT 6.2 g/dl (6.4-8.2)
[2016-06-25 14:11] LABS: CREATININE 10.8 mg/dL (0.7-1.3)
[2016-06-25] MEDS ORDERED: EPOETIN ALFA 2,000 UNITS/1 ML VIAL IVPUSH ONE (15:00)
--- NOTE | 2016-06-25 17:37 | PN ---
Progress Note, Physician History of Present Illness: Pt seen and examined at bedside. He is awake and alert. He still complains of dysphagia. - Current Medication List Current Medications: Active Medications Acetaminophen (Tylenol -) 650 mg PO Q6H PRN PRN Reason: FEVER OR PAIN Last Admin: 06/20/16 21:31 Dose: 650 mg Amlodipine Besylate (Norvasc -) 10 mg PO DAILY [facility] Last Admin: 06/25/16 11:30 Dose: Not Given Cinacalcet (Sensipar -) 30 mg PO DAILY [facility] Last Admin: 06/25/16 11:31 Dose: Not Given Ferrous Sulfate (Feosol -) 325 mg PO TIDCM [facility] Last Admin: 06/25/16 17:16 Dose: Not Given Furosemide (Lasix -) 40 mg PO DAILY [facility] Last Admin: 06/25/16 11:30 Dose: Not Given Heparin Sodium (Porcine) (Heparin -) 5,000 unit SQ BID [facility] Last Admin: 06/23/16 22:41 Dose: 5,000 unit Hydralazine HCl (Apresoline -) 100 mg PO TID [facility] Last Admin: 06/25/16 14:25 Dose: Not Given Hydralazine HCl (Apresoline Injection -) 10 mg IVPUSH Q6H PRN PRN Reason: HYPERTENSION Metronidazole (Flagyl 500mg Premixed Ivpb -) 100 mls @ 100 mls/hr IVPB Q8H-IV [facility] Last Admin: 06/25/16 17:15 Dose: 100 mls/hr Pantoprazole Sodium (Protonix 40mg Ivpb (Pre-Docked)) 100 mls @ 200 mls/hr IVPB BID [facility] Last Admin: 06/25/16 09:44 Dose: 200 mls/hr Dextrose/Sodium Chloride (D5-1/2ns -) 1,000 mls @ 30 mls/hr IV ASDIR [facility] Last Admin: 06/25/16 17:07 Dose: 30 mls/hr Insulin Aspart (Novolog Vial Sliding Scale -) 1 vial SQ BIDAC [facility] PRN Reason: Protocol Last Admin: 06/25/16 16:16 Dose: Not Given Multivitamins (Total B With C -) 1 each PO DAILY [facility] Last Admin: 06/25/16 11:31 Dose: Not Given Phenol/Menthol (Chloraseptic -) 1 spray MM Q6H PRN Last Admin: 06/23/16 16:08 Dose: 1 spray Sevelamer Carbonate (Renvela -) 800 mg PO TIDCM [facility] Last Admin: 06/25/16 17:16 Dose: Not Given Thiamine HCl (Vitamin B1 -) 100 mg PO HS [facility] Last Admin: 06/24/16 22:40 Dose: Not Given Vancomycin HCl (Vancomycin Oral Solution) 250 mg PO Q6HPO [facility] Last Admin: 06/25/16 17:12 Dose: 250 mg - Objective Vital Signs: Vital Signs Temperature 98.4 F 06/25/16 11:53 Pulse Rate 93 H 06/25/16 16:11 Respiratory Rate 18 06/25/16 16:11 Blood Pressure 163/95 06/25/16 16:11 O2 Sat by Pulse Oximetry (%) 95 06/24/16 22:00 Constitutional: Yes: Calm Eyes: Yes: Conjunctiva Clear HENT: Yes: Atraumatic Neck: Yes: Supple Cardiovascular: Yes: S1, S2 Respiratory: Yes: CTA Bilaterally Gastrointestinal: Yes: Soft Genitourinary: Yes: WNL Musculoskeletal: Yes: WNL Edema: No Neurological: Yes: Oriented Psychiatric: Yes: Oriented Labs: CBC, BMP 06/25/16 12:00 06/25/16 12:00 INR, PTT INR 1.24 (0.82-1.09) H 06/18/16 04:30 Problem List - Problems (1) Hyperkalemia Code(s): E87.5 - HYPERKALEMIA (2) HTN (hypertension) Code(s): I10 - ESSENTIAL (PRIMARY) HYPERTENSION (3) ESRD (end stage renal disease) Code(s): N18.6 - END STAGE RENAL DISEASE Assessment/Plan Current Medications Generic Name Dose Route Start Last Admin Trade Name Freq PRN Reason Stop Dose Admin Acetaminophen 650 mg 06/19/16 12:07 06/20/16 21:31 Tylenol - PO 650 mg Q6H PRN Administration FEVER OR PAIN Amlodipine Besylate 10 mg 06/20/16 10:00 06/25/16 11:30 Norvasc - PO Not Given DAILY [facility] Cinacalcet 30 mg 06/20/16 10:00 06/25/16 11:31 Sensipar - PO Not Given DAILY [facility] Ferrous Sulfate 325 mg 06/19/16 17:30 06/25/16 17:16 Feosol - PO Not Given TIDCM [facility] Furosemide 40 mg 06/20/16 10:00 06/25/16 11:30 Lasix - PO Not Given DAILY [facility] Heparin Sodium (Porcine) 5,000 unit 06/19/16 22:00 06/23/16 22:41 Heparin - SQ 5,000 unit BID [facility] Administration Hydralazine HCl 100 mg 06/19/16 14:00 06/25/16 14:25 Apresoline - PO Not Given TID [facility] Hydralazine HCl 10 mg 06/19/16 22:13 Apresoline Injection - IVPUSH Q6H PRN HYPERTENSION Metronidazole 100 mls @ 100 mls/hr 06/19/16 18:00 06/25/16 17:15 Flagyl 500mg Premixed Ivpb - IVPB 100 mls/hr Q8H-IV [facility] Administration Pantoprazole Sodium 100 mls @ 200 mls/hr 06/19/16 22:00 06/25/16 09:44 Protonix 40mg Ivpb (Pre-Docked) IVPB 200 mls/hr BID [facility] Administration Dextrose/Sodium Chloride 1,000 mls @ 30 mls/hr 06/25/16 12:00 06/25/16 17:07 D5-1/2ns - IV 30 mls/hr ASDIR [facility] Administration Insulin Aspart 1 vial 06/21/16 16:30 06/25/16 16:16 Novolog Vial Sliding Scale - SQ Not Given BIDAC [facility] Protocol Multivitamins 1 each 06/20/16 10:00 06/25/16 11:31 Total B With C - PO Not Given DAILY [facility] Phenol/Menthol 1 spray 06/22/16 11:25 06/23/16 16:08 Chloraseptic - MM 1 spray Q6H PRN Administration Sevelamer Carbonate 800 mg 06/19/16 17:30 06/25/16 17:16 Renvela - PO Not Given TIDCM [facility] Thiamine HCl 100 mg 06/19/16 22:00 06/24/16 22:40 Vitamin B1 - PO Not Given HS [facility] Vancomycin HCl 250 mg 06/23/16 18:00 06/25/16 17:12 Vancomycin Oral Solution PO 250 mg Q6HPO [facility] Administration Impression 1. ESRD 2. hyperkalemia 3. HTN 4. non compliance 5. DM 6. encephalopathy 7. hyponatremia 8. diarrhea Plan - HD today - GI eval for scope - surgery input appreciated - bloodwork reviewed - neurontin on hold - epogen for anemia - monitor bp Dr Almazan
--- NOTE | 2016-06-25 18:34 | PN ---
GI Progress Note Subjective: Patient comfortable. No complaints. - Objective Vital Signs: Vital Signs Temperature 98.4 F 06/25/16 11:53 Pulse Rate 93 H 06/25/16 16:11 Respiratory Rate 18 06/25/16 16:11 Blood Pressure 163/95 06/25/16 16:11 O2 Sat by Pulse Oximetry (%) 95 06/24/16 22:00 Constitutional: No Distress HENT: Yes: Normocephalic Neck: Yes: Supple Cardiovascular: Yes: Regular Rate and Rhythm Respiratory: Yes: CTA Bilaterally Gastrointestinal Inspection: Yes: WNL ...Auscultate: Yes: Normoactive Bowel Sounds ...Palpate: Yes: Soft Labs: CBC, BMP 06/25/16 12:00 06/25/16 12:00 INR, PTT INR 1.24 (0.82-1.09) H 06/18/16 04:30 - ....Imaging Cat Scan: Report Reviewed (Thickening of distal esophagus and colon.) Assessment/Plan BUN 183/Cr 19.7 on admission with abdominal pain on admission. Lactate 3.88 likely related to renal failure. CT shows circumerential thickening in the colon (?ischemia) and the esophagus ( likely esophagitis) However, dysphagia is profound and colon findings have not improved since admission. For colon/EGD tomorrow AM to better evaluate
[2016-06-25] MEDS: LACTULOSE 20 GM/30 ML UDC (FOR ORAL USE ONLY) PO SCH ×3 (18:59→23:40)
[2016-06-25] MEDS ORDERED: LACTULOSE 20 GM/30 ML UDC (FOR ORAL USE ONLY) PO SCH (22:00)
[2016-06-25] MEDS: THIAMINE HCL 100 MG TABLET (FP) PO SCH (22:19)
[2016-06-26] MEDS: VANCOMYCIN 250 MG/5 ML ORAL SOLUTION PO SCH ×6 (00:09→18:02)
[2016-06-26] MEDS ORDERED: PT OWN MED DRAWER 7, Y5N ONE ×3 (02:04→18:28)
[2016-06-26] MEDS: METRONIDAZOLE 500 MG PREMIXED 100 ML IVPB SCH ×3 (02:09→17:57)
[2016-06-26] MEDS: hydrALAZINE HCL 50 MG TABLET (FP) PO SCH ×3 (05:25→22:13)
[2016-06-26] MEDS: INSULIN SLIDING SCALE (NOVOLOG) 1 VIAL SQ SCH ×2 (06:16→16:27)
[2016-06-26] MEDS ORDERED: PROPOFOL 20 ML ONE ×3 (08:12)
[2016-06-26] MEDS ORDERED: LIDOCAINE HCL/PF 1% SDV 5ML VIAL ONE (08:12)
[2016-06-26] MEDS: SEVELAMER CARBONATE 800 MG TAB (FP) PO SCH ×3 (08:48→17:40)
[2016-06-26] MEDS: FERROUS SO4 325 MG TABLET (FP) PO SCH ×3 (08:48→17:40)
[2016-06-26] MEDS: VITAMIN B COMPLEX W/C COMBO TABLET (FP) PO SCH (10:14)
[2016-06-26] MEDS: CINACALCET HCL 30 MG TAB (FP) PO SCH (10:14)
[2016-06-26] MEDS: amLODIPine BESYLATE 10 MG TABLET (FP) PO SCH (10:14)
[2016-06-26] MEDS: FUROSEMIDE 40 MG TABLET (FP) PO SCH (10:14)
[2016-06-26] MEDS: PANTOPRAZOLE SODIUM 40MG/100 ML IVPB SCH ×2 (11:26→22:12)
--- NOTE | 2016-06-26 12:08 | PN ---
Progress Note, Physician Chief Complaint: has EGd/Colonoscopy today - Current Medication List Current Medications: Active Medications Acetaminophen (Tylenol -) 650 mg PO Q6H PRN PRN Reason: FEVER OR PAIN Last Admin: 06/20/16 21:31 Dose: 650 mg Amlodipine Besylate (Norvasc -) 10 mg PO DAILY [facility] Last Admin: 06/26/16 10:14 Dose: Not Given Cinacalcet (Sensipar -) 30 mg PO DAILY [facility] Last Admin: 06/26/16 10:14 Dose: Not Given Ferrous Sulfate (Feosol -) 325 mg PO TIDCM [facility] Last Admin: 06/26/16 08:48 Dose: Not Given Furosemide (Lasix -) 40 mg PO DAILY [facility] Last Admin: 06/26/16 10:14 Dose: Not Given Heparin Sodium (Porcine) (Heparin -) 5,000 unit SQ BID [facility] Last Admin: 06/23/16 22:41 Dose: 5,000 unit Hydralazine HCl (Apresoline -) 100 mg PO TID [facility] Last Admin: 06/26/16 05:25 Dose: Not Given Hydralazine HCl (Apresoline Injection -) 10 mg IVPUSH Q6H PRN PRN Reason: HYPERTENSION Metronidazole (Flagyl 500mg Premixed Ivpb -) 100 mls @ 100 mls/hr IVPB Q8H-IV [facility] Last Admin: 06/26/16 10:10 Dose: 100 mls/hr Pantoprazole Sodium (Protonix 40mg Ivpb (Pre-Docked)) 100 mls @ 200 mls/hr IVPB BID [facility] Last Admin: 06/26/16 11:26 Dose: 200 mls/hr Dextrose/Sodium Chloride (D5-1/2ns -) 1,000 mls @ 30 mls/hr IV ASDIR [facility] Last Admin: 06/25/16 17:07 Dose: 30 mls/hr Insulin Aspart (Novolog Vial Sliding Scale -) 1 vial SQ BIDAC [facility] PRN Reason: Protocol Last Admin: 06/26/16 06:16 Dose: Not Given Multivitamins (Total B With C -) 1 each PO DAILY [facility] Last Admin: 06/26/16 10:14 Dose: Not Given Phenol/Menthol (Chloraseptic -) 1 spray MM Q6H PRN Last Admin: 06/23/16 16:08 Dose: 1 spray Sevelamer Carbonate (Renvela -) 800 mg PO TIDCM [facility] Last Admin: 06/26/16 08:48 Dose: Not Given Thiamine HCl (Vitamin B1 -) 100 mg PO HS [facility] Last Admin: 06/25/16 22:19 Dose: Not Given Vancomycin HCl (Vancomycin Oral Solution) 125 mg PO Q6HPO [facility] Vancomycin HCl (Vancomycin Oral Solution) 125 mg PO Q6HPO [facility] - Objective Vital Signs: Vital Signs Temperature 98.5 F 06/26/16 10:00 Pulse Rate 108 H 06/26/16 10:00 Respiratory Rate 20 06/26/16 10:00 Blood Pressure 140/76 06/26/16 10:00 O2 Sat by Pulse Oximetry (%) 95 06/26/16 09:00 Constitutional: Yes: No Distress Cardiovascular: Yes: Regular Rate and Rhythm Respiratory: Yes: CTA Bilaterally Gastrointestinal: Yes: Normal Bowel Sounds, Soft. No: Distention, Tenderness Edema: No Labs: CBC, BMP 06/25/16 12:00 06/25/16 12:00 INR, PTT INR 1.24 (0.82-1.09) H 06/18/16 04:30 Problem List - Problems (1) Esophagitis Code(s): K20.9 - ESOPHAGITIS, UNSPECIFIED (2) Ileus Code(s): K56.7 - ILEUS, UNSPECIFIED (3) Pneumonia Code(s): J18.9 - PNEUMONIA, UNSPECIFIED ORGANISM Qualifiers: Pneumonia type: due to unspecified organism (4) Sepsis Code(s): A41.9 - SEPSIS, UNSPECIFIED ORGANISM (5) Hyperkalemia Code(s): E87.5 - HYPERKALEMIA (6) HTN (hypertension) Code(s): I10 - ESSENTIAL (PRIMARY) HYPERTENSION (7) Uremia Code(s): N19 - UNSPECIFIED KIDNEY FAILURE (8) Colitis Code(s): K52.9 - NONINFECTIVE GASTROENTERITIS AND COLITIS, UNSPECIFIED (9) ESRD (end stage renal disease) Code(s): N18.6 - END STAGE RENAL DISEASE Assessment/Plan PLAN -- HD per renal -- On iv antibiotics -- continue with meds -- pain control -- continue with meds -- protonix IV -- Heparin sc for DVT prophylaxis -- EGD/Colonoscopy findings -- polyp in distal esophagus, duodenitis, gastritis , ischemic colitis
[2016-06-26] MEDS: MAG HYDROX/ALH/SMC/DPHA/LIDO 240 ML MOUTHWASH MM SCH ×2 (14:45→17:38)
[2016-06-26] MEDS: DEXTROSE 5%-0.45% SALINE 1,000 ML IV SCH (14:55)
--- NOTE | 2016-06-26 15:32 | PN ---
Progress Note, Physician - Current Medication List Current Medications: Active Medications Acetaminophen (Tylenol -) 650 mg PO Q6H PRN PRN Reason: FEVER OR PAIN Last Admin: 06/20/16 21:31 Dose: 650 mg Amlodipine Besylate (Norvasc -) 10 mg PO DAILY [facility] Last Admin: 06/26/16 10:14 Dose: Not Given Cinacalcet (Sensipar -) 30 mg PO DAILY [facility] Last Admin: 06/26/16 10:14 Dose: Not Given Ferrous Sulfate (Feosol -) 325 mg PO TIDCM [facility] Last Admin: 06/26/16 12:58 Dose: Not Given Furosemide (Lasix -) 40 mg PO DAILY [facility] Last Admin: 06/26/16 10:14 Dose: Not Given Heparin Sodium (Porcine) (Heparin -) 5,000 unit SQ BID [facility] Last Admin: 06/23/16 22:41 Dose: 5,000 unit Hydralazine HCl (Apresoline -) 100 mg PO TID [facility] Last Admin: 06/26/16 14:50 Dose: 100 mg Hydralazine HCl (Apresoline Injection -) 10 mg IVPUSH Q6H PRN PRN Reason: HYPERTENSION Metronidazole (Flagyl 500mg Premixed Ivpb -) 100 mls @ 100 mls/hr IVPB Q8H-IV [facility] Last Admin: 06/26/16 10:10 Dose: 100 mls/hr Pantoprazole Sodium (Protonix 40mg Ivpb (Pre-Docked)) 100 mls @ 200 mls/hr IVPB BID [facility] Last Admin: 06/26/16 11:26 Dose: 200 mls/hr Dextrose/Sodium Chloride (D5-1/2ns -) 1,000 mls @ 30 mls/hr IV ASDIR [facility] Last Admin: 06/26/16 14:55 Dose: 30 mls/hr Insulin Aspart (Novolog Vial Sliding Scale -) 1 vial SQ BIDAC [facility] PRN Reason: Protocol Last Admin: 06/26/16 06:16 Dose: Not Given Lidocaine/Aluminum/Magnesium/Simeth (Magic Mouthwash *Sjr Formula* -) 5 ml MM TIDAC [facility] Last Admin: 06/26/16 14:45 Dose: 5 ml Multivitamins (Total B With C -) 1 each PO DAILY [facility] Last Admin: 06/26/16 10:14 Dose: Not Given Phenol/Menthol (Chloraseptic -) 1 spray MM Q6H PRN Last Admin: 06/23/16 16:08 Dose: 1 spray Sevelamer Carbonate (Renvela -) 800 mg PO TIDCM [facility] Last Admin: 06/26/16 12:59 Dose: Not Given Thiamine HCl (Vitamin B1 -) 100 mg PO HS [facility] Last Admin: 06/25/16 22:19 Dose: Not Given Vancomycin HCl (Vancomycin Oral Solution) 125 mg PO Q6HPO [facility] Last Admin: 06/26/16 12:21 Dose: 125 ml Vancomycin HCl (Vancomycin Oral Solution) 125 mg PO Q6HPO [facility] Last Admin: 06/26/16 12:23 Dose: Not Given - Objective Vital Signs: Vital Signs Temperature 99.1 F 06/26/16 14:08 Pulse Rate 108 H 06/26/16 14:08 Respiratory Rate 20 06/26/16 10:00 Blood Pressure 139/91 06/26/16 14:08 O2 Sat by Pulse Oximetry (%) 95 06/26/16 09:00 Labs: CBC, BMP 06/25/16 12:00 06/25/16 12:00 INR, PTT INR 1.24 (0.82-1.09) H 06/18/16 04:30 Problem List - Problems (1) Abdominal distention Code(s): R14.0 - ABDOMINAL DISTENSION (GASEOUS) (2) Colitis Code(s): K52.9 - NONINFECTIVE GASTROENTERITIS AND COLITIS, UNSPECIFIED (3) Renal failure Code(s): N19 - UNSPECIFIED KIDNEY FAILURE (4) Essential hypertension Code(s): I10 - ESSENTIAL (PRIMARY) HYPERTENSION (5) Sepsis Code(s): A41.9 - SEPSIS, UNSPECIFIED ORGANISM Assessment/Plan Patient is unable to eat solids. Endoscopy findings notes. Polyp in esophagus, and colitis in right colon , ? ischemic. No obstructive lesions noted. Will sign off .
--- NOTE | 2016-06-26 16:59 | PN ---
Progress Note, Physician History of Present Illness: Pt seen and examined at bedside. He is awake and alert. He complains of dysphagia. - Current Medication List Current Medications: Active Medications Acetaminophen (Tylenol -) 650 mg PO Q6H PRN PRN Reason: FEVER OR PAIN Last Admin: 06/20/16 21:31 Dose: 650 mg Amlodipine Besylate (Norvasc -) 10 mg PO DAILY [facility] Last Admin: 06/26/16 10:14 Dose: Not Given Cinacalcet (Sensipar -) 30 mg PO DAILY [facility] Last Admin: 06/26/16 10:14 Dose: Not Given Ferrous Sulfate (Feosol -) 325 mg PO TIDCM [facility] Last Admin: 06/26/16 12:58 Dose: Not Given Furosemide (Lasix -) 40 mg PO DAILY [facility] Last Admin: 06/26/16 10:14 Dose: Not Given Heparin Sodium (Porcine) (Heparin -) 5,000 unit SQ BID [facility] Last Admin: 06/23/16 22:41 Dose: 5,000 unit Hydralazine HCl (Apresoline -) 100 mg PO TID [facility] Last Admin: 06/26/16 14:50 Dose: 100 mg Hydralazine HCl (Apresoline Injection -) 10 mg IVPUSH Q6H PRN PRN Reason: HYPERTENSION Metronidazole (Flagyl 500mg Premixed Ivpb -) 100 mls @ 100 mls/hr IVPB Q8H-IV [facility] Last Admin: 06/26/16 10:10 Dose: 100 mls/hr Pantoprazole Sodium (Protonix 40mg Ivpb (Pre-Docked)) 100 mls @ 200 mls/hr IVPB BID [facility] Last Admin: 06/26/16 11:26 Dose: 200 mls/hr Dextrose/Sodium Chloride (D5-1/2ns -) 1,000 mls @ 30 mls/hr IV ASDIR [facility] Last Admin: 06/26/16 14:55 Dose: 30 mls/hr Insulin Aspart (Novolog Vial Sliding Scale -) 1 vial SQ BIDAC [facility] PRN Reason: Protocol Last Admin: 06/26/16 16:27 Dose: Not Given Lidocaine/Aluminum/Magnesium/Simeth (Magic Mouthwash *Sjr Formula* -) 5 ml MM TIDAC [facility] Last Admin: 06/26/16 14:45 Dose: 5 ml Multivitamins (Total B With C -) 1 each PO DAILY [facility] Last Admin: 06/26/16 10:14 Dose: Not Given Phenol/Menthol (Chloraseptic -) 1 spray MM Q6H PRN Last Admin: 06/23/16 16:08 Dose: 1 spray Sevelamer Carbonate (Renvela -) 800 mg PO TIDCM [facility] Last Admin: 06/26/16 12:59 Dose: Not Given Thiamine HCl (Vitamin B1 -) 100 mg PO HS [facility] Last Admin: 06/25/16 22:19 Dose: Not Given Vancomycin HCl (Vancomycin Oral Solution) 125 mg PO Q6HPO [facility] Last Admin: 06/26/16 12:21 Dose: 125 ml Vancomycin HCl (Vancomycin Oral Solution) 125 mg PO Q6HPO [facility] Last Admin: 06/26/16 12:23 Dose: Not Given - Objective Vital Signs: Vital Signs Temperature 99.1 F 06/26/16 14:08 Pulse Rate 108 H 06/26/16 14:08 Respiratory Rate 20 06/26/16 10:00 Blood Pressure 139/91 06/26/16 14:08 O2 Sat by Pulse Oximetry (%) 95 06/26/16 09:00 Constitutional: Yes: Calm Eyes: Yes: Conjunctiva Clear HENT: Yes: Atraumatic Neck: Yes: Supple Cardiovascular: Yes: S1, S2 Respiratory: Yes: CTA Bilaterally Gastrointestinal: Yes: Normal Bowel Sounds, Soft Genitourinary: Yes: WNL Musculoskeletal: Yes: WNL Edema: No Neurological: Yes: Oriented Psychiatric: Yes: Oriented Labs: CBC, BMP 06/25/16 12:00 06/25/16 12:00 INR, PTT INR 1.24 (0.82-1.09) H 06/18/16 04:30 Problem List - Problems (1) Hyperkalemia Code(s): E87.5 - HYPERKALEMIA (2) HTN (hypertension) Code(s): I10 - ESSENTIAL (PRIMARY) HYPERTENSION (3) ESRD (end stage renal disease) Code(s): N18.6 - END STAGE RENAL DISEASE Assessment/Plan Current Medications Generic Name Dose Route Start Last Admin Trade Name Freq PRN Reason Stop Dose Admin Acetaminophen 650 mg 06/19/16 12:07 06/20/16 21:31 Tylenol - PO 650 mg Q6H PRN Administration FEVER OR PAIN Amlodipine Besylate 10 mg 06/20/16 10:00 06/26/16 10:14 Norvasc - PO Not Given DAILY [facility] Cinacalcet 30 mg 06/20/16 10:00 06/26/16 10:14 Sensipar - PO Not Given DAILY [facility] Ferrous Sulfate 325 mg 06/19/16 17:30 06/26/16 12:58 Feosol - PO Not Given TIDCM [facility] Furosemide 40 mg 06/20/16 10:00 06/26/16 10:14 Lasix - PO Not Given DAILY [facility] Heparin Sodium (Porcine) 5,000 unit 06/19/16 22:00 06/23/16 22:41 Heparin - SQ 5,000 unit BID [facility] Administration Hydralazine HCl 100 mg 06/19/16 14:00 06/26/16 14:50 Apresoline - PO 100 mg TID [facility] Administration Hydralazine HCl 10 mg 06/19/16 22:13 Apresoline Injection - IVPUSH Q6H PRN HYPERTENSION Metronidazole 100 mls @ 100 mls/hr 06/19/16 18:00 06/26/16 10:10 Flagyl 500mg Premixed Ivpb - IVPB 100 mls/hr Q8H-IV [facility] Administration Pantoprazole Sodium 100 mls @ 200 mls/hr 06/19/16 22:00 06/26/16 11:26 Protonix 40mg Ivpb (Pre-Docked) IVPB 200 mls/hr BID [facility] Administration Dextrose/Sodium Chloride 1,000 mls @ 30 mls/hr 06/25/16 12:00 06/26/16 14:55 D5-1/2ns - IV 30 mls/hr ASDIR [facility] Administration Insulin Aspart 1 vial 06/21/16 16:30 06/26/16 16:27 Novolog Vial Sliding Scale - SQ Not Given BIDAC [facility] Protocol Lidocaine/Aluminum/Magnesium/Simeth 5 ml 06/26/16 16:30 06/26/16 14:45 Magic Mouthwash *Sjr Formula* - MM 5 ml TIDAC [facility] Administration Multivitamins 1 each 06/20/16 10:00 06/26/16 10:14 Total B With C - PO Not Given DAILY [facility] Phenol/Menthol 1 spray 06/22/16 11:25 06/23/16 16:08 Chloraseptic - MM 1 spray Q6H PRN Administration Sevelamer Carbonate 800 mg 06/19/16 17:30 06/26/16 12:59 Renvela - PO Not Given TIDCM [facility] Thiamine HCl 100 mg 06/19/16 22:00 06/25/16 22:19 Vitamin B1 - PO Not Given HS [facility] Vancomycin HCl 125 mg 06/26/16 12:00 06/26/16 12:21 Vancomycin Oral Solution PO 125 ml Q6HPO [facility] Administration Vancomycin HCl 125 mg 06/26/16 12:00 06/26/16 12:23 Vancomycin Oral Solution PO Not Given Q6HPO [facility] Impression 1. ESRD 2. hyperkalemia 3. HTN 4. non compliance 5. DM 6. encephalopathy 7. hyponatremia 8. diarrhea Plan - will arrange for HD in am - discussed with PMD - surgery input appreciated - bloodwork reviewed - stop fluid once he is able to eat - neurontin on hold - epogen for anemia - monitor bp Dr Almazan
[2016-06-26] MEDS: THIAMINE HCL 100 MG TABLET (FP) PO SCH (22:13)
[2016-06-27] MEDS: METRONIDAZOLE 500 MG PREMIXED 100 ML IVPB SCH ×2 (01:35→12:39)
[2016-06-27] MEDS: VANCOMYCIN 250 MG/5 ML ORAL SOLUTION PO SCH ×4 (01:36→17:58)
[2016-06-27] MEDS: MAG HYDROX/ALH/SMC/DPHA/LIDO 240 ML MOUTHWASH MM SCH ×3 (06:31→17:58)
[2016-06-27] MEDS: hydrALAZINE HCL 50 MG TABLET (FP) PO SCH ×3 (06:34→22:48)
[2016-06-27] MEDS: INSULIN SLIDING SCALE (NOVOLOG) 1 VIAL SQ SCH ×2 (06:34→17:58)
[2016-06-27] MEDS: FERROUS SO4 325 MG TABLET (FP) PO SCH ×3 (08:00→17:58)
[2016-06-27] MEDS: SEVELAMER CARBONATE 800 MG TAB (FP) PO SCH ×3 (08:00→17:58)
[2016-06-27] MEDS ORDERED: EPOETIN ALFA 2,000 UNITS/1 ML VIAL IVPUSH ONE (09:00)
--- NOTE | 2016-06-27 09:56 | PN ---
Progress Note (short form) - Note Progress Note: Subjective Patient seen and examined in HD. Chart reviewed. S/p EGD and colonoscopy Having loose bowel movements Denies abdominal pain Afebrile Not able to eat much Objective Last Vital Signs Temp Pulse Resp BP Pulse Ox 98.5 F 109 H 18 142/68 98 06/27/16 06:05 06/27/16 08:40 06/27/16 08:40 06/27/16 08:40 06/26/16 21:00 Problem List - Problems (1) Esophagitis Code(s): K20.9 - ESOPHAGITIS, UNSPECIFIED (2) Ileus Code(s): K56.7 - ILEUS, UNSPECIFIED (3) Pneumonia Code(s): J18.9 - PNEUMONIA, UNSPECIFIED ORGANISM Qualifiers: Pneumonia type: due to unspecified organism (4) Sepsis Code(s): A41.9 - SEPSIS, UNSPECIFIED ORGANISM (5) Hyperkalemia Code(s): E87.5 - HYPERKALEMIA (6) HTN (hypertension) Code(s): I10 - ESSENTIAL (PRIMARY) HYPERTENSION (7) Uremia Code(s): N19 - UNSPECIFIED KIDNEY FAILURE (8) Colitis Code(s): K52.9 - NONINFECTIVE GASTROENTERITIS AND COLITIS, UNSPECIFIED (9) ESRD (end stage renal disease) Code(s): N18.6 - END STAGE RENAL DISEASE Labs: CBC, BMP 06/25/16 12:00 06/25/16 12:00 Physical Exam Constitutional: Yes: No Distress Cardiovascular: Yes: Regular Rate and Rhythm Respiratory: Yes: CTA Bilaterally Gastrointestinal: Yes: Normal Bowel Sounds, Soft. No: Distention, Tenderness Edema: No Assessment and Plan -- continue mild hydration -- C. diff negative -- HD per renal -- On iv antibiotics -- continue with meds -- pain control -- continue with meds -- protonix IV -- Heparin sc for DVT prophylaxis -- EGD/Colonoscopy findings -- polyp in distal esophagus, duodenitis, gastritis , ischemic colitis Documentation prepared by Brenna Dowling, acting as a medical driver for José Browne MD.
[2016-06-27] MEDS: FUROSEMIDE 40 MG TABLET (FP) PO SCH (12:39)
[2016-06-27] MEDS: amLODIPine BESYLATE 10 MG TABLET (FP) PO SCH (12:39)
[2016-06-27] MEDS: CINACALCET HCL 30 MG TAB (FP) PO SCH (12:40)
[2016-06-27] MEDS: PANTOPRAZOLE SODIUM 40MG/100 ML IVPB SCH (12:40)
[2016-06-27] MEDS: VITAMIN B COMPLEX W/C COMBO TABLET (FP) PO SCH (12:40)
[2016-06-27] MEDS: DEXTROSE 5%-0.45% SALINE 1,000 ML IV SCH (12:41)
[2016-06-27] MEDS: ACETAMINOPHEN 325 MG TABLET (FP) PO PRN (12:43)
--- NOTE | 2016-06-27 13:09 | PN ---
Progress Note, Physician History of Present Illness: Pt seen and examined at bedside. He is awake and alert. He tolerated HD. - Current Medication List Current Medications: Active Medications Acetaminophen (Tylenol -) 650 mg PO Q6H PRN PRN Reason: FEVER OR PAIN Last Admin: 06/27/16 12:43 Dose: 650 mg Amlodipine Besylate (Norvasc -) 10 mg PO DAILY [facility] Last Admin: 06/27/16 12:39 Dose: 10 mg Cinacalcet (Sensipar -) 30 mg PO DAILY [facility] Last Admin: 06/27/16 12:40 Dose: Not Given Ferrous Sulfate (Feosol -) 325 mg PO TIDCM [facility] Last Admin: 06/27/16 12:38 Dose: Not Given Furosemide (Lasix -) 40 mg PO DAILY [facility] Last Admin: 06/27/16 12:39 Dose: 40 mg Heparin Sodium (Porcine) (Heparin -) 5,000 unit SQ BID [facility] Last Admin: 06/23/16 22:41 Dose: 5,000 unit Hydralazine HCl (Apresoline -) 100 mg PO TID [facility] Last Admin: 06/27/16 06:34 Dose: Not Given Hydralazine HCl (Apresoline Injection -) 10 mg IVPUSH Q6H PRN PRN Reason: HYPERTENSION Metronidazole (Flagyl 500mg Premixed Ivpb -) 100 mls @ 100 mls/hr IVPB Q8H-IV [facility] Last Admin: 06/27/16 12:39 Dose: 100 mls/hr Pantoprazole Sodium (Protonix 40mg Ivpb (Pre-Docked)) 100 mls @ 200 mls/hr IVPB BID [facility] Last Admin: 06/27/16 12:40 Dose: 200 mls/hr Dextrose/Sodium Chloride (D5-1/2ns -) 1,000 mls @ 30 mls/hr IV ASDIR [facility] Last Admin: 06/27/16 12:41 Dose: 30 mls/hr Insulin Aspart (Novolog Vial Sliding Scale -) 1 vial SQ BIDAC [facility] PRN Reason: Protocol Last Admin: 06/27/16 06:34 Dose: Not Given Lidocaine/Aluminum/Magnesium/Simeth (Magic Mouthwash *Sjr Formula* -) 5 ml MM TIDAC [facility] Last Admin: 06/27/16 11:00 Dose: Not Given Multivitamins (Total B With C -) 1 each PO DAILY [facility] Last Admin: 06/27/16 12:40 Dose: Not Given Phenol/Menthol (Chloraseptic -) 1 spray MM Q6H PRN Last Admin: 06/23/16 16:08 Dose: 1 spray Sevelamer Carbonate (Renvela -) 800 mg PO TIDCM [facility] Last Admin: 06/27/16 12:39 Dose: Not Given Thiamine HCl (Vitamin B1 -) 100 mg PO HS [facility] Last Admin: 06/26/16 22:13 Dose: Not Given Vancomycin HCl (Vancomycin Oral Solution) 250 mg PO Q6HPO [facility] Last Admin: 06/27/16 12:41 Dose: 250 mg - Objective Vital Signs: Vital Signs Temperature 99.6 F 06/27/16 12:20 Pulse Rate 110 H 06/27/16 12:20 Respiratory Rate 18 06/27/16 12:20 Blood Pressure 137/77 06/27/16 12:20 O2 Sat by Pulse Oximetry (%) 98 06/26/16 21:00 Constitutional: Yes: Calm Eyes: Yes: Conjunctiva Clear HENT: Yes: Atraumatic Neck: Yes: Supple Cardiovascular: Yes: S1, S2 Respiratory: Yes: CTA Bilaterally Gastrointestinal: Yes: Normal Bowel Sounds, Soft Musculoskeletal: Yes: WNL Edema: No Neurological: Yes: Oriented Psychiatric: Yes: Oriented Labs: CBC, BMP 06/25/16 12:00 06/25/16 12:00 INR, PTT INR 1.24 (0.82-1.09) H 06/18/16 04:30 Problem List - Problems (1) Hyperkalemia Code(s): E87.5 - HYPERKALEMIA (2) HTN (hypertension) Code(s): I10 - ESSENTIAL (PRIMARY) HYPERTENSION (3) ESRD (end stage renal disease) Code(s): N18.6 - END STAGE RENAL DISEASE Assessment/Plan Current Medications Generic Name Dose Route Start Last Admin Trade Name Freq PRN Reason Stop Dose Admin Acetaminophen 650 mg 06/19/16 12:07 06/27/16 12:43 Tylenol - PO 650 mg Q6H PRN Administration FEVER OR PAIN Amlodipine Besylate 10 mg 06/20/16 10:00 06/27/16 12:39 Norvasc - PO 10 mg DAILY [facility] Administration Cinacalcet 30 mg 06/20/16 10:00 06/27/16 12:40 Sensipar - PO Not Given DAILY [facility] Ferrous Sulfate 325 mg 06/19/16 17:30 06/27/16 12:38 Feosol - PO Not Given TIDCM [facility] Furosemide 40 mg 06/20/16 10:00 06/27/16 12:39 Lasix - PO 40 mg DAILY [facility] Administration Heparin Sodium (Porcine) 5,000 unit 06/19/16 22:00 06/23/16 22:41 Heparin - SQ 5,000 unit BID [facility] Administration Hydralazine HCl 100 mg 06/19/16 14:00 06/27/16 06:34 Apresoline - PO Not Given TID [facility] Hydralazine HCl 10 mg 06/19/16 22:13 Apresoline Injection - IVPUSH Q6H PRN HYPERTENSION Metronidazole 100 mls @ 100 mls/hr 06/19/16 18:00 06/27/16 12:39 Flagyl 500mg Premixed Ivpb - IVPB 100 mls/hr Q8H-IV [facility] Administration Pantoprazole Sodium 100 mls @ 200 mls/hr 06/19/16 22:00 06/27/16 12:40 Protonix 40mg Ivpb (Pre-Docked) IVPB 200 mls/hr BID [facility] Administration Dextrose/Sodium Chloride 1,000 mls @ 30 mls/hr 06/25/16 12:00 06/27/16 12:41 D5-1/2ns - IV 30 mls/hr ASDIR [facility] Administration Insulin Aspart 1 vial 06/21/16 16:30 06/27/16 06:34 Novolog Vial Sliding Scale - SQ Not Given BIDAC [facility] Protocol Lidocaine/Aluminum/Magnesium/Simeth 5 ml 06/26/16 16:30 06/27/16 11:00 Magic Mouthwash *Sjr Formula* - MM Not Given TIDAC [facility] Multivitamins 1 each 06/20/16 10:00 06/27/16 12:40 Total B With C - PO Not Given DAILY [facility] Phenol/Menthol 1 spray 06/22/16 11:25 06/23/16 16:08 Chloraseptic - MM 1 spray Q6H PRN Administration Sevelamer Carbonate 800 mg 06/19/16 17:30 06/27/16 12:39 Renvela - PO Not Given TIDCM [facility] Thiamine HCl 100 mg 06/19/16 22:00 06/26/16 22:13 Vitamin B1 - PO Not Given HS [facility] Vancomycin HCl 250 mg 06/27/16 00:00 06/27/16 12:41 Vancomycin Oral Solution PO 250 mg Q6HPO [facility] Administration Impression 1. ESRD 2. hyperkalemia 3. HTN 4. non compliance 5. DM 6. encephalopathy 7. hyponatremia 8. diarrhea Plan - pt tolerated HD today, next session is on Thursday - swallow is normal - cont current meds - surgery input appreciated - epogen for anemia - odynophagia workup is in progress - monitor bp Dr Almazan
--- NOTE | 2016-06-27 14:01 | PATH ---
Surgical Pathology Report Patient Name: SONI FABIAN [facility]. Rec. #: [id number] /Age/Gender: 1960 (Age: 56) / M Account: [id number] Location: [address] [place] [address] Taken: 06/26/2016 Received: 06/26/2016 Reported: 06/27/2016 Physicians: Ronan Camacho M.D. Specimen(s) Received A: BX POLYP DISTAL ESOPHAGUS B: BX DUODENAL BULB C: BX 2ND PORTION DUODENUM D: BX ABNORMAL MUCOSA SIGMOID & DESCENDING COLON E: BX PROXIMAL TRANSVERSE COLON ABNORMAL MUCOSA Clinical History Abnormal CAT scan, abdominal pain Polyp at distal esophagus, gastritis, ischemic colitis, duodenitis Final Diagnosis A. ESOPHAGUS, DISTAL, POLYP, BIOPSY: POLYPOID FRAGMENTS OF SQUAMOUS AND COLUMNAR GASTRIC TYPE MUCOSA WITH CHRONIC INFLAMMATION AND HYPERPLASTIC CHANGE. NO INTESTINAL METAPLASIA (MCCARTHY'S ESOPHAGUS) OR DYSPLASIA IDENTIFIED. B. DUODENAL BULB, BIOPSY: DUODENAL MUCOSA WITH CHRONIC INFLAMMATION, [place] HYPERPLASIA AND GASTRIC METAPLASIA CONSISTENT WITH PEPTIC DUODENITIS. NO HISTOLOGIC EVIDENCE OF GLUTEN SENSITIVE ENTEROPATHY (CELIAC DISEASE). C. DUODENUM, SECOND PORTION, BIOPSY: DUODENAL MUCOSA WITH CHRONIC INFLAMMATION AND [place] HYPERPLASIA. NO HISTOLOGIC EVIDENCE OF GLUTEN SENSITIVE ENTEROPATHY (CELIAC DISEASE). D. COLON, SIGMOID AND DESCENDING, ABNORMAL MUCOSA, BIOPSY: COLONIC MUCOSA WITH MILD INTERSTITIAL ACTIVE INFLAMMATION, LAMINA PROPRIA EDEMA AND FOCAL MUCOSAL HEMORRHAGE. NO EVIDENCE OF SIGNIFICANT ARCHITECTURAL DISTORTION, GRANULOMATA OR DYSPLASIA. Comment: The histologic findings are nonspecific and may represent active colitis of various etiologies. While not pathognomonic of ischemia, these findings may be seen in an ischemic injury. Clinical and endoscopic correlations are suggested. E. COLON, PROXIMAL TRANSVERSE, ABNORMAL MUCOSA, BIOPSY: COLONIC MUCOSA WITH INTERSTITIAL ACTIVE INFLAMMATION AND FOCAL MUCOSAL HEMORRHAGE. NO EVIDENCE OF SIGNIFICANT ARCHITECTURAL DISTORTION, GRANULOMATA OR DYSPLASIA. Comment: The histologic findings are nonspecific and may represent active colitis of various etiologies. While not pathognomonic of ischemia, these findings may be seen in an ischemic injury. Clinical and endoscopic correlations are suggested. Electronically Signed Alex Mcdonald M.D. Gross Description A. Received in formalin, labeled "biopsy polyp at d Ital esophagus" are 2 kaba, irregular portions of soft tissue measuring 0.3 and 0.4 cm in greatest dimension. The specimens are submitted in toto in one cassette. B. Received in formalin, labeled "biopsy duodenal bulb" is a kaba, irregular portion of soft tissue measuring 0.3 cm in greatest dimension. The specimen is submitted in toto in one cassette. C. Received in formalin, labeled "biopsy second portion of duodenum" are 3 kaba, irregular portions of soft tissue ranging from 0.3-0.5 cm in greatest dimension. The specimens are submitted in toto in one cassette. D. Received in formalin, labeled "biopsy abnormal mucosa at sigmoid and descending" are 2 kaba, irregular portions of soft tissue measuring 0.2 and 0.4 cm in greatest dimension. The specimens are submitted in toto in one cassette. E. Received in formalin, labeled "biopsy proximal transverse colon" is a kaba, irregular portion of soft tissue measuring 0.5 cm in greatest dimension. The specimen is submitted in toto in one cassette. 06/26/2016 [facility]06/26/2016
--- NOTE | 2016-06-27 18:10 | PN ---
GI Progress Note Subjective: Patient appears comfortable - Objective Vital Signs: Vital Signs Temperature 98.8 F 06/27/16 14:34 Pulse Rate 102 H 06/27/16 14:34 Respiratory Rate 18 06/27/16 14:34 Blood Pressure 122/70 06/27/16 14:34 O2 Sat by Pulse Oximetry (%) 98 06/27/16 13:00 Constitutional: Well Nourished HENT: Yes: Normocephalic Neck: Yes: Supple Cardiovascular: Yes: Regular Rate and Rhythm Respiratory: Yes: CTA Bilaterally ...Palpate: Yes: Soft. No: Tenderness Labs: CBC, BMP 06/25/16 12:00 06/25/16 12:00 INR, PTT INR 1.24 (0.82-1.09) H 06/18/16 04:30 Assessment/Plan BUN 183/Cr 19.7 on admission with abdominal pain on admission. Lactate 3.88 likely related to renal failure. CT shows circumerential thickening in the colon (?ischemia) and the esophagus ( likely esophagitis) Dysphagia is profound and colon findings have not improved since admission. Colonoscopy done and markedly abnormal mucosa in the ascending and descending colon, with extensive ulceration and inflammation, and islands of hypertrophic mucosa. As C diff negative x 2, this probably represents ischemia and considering his baseline and performance status, recommend conservative management, including gentle hydration and antibiotics at this time.
--- NOTE | 2016-06-27 18:52 | PN ---
Progress Note, Physician - Current Medication List Current Medications: Active Medications Acetaminophen (Tylenol -) 650 mg PO Q6H PRN PRN Reason: FEVER OR PAIN Last Admin: 06/27/16 12:43 Dose: 650 mg Amlodipine Besylate (Norvasc -) 10 mg PO DAILY [facility] Last Admin: 06/27/16 12:39 Dose: 10 mg Cinacalcet (Sensipar -) 30 mg PO DAILY [facility] Last Admin: 06/27/16 12:40 Dose: Not Given Ferrous Sulfate (Feosol -) 325 mg PO TIDCM [facility] Last Admin: 06/27/16 17:58 Dose: Not Given Furosemide (Lasix -) 40 mg PO DAILY [facility] Last Admin: 06/27/16 12:39 Dose: 40 mg Heparin Sodium (Porcine) (Heparin -) 5,000 unit SQ BID [facility] Last Admin: 06/23/16 22:41 Dose: 5,000 unit Hydralazine HCl (Apresoline -) 100 mg PO TID [facility] Last Admin: 06/27/16 13:13 Dose: 100 mg Hydralazine HCl (Apresoline Injection -) 10 mg IVPUSH Q6H PRN PRN Reason: HYPERTENSION Insulin Aspart (Novolog Vial Sliding Scale -) 1 vial SQ BIDAC [facility] PRN Reason: Protocol Last Admin: 06/27/16 17:58 Dose: 3 units Lidocaine/Aluminum/Magnesium/Simeth (Magic Mouthwash *Sjr Formula* -) 5 ml MM TIDAC [facility] Last Admin: 06/27/16 17:58 Dose: 5 ml Multivitamins (Total B With C -) 1 each PO DAILY [facility] Last Admin: 06/27/16 12:40 Dose: Not Given Pantoprazole Sodium (Protonix -) 40 mg PO DAILY [facility] Phenol/Menthol (Chloraseptic -) 1 spray MM Q6H PRN Last Admin: 06/23/16 16:08 Dose: 1 spray Sevelamer Carbonate (Renvela -) 800 mg PO TIDCM [facility] Last Admin: 06/27/16 17:58 Dose: Not Given Thiamine HCl (Vitamin B1 -) 100 mg PO HS [facility] Last Admin: 06/26/16 22:13 Dose: Not Given Vancomycin HCl (Vancomycin Oral Solution) 250 mg PO Q6HPO [facility] Last Admin: 06/27/16 17:58 Dose: 250 mg - Objective Vital Signs: Vital Signs Temperature 98.8 F 06/27/16 14:34 Pulse Rate 102 H 06/27/16 14:34 Respiratory Rate 18 06/27/16 14:34 Blood Pressure 122/70 06/27/16 14:34 O2 Sat by Pulse Oximetry (%) 98 06/27/16 13:00 Labs: CBC, BMP 06/25/16 12:00 06/25/16 12:00 INR, PTT INR 1.24 (0.82-1.09) H 06/18/16 04:30 Problem List - Problems (1) Abdominal distention Code(s): R14.0 - ABDOMINAL DISTENSION (GASEOUS) (2) Colitis Code(s): K52.9 - NONINFECTIVE GASTROENTERITIS AND COLITIS, UNSPECIFIED (3) Renal failure Code(s): N19 - UNSPECIFIED KIDNEY FAILURE (4) Essential hypertension Code(s): I10 - ESSENTIAL (PRIMARY) HYPERTENSION (5) Sepsis Code(s): A41.9 - SEPSIS, UNSPECIFIED ORGANISM Assessment/Plan Barium swallow is normal , with free flow of food, and no obstruction. Abdomen is soft. ?ischemic colitis.
[2016-06-27] MEDS ORDERED: metroNIDAZOLE 250 MG TABLET PO SCH (22:00)
[2016-06-27] MEDS ORDERED: PT OWN MED DRAWER 7, Y5N ONE (22:41)
[2016-06-27] MEDS: THIAMINE HCL 100 MG TABLET (FP) PO SCH (22:48)
[2016-06-28] MEDS: VANCOMYCIN 250 MG/5 ML ORAL SOLUTION PO SCH ×3 (00:10→11:53)
[2016-06-28] MEDS: hydrALAZINE HCL 50 MG TABLET (FP) PO SCH ×3 (06:46→22:18)
[2016-06-28] MEDS: MAG HYDROX/ALH/SMC/DPHA/LIDO 240 ML MOUTHWASH MM SCH ×3 (06:46→16:05)
[2016-06-28] MEDS: INSULIN SLIDING SCALE (NOVOLOG) 1 VIAL SQ SCH ×2 (06:47→16:18)
[2016-06-28] MEDS ORDERED: PT OWN MED DRAWER 7, Y5N ONE ×2 (10:40→10:50)
[2016-06-28] MEDS: SEVELAMER CARBONATE 800 MG TAB (FP) PO SCH ×3 (10:42→18:16)
[2016-06-28] MEDS: FUROSEMIDE 40 MG TABLET (FP) PO SCH (10:42)
[2016-06-28] MEDS: amLODIPine BESYLATE 10 MG TABLET (FP) PO SCH (10:42)
[2016-06-28] MEDS: VITAMIN B COMPLEX W/C COMBO TABLET (FP) PO SCH (10:42)
[2016-06-28] MEDS: PANTOPRAZOLE 40 MG TABLET (FP) PO SCH (10:42)
[2016-06-28] MEDS: FERROUS SO4 325 MG TABLET (FP) PO SCH ×3 (10:42→18:16)
[2016-06-28] MEDS: CINACALCET HCL 30 MG TAB (FP) PO SCH (10:50)
--- NOTE | 2016-06-28 12:40 | PN ---
Progress Note, Physician Chief Complaint: swallowing improved no abd pain - Current Medication List Current Medications: Active Medications Acetaminophen (Tylenol -) 650 mg PO Q6H PRN PRN Reason: FEVER OR PAIN Last Admin: 06/27/16 12:43 Dose: 650 mg Amlodipine Besylate (Norvasc -) 10 mg PO DAILY [facility] Last Admin: 06/28/16 10:42 Dose: 10 mg Cinacalcet (Sensipar -) 30 mg PO DAILY [facility] Last Admin: 06/28/16 10:50 Dose: 30 mg Ferrous Sulfate (Feosol -) 325 mg PO TIDCM [facility] Last Admin: 06/28/16 11:53 Dose: 325 mg Furosemide (Lasix -) 40 mg PO DAILY [facility] Last Admin: 06/28/16 10:42 Dose: 40 mg Heparin Sodium (Porcine) (Heparin -) 5,000 unit SQ BID [facility] Last Admin: 06/23/16 22:41 Dose: 5,000 unit Hydralazine HCl (Apresoline -) 100 mg PO TID [facility] Last Admin: 06/28/16 06:46 Dose: 100 mg Hydralazine HCl (Apresoline Injection -) 10 mg IVPUSH Q6H PRN PRN Reason: HYPERTENSION Insulin Aspart (Novolog Vial Sliding Scale -) 1 vial SQ BIDAC [facility] PRN Reason: Protocol Last Admin: 06/28/16 06:47 Dose: 3 units Lidocaine/Aluminum/Magnesium/Simeth (Magic Mouthwash *Sjr Formula* -) 5 ml MM TIDAC [facility] Last Admin: 06/28/16 10:43 Dose: 5 ml Metronidazole (Flagyl -) 500 mg PO TID [facility] Multivitamins (Total B With C -) 1 each PO DAILY [facility] Last Admin: 06/28/16 10:42 Dose: 1 each Pantoprazole Sodium (Protonix -) 40 mg PO DAILY [facility] Last Admin: 06/28/16 10:42 Dose: 40 mg Phenol/Menthol (Chloraseptic -) 1 spray MM Q6H PRN Last Admin: 06/23/16 16:08 Dose: 1 spray Sevelamer Carbonate (Renvela -) 800 mg PO TIDCM [facility] Last Admin: 06/28/16 11:53 Dose: 800 mg Thiamine HCl (Vitamin B1 -) 100 mg PO HS [facility] Last Admin: 06/27/16 22:48 Dose: Not Given Vancomycin HCl (Vancomycin Oral Solution) 250 mg PO Q6HPO [facility] Last Admin: 06/28/16 11:53 Dose: 250 mg - Objective Vital Signs: Vital Signs Temperature 98.7 F 06/28/16 06:00 Pulse Rate 115 H 06/28/16 06:00 Respiratory Rate 16 06/28/16 06:00 Blood Pressure 154/73 06/28/16 06:00 O2 Sat by Pulse Oximetry (%) 98 06/27/16 13:00 Constitutional: Yes: No Distress Cardiovascular: Yes: Regular Rate and Rhythm Respiratory: Yes: CTA Bilaterally Gastrointestinal: Yes: Normal Bowel Sounds, Soft. No: Distention, Tenderness Edema: No Labs: CBC, BMP 06/25/16 12:00 06/25/16 12:00 INR, PTT INR 1.24 (0.82-1.09) H 06/18/16 04:30 Problem List - Problems (1) Esophagitis Code(s): K20.9 - ESOPHAGITIS, UNSPECIFIED (2) Ileus Code(s): K56.7 - ILEUS, UNSPECIFIED (3) Pneumonia Code(s): J18.9 - PNEUMONIA, UNSPECIFIED ORGANISM Qualifiers: Pneumonia type: due to unspecified organism (4) Sepsis Code(s): A41.9 - SEPSIS, UNSPECIFIED ORGANISM (5) Hyperkalemia Code(s): E87.5 - HYPERKALEMIA (6) HTN (hypertension) Code(s): I10 - ESSENTIAL (PRIMARY) HYPERTENSION (7) Uremia Code(s): N19 - UNSPECIFIED KIDNEY FAILURE (8) Colitis Code(s): K52.9 - NONINFECTIVE GASTROENTERITIS AND COLITIS, UNSPECIFIED (9) ESRD (end stage renal disease) Code(s): N18.6 - END STAGE RENAL DISEASE Assessment/Plan PLAN -- HD per renal -- On iv antibiotics -- spoke with Dr Cast and Dr moon-- r/o SMA stenosis -- Check CTA abdomen -- continue with meds -- advance full liquid -- pain control -- continue with meds -- protonix IV -- Heparin sc for DVT prophylaxis
--- NOTE | 2016-06-28 14:55 | PN ---
Progress Note, Physician History of Present Illness: Renal f/u Pt with less odynophagia On liquid diet Last dialyzed yesterday - Current Medication List Current Medications: Active Medications Acetaminophen (Tylenol -) 650 mg PO Q6H PRN PRN Reason: FEVER OR PAIN Last Admin: 06/27/16 12:43 Dose: 650 mg Amlodipine Besylate (Norvasc -) 10 mg PO DAILY [facility] Last Admin: 06/28/16 10:42 Dose: 10 mg Cinacalcet (Sensipar -) 30 mg PO DAILY [facility] Last Admin: 06/28/16 10:50 Dose: 30 mg Ferrous Sulfate (Feosol -) 325 mg PO TIDCM [facility] Last Admin: 06/28/16 11:53 Dose: 325 mg Furosemide (Lasix -) 40 mg PO DAILY [facility] Last Admin: 06/28/16 10:42 Dose: 40 mg Heparin Sodium (Porcine) (Heparin -) 5,000 unit SQ BID [facility] Last Admin: 06/23/16 22:41 Dose: 5,000 unit Hydralazine HCl (Apresoline -) 100 mg PO TID [facility] Last Admin: 06/28/16 06:46 Dose: 100 mg Hydralazine HCl (Apresoline Injection -) 10 mg IVPUSH Q6H PRN PRN Reason: HYPERTENSION Insulin Aspart (Novolog Vial Sliding Scale -) 1 vial SQ BIDAC [facility] PRN Reason: Protocol Last Admin: 06/28/16 06:47 Dose: 3 units Levofloxacin (Levaquin -) 250 mg PO Q2D@0600 [facility] Lidocaine/Aluminum/Magnesium/Simeth (Magic Mouthwash *Sjr Formula* -) 5 ml MM TIDAC [facility] Last Admin: 06/28/16 10:43 Dose: 5 ml Metronidazole (Flagyl -) 500 mg PO TID [facility] Multivitamins (Total B With C -) 1 each PO DAILY [facility] Last Admin: 06/28/16 10:42 Dose: 1 each Pantoprazole Sodium (Protonix -) 40 mg PO DAILY [facility] Last Admin: 06/28/16 10:42 Dose: 40 mg Phenol/Menthol (Chloraseptic -) 1 spray MM Q6H PRN Last Admin: 06/23/16 16:08 Dose: 1 spray Sevelamer Carbonate (Renvela -) 800 mg PO TIDCM [facility] Last Admin: 06/28/16 11:53 Dose: 800 mg Thiamine HCl (Vitamin B1 -) 100 mg PO HS [facility] Last Admin: 06/27/16 22:48 Dose: Not Given - Objective Vital Signs: Vital Signs Temperature 98.6 F 06/28/16 13:41 Pulse Rate 118 H 06/28/16 13:41 Respiratory Rate 16 06/28/16 06:00 Blood Pressure 138/72 06/28/16 13:41 O2 Sat by Pulse Oximetry (%) 98 06/27/16 13:00 Cardiovascular: Yes: S1, S2. No: JVD Respiratory: Yes: CTA Bilaterally Gastrointestinal: Yes: Soft. No: Tenderness, Rebound Extremities: Yes: Other (AVF in LUE with thrill) Edema: No Labs: CBC, BMP 06/25/16 12:00 06/25/16 12:00 INR, PTT INR 1.24 (0.82-1.09) H 06/18/16 04:30 Assessment/Plan Impression ESRD HTN DM Diarrhea Anemia Plan Next HD on 04/30 Epogen with HD Advance diet as tolerated Dr Pinedo
[2016-06-28] MEDS: metroNIDAZOLE 250 MG TABLET PO SCH ×2 (16:05→22:18)
[2016-06-28] MEDS: LEVOFLOXACIN 250 MG TABLET (FP) PO SCH ×2 (19:37→22:19)
[2016-06-28] MEDS: THIAMINE HCL 100 MG TABLET (FP) PO SCH (23:19)
[2016-06-29] MEDS: metroNIDAZOLE 250 MG TABLET PO SCH ×3 (07:50→21:37)
[2016-06-29] MEDS: hydrALAZINE HCL 50 MG TABLET (FP) PO SCH ×3 (07:51→21:38)
[2016-06-29] MEDS: INSULIN SLIDING SCALE (NOVOLOG) 1 VIAL SQ SCH ×2 (07:51→16:21)
[2016-06-29] MEDS: MAG HYDROX/ALH/SMC/DPHA/LIDO 240 ML MOUTHWASH MM SCH ×3 (07:53→16:13)
[2016-06-29] MEDS: FERROUS SO4 325 MG TABLET (FP) PO SCH ×3 (08:31→17:31)
[2016-06-29] MEDS: SEVELAMER CARBONATE 800 MG TAB (FP) PO SCH ×3 (08:31→17:31)
[2016-06-29] MEDS ORDERED: PT OWN MED DRAWER 7, Y5N ONE (10:07)
[2016-06-29] MEDS: PANTOPRAZOLE 40 MG TABLET (FP) PO SCH (10:14)
[2016-06-29] MEDS: amLODIPine BESYLATE 10 MG TABLET (FP) PO SCH (10:14)
[2016-06-29] MEDS: CINACALCET HCL 30 MG TAB (FP) PO SCH (10:14)
[2016-06-29] MEDS: VITAMIN B COMPLEX W/C COMBO TABLET (FP) PO SCH (10:14)
[2016-06-29] MEDS: FUROSEMIDE 40 MG TABLET (FP) PO SCH (10:14)
[2016-06-29] MEDS: HEPARIN NA (PORCINE) 5,000 UNITS/ML 1ML VIAL SQ SCH ×2 (10:15→21:39)
--- NOTE | 2016-06-29 10:41 | PN ---
Progress Note, Physician Chief Complaint: swallowing better - Current Medication List Current Medications: Active Medications Acetaminophen (Tylenol -) 650 mg PO Q6H PRN PRN Reason: FEVER OR PAIN Last Admin: 06/27/16 12:43 Dose: 650 mg Amlodipine Besylate (Norvasc -) 10 mg PO DAILY [facility] Last Admin: 06/29/16 10:14 Dose: 10 mg Cinacalcet (Sensipar -) 30 mg PO DAILY [facility] Last Admin: 06/29/16 10:14 Dose: 30 mg Ferrous Sulfate (Feosol -) 325 mg PO TIDCM [facility] Last Admin: 06/29/16 08:31 Dose: 325 mg Furosemide (Lasix -) 40 mg PO DAILY [facility] Last Admin: 06/29/16 10:14 Dose: 40 mg Heparin Sodium (Porcine) (Heparin -) 5,000 unit SQ BID [facility] Last Admin: 06/29/16 10:15 Dose: 5,000 unit Hydralazine HCl (Apresoline -) 100 mg PO TID [facility] Last Admin: 06/29/16 07:51 Dose: 100 mg Hydralazine HCl (Apresoline Injection -) 10 mg IVPUSH Q6H PRN PRN Reason: HYPERTENSION Insulin Aspart (Novolog Vial Sliding Scale -) 1 vial SQ BIDAC [facility] PRN Reason: Protocol Last Admin: 06/29/16 07:51 Dose: Not Given Levofloxacin (Levaquin -) 250 mg PO Q2D@0600 [facility] Last Admin: 06/28/16 22:19 Dose: 250 mg Lidocaine/Aluminum/Magnesium/Simeth (Magic Mouthwash *Sjr Formula* -) 5 ml MM TIDAC [facility] Last Admin: 06/29/16 10:15 Dose: 5 ml Metronidazole (Flagyl -) 500 mg PO TID [facility] Last Admin: 06/29/16 07:50 Dose: 500 mg Multivitamins (Total B With C -) 1 each PO DAILY [facility] Last Admin: 06/29/16 10:14 Dose: 1 each Pantoprazole Sodium (Protonix -) 40 mg PO DAILY [facility] Last Admin: 06/29/16 10:14 Dose: 40 mg Phenol/Menthol (Chloraseptic -) 1 spray MM Q6H PRN Last Admin: 06/23/16 16:08 Dose: 1 spray Sevelamer Carbonate (Renvela -) 800 mg PO TIDCM [facility] Last Admin: 06/29/16 08:31 Dose: 800 mg Thiamine HCl (Vitamin B1 -) 100 mg PO HS [facility] Last Admin: 06/28/16 23:19 Dose: Not Given - Objective Vital Signs: Vital Signs Temperature 98.1 F 06/29/16 05:30 Pulse Rate 102 H 06/29/16 05:30 Respiratory Rate 20 06/29/16 05:30 Blood Pressure 126/70 06/29/16 05:30 O2 Sat by Pulse Oximetry (%) 95 06/28/16 21:00 Constitutional: Yes: No Distress Cardiovascular: Yes: Regular Rate and Rhythm Respiratory: Yes: CTA Bilaterally Gastrointestinal: Yes: Normal Bowel Sounds, Soft. No: Distention, Tenderness Edema: No Labs: CBC, BMP 06/25/16 12:00 06/25/16 12:00 INR, PTT INR 1.24 (0.82-1.09) H 06/18/16 04:30 Problem List - Problems (1) Esophagitis Code(s): K20.9 - ESOPHAGITIS, UNSPECIFIED (2) Ileus Code(s): K56.7 - ILEUS, UNSPECIFIED (3) Pneumonia Code(s): J18.9 - PNEUMONIA, UNSPECIFIED ORGANISM Qualifiers: Pneumonia type: due to unspecified organism (4) Sepsis Code(s): A41.9 - SEPSIS, UNSPECIFIED ORGANISM (5) Hyperkalemia Code(s): E87.5 - HYPERKALEMIA (6) HTN (hypertension) Code(s): I10 - ESSENTIAL (PRIMARY) HYPERTENSION (7) Uremia Code(s): N19 - UNSPECIFIED KIDNEY FAILURE (8) Colitis Code(s): K52.9 - NONINFECTIVE GASTROENTERITIS AND COLITIS, UNSPECIFIED (9) ESRD (end stage renal disease) Code(s): N18.6 - END STAGE RENAL DISEASE Assessment/Plan PLAN -- HD per renal -- On iv antibiotics -- spoke with Dr Cast and Dr moon-- r/o SMA stenosis -- Check CTA abdomen -- continue with meds -- advance full liquid -- pain control -- continue with meds -- protonix IV -- Heparin sc for DVT prophylaxis
--- NOTE | 2016-06-29 12:56 | PN ---
Progress Note, Physician History of Present Illness: Renal f/u Pt having less odynophagia thus eating more Due for HD tomorrow - Current Medication List Current Medications: Active Medications Acetaminophen (Tylenol -) 650 mg PO Q6H PRN PRN Reason: FEVER OR PAIN Last Admin: 06/27/16 12:43 Dose: 650 mg Amlodipine Besylate (Norvasc -) 10 mg PO DAILY [facility] Last Admin: 06/29/16 10:14 Dose: 10 mg Cinacalcet (Sensipar -) 30 mg PO DAILY [facility] Last Admin: 06/29/16 10:14 Dose: 30 mg Ferrous Sulfate (Feosol -) 325 mg PO TIDCM [facility] Last Admin: 06/29/16 11:20 Dose: 325 mg Furosemide (Lasix -) 40 mg PO DAILY [facility] Last Admin: 06/29/16 10:14 Dose: 40 mg Heparin Sodium (Porcine) (Heparin -) 5,000 unit SQ BID [facility] Last Admin: 06/29/16 10:15 Dose: 5,000 unit Hydralazine HCl (Apresoline -) 100 mg PO TID [facility] Last Admin: 06/29/16 07:51 Dose: 100 mg Hydralazine HCl (Apresoline Injection -) 10 mg IVPUSH Q6H PRN PRN Reason: HYPERTENSION Insulin Aspart (Novolog Vial Sliding Scale -) 1 vial SQ BIDAC [facility] PRN Reason: Protocol Last Admin: 06/29/16 07:51 Dose: Not Given Levofloxacin (Levaquin -) 250 mg PO Q2D@0600 [facility] Last Admin: 06/28/16 22:19 Dose: 250 mg Lidocaine/Aluminum/Magnesium/Simeth (Magic Mouthwash *Sjr Formula* -) 5 ml MM TIDAC [facility] Last Admin: 06/29/16 10:15 Dose: 5 ml Metronidazole (Flagyl -) 500 mg PO TID [facility] Last Admin: 06/29/16 07:50 Dose: 500 mg Multivitamins (Total B With C -) 1 each PO DAILY [facility] Last Admin: 06/29/16 10:14 Dose: 1 each Pantoprazole Sodium (Protonix -) 40 mg PO DAILY [facility] Last Admin: 06/29/16 10:14 Dose: 40 mg Phenol/Menthol (Chloraseptic -) 1 spray MM Q6H PRN Last Admin: 06/23/16 16:08 Dose: 1 spray Sevelamer Carbonate (Renvela -) 800 mg PO TIDCM [facility] Last Admin: 06/29/16 11:20 Dose: 800 mg Thiamine HCl (Vitamin B1 -) 100 mg PO HS [facility] Last Admin: 06/28/16 23:19 Dose: Not Given - Objective Vital Signs: Vital Signs Temperature 98.1 F 06/29/16 05:30 Pulse Rate 102 H 06/29/16 05:30 Respiratory Rate 20 06/29/16 05:30 Blood Pressure 126/70 06/29/16 05:30 O2 Sat by Pulse Oximetry (%) 95 06/28/16 21:00 Constitutional: Yes: Calm Cardiovascular: Yes: S1, S2 Respiratory: Yes: CTA Bilaterally Gastrointestinal: Yes: Soft. No: Tenderness, Rebound Extremities: Yes: Other (LUE AVF) Edema: No Labs: CBC, BMP 06/25/16 12:00 06/25/16 12:00 INR, PTT INR 1.24 (0.82-1.09) H 06/18/16 04:30 Assessment/Plan Impression ESRD HTN DM Diarrhea Anemia Plan HD with Epogen ordered for tomorrow Advance diet as tolerated to Renal Diet Dr Pinedo
--- NOTE | 2016-06-29 13:33 | CONSULT ---
Consult Consult Specialty:: Vascular Surgery - History of Present Illness History of Present Illness: 56 year old male ESRD on HD admitted with abdominal pain, nausea and vomiting. Initial CT showed inflammation in descending colon and esophagus. GI evaluation showed colitis but biopsies were not diagnostic. He is now feeling better. Stool negative for C. dificile. Question of ischemic colitis raised. Patient denies chronic post-prandial pain. He has had no significant weight loss. - History Source History Provided By: Medical Record Limitations to Obtaining History: Poor Historian - Past Medical History Cardio/Vascular: Yes: HTN, Hyperlipdemia Renal/: Yes: Renal Inusuff, Hemodialysis Endocrine: Yes: Diabetes Mellitus Additional Medical History: polysubstance abuse - Past Surgical History Past Surgical History: Yes: AV Fistula/Graft - Alcohol/Substance Use Hx Alcohol Use: No History of Substance Use: reports: Cocaine, Heroin, Marijuana - Smoking History Smoking history: Former smoker Have you smoked in the past 12 months: No - Social History Usual Living Arrangement: Assisted Living Home Medications - Allergies Allergies/Adverse Reactions: Allergies Allergy/AdvReac Type Severity Reaction Status Date / Time No Known Drug Allergies Allergy Unknown Verified 06/17/16 19:01 lactose AdvReac Unknown LACTOSE Verified 06/17/16 19:01 INTOLERANCE - Home Medications Home Medications: Ambulatory Orders Amlodipine Besylate [Norvasc -] 10 mg PO DAILY #30 tablet 07/31/14 Ferrous Sulfate [Feosol] 325 mg PO TID #90 ud 07/31/14 Gabapentin [Neurontin -] 600 mg PO Q8H 30 Days 07/31/14 Acetaminophen [Tylenol .Regular Strength -] 650 mg PO Q6H PRN #0 tablet Aspirin [Ecotrin] 81 mg PO DAILY #30 tablet.dr 01/22/15 Furosemide [Lasix -] 40 mg PO DAILY tablet 01/22/15 Hydralazine HCl [Apresoline -] 100 mg PO TID tablet 01/22/15 Thiamine HCl [Vitamin B1 -] 100 mg PO HS tablet 01/22/15 Cinacalcet HCl [Sensipar -] 30 mg PO DAILY 03/13/16 Oxycodone HCl/Acetaminophen [Percocet 5-325 mg Tablet] 1 - 2 tab PO Q8H PRN Sevelamer Carbonate [Renvela] 800 mg PO TID 03/13/16 Vitamin B Complex 1 each PO DAILY 03/13/16 Meloxicam [Mobic] 1 tab PO DAILY PRN #30 03/14/16 Family Disease History - Family Disease History Family Disease History: Diabetes: Mother (ESRD), Brother (ESRD), CA: Father ( stomach,), Other: Mother, Brother Physical Exam Vital Signs: Vital Signs Temperature 98.4 F 06/29/16 08:00 Pulse Rate 103 H 06/29/16 08:00 Respiratory Rate 20 06/29/16 08:00 Blood Pressure 126/69 06/29/16 08:00 O2 Sat by Pulse Oximetry (%) 95 06/29/16 08:00 Constitutional: Yes: No Distress Eyes: Yes: EOM Intact Neck: Yes: Supple Cardiovascular: Yes: Regular Rate and Rhythm Respiratory: Yes: Regular Gastrointestinal: Yes: Soft. No: Tenderness Extremities: Yes: Other (Left arm fitula with good thrill) Peripheral Pulses WNL: No (Bilateral femoral, none distal to palpation.) Labs: CBC, BMP 06/25/16 12:00 06/25/16 12:00 Problem List - Problems (1) Colitis Assessment/Plan: Documented colitis in sigmoid and hepatic flexure with normal mucosa at other locations. Biopsies were not diagnostic of ischemic colitis or granulomatous process. History and exam are not suggestive for visceral ischemia. I have asked for CTA to evaluate the mesenteric vessels. Code(s): K52.9 - NONINFECTIVE GASTROENTERITIS AND COLITIS, UNSPECIFIED
[2016-06-29] MEDS ORDERED: INSULIN (NOVOLOG) ASPART 100 UNITS/ML 10ML VIAL ONE (16:10)
[2016-06-29] MEDS: THIAMINE HCL 100 MG TABLET (FP) PO SCH (21:37)
[2016-06-29] MEDS: ACETAMINOPHEN 325 MG TABLET (FP) PO PRN (21:38)
[2016-06-30] MEDS: hydrALAZINE HCL 50 MG TABLET (FP) PO SCH ×3 (06:27→21:58)
[2016-06-30] MEDS: metroNIDAZOLE 250 MG TABLET PO SCH ×3 (06:28→21:58)
[2016-06-30] MEDS ORDERED: PT OWN MED DRAWER 7, Y5N ONE (06:30)
[2016-06-30] MEDS: MAG HYDROX/ALH/SMC/DPHA/LIDO 240 ML MOUTHWASH MM SCH ×3 (06:32→17:07)
[2016-06-30] MEDS: LEVOFLOXACIN 250 MG TABLET (FP) PO SCH (06:32)
[2016-06-30] MEDS: INSULIN SLIDING SCALE (NOVOLOG) 1 VIAL SQ SCH ×2 (06:32→17:10)
--- NOTE | 2016-06-30 08:17 | PN ---
Progress Note (short form) - Note Progress Note: SUBJECTIVE: Patient seen and examined. Chart reviewed. Comfortable. Denies pain today. Eating better. Vascular consult noted. CTA scheduled for today. OBJECTIVE: Vital Signs 06/30/16 05:36 Temperature 98.6 F Pulse Rate 91 H Respiratory 20 Rate Blood Pressure 117/62 Intake & Output 06/29/16 06/30/16 06/30/16 23:59 07:59 15:59 Intake Total 150 Balance 150 Weight 81.845 kg Intake: Oral 150 Other: # Unmeasured Voids Void 0 Bowel Movement No Weight Measurement Method Built in [facility] Active Medications Acetaminophen (Tylenol -) 650 mg PO Q6H PRN PRN Reason: FEVER OR PAIN Last Admin: 06/29/16 21:38 Dose: 650 mg Amlodipine Besylate (Norvasc -) 10 mg PO DAILY [facility] Last Admin: 06/29/16 10:14 Dose: 10 mg Cinacalcet (Sensipar -) 30 mg PO DAILY [facility] Last Admin: 06/29/16 10:14 Dose: 30 mg Epoetin Mario (Epogen -) 4,000 units IVPUSH ONCE ONE Stop: 06/29/16 13:00 Ferrous Sulfate (Feosol -) 325 mg PO TIDCM [facility] Last Admin: 06/29/16 17:31 Dose: 325 mg Furosemide (Lasix -) 40 mg PO DAILY [facility] Last Admin: 06/29/16 10:14 Dose: 40 mg Heparin Sodium (Porcine) (Heparin -) 5,000 unit SQ BID [facility] Last Admin: 06/29/16 21:39 Dose: 5,000 unit Hydralazine HCl (Apresoline -) 100 mg PO TID [facility] Last Admin: 06/30/16 06:27 Dose: 100 mg Hydralazine HCl (Apresoline Injection -) 10 mg IVPUSH Q6H PRN PRN Reason: HYPERTENSION Insulin Aspart (Novolog Vial Sliding Scale -) 1 vial SQ BIDAC [facility] PRN Reason: Protocol Last Admin: 06/30/16 06:32 Dose: Not Given Levofloxacin (Levaquin -) 250 mg PO Q2D@0600 [facility] Last Admin: 06/30/16 06:32 Dose: 250 mg Lidocaine/Aluminum/Magnesium/Simeth (Magic Mouthwash *Sjr Formula* -) 5 ml MM TIDAC [facility] Last Admin: 06/30/16 06:32 Dose: 5 ml Metronidazole (Flagyl -) 500 mg PO TID [facility] Last Admin: 06/30/16 06:28 Dose: 500 mg Multivitamins (Total B With C -) 1 each PO DAILY [facility] Last Admin: 06/29/16 10:14 Dose: 1 each Pantoprazole Sodium (Protonix -) 40 mg PO DAILY [facility] Last Admin: 06/29/16 10:14 Dose: 40 mg Phenol/Menthol (Chloraseptic -) 1 spray MM Q6H PRN Last Admin: 06/23/16 16:08 Dose: 1 spray Sevelamer Carbonate (Renvela -) 800 mg PO TIDCM [facility] Last Admin: 06/29/16 17:31 Dose: 800 mg Thiamine HCl (Vitamin B1 -) 100 mg PO HS [facility] Last Admin: 06/29/16 21:37 Dose: 100 mg CBC, BMP 06/25/16 12:00 06/25/16 12:00 Laboratory Results - last 24 hr 06/29/16 06/30/16 16:20 06:26 POC Glucometer 125 117 PHYSICAL EXAMINATION: Constitutional: Yes: No Distress Cardiovascular: Yes: Regular Rate and Rhythm Respiratory: Yes: CTA Bilaterally Gastrointestinal: Yes: Normal Bowel Sounds, Soft. No: Distention, Tenderness Edema: No ASSESSMENT & PLAN: - Clinically stable and better. - Continue present care. - CTA today. - Hemodialysis after CTA. - Will follow. Problem List - Problems (1) Esophagitis Code(s): K20.9 - ESOPHAGITIS, UNSPECIFIED (2) Ileus Code(s): K56.7 - ILEUS, UNSPECIFIED (3) Pneumonia Code(s): J18.9 - PNEUMONIA, UNSPECIFIED ORGANISM Qualifiers: Pneumonia type: due to unspecified organism (4) Sepsis Code(s): A41.9 - SEPSIS, UNSPECIFIED ORGANISM (5) Hyperkalemia Code(s): E87.5 - HYPERKALEMIA (6) HTN (hypertension) Code(s): I10 - ESSENTIAL (PRIMARY) HYPERTENSION (7) Uremia Code(s): N19 - UNSPECIFIED KIDNEY FAILURE (8) Colitis Code(s): K52.9 - NONINFECTIVE GASTROENTERITIS AND COLITIS, UNSPECIFIED (9) ESRD (end stage renal disease) Code(s): N18.6 - END STAGE RENAL DISEASE Documentation prepared by Dawn Ward, acting as a clinical laboratory medical director for José Browne MD.
[2016-06-30] MEDS: PANTOPRAZOLE 40 MG TABLET (FP) PO SCH (10:39)
[2016-06-30] MEDS: FERROUS SO4 325 MG TABLET (FP) PO SCH ×3 (10:39→17:19)
[2016-06-30] MEDS: FUROSEMIDE 40 MG TABLET (FP) PO SCH (10:39)
[2016-06-30] MEDS: HEPARIN NA (PORCINE) 5,000 UNITS/ML 1ML VIAL SQ SCH ×2 (10:40→21:58)
[2016-06-30] MEDS: SEVELAMER CARBONATE 800 MG TAB (FP) PO SCH ×3 (10:40→17:19)
[2016-06-30] MEDS: VITAMIN B COMPLEX W/C COMBO TABLET (FP) PO SCH (10:40)
[2016-06-30] MEDS: CINACALCET HCL 30 MG TAB (FP) PO SCH (10:40)
[2016-06-30] MEDS ORDERED: EPOETIN ALFA 2,000 UNITS/1 ML VIAL IVPUSH ONE ×2 (11:00→14:30)
--- NOTE | 2016-06-30 11:20 | PN ---
Progress Note (short form) - Note Progress Note: S/P Abdominal CTA. Results are pending. HD. No acute events overnight. Intake & Output 06/27/16 06/28/16 06/29/16 06/30/16 23:59 23:59 23:59 23:59 Intake Total 770 1300 1350 Balance 770 1300 1350 Weight 186 lb 9 oz 178 lb 1.6 oz 182 lb 180 lb 7 oz Last Vital Signs Temp Pulse Resp BP Pulse Ox 98.6 F 102 H 20 120/83 95 06/30/16 09:00 06/30/16 09:00 06/30/16 09:00 06/30/16 09:00 06/29/16 08:00 Active Medications Acetaminophen (Tylenol -) 650 mg PO Q6H PRN PRN Reason: FEVER OR PAIN Last Admin: 06/29/16 21:38 Dose: 650 mg Amlodipine Besylate (Norvasc -) 10 mg PO DAILY [facility] Last Admin: 06/29/16 10:14 Dose: 10 mg Cinacalcet (Sensipar -) 30 mg PO DAILY [facility] Last Admin: 06/30/16 10:40 Dose: Not Given Ferrous Sulfate (Feosol -) 325 mg PO TIDCM [facility] Last Admin: 06/30/16 10:39 Dose: 325 mg Furosemide (Lasix -) 40 mg PO DAILY [facility] Last Admin: 06/30/16 10:39 Dose: 40 mg Heparin Sodium (Porcine) (Heparin -) 5,000 unit SQ BID [facility] Last Admin: 06/30/16 10:40 Dose: 5,000 unit Hydralazine HCl (Apresoline -) 100 mg PO TID [facility] Last Admin: 06/30/16 06:27 Dose: 100 mg Hydralazine HCl (Apresoline Injection -) 10 mg IVPUSH Q6H PRN PRN Reason: HYPERTENSION Insulin Aspart (Novolog Vial Sliding Scale -) 1 vial SQ BIDAC [facility] PRN Reason: Protocol Last Admin: 06/30/16 06:32 Dose: Not Given Levofloxacin (Levaquin -) 250 mg PO Q2D@0600 [facility] Last Admin: 06/30/16 06:32 Dose: 250 mg Lidocaine/Aluminum/Magnesium/Simeth (Magic Mouthwash *Sjr Formula* -) 5 ml MM TIDAC [facility] Last Admin: 06/30/16 06:32 Dose: 5 ml Metronidazole (Flagyl -) 500 mg PO TID [facility] Last Admin: 06/30/16 06:28 Dose: 500 mg Multivitamins (Total B With C -) 1 each PO DAILY [facility] Last Admin: 06/30/16 10:40 Dose: 1 each Pantoprazole Sodium (Protonix -) 40 mg PO DAILY [facility] Last Admin: 06/30/16 10:39 Dose: 40 mg Phenol/Menthol (Chloraseptic -) 1 spray MM Q6H PRN Last Admin: 06/23/16 16:08 Dose: 1 spray Sevelamer Carbonate (Renvela -) 800 mg PO TIDCM [facility] Last Admin: 06/30/16 10:40 Dose: 800 mg Thiamine HCl (Vitamin B1 -) 100 mg PO HS [facility] Last Admin: 06/29/16 21:37 Dose: 100 mg Constitutional: Yes: No Distress Cardiovascular: Yes: Regular Rate and Rhythm Respiratory: Yes: CTA Bilaterally Gastrointestinal: Yes: Normal Bowel Sounds, Soft. No: Distention, Tenderness Edema: No Laboratory Results - last 24 hr 06/29/16 06/30/16 16:20 06:26 POC Glucometer 125 117 Problem List - Problems (1) Esophagitis Code(s): K20.9 - ESOPHAGITIS, UNSPECIFIED (2) Ileus Code(s): K56.7 - ILEUS, UNSPECIFIED (3) Pneumonia Code(s): J18.9 - PNEUMONIA, UNSPECIFIED ORGANISM Qualifiers: Pneumonia type: due to unspecified organism (4) Sepsis Code(s): A41.9 - SEPSIS, UNSPECIFIED ORGANISM (5) Hyperkalemia Code(s): E87.5 - HYPERKALEMIA (6) HTN (hypertension) Code(s): I10 - ESSENTIAL (PRIMARY) HYPERTENSION (7) Uremia Code(s): N19 - UNSPECIFIED KIDNEY FAILURE (8) Colitis Code(s): K52.9 - NONINFECTIVE GASTROENTERITIS AND COLITIS, UNSPECIFIED (9) ESRD (end stage renal disease) Code(s): N18.6 - END STAGE RENAL DISEASE ASSESSMENT & PLAN: Check CT results HD O2 as needed VTE prophylaxis Dr Kna
[2016-06-30] MEDS: amLODIPine BESYLATE 10 MG TABLET (FP) PO SCH (11:56)
[2016-06-30 12:06] LABS: MCH 33.2 pg (25.7-33.7); MEAN CELL VOLUME 97.8 fl (80-96); PLATELET COUNT 392 K/MM3 (134-434); RDW 13.7 % (11.9-15.9); WHITE BLOOD COUNT 8.4 K/mm3 (4.0-10.0)
[2016-06-30 13:25] LABS: ALBUMIN 2.3 g/dl (3.4-5.0); PHOSPHOROUS 7.7 mg/dL (2.5-4.9)
[2016-06-30 13:32] LABS: BILIRUBIN,TOTAL 0.5 mg/dL (0.2-1.0); TOT PROT 6.4 g/dl (6.4-8.2)
[2016-06-30 13:39] LABS: CREATININE 12.1 mg/dL (0.7-1.3)
--- NOTE | 2016-06-30 17:14 | PN ---
Progress Note, Physician History of Present Illness: Pt seen and examined at bedside. He tolerated HD today. He denies shortness of breath. He still has dysphagia. - Current Medication List Current Medications: Active Medications Acetaminophen (Tylenol -) 650 mg PO Q6H PRN PRN Reason: FEVER OR PAIN Last Admin: 06/29/16 21:38 Dose: 650 mg Amlodipine Besylate (Norvasc -) 10 mg PO DAILY [facility] Last Admin: 06/30/16 11:56 Dose: Not Given Cinacalcet (Sensipar -) 30 mg PO DAILY [facility] Last Admin: 06/30/16 10:40 Dose: Not Given Ferrous Sulfate (Feosol -) 325 mg PO TIDCM [facility] Last Admin: 06/30/16 12:33 Dose: Not Given Furosemide (Lasix -) 40 mg PO DAILY [facility] Last Admin: 06/30/16 10:39 Dose: 40 mg Heparin Sodium (Porcine) (Heparin -) 5,000 unit SQ BID [facility] Last Admin: 06/30/16 10:40 Dose: 5,000 unit Hydralazine HCl (Apresoline -) 100 mg PO TID [facility] Last Admin: 06/30/16 17:07 Dose: Not Given Hydralazine HCl (Apresoline Injection -) 10 mg IVPUSH Q6H PRN PRN Reason: HYPERTENSION Insulin Aspart (Novolog Vial Sliding Scale -) 1 vial SQ BIDAC [facility] PRN Reason: Protocol Last Admin: 06/30/16 17:10 Dose: Not Given Levofloxacin (Levaquin -) 250 mg PO Q2D@0600 [facility] Last Admin: 06/30/16 06:32 Dose: 250 mg Lidocaine/Aluminum/Magnesium/Simeth (Magic Mouthwash *Sjr Formula* -) 5 ml MM TIDAC [facility] Last Admin: 06/30/16 17:07 Dose: Not Given Metronidazole (Flagyl -) 500 mg PO TID [facility] Last Admin: 06/30/16 17:07 Dose: Not Given Multivitamins (Total B With C -) 1 each PO DAILY [facility] Last Admin: 06/30/16 10:40 Dose: 1 each Pantoprazole Sodium (Protonix -) 40 mg PO DAILY [facility] Last Admin: 06/30/16 10:39 Dose: 40 mg Phenol/Menthol (Chloraseptic -) 1 spray MM Q6H PRN Last Admin: 06/23/16 16:08 Dose: 1 spray Sevelamer Carbonate (Renvela -) 800 mg PO TIDCM [facility] Last Admin: 06/30/16 12:33 Dose: Not Given Thiamine HCl (Vitamin B1 -) 100 mg PO HS [facility] Last Admin: 06/29/16 21:37 Dose: 100 mg - Objective Vital Signs: Vital Signs Temperature 98.2 F 06/30/16 11:25 Pulse Rate 96 H 06/30/16 15:00 Respiratory Rate 18 06/30/16 15:00 Blood Pressure 140/72 06/30/16 15:00 O2 Sat by Pulse Oximetry (%) 95 06/30/16 09:00 Constitutional: Yes: Calm Eyes: Yes: Conjunctiva Clear HENT: Yes: Atraumatic Neck: Yes: Supple Cardiovascular: Yes: S1, S2 Respiratory: Yes: CTA Bilaterally Musculoskeletal: Yes: WNL Edema: No Neurological: Yes: Oriented Psychiatric: Yes: Oriented Labs: CBC, BMP 06/30/16 11:30 06/30/16 11:30 INR, PTT INR 1.24 (0.82-1.09) H 06/18/16 04:30 Problem List - Problems (1) Hyperkalemia Code(s): E87.5 - HYPERKALEMIA (2) HTN (hypertension) Code(s): I10 - ESSENTIAL (PRIMARY) HYPERTENSION (3) ESRD (end stage renal disease) Code(s): N18.6 - END STAGE RENAL DISEASE Assessment/Plan Current Medications Generic Name Dose Route Start Last Admin Trade Name Hungq PRN Reason Stop Dose Admin Acetaminophen 650 mg 06/19/16 12:07 06/29/16 21:38 Tylenol - PO 650 mg Q6H PRN Administration FEVER OR PAIN Amlodipine Besylate 10 mg 06/20/16 10:00 06/30/16 11:56 Norvasc - PO Not Given DAILY [facility] Cinacalcet 30 mg 06/20/16 10:00 06/30/16 10:40 Sensipar - PO Not Given DAILY [facility] Ferrous Sulfate 325 mg 06/19/16 17:30 06/30/16 12:33 Feosol - PO Not Given TIDCM [facility] Furosemide 40 mg 06/20/16 10:00 06/30/16 10:39 Lasix - PO 40 mg DAILY [facility] Administration Heparin Sodium (Porcine) 5,000 unit 06/19/16 22:00 06/30/16 10:40 Heparin - SQ 5,000 unit BID [facility] Administration Hydralazine HCl 100 mg 06/19/16 14:00 06/30/16 17:07 Apresoline - PO Not Given TID [facility] Hydralazine HCl 10 mg 06/19/16 22:13 Apresoline Injection - IVPUSH Q6H PRN HYPERTENSION Insulin Aspart 1 vial 06/21/16 16:30 06/30/16 17:10 Novolog Vial Sliding Scale - SQ Not Given BIDAC [facility] Protocol Levofloxacin 250 mg 06/28/16 14:00 06/30/16 06:32 Levaquin - PO 250 mg Q2D@0600 [facility] Administration Lidocaine/Aluminum/Magnesium/Simeth 5 ml 06/26/16 16:30 06/30/16 17:07 Magic Mouthwash *Sjr Formula* - MM Not Given TIDAC [facility] Metronidazole 500 mg 06/28/16 14:00 06/30/16 17:07 Flagyl - PO Not Given TID [facility] Multivitamins 1 each 06/20/16 10:00 06/30/16 10:40 Total B With C - PO 1 each DAILY [facility] Administration Pantoprazole Sodium 40 mg 06/28/16 10:00 06/30/16 10:39 Protonix - PO 40 mg DAILY [facility] Administration Phenol/Menthol 1 spray 06/22/16 11:25 06/23/16 16:08 Chloraseptic - MM 1 spray Q6H PRN Administration Sevelamer Carbonate 800 mg 06/19/16 17:30 06/30/16 12:33 Renvela - PO Not Given TIDCM [facility] Thiamine HCl 100 mg 06/19/16 22:00 06/29/16 21:37 Vitamin B1 - PO 100 mg HS [facility] Administration Impression 1. ESRD 2. hyperkalemia 3. HTN 4. non compliance 5. DM 6. encephalopathy 7. hyponatremia 8. diarrhea Plan - pt dialyzed today - cont current meds - epogen dose increased - monitor labs - odynophagia workup is in progress - monitor bp Dr Almazan
[2016-06-30] MEDS: THIAMINE HCL 100 MG TABLET (FP) PO SCH (21:58)
[2016-07-01] MEDS: MAG HYDROX/ALH/SMC/DPHA/LIDO 240 ML MOUTHWASH MM SCH ×3 (06:46→17:00)
[2016-07-01] MEDS: hydrALAZINE HCL 50 MG TABLET (FP) PO SCH ×3 (06:46→21:59)
[2016-07-01] MEDS: metroNIDAZOLE 250 MG TABLET PO SCH ×3 (06:46→21:59)
[2016-07-01] MEDS: INSULIN SLIDING SCALE (NOVOLOG) 1 VIAL SQ SCH ×2 (06:47→17:00)
[2016-07-01 07:53] LABS: MCH 33.3 pg (25.7-33.7); MCHC 33.8 g/dl (32.0-35.9); MEAN CELL VOLUME 98.6 fl (80-96); MEAN PLT VOLUME 7.2 fl (7.5-11.1); PLATELET COUNT 398 K/MM3 (134-434); RDW 13.6 % (11.9-15.9); WHITE BLOOD COUNT 7.6 K/mm3 (4.0-10.0)
--- NOTE | 2016-07-01 08:24 | PN ---
Progress Note (short form) - Note Progress Note: CTA reviewed (no official report): No evidence for visceral vessel stenosis. Normal appearing abdominal aorta, SMA, celiac and patent JOE. Plaque in iliac arteries without stenosis. Distal mesenteric vessels appear well opacified. In this setting ischemic colitis is highly unlikely. Problem List - Problems (1) Colitis Code(s): K52.9 - NONINFECTIVE GASTROENTERITIS AND COLITIS, UNSPECIFIED
[2016-07-01 09:28] LABS: CALCIUM 8.6 mg/dL (8.5-10.1)
[2016-07-01] MEDS: PANTOPRAZOLE 40 MG TABLET (FP) PO SCH (10:47)
[2016-07-01] MEDS: FERROUS SO4 325 MG TABLET (FP) PO SCH ×3 (10:47→16:58)
[2016-07-01] MEDS: CINACALCET HCL 30 MG TAB (FP) PO SCH (10:47)
[2016-07-01] MEDS: FUROSEMIDE 40 MG TABLET (FP) PO SCH (10:47)
[2016-07-01] MEDS: VITAMIN B COMPLEX W/C COMBO TABLET (FP) PO SCH (10:47)
[2016-07-01] MEDS: amLODIPine BESYLATE 10 MG TABLET (FP) PO SCH (10:48)
[2016-07-01] MEDS: SEVELAMER CARBONATE 800 MG TAB (FP) PO SCH ×3 (10:48→16:58)
[2016-07-01] MEDS: HEPARIN NA (PORCINE) 5,000 UNITS/ML 1ML VIAL SQ SCH ×2 (10:48→22:16)
--- NOTE | 2016-07-01 11:00 | PN ---
Progress Note (short form) - Note Progress Note: No acute events overnight. No CP or SOB. Intake & Output 06/28/16 06/29/16 06/30/16 07/01/16 23:59 23:59 23:59 23:59 Intake Total 1300 1350 100 Balance 1300 1350 100 Weight 178 lb 1.6 oz 182 lb 180 lb 7 oz 178 lb 5 oz Last Vital Signs Temp Pulse Resp BP Pulse Ox 98.6 F 98 H 20 117/75 95 07/01/16 05:58 07/01/16 05:58 07/01/16 05:58 07/01/16 05:58 06/30/16 21:00 Active Medications Acetaminophen (Tylenol -) 650 mg PO Q6H PRN PRN Reason: FEVER OR PAIN Last Admin: 06/29/16 21:38 Dose: 650 mg Amlodipine Besylate (Norvasc -) 10 mg PO DAILY [facility] Last Admin: 07/01/16 10:48 Dose: 10 mg Cinacalcet (Sensipar -) 30 mg PO DAILY [facility] Last Admin: 07/01/16 10:47 Dose: 30 mg Ferrous Sulfate (Feosol -) 325 mg PO TIDCM [facility] Last Admin: 07/01/16 10:47 Dose: 325 mg Furosemide (Lasix -) 40 mg PO DAILY [facility] Last Admin: 07/01/16 10:47 Dose: 40 mg Heparin Sodium (Porcine) (Heparin -) 5,000 unit SQ BID [facility] Last Admin: 07/01/16 10:48 Dose: 5,000 unit Hydralazine HCl (Apresoline -) 100 mg PO TID [facility] Last Admin: 07/01/16 06:46 Dose: Not Given Hydralazine HCl (Apresoline Injection -) 10 mg IVPUSH Q6H PRN PRN Reason: HYPERTENSION Insulin Aspart (Novolog Vial Sliding Scale -) 1 vial SQ BIDAC [facility] PRN Reason: Protocol Last Admin: 07/01/16 06:47 Dose: Not Given Levofloxacin (Levaquin -) 250 mg PO Q2D@0600 [facility] Last Admin: 06/30/16 06:32 Dose: 250 mg Lidocaine/Aluminum/Magnesium/Simeth (Magic Mouthwash *Sjr Formula* -) 5 ml MM TIDAC [facility] Last Admin: 07/01/16 10:48 Dose: Not Given Metronidazole (Flagyl -) 500 mg PO TID [facility] Last Admin: 07/01/16 06:46 Dose: Not Given Multivitamins (Total B With C -) 1 each PO DAILY [facility] Last Admin: 07/01/16 10:47 Dose: 1 each Pantoprazole Sodium (Protonix -) 40 mg PO DAILY [facility] Last Admin: 07/01/16 10:47 Dose: 40 mg Phenol/Menthol (Chloraseptic -) 1 spray MM Q6H PRN Last Admin: 06/23/16 16:08 Dose: 1 spray Sevelamer Carbonate (Renvela -) 800 mg PO TIDCM [facility] Last Admin: 07/01/16 10:48 Dose: Not Given Thiamine HCl (Vitamin B1 -) 100 mg PO HS [facility] Last Admin: 06/30/16 21:58 Dose: Not Given Constitutional: Yes: No Distress Cardiovascular: Yes: Regular Rate and Rhythm Respiratory: Yes: CTA Bilaterally Gastrointestinal: Yes: Normal Bowel Sounds, Soft. No: Distention, Tenderness Edema: No Laboratory Results - last 24 hr 06/30/16 06/30/16 06/30/16 11:30 11:30 11:30 WBC RBC Hgb Hct MCV MCHC RDW Plt Count MPV Sodium 138 Cancelled Potassium 3.3 L Cancelled Chloride 98 Cancelled Carbon Dioxide 23 Cancelled Anion Gap 17 H Cancelled BUN 66 H Cancelled Creatinine 12.1 H* Cancelled Creat Clearance w eGFR 4.34 POC Glucometer Random Glucose 166 H D Cancelled Calcium 8.0 L Cancelled Phosphorus 7.7 H Cancelled Total Bilirubin 0.5 D AST 12 L D ALT 12 D Alkaline Phosphatase 53 Total Protein 6.4 Albumin 2.3 L Blood Type A POSITIVE Antibody Screen Negative 06/30/16 06/30/16 07/01/16 11:30 17:09 05:30 WBC 8.4 7.6 RBC 2.37 L 2.59 L Hgb 7.9 L 8.6 L Hct 23.1 L 25.5 L MCV 97.8 H 98.6 H MCHC 34.0 33.8 RDW 13.7 13.6 Plt Count 392 398 MPV 7.0 L 7.2 L Sodium Potassium Chloride Carbon Dioxide Anion Gap BUN Creatinine Creat Clearance w eGFR POC Glucometer 158 Random Glucose Calcium Phosphorus Total Bilirubin AST ALT Alkaline Phosphatase Total Protein Albumin Blood Type Antibody Screen 07/01/16 07/01/16 05:30 06:20 WBC RBC Hgb Hct MCV MCHC RDW Plt Count MPV Sodium 144 Potassium 3.5 Chloride 98 Carbon Dioxide 29 D Anion Gap 17 H BUN 34 H D Creatinine 8.0 H* D Creat Clearance w eGFR POC Glucometer 120 Random Glucose 114 H D Calcium 8.6 Phosphorus Total Bilirubin AST ALT Alkaline Phosphatase Total Protein Albumin Blood Type Antibody Screen Problem List - Problems (1) Esophagitis Code(s): K20.9 - ESOPHAGITIS, UNSPECIFIED (2) Ileus Code(s): K56.7 - ILEUS, UNSPECIFIED (3) Pneumonia Code(s): J18.9 - PNEUMONIA, UNSPECIFIED ORGANISM Qualifiers: Pneumonia type: due to unspecified organism (4) Sepsis Code(s): A41.9 - SEPSIS, UNSPECIFIED ORGANISM (5) Hyperkalemia Code(s): E87.5 - HYPERKALEMIA (6) HTN (hypertension) Code(s): I10 - ESSENTIAL (PRIMARY) HYPERTENSION (7) Uremia Code(s): N19 - UNSPECIFIED KIDNEY FAILURE (8) Colitis Code(s): K52.9 - NONINFECTIVE GASTROENTERITIS AND COLITIS, UNSPECIFIED (9) ESRD (end stage renal disease) Code(s): N18.6 - END STAGE RENAL DISEASE ASSESSMENT & PLAN: Vascular follow up noted HD per Renal O2 as needed VTE prophylaxis Dr Kan
--- NOTE | 2016-07-01 11:34 | PN ---
Progress Note, Physician Chief Complaint: Pt wants to eat No abd pain No diarrhea No blood in stool - Current Medication List Current Medications: Active Medications Acetaminophen (Tylenol -) 650 mg PO Q6H PRN PRN Reason: FEVER OR PAIN Last Admin: 06/29/16 21:38 Dose: 650 mg Amlodipine Besylate (Norvasc -) 10 mg PO DAILY [facility] Last Admin: 07/01/16 10:48 Dose: 10 mg Cinacalcet (Sensipar -) 30 mg PO DAILY [facility] Last Admin: 07/01/16 10:47 Dose: 30 mg Ferrous Sulfate (Feosol -) 325 mg PO TIDCM [facility] Last Admin: 07/01/16 10:47 Dose: 325 mg Furosemide (Lasix -) 40 mg PO DAILY [facility] Last Admin: 07/01/16 10:47 Dose: 40 mg Heparin Sodium (Porcine) (Heparin -) 5,000 unit SQ BID [facility] Last Admin: 07/01/16 10:48 Dose: 5,000 unit Hydralazine HCl (Apresoline -) 100 mg PO TID [facility] Last Admin: 07/01/16 06:46 Dose: Not Given Hydralazine HCl (Apresoline Injection -) 10 mg IVPUSH Q6H PRN PRN Reason: HYPERTENSION Insulin Aspart (Novolog Vial Sliding Scale -) 1 vial SQ BIDAC [facility] PRN Reason: Protocol Last Admin: 07/01/16 06:47 Dose: Not Given Levofloxacin (Levaquin -) 250 mg PO Q2D@0600 [facility] Last Admin: 06/30/16 06:32 Dose: 250 mg Lidocaine/Aluminum/Magnesium/Simeth (Magic Mouthwash *Sjr Formula* -) 5 ml MM TIDAC [facility] Last Admin: 07/01/16 10:48 Dose: Not Given Metronidazole (Flagyl -) 500 mg PO TID [facility] Last Admin: 07/01/16 06:46 Dose: Not Given Multivitamins (Total B With C -) 1 each PO DAILY [facility] Last Admin: 07/01/16 10:47 Dose: 1 each Pantoprazole Sodium (Protonix -) 40 mg PO DAILY [facility] Last Admin: 07/01/16 10:47 Dose: 40 mg Phenol/Menthol (Chloraseptic -) 1 spray MM Q6H PRN Last Admin: 06/23/16 16:08 Dose: 1 spray Sevelamer Carbonate (Renvela -) 800 mg PO TIDCM [facility] Last Admin: 07/01/16 10:48 Dose: Not Given Thiamine HCl (Vitamin B1 -) 100 mg PO HS [facility] Last Admin: 06/30/16 21:58 Dose: Not Given - Objective Vital Signs: Vital Signs Temperature 98.6 F 07/01/16 05:58 Pulse Rate 98 H 07/01/16 05:58 Respiratory Rate 20 07/01/16 05:58 Blood Pressure 117/75 07/01/16 05:58 O2 Sat by Pulse Oximetry (%) 95 06/30/16 21:00 Constitutional: Yes: No Distress Cardiovascular: Yes: Regular Rate and Rhythm Respiratory: Yes: Diminished Gastrointestinal: Yes: Normal Bowel Sounds, Soft. No: Distention, Tenderness Edema: No Labs: CBC, BMP 07/01/16 05:30 07/01/16 05:30 INR, PTT INR 1.24 (0.82-1.09) H 06/18/16 04:30 Problem List - Problems (1) Esophagitis Code(s): K20.9 - ESOPHAGITIS, UNSPECIFIED (2) Ileus Code(s): K56.7 - ILEUS, UNSPECIFIED (3) Pneumonia Code(s): J18.9 - PNEUMONIA, UNSPECIFIED ORGANISM Qualifiers: Pneumonia type: due to unspecified organism (4) Sepsis Code(s): A41.9 - SEPSIS, UNSPECIFIED ORGANISM (5) Hyperkalemia Code(s): E87.5 - HYPERKALEMIA (6) HTN (hypertension) Code(s): I10 - ESSENTIAL (PRIMARY) HYPERTENSION (7) Uremia Code(s): N19 - UNSPECIFIED KIDNEY FAILURE (8) Colitis Code(s): K52.9 - NONINFECTIVE GASTROENTERITIS AND COLITIS, UNSPECIFIED (9) ESRD (end stage renal disease) Code(s): N18.6 - END STAGE RENAL DISEASE Assessment/Plan PLAN -- HD per renal -- On po antibiotics -- CTA abdomen noted -- spoke with surgery-- will advance diet -- continue with meds --dc planning if tolerating PO
--- NOTE | 2016-07-01 15:41 | PN ---
Progress Note, Physician History of Present Illness: Pt seen and examined at bedside. He is awake and alert. He feels that the odynophagia has improved. - Current Medication List Current Medications: Active Medications Acetaminophen (Tylenol -) 650 mg PO Q6H PRN PRN Reason: FEVER OR PAIN Last Admin: 06/29/16 21:38 Dose: 650 mg Amlodipine Besylate (Norvasc -) 10 mg PO DAILY [facility] Last Admin: 07/01/16 10:48 Dose: 10 mg Cinacalcet (Sensipar -) 30 mg PO DAILY [facility] Last Admin: 07/01/16 10:47 Dose: 30 mg Ferrous Sulfate (Feosol -) 325 mg PO TIDCM [facility] Last Admin: 07/01/16 13:46 Dose: Not Given Furosemide (Lasix -) 40 mg PO DAILY [facility] Last Admin: 07/01/16 10:47 Dose: 40 mg Heparin Sodium (Porcine) (Heparin -) 5,000 unit SQ BID [facility] Last Admin: 07/01/16 10:48 Dose: 5,000 unit Hydralazine HCl (Apresoline -) 100 mg PO TID [facility] Last Admin: 07/01/16 13:51 Dose: 100 mg Hydralazine HCl (Apresoline Injection -) 10 mg IVPUSH Q6H PRN PRN Reason: HYPERTENSION Insulin Aspart (Novolog Vial Sliding Scale -) 1 vial SQ BIDAC [facility] PRN Reason: Protocol Last Admin: 07/01/16 06:47 Dose: Not Given Levofloxacin (Levaquin -) 250 mg PO Q2D@0600 [facility] Last Admin: 06/30/16 06:32 Dose: 250 mg Lidocaine/Aluminum/Magnesium/Simeth (Magic Mouthwash *Sjr Formula* -) 5 ml MM TIDAC [facility] Last Admin: 07/01/16 10:48 Dose: Not Given Metronidazole (Flagyl -) 500 mg PO TID [facility] Last Admin: 07/01/16 13:51 Dose: 500 mg Multivitamins (Total B With C -) 1 each PO DAILY [facility] Last Admin: 07/01/16 10:47 Dose: 1 each Pantoprazole Sodium (Protonix -) 40 mg PO DAILY [facility] Last Admin: 07/01/16 10:47 Dose: 40 mg Phenol/Menthol (Chloraseptic -) 1 spray MM Q6H PRN Last Admin: 06/23/16 16:08 Dose: 1 spray Sevelamer Carbonate (Renvela -) 800 mg PO TIDCM [facility] Last Admin: 07/01/16 13:46 Dose: Not Given Thiamine HCl (Vitamin B1 -) 100 mg PO HS [facility] Last Admin: 06/30/16 21:58 Dose: Not Given - Objective Vital Signs: Vital Signs Temperature 98.9 F 07/01/16 14:00 Pulse Rate 108 H 07/01/16 14:00 Respiratory Rate 22 07/01/16 14:00 Blood Pressure 116/78 07/01/16 09:00 O2 Sat by Pulse Oximetry (%) 95 06/30/16 21:00 Constitutional: Yes: Calm Eyes: Yes: Conjunctiva Clear HENT: Yes: Atraumatic Neck: Yes: Supple Cardiovascular: Yes: S1, S2 Respiratory: Yes: CTA Bilaterally Gastrointestinal: Yes: Normal Bowel Sounds, Soft Genitourinary: Yes: WNL Musculoskeletal: Yes: WNL Edema: No Neurological: Yes: Oriented Psychiatric: Yes: Oriented Labs: CBC, BMP 07/01/16 05:30 07/01/16 05:30 INR, PTT INR 1.24 (0.82-1.09) H 06/18/16 04:30 Problem List - Problems (1) Hyperkalemia Code(s): E87.5 - HYPERKALEMIA (2) HTN (hypertension) Code(s): I10 - ESSENTIAL (PRIMARY) HYPERTENSION (3) ESRD (end stage renal disease) Code(s): N18.6 - END STAGE RENAL DISEASE Assessment/Plan Current Medications Generic Name Dose Route Start Last Admin Trade Name Rufina PRN Reason Stop Dose Admin Acetaminophen 650 mg 06/19/16 12:07 06/29/16 21:38 Tylenol - PO 650 mg Q6H PRN Administration FEVER OR PAIN Amlodipine Besylate 10 mg 06/20/16 10:00 07/01/16 10:48 Norvasc - PO 10 mg DAILY [facility] Administration Cinacalcet 30 mg 06/20/16 10:00 07/01/16 10:47 Sensipar - PO 30 mg DAILY [facility] Administration Ferrous Sulfate 325 mg 06/19/16 17:30 07/01/16 13:46 Feosol - PO Not Given TIDCM [facility] Furosemide 40 mg 06/20/16 10:00 07/01/16 10:47 Lasix - PO 40 mg DAILY [facility] Administration Heparin Sodium (Porcine) 5,000 unit 06/19/16 22:00 07/01/16 10:48 Heparin - SQ 5,000 unit BID [facility] Administration Hydralazine HCl 100 mg 06/19/16 14:00 07/01/16 13:51 Apresoline - PO 100 mg TID [facility] Administration Hydralazine HCl 10 mg 06/19/16 22:13 Apresoline Injection - IVPUSH Q6H PRN HYPERTENSION Insulin Aspart 1 vial 06/21/16 16:30 07/01/16 06:47 Novolog Vial Sliding Scale - SQ Not Given BIDAC [facility] Protocol Levofloxacin 250 mg 06/28/16 14:00 06/30/16 06:32 Levaquin - PO 250 mg Q2D@0600 [facility] Administration Lidocaine/Aluminum/Magnesium/Simeth 5 ml 06/26/16 16:30 07/01/16 10:48 Magic Mouthwash *Sjr Formula* - MM Not Given TIDAC [facility] Metronidazole 500 mg 06/28/16 14:00 07/01/16 13:51 Flagyl - PO 500 mg TID [facility] Administration Multivitamins 1 each 06/20/16 10:00 07/01/16 10:47 Total B With C - PO 1 each DAILY [facility] Administration Pantoprazole Sodium 40 mg 06/28/16 10:00 07/01/16 10:47 Protonix - PO 40 mg DAILY [facility] Administration Phenol/Menthol 1 spray 06/22/16 11:25 06/23/16 16:08 Chloraseptic - MM 1 spray Q6H PRN Administration Sevelamer Carbonate 800 mg 06/19/16 17:30 07/01/16 13:46 Renvela - PO Not Given TIDCM [facility] Thiamine HCl 100 mg 06/19/16 22:00 06/30/16 21:58 Vitamin B1 - PO Not Given HS [facility] Impression 1. ESRD 2. hyperkalemia 3. HTN 4. non compliance 5. DM 6. encephalopathy 7. hyponatremia 8. diarrhea 9. odynophagia Plan - pt feels that swallowing is improved - will make arrangements for HD in am - caution with aluminum containing products, will likely stop in am - cont current meds - monitor labs - monitor bp Dr Almazan
[2016-07-01] MEDS ORDERED: INSULIN (NOVOLOG) ASPART 100 UNITS/ML 10ML VIAL ONE (16:57)
[2016-07-01] MEDS: ACETAMINOPHEN 325 MG TABLET (FP) PO PRN (21:59)
[2016-07-01] MEDS: THIAMINE HCL 100 MG TABLET (FP) PO SCH (22:00)
[2016-07-02] MEDS: metroNIDAZOLE 250 MG TABLET PO SCH ×2 (06:50→14:00)
[2016-07-02] MEDS: hydrALAZINE HCL 50 MG TABLET (FP) PO SCH ×2 (06:50→14:00)
[2016-07-02] MEDS: LEVOFLOXACIN 250 MG TABLET (FP) PO SCH (06:50)
[2016-07-02] MEDS: INSULIN SLIDING SCALE (NOVOLOG) 1 VIAL SQ SCH ×2 (06:51→17:26)
[2016-07-02] MEDS: MAG HYDROX/ALH/SMC/DPHA/LIDO 240 ML MOUTHWASH MM SCH ×2 (06:51→10:54)
[2016-07-02] MEDS: FERROUS SO4 325 MG TABLET (FP) PO SCH ×3 (10:55→17:15)
[2016-07-02] MEDS: HEPARIN NA (PORCINE) 5,000 UNITS/ML 1ML VIAL SQ SCH (10:55)
[2016-07-02] MEDS: SEVELAMER CARBONATE 800 MG TAB (FP) PO SCH ×3 (10:55→17:15)
[2016-07-02] MEDS: PANTOPRAZOLE 40 MG TABLET (FP) PO SCH (10:56)
[2016-07-02] MEDS: CINACALCET HCL 30 MG TAB (FP) PO SCH (10:56)
[2016-07-02] MEDS: FUROSEMIDE 40 MG TABLET (FP) PO SCH (10:56)
[2016-07-02] MEDS: amLODIPine BESYLATE 10 MG TABLET (FP) PO SCH (10:56)
[2016-07-02] MEDS: VITAMIN B COMPLEX W/C COMBO TABLET (FP) PO SCH (10:57)
--- NOTE | 2016-07-02 11:30 | DS ---
Physical Examination Vital Signs: Vital Signs Temperature 98.8 F 07/02/16 06:00 Pulse Rate 102 H 07/02/16 06:00 Respiratory Rate 20 07/02/16 06:00 Blood Pressure 126/80 07/02/16 06:00 O2 Sat by Pulse Oximetry (%) 95 07/01/16 21:00 Constitutional: Yes: No Distress, Calm Cardiovascular: Yes: Regular Rate and Rhythm Respiratory: Yes: Diminished Gastrointestinal: Yes: Normal Bowel Sounds, Soft. No: Distention, Tenderness Edema: No Psychiatric: Yes: Alert, Oriented Labs: CBC, BMP 07/01/16 05:30 07/01/16 05:30 Discharge Summary Reason For Visit: ESOPHAGITIS/PNEUMONIA/ILEUS Current Active Problems Abdominal distention (Acute) Colitis (Acute) ESRD (end stage renal disease) (Acute) Esophagitis (Acute) Ileus (Acute) Pneumonia (Acute) Sepsis (Acute) Uremia (Acute) Uremic encephalopathy (Acute) Hospital Course: ADMISSION HISTORY - Admission Chief Complaint: body aches, abd pain , chills History of Present Illness: 56 yrs old male sent from [facility] for abdominal pain , weakness and chills He has been c/o abd pain intermittent for a few days No nausea or vomiting No fever Never missed dialysis- was found to have hyperkalemia with peaked T waves on EKG - had a ct scan which showed ileus , Pneumonia, acute colitis Currently he is awake, but is confused-- his baseline is AAOx3 He received dialysis early this AM He has tremors HOSPITALIZATION COURSE Pt was initially admitted in ICU for hyperkalemia and peaked T-waves, AMS He had abd distension and pain -- CT abd showed possible SBO vs Ileua-- NGT place which relieved the pt He had a second CT abd/pelvis-- possible ischemic colitis per Surgery and was on Levaquin and Flagyl He had EGD /colonoscopy as pt had odynophagia-- gastritis, duodenitis-- colonoscopy also unremarkable pathology negative Suspicion for SMA stenosis- Vascular was consulted and CTA abd/pelvis done-- no evidence of mesenteric artery stenosis Able to eat better stable for dc to NH on PO Flagyl and Levaquin for 5 days Condition: Improved - Instructions Referrals: Joés Browne MD [Primary Care Provider] - Disposition: LONGTERM FACILITY - Home Medications Comprehensive Discharge Medication List: Ambulatory Orders Amlodipine Besylate [Norvasc -] 10 mg PO DAILY #30 tablet 07/31/14 Ferrous Sulfate [Feosol] 325 mg PO TID #90 ud 07/31/14 Gabapentin [Neurontin -] 600 mg PO Q8H 30 Days 07/31/14 Acetaminophen [Tylenol .Regular Strength -] 650 mg PO Q6H PRN #0 tablet Aspirin [Ecotrin] 81 mg PO DAILY #30 tablet. 01/22/15 Furosemide [Lasix -] 40 mg PO DAILY tablet 01/22/15 Hydralazine HCl [Apresoline -] 100 mg PO TID tablet 01/22/15 Thiamine HCl [Vitamin B1 -] 100 mg PO HS tablet 01/22/15 Cinacalcet HCl [Sensipar -] 30 mg PO DAILY 03/13/16 Oxycodone HCl/Acetaminophen [Percocet 5-325 mg Tablet] 1 - 2 tab PO Q8H PRN Sevelamer Carbonate [Renvela] 800 mg PO TID 03/13/16 Vitamin B Complex 1 each PO DAILY 03/13/16 Meloxicam [Mobic] 1 tab PO DAILY PRN #30 03/14/16
[2016-07-02] MEDS ORDERED: EPOETIN ALFA 2,000 UNITS/1 ML VIAL IVPUSH ONE (12:00)
[2016-07-02] MEDS ORDERED: EPOETIN ALFA 3,000 UNIT, EPOETIN ALFA 4,000 UNIT IVPUSH ONE (13:00)
--- NOTE | 2016-07-02 13:17 | PN ---
Progress Note, Physician History of Present Illness: Pt seen and examined at bedside. He is tolerating diet. He denies chest pain or shortness of breath. - Current Medication List Current Medications: Active Medications Acetaminophen (Tylenol -) 650 mg PO Q6H PRN PRN Reason: FEVER OR PAIN Last Admin: 07/01/16 21:59 Dose: 650 mg Amlodipine Besylate (Norvasc -) 10 mg PO DAILY [facility] Last Admin: 07/02/16 10:56 Dose: Not Given Cinacalcet (Sensipar -) 30 mg PO DAILY [facility] [place] Last Admin: 07/02/16 10:56 Dose: Not Given Ferrous Sulfate (Feosol -) 325 mg PO TIDCM [facility] [place] Last Admin: 07/02/16 10:55 Dose: Not Given Furosemide (Lasix -) 40 mg PO DAILY [facility] [place] Last Admin: 07/02/16 10:56 Dose: Not Given Heparin Sodium (Porcine) (Heparin -) 5,000 unit SQ BID [facility] [place] Last Admin: 07/02/16 10:55 Dose: Not Given Hydralazine HCl (Apresoline -) 100 mg PO TID [facility] [place] Last Admin: 07/02/16 06:50 Dose: 100 mg Hydralazine HCl (Apresoline Injection -) 10 mg IVPUSH Q6H PRN PRN Reason: HYPERTENSION Insulin Aspart (Novolog Vial Sliding Scale -) 1 vial SQ BIDAC [facility] PRN Reason: Protocol Last Admin: 07/02/16 06:51 Dose: Not Given Levofloxacin (Levaquin -) 250 mg PO Q2D@0600 [facility] [place] Last Admin: 07/02/16 06:50 Dose: 250 mg Metronidazole (Flagyl -) 500 mg PO TID [facility] [place] Last Admin: 07/02/16 06:50 Dose: 500 mg Multivitamins (Total B With C -) 1 each PO DAILY [facility] [place] Last Admin: 07/02/16 10:57 Dose: Not Given Pantoprazole Sodium (Protonix -) 40 mg PO DAILY [facility] [place] Last Admin: 07/02/16 10:56 Dose: Not Given Phenol/Menthol (Chloraseptic -) 1 spray MM Q6H PRN Last Admin: 06/23/16 16:08 Dose: 1 spray Sevelamer Carbonate (Renvela -) 800 mg PO TIDCM [facility] [place] Last Admin: 07/02/16 10:55 Dose: Not Given Thiamine HCl (Vitamin B1 -) 100 mg PO HS [facility] Last Admin: 07/01/16 22:00 Dose: 100 mg - Objective Vital Signs: Vital Signs Temperature 98.2 F 07/02/16 09:00 Pulse Rate 106 H 07/02/16 09:00 Respiratory Rate 20 07/02/16 09:00 Blood Pressure 120/72 07/02/16 09:00 O2 Sat by Pulse Oximetry (%) 95 07/01/16 21:00 Constitutional: Yes: Calm Eyes: Yes: Conjunctiva Clear HENT: Yes: Atraumatic Neck: Yes: Supple Cardiovascular: Yes: S1, S2 Respiratory: Yes: CTA Bilaterally Gastrointestinal: Yes: Soft Genitourinary: Yes: WNL Musculoskeletal: Yes: WNL Edema: No Neurological: Yes: Oriented Psychiatric: Yes: Oriented Labs: CBC, BMP 07/01/16 05:30 07/01/16 05:30 INR, PTT INR 1.24 (0.82-1.09) H 06/18/16 04:30 Problem List - Problems (1) Hyperkalemia Code(s): E87.5 - HYPERKALEMIA (2) HTN (hypertension) Code(s): I10 - ESSENTIAL (PRIMARY) HYPERTENSION (3) ESRD (end stage renal disease) Code(s): N18.6 - END STAGE RENAL DISEASE Assessment/Plan Current Medications Generic Name Dose Route Start Last Admin Trade Name Freq PRN Reason Stop Dose Admin Acetaminophen 650 mg 06/19/16 12:07 07/01/16 21:59 Tylenol - PO 650 mg Q6H PRN Administration FEVER OR PAIN Amlodipine Besylate 10 mg 06/20/16 10:00 07/02/16 10:56 Norvasc - PO Not Given DAILY [facility] Cinacalcet 30 mg 06/20/16 10:00 07/02/16 10:56 Sensipar - PO Not Given DAILY TUNG Ferrous Sulfate 325 mg 06/19/16 17:30 07/02/16 10:55 Feosol - PO Not Given TIDCM [facility] Furosemide 40 mg 06/20/16 10:00 07/02/16 10:56 Lasix - PO Not Given DAILY [facility] [place] Heparin Sodium (Porcine) 5,000 unit 06/19/16 22:00 07/02/16 10:55 Heparin - SQ Not Given BID TUNG Hydralazine HCl 100 mg 06/19/16 14:00 07/02/16 06:50 Apresoline - PO 100 mg TID TUNG Administration Hydralazine HCl 10 mg 06/19/16 22:13 Apresoline Injection - IVPUSH Q6H PRN HYPERTENSION Insulin Aspart 1 vial 06/21/16 16:30 07/02/16 06:51 Novolog Vial Sliding Scale - SQ Not Given BIDAC [facility] Protocol Levofloxacin 250 mg 06/28/16 14:00 07/02/16 06:50 Levaquin - PO 250 mg Q2D@0600 TUNG Administration Metronidazole 500 mg 06/28/16 14:00 07/02/16 06:50 Flagyl - PO 500 mg TID TUNG Administration Multivitamins 1 each 06/20/16 10:00 07/02/16 10:57 Total B With C - PO Not Given DAILY [facility] [place] Pantoprazole Sodium 40 mg 06/28/16 10:00 07/02/16 10:56 Protonix - PO Not Given DAILY [facility] Phenol/Menthol 1 spray 06/22/16 11:25 06/23/16 16:08 Chloraseptic - MM 1 spray Q6H PRN Administration Sevelamer Carbonate 800 mg 06/19/16 17:30 07/02/16 10:55 Renvela - PO Not Given TIDCM [facility] Thiamine HCl 100 mg 06/19/16 22:00 07/01/16 22:00 Vitamin B1 - PO 100 mg HS TUNG Administration Impression 1. ESRD 2. hyperkalemia 3. HTN 4. non compliance 5. DM 6. encephalopathy 7. hyponatremia 8. diarrhea 9. odynophagia 10. esophagitis Plan - HD today - pt has dialysis set up as outpt - aluminum based oral solution stopped - neurontin still on hold, discussed with pt and he feels that he is doing well without it - pt feels that swallowing is improved - cont current meds - monitor labs - monitor bp Dr Almazan
[2016-07-02 14:37] VITALS: TEMP 97.8
[2016-07-02 17:00] VITALS: PULSE 102
[2016-07-02 17:01] VITALS: BP 124/74
[2016-07-02] MEDS ORDERED: INSULIN (NOVOLOG) ASPART 100 UNITS/ML 10ML VIAL ONE (17:19)
== END 2016-07-02 17:36 | DRG 871 ==
LOC: JER 18:36 → UNDOADMIN 22:31 → JERBED 22:31 → JICU 06-18 00:18 → J6S 06-20 13:45
PROVIDERS: ADMIT Internal Medicine; ATTEND Internal Medicine
PROC: 0DB98ZX Excision of Duodenum, Via Natural or Artificial Opening Endoscopic, Diagnostic (ICD-10-PCS; 2016-06-26)
PROC: 0DBN8ZX Excision of Sigmoid Colon, Via Natural or Artificial Opening Endoscopic, Diagnostic (ICD-10-PCS; 2016-06-26)
PROC: 0DBM8ZX Excision of Descending Colon, Via Natural or Artificial Opening Endoscopic, Diagnostic (ICD-10-PCS; 2016-06-26)
PROC: 0DBL8ZX Excision of Transverse Colon, Via Natural or Artificial Opening Endoscopic, Diagnostic (ICD-10-PCS; 2016-06-26)
PROC: 5A1D60Z (ICD-10-PCS; principal; 2016-06-30)
DX: A41.9 Sepsis, unspecified organism (principal); J18.9 Pneumonia, unspecified organism; N18.6 End stage renal disease; G93.41 Metabolic encephalopathy; K56.7 Ileus, unspecified; I12.0 Hypertensive chronic kidney disease with stage 5 chronic kidney disease or end stage renal disease; E87.1 Hypo-osmolality and hyponatremia; K20.9 Esophagitis, unspecified; E87.5 Hyperkalemia; Z99.2 Dependence on renal dialysis; G62.9 Polyneuropathy, unspecified; R41.82 Altered mental status, unspecified; K52.9 Noninfective gastroenteritis and colitis, unspecified; R13.10 Dysphagia, unspecified; E11.9 Type 2 diabetes mellitus without complications; D64.9 Anemia, unspecified; K31.7 Polyp of stomach and duodenum; K29.80 Duodenitis without bleeding; Z91.15 Patient's noncompliance with renal dialysis
CPT/HCPCS: 36415; 36600; 71010-TC; 71260-TC; 74000-TC; 74020-TC; 74174-TC; 74176-TC; 74177-TC; 74220-TC; 80048; 80053; 80061; 81003; 81015; 82140; 82550; 82553; 82565; 82803; 83036; 83605; 83721; 83735; 83874; 84100; 84484; 84520; 85025; 85027; 85610; 85730; 86704; 86706; 86708; 86803; 86850; 86900; 86901; 87040; 87045; 87046; 87254; 87324; 87340; 87449; 87804; 87899; 88305-TC; 93005; 93010; 93926-TC; 97116-GP; 97162-PG; 99285-25; J0885; J1644; Q9967

== ENCOUNTER 2016-08-01 14:22 | Inpatient (IN) | payer OTHER ==
[2016-08-01 14:36] VITALS: BMI 25.1
[2016-08-01 15:38] LABS: BASOPHIL 0.8 % (0-2.0); EOSINOPHIL 2.1 % (0-4.5); MCH 31.8 pg (25.7-33.7); MCHC 32.4 g/dl (32.0-35.9); MEAN PLT VOLUME 5.9 fl (7.5-11.1); PLATELET COUNT 537 K/MM3 (134-434); RDW 15.7 % (11.9-15.9); WHITE BLOOD COUNT 14.6 K/mm3 (4.0-10.0)
[2016-08-01 15:39] LABS: ALBUMIN 2.3 g/dl (3.4-5.0); ANION GAP 9 (8-16); BILIRUBIN,TOTAL 0.8 mg/dL (0.2-1.0); CALCIUM 8.8 mg/dL (8.5-10.1); CO2 29 mmol/L (21-32); CREATININE 3.4 mg/dL (0.7-1.3); GLUCOSE,RANDOM 127 mg/dL (74-106); SGPT/ALT 11 U/L (12-78); TOT PROT 7.1 g/dl (6.4-8.2)
[2016-08-01 15:42] LABS: ALK PHOS 70 U/L (45-117); TROPONIN I < 0.02 ng/ml (0.00-0.05)
[2016-08-01 15:59] LABS: MAGNESIUM 1.5 mg/dL (1.8-2.4); SGOT/AST 38 U/L (15-37)
--- NOTE | 2016-08-01 16:02 | PDOC ---
History of Present Illness <Allan Grubbs - Last Filed: 08/01/16 16:06> - General History Source: Patient, [facility] Records, Old Records Exam Limitations: No Limitations - History of Present Illness Initial Comments: 08/01/16 16:29 The patient is a 56 year old male, with a significant past medical history of anemia, hypertension, diabetes and ESRD (on dialysis MWF), who presents to the emergency department via EMS from [facility] for evaluation and likely admission for a blood transfusion due to a low H/H. The patient reports feeling generally weak and fatigued. The patient reports that he had dialysis this morning. The patient denies fever, chills, nausea, vomiting, diarrhea, melena/ bpr. The patient is a poor historian. Allergies: None reported. Past Surgical History: Ganglionic cyst surgery (1987); Left Rotator Cuff Surgery. Social History: Non smoker. Denies alcohol or drug use. PCP: Dr. José Browne <Yue Coelho - Last Filed: 08/01/16 17:45> - General Chief Complaint: Revisit, Lab Variance Stated Complaint: BLOOD TRANFUSION Time Seen by Provider: 08/01/16 14:46 Past History - Past Medical History Anemia: Yes (NOT ON SUPPLEMENT CURRENTLY) Asthma: No Cancer: No Cardiac Disorders: No CVA: No COPD: No CHF: No Dementia: No Diabetes: Yes (Patient reported history of diabetes, but not on medication at this time,) GI Disorders: No Disorders: Yes (ESRD. DIALYSIS .) HTN: Yes Hypercholesterolemia: No Kidney Stones: No Liver Disease: No Suicide Attempt (Hx): No Seizures: No Thyroid Disease: No - Surgical History Abdominal Surgery: No Appendectomy: No Cardiac Surgery: No Cholecystectomy: No Lung Surgery: No Neurologic Surgery: No Orthopedic Surgery: Yes (GANGLIONIC CYST SX IN 1987 disloat [facility]; left rotator cuff sx) - Reproductive History Testicular Surgery: No - Immunization History Immunization Up to Date: No - Psycho/Social/Smoking Cessation Hx Anxiety: No Suicidal Ideation: No Smoking History: Never smoked Have you smoked in the past 12 months: No 'Breaking Loose' booklet given: 05/15/14 Hx Alcohol Use: No Drug/Substance Use Hx: No Substance Use Type: None Hx Substance Use Treatment: Yes <Allan Grubbs - Last Filed: 08/01/16 16:06> <ClearmontYue horvath - Last Filed: 08/01/16 17:45> - Past Medical History Allergies/Adverse Reactions: Allergies Allergy/AdvReac Type Severity Reaction Status Date / Time No Known Drug Allergies Allergy Unknown Verified 08/01/16 14:27 lactose AdvReac Unknown LACTOSE Verified 08/01/16 14:27 INTOLERANCE Home Medications: Ambulatory Orders Acetaminophen 650 mg PO Q6H PRN 08/01/16 Amlodipine Besylate [Norvasc -] 10 mg PO DAILY 08/01/16 Aspirin [ASA -] 81 mg PO DAILY 08/01/16 Cinacalcet HCl [Sensipar] 30 mg PO DAILY 08/01/16 Ferrous Sulfate 325 mg PO TID 08/01/16 Furosemide [Lasix] 40 mg PO DAILY 08/01/16 Gabapentin 100 mg PO Q12H 08/01/16 Hydralazine HCl 100 mg PO TID 08/01/16 Magnesium Hydroxide [Milk of Magnesia] 400 mg PO PRN 08/01/16 Naproxen [Naprosyn -] 500 mg PO BID PRN 08/01/16 Oxycodone HCl/Acetaminophen [Endocet 5-325 Tablet] 1 each PO DAILY PRN 08/01/16 Pantoprazole Sodium [Protonix] 40 mg PO DAILY 08/01/16 Sevelamer Carbonate [Renvela] 800 mg PO TID 08/01/16 Thiamine HCl [B-1] 100 mg PO HS 08/01/16 Vitamin B Complex 1 each PO DAILY 08/01/16 Review of Systems - Review of Systems Able to Perform ROS?: Yes Comments:: 08/01/16 16:32 GENERAL/CONSTITUTIONAL: +Weakness. No fever or chills. HEAD, EYES, EARS, NOSE AND THROAT: No change in vision. No ear pain or discharge. No sore throat. CARDIOVASCULAR: No chest pain or shortness of breath. RESPIRATORY: No cough, wheezing, or hemoptysis. GASTROINTESTINAL: No nausea, vomiting, diarrhea or constipation. GENITOURINARY: No dysuria, frequency, or change in urination. MUSCULOSKELETAL: No joint or muscle swelling or pain. No neck or back pain. SKIN: No rash. NEUROLOGIC: No headache, vertigo, loss of consciousness, or change in strength/ sensation. ENDOCRINE: No increased thirst. No abnormal weight change. HEMATOLOGIC/LYMPHATIC: +Low H/H. No easy bleeding or history of blood clots. ALLERGIC/IMMUNOLOGIC: No hives or skin allergy. <Yue Coelho - Last Filed: 08/01/16 17:45> *Physical Exam - Vital Signs Last Vital Signs Temp Pulse Resp BP Pulse Ox 98.7 F 95 H 18 116/64 98 08/01/16 14:24 08/01/16 14:24 08/01/16 14:24 08/01/16 14:24 08/01/16 14:24 <Allan Grubbs - Last Filed: 08/01/16 16:06> - Vital Signs Last Vital Signs Temp Pulse Resp BP Pulse Ox 98.7 F 95 H 18 116/64 98 08/01/16 14:24 08/01/16 14:24 08/01/16 14:24 08/01/16 14:24 08/01/16 14:24 - Physical Exam Comments: 08/01/16 17:44 GENERAL: Patient is afebrile. Awake, alert, and fully oriented, in no acute distress. HEAD: No signs of trauma. EYES: PERRLA, EOMI, sclera anicteric, conjunctiva clear. ENT: Auricles normal inspection, hearing grossly normal, nares patent, oropharynx clear without exudates. Moist mucosa. NECK: Normal ROM, supple, no lymphadenopathy, JVD, or masses. LUNGS: Breath sounds equal, clear to auscultation bilaterally. No wheezes, and no crackles. HEART: Regular rate and rhythm, normal S1 and S2, no murmurs, rubs or gallops. ABDOMEN: Soft, nontender, normoactive bowel sounds. No guarding, no rebound. No masses. EXTREMITIES: AV fistula left upper extremity. Normal range of motion, no edema. No clubbing or cyanosis. No cords, erythema, or tenderness. NEUROLOGICAL: Cranial nerves II through XII intact. Normal speech, normal gait. SKIN: Warm, dry, normal turgor, no rashes or lesions noted. <Yue Ceolho - Last Filed: 08/01/16 17:45> ED Treatment Course - LABORATORY CBC & Chemistry Diagram: 08/01/16 15:30 08/01/16 15:04 - ADDITIONAL ORDERS Additional order review: Laboratory Results 08/01/16 15:04 Crossmatch See Detail 08/01/16 08/01/16 15:30 15:04 RBC 1.77 L D Cancelled MCV 98.0 H Cancelled MCHC 32.4 Cancelled RDW 15.7 D Cancelled MPV 5.9 L D Cancelled Neutrophils % 79.0 Cancelled Lymphocytes % 11.8 D Cancelled Monocytes % 6.3 Cancelled Eosinophils % 2.1 D Cancelled Basophils % 0.8 D Cancelled <Allan Grubbs - Last Filed: 08/01/16 16:06> - LABORATORY CBC & Chemistry Diagram: 08/01/16 15:30 08/01/16 15:04 - ADDITIONAL ORDERS Additional order review: Laboratory Results 08/01/16 08/01/16 15:04 15:04 Sodium 133 L Potassium 4.7 D Chloride 95 L Carbon Dioxide 29 Anion Gap 9 BUN 12 D Creatinine 3.4 H D Creat Clearance w eGFR 18.76 Random Glucose 127 H Calcium 8.8 Magnesium 1.5 L D Total Bilirubin 0.8 D AST 38 H D ALT 11 L Alkaline Phosphatase 70 D Creatine Kinase 62 Troponin I < 0.02 B-Natriuretic Peptide 7915.93 H Total Protein 7.1 Albumin 2.3 L Crossmatch See Detail 08/01/16 08/01/16 15:30 15:04 RBC 1.77 L D Cancelled MCV 98.0 H Cancelled MCHC 32.4 Cancelled RDW 15.7 D Cancelled MPV 5.9 L D Cancelled Neutrophils % 79.0 Cancelled Lymphocytes % 11.8 D Cancelled Monocytes % 6.3 Cancelled Eosinophils % 2.1 D Cancelled Basophils % 0.8 D Cancelled <Yue Coelho - Last Filed: 08/01/16 17:45> Medical Decision Making - Medical Decision Making 08/01/16 16:[address] José Browne at 16:03. Connected and case discussed. <Yue Coelho - Last Filed: 08/01/16 17:45> *DC/Admit/Observation/Transfer - Discharge Dispostion Admit: Yes <Allan Grubbs - Last Filed: 08/01/16 16:06> - Attestations Scribe Attestion: 08/01/16 16:05 Documentation prepared by Yue Coelho, acting as medical geneticist for Allan Grubbs MD/DO. <Yue Coelho - Last Filed: 08/01/16 17:45> Diagnosis at time of Disposition: Essential hypertension, ESRD (end stage renal disease), Transfusion of blood during current hospitalization - Discharge Dispostion Condition at time of disposition: Poor - Referrals
[2016-08-01 16:46] LABS: INR 1.28 (0.82-1.09); PROTHROMBIN TIME (PATIENT) 14.1 SEC (9.98-11.88)
[2016-08-01] MEDS ORDERED: OXYCODONE/APAP 5/325MG COMBO TABLET PO PRN (22:18)
[2016-08-01] MEDS ORDERED: ACETAMINOPHEN 325 MG TABLET (FP) PO PRN ×2 (22:18→22:31)
[2016-08-02] MEDS: GABAPENTIN 100 MG CAPSULE (FP) PO SCH ×3 (00:14→21:57)
[2016-08-02] MEDS: SEVELAMER CARBONATE 800 MG TAB (FP) PO SCH ×3 (07:20→21:57)
[2016-08-02] MEDS: FERROUS SO4 325 MG TABLET (FP) PO SCH ×3 (07:20→21:57)
[2016-08-02] MEDS: hydrALAZINE HCL 50 MG TABLET (FP) PO SCH ×3 (07:20→21:57)
[2016-08-02 07:37] LABS: MCH 30.9 pg (25.7-33.7); MCHC 32.9 g/dl (32.0-35.9); MEAN CELL VOLUME 93.9 fl (80-96); MEAN PLT VOLUME 6.2 fl (7.5-11.1); PLATELET COUNT 451 K/MM3 (134-434); RDW 18.4 % (11.9-15.9); WHITE BLOOD COUNT 11.3 K/mm3 (4.0-10.0)
[2016-08-02 07:52] LABS: CALCIUM 8.9 mg/dL (8.5-10.1); CREATININE 5.5 mg/dL (0.7-1.3)
--- NOTE | 2016-08-02 10:44 | HP ---
Admitting History and Physical - Primary Care Physician PCP: José Browne - Admission Chief Complaint: low Hb History of Present Illness: ER HISTORY - History of Present Illness Initial Comments: 08/01/16 16:29 The patient is a 56 year old male, with a significant past medical history of anemia, hypertension, diabetes and ESRD (on dialysis MWF), who presents to the emergency department via EMS from [facility] for evaluation and likely admission for a blood transfusion due to a low H/H. The patient reports feeling generally weak and fatigued. The patient reports that he had dialysis this morning. The patient denies fever, chills, nausea, vomiting, diarrhea, melena/ bpr. The patient is a poor historian. PT SEEN BY ME ON THE FLOORS s/p 2 units PRBC Has been getting Naproxen in the [place] for joint pains. He admits to dark colored stools for last two days- labs done in [place] showed Hb to be 5 History Source: Patient Limitations to Obtaining History: No Limitations - Past Medical History Cardiovascular: Yes: HTN, Hyperlipdemia Renal/: Yes: Renal Inusuff, Hemodialysis Heme/Onc: Yes: Anemia Endocrine: Yes: Diabetes Mellitus - Past Surgical History Past Surgical History: Yes: AV Fistula/Graft - Smoking History Smoking history: Never smoked Have you smoked in the past 12 months: No - Alcohol/Substance Use Hx Alcohol Use: No History of Substance Use: reports: Cocaine, Heroin, Marijuana Home Medications - Allergies Allergies/Adverse Reactions: Allergies Allergy/AdvReac Type Severity Reaction Status Date / Time No Known Drug Allergies Allergy Unknown Verified 08/01/16 14:27 lactose AdvReac Unknown LACTOSE Verified 08/01/16 14:27 INTOLERANCE - Home Medications Home Medications: Ambulatory Orders Acetaminophen 650 mg PO Q6H PRN 08/01/16 Amlodipine Besylate [Norvasc -] 10 mg PO DAILY 08/01/16 Aspirin [ASA -] 81 mg PO DAILY 08/01/16 Cinacalcet HCl [Sensipar] 30 mg PO DAILY 08/01/16 Ferrous Sulfate 325 mg PO TID 08/01/16 Furosemide [Lasix] 40 mg PO DAILY 08/01/16 Gabapentin 100 mg PO Q12H 08/01/16 Hydralazine HCl 100 mg PO TID 08/01/16 Magnesium Hydroxide [Milk of Magnesia] 400 mg PO PRN 08/01/16 Naproxen [Naprosyn -] 500 mg PO BID PRN 08/01/16 Oxycodone HCl/Acetaminophen [Endocet 5-325 Tablet] 1 each PO DAILY PRN 08/01/16 Pantoprazole Sodium [Protonix] 40 mg PO DAILY 08/01/16 Sevelamer Carbonate [Renvela] 800 mg PO TID 08/01/16 Thiamine HCl [B-1] 100 mg PO HS 08/01/16 Vitamin B Complex 1 each PO DAILY 08/01/16 Family Disease History - Family Disease History Family Disease History: Diabetes: Mother (ESRD), Brother (ESRD), CA: Father ( stomach,), Other: Mother, Brother Review of Systems - Review of Systems Constitutional: reports: Weakness. denies: Chills, Lethargy Cardiovascular: denies: Chest Pain Respiratory: denies: SOB Physical Examination Vital Signs: Vital Signs Temperature 98.0 F 08/02/16 06:00 Pulse Rate 79 08/02/16 06:00 Respiratory Rate 20 08/02/16 06:00 Blood Pressure 124/62 08/02/16 06:00 O2 Sat by Pulse Oximetry (%) 98 08/01/16 17:50 Constitutional: Yes: No Distress. No: Pallor Cardiovascular: Yes: Regular Rate and Rhythm Respiratory: Yes: Diminished Gastrointestinal: Yes: Normal Bowel Sounds, Soft. No: Distention, Tenderness Edema: No Labs: CBC, BMP 08/02/16 06:00 08/02/16 06:00 Imaging - Results Chest X-ray: Image Reviewed (clear) EKG: Image Reviewed (NSR) Problem List - Problems (1) ESRD (end stage renal disease) Code(s): N18.6 - END STAGE RENAL DISEASE (2) Transfusion of blood during current hospitalization Code(s): OAP9369 - (3) Essential hypertension Code(s): I10 - ESSENTIAL (PRIMARY) HYPERTENSION (4) Anemia Code(s): D64.9 - ANEMIA, UNSPECIFIED Assessment/Plan PLAN -- s/p PRBC -- Spoke with GI -- likely bleeding ulcer in stomach due to NSAIDS -- monitor CBC -- stool occult blood -- DVT prophylaxis-- SCD -- PPI
[2016-08-02] MEDS: CINACALCET HCL 30 MG TAB (FP) PO SCH (10:57)
[2016-08-02] MEDS: PANTOPRAZOLE 40 MG TABLET (FP) PO SCH (10:58)
[2016-08-02] MEDS: FUROSEMIDE 40 MG TABLET (FP) PO SCH (10:58)
[2016-08-02] MEDS: amLODIPine BESYLATE 10 MG TABLET (FP) PO SCH (10:58)
[2016-08-02] MEDS: ACETAMINOPHEN 325 MG TABLET (FP) PO PRN (10:58)
[2016-08-02] MEDS: oxyCODONE HCL 5 MG TABLET PO PRN (11:00)
--- NOTE | 2016-08-02 11:44 | CON.NEP ---
Consult Consult Specialty:: nephrology Reason for Consultation:: esrd/anemia - History of Present Illness Chief Complaint: Pt was sent from [facility] for admission, evaluation and treatment of anemia History of Present Illness: 56 year old man on hemodialysis whose hgb has been dropping significantly despite receiving aranesp 60 weekly. He has been weak and ahas not been eating much. - History Source History Provided By: Patient, Medical Record Limitations to Obtaining History: No Limitations - Past Medical History Cardio/Vascular: Yes: HTN, Hyperlipdemia Renal/: Yes: Renal Inusuff, Hemodialysis Endocrine: Yes: Diabetes Mellitus Additional Medical History: polysubstance abuse - Past Surgical History Past Surgical History: Yes: AV Fistula/Graft - Alcohol/Substance Use Hx Alcohol Use: No History of Substance Use: reports: Cocaine, Heroin, Marijuana - Smoking History Smoking history: Never smoked Have you smoked in the past 12 months: No - Social History Usual Living Arrangement: Assisted Living Home Medications - Allergies Allergies/Adverse Reactions: Allergies Allergy/AdvReac Type Severity Reaction Status Date / Time No Known Drug Allergies Allergy Unknown Verified 08/01/16 14:27 lactose AdvReac Unknown LACTOSE Verified 08/01/16 14:27 INTOLERANCE - Home Medications Home Medications: Ambulatory Orders Acetaminophen 650 mg PO Q6H PRN 08/01/16 Amlodipine Besylate [Norvasc -] 10 mg PO DAILY 08/01/16 Aspirin [ASA -] 81 mg PO DAILY 08/01/16 Cinacalcet HCl [Sensipar] 30 mg PO DAILY 08/01/16 Ferrous Sulfate 325 mg PO TID 08/01/16 Furosemide [Lasix] 40 mg PO DAILY 08/01/16 Gabapentin 100 mg PO Q12H 08/01/16 Hydralazine HCl 100 mg PO TID 08/01/16 Magnesium Hydroxide [Milk of Magnesia] 400 mg PO PRN 08/01/16 Naproxen [Naprosyn -] 500 mg PO BID PRN 08/01/16 Oxycodone HCl/Acetaminophen [Endocet 5-325 Tablet] 1 each PO DAILY PRN 08/01/16 Pantoprazole Sodium [Protonix] 40 mg PO DAILY 08/01/16 Sevelamer Carbonate [Renvela] 800 mg PO TID 08/01/16 Thiamine HCl [B-1] 100 mg PO HS 08/01/16 Vitamin B Complex 1 each PO DAILY 08/01/16 Family Disease History - Family Disease History Family Disease History: Diabetes: Mother (ESRD), Brother (ESRD), CA: Father ( stomach,), Other: Mother, Brother Review of Systems - Review of Systems Constitutional: reports: Loss of Appetite, Weakness Eyes: reports: No Symptoms HENT: reports: No Symptoms Neck: reports: No Symptoms Cardiovascular: reports: No Symptoms Respiratory: reports: No Symptoms Gastrointestinal: reports: No Symptoms Genitourinary: reports: No Symptoms Breasts: reports: No Symptoms Reported Musculoskeletal: reports: No Symptoms Integumentary: reports: No Symptoms Nephrology Consult - Height Height: 5 ft 9 in - Weight Weight: 170 lb - BMI Body Mass Index (BMI): 25.1 - Lab Results CBC,BMP: CBC, BMP 08/02/16 06:00 08/02/16 06:00 Anion Gap: Anion Gap Anion Gap 8 (8-16) 08/02/16 06:00 - Imaging Chest X-ray: Report Reviewed - Physical Examination Vital Signs: Vital Signs Temperature 98.2 F 08/02/16 10:00 Pulse Rate 84 08/02/16 10:00 Respiratory Rate 20 08/02/16 10:00 Blood Pressure 118/70 08/02/16 10:00 O2 Sat by Pulse Oximetry (%) 98 08/01/16 17:50 Constitutional: Yes: Well Nourished, No Distress Eyes: Yes: Conjunctiva Clear HENT: Yes: Atraumatic, Normocephalic Neck: Yes: Supple, Trachea Midline Cardiovascular: Yes: Regular Rate and Rhythm Respiratory: Yes: CTA Bilaterally Gastrointestinal: Yes: Normal Bowel Sounds Renal/: Yes: WNL Extremities: Yes: WNL Edema: No Wound/Incision: Yes: Clean/Dry Neurological: Yes: WNL, Alert, Oriented Psychiatric: Yes: Alert, Oriented Assessment/Plan IMPRESSION esrd anemia htn not responding to aranesp vs bleeding PLAN will need to evaluate anemia a retic count would be useful. Sometimes pts can have red cell aplasia but also can have iron defiociency no need to hd now MV
--- NOTE | 2016-08-02 13:22 | CON.GI ---
Consult Consult Specialty:: GI Referred by:: oRmy Mccann MD Reason for Consultation:: Anemia - History of Present Illness Chief Complaint: Anemia and dark stools History of Present Illness: 56 M well-known to my service, with h/o ESRD on HD, HTN admitted with a h/o recent dark stools and symptomatic anemia. I saw him here last month and did upper and lower endoscopy with finding of severe ischemic colitis with diffuse ulceration noted in the desc/sigmoid and in the ascending colon. He was treated conservatively and did well. - History Source History Provided By: Medical Record Limitations to Obtaining History: No Limitations - Past Medical History Cardio/Vascular: Yes: HTN, Hyperlipdemia Renal/: Yes: Renal Failure, Hemodialysis Endocrine: Yes: Diabetes Mellitus Additional Medical History: polysubstance abuse - Past Surgical History Past Surgical History: Yes: AV Fistula/Graft - Alcohol/Substance Use Hx Alcohol Use: No History of Substance Use: reports: Cocaine, Heroin, Marijuana - Smoking History Smoking history: Never smoked Have you smoked in the past 12 months: No - Social History Usual Living Arrangement: Assisted Living Home Medications - Allergies Allergies/Adverse Reactions: Allergies Allergy/AdvReac Type Severity Reaction Status Date / Time No Known Drug Allergies Allergy Unknown Verified 08/01/16 14:27 lactose AdvReac Unknown LACTOSE Verified 08/01/16 14:27 INTOLERANCE - Home Medications Home Medications: Ambulatory Orders Acetaminophen 650 mg PO Q6H PRN 08/01/16 Amlodipine Besylate [Norvasc -] 10 mg PO DAILY 08/01/16 Aspirin [ASA -] 81 mg PO DAILY 08/01/16 Cinacalcet HCl [Sensipar] 30 mg PO DAILY 08/01/16 Ferrous Sulfate 325 mg PO TID 08/01/16 Furosemide [Lasix] 40 mg PO DAILY 08/01/16 Gabapentin 100 mg PO Q12H 08/01/16 Hydralazine HCl 100 mg PO TID 08/01/16 Magnesium Hydroxide [Milk of Magnesia] 400 mg PO PRN 08/01/16 Naproxen [Naprosyn -] 500 mg PO BID PRN 08/01/16 Oxycodone HCl/Acetaminophen [Endocet 5-325 Tablet] 1 each PO DAILY PRN 08/01/16 Pantoprazole Sodium [Protonix] 40 mg PO DAILY 08/01/16 Sevelamer Carbonate [Renvela] 800 mg PO TID 08/01/16 Thiamine HCl [B-1] 100 mg PO HS 08/01/16 Vitamin B Complex 1 each PO DAILY 08/01/16 Family Disease History - Family Disease History Family Disease History: Diabetes: Mother (ESRD), Brother (ESRD), CA: Father ( stomach,), Other: Mother, Brother Physical Exam-GI Vital Signs: Vital Signs Temperature 98.2 F 08/02/16 10:00 Pulse Rate 84 08/02/16 10:00 Respiratory Rate 20 08/02/16 10:00 Blood Pressure 118/70 08/02/16 10:00 O2 Sat by Pulse Oximetry (%) 98 08/01/16 17:50 Constitutional: Yes: Well Nourished, No Distress, Calm HENT: Yes: Normocephalic Cardiovascular: Yes: Regular Rate and Rhythm Respiratory: Yes: CTA Bilaterally Gastrointestinal Inspection: Yes: WNL ...Palpate: Yes: Soft. No: Tenderness Neurological: Yes: Alert, Oriented Labs: CBC, BMP 08/02/16 06:00 08/02/16 06:00 INR, PTT INR 1.28 (0.82-1.09) H 08/01/16 15:31 Assessment/Plan Patient with above history now with dark stools and profound anemia. Usual Hgb has been ~8-9. On naprosyn 500 BID prior to admission as well as ASA 81. Imp: Likely NSAID-induced gastropathy. No active bleeding. Rec: Protonix, start clear liquids No NSAIDS as opt If no further bleeding, can continue diet. If active bleed, would do therapeutic EGD.
[2016-08-02] MEDS: THIAMINE HCL 100 MG TABLET (FP) PO SCH (21:57)
[2016-08-03] MEDS: ACETAMINOPHEN 325 MG TABLET (FP) PO PRN (06:36)
[2016-08-03] MEDS: oxyCODONE HCL 5 MG TABLET PO PRN (06:36)
[2016-08-03] MEDS: hydrALAZINE HCL 50 MG TABLET (FP) PO SCH ×3 (06:37→21:32)
[2016-08-03] MEDS: FERROUS SO4 325 MG TABLET (FP) PO SCH ×3 (06:37→21:33)
[2016-08-03] MEDS: SEVELAMER CARBONATE 800 MG TAB (FP) PO SCH ×3 (06:37→21:33)
[2016-08-03] MEDS: CINACALCET HCL 30 MG TAB (FP) PO SCH (09:47)
[2016-08-03] MEDS: PANTOPRAZOLE 40 MG TABLET (FP) PO SCH (09:48)
[2016-08-03] MEDS: amLODIPine BESYLATE 10 MG TABLET (FP) PO SCH (09:48)
[2016-08-03] MEDS: FUROSEMIDE 40 MG TABLET (FP) PO SCH (09:48)
[2016-08-03] MEDS: GABAPENTIN 100 MG CAPSULE (FP) PO SCH ×2 (09:48→21:33)
--- NOTE | 2016-08-03 12:52 | PN ---
Progress Note, Physician Chief Complaint: NO DISTRESS NO ACTIVE BLEEDING - Current Medication List Current Medications: Active Medications Acetaminophen (Tylenol -) 325 mg PO DAILY PRN PRN Reason: PAIN Last Admin: 08/03/16 06:36 Dose: 325 mg Acetaminophen (Tylenol -) 650 mg PO Q6H PRN PRN Reason: PAIN Amlodipine Besylate (Norvasc -) 10 mg PO DAILY [facility] Last Admin: 08/03/16 09:48 Dose: 10 mg Cinacalcet (Sensipar -) 30 mg PO DAILY [facility] Last Admin: 08/03/16 09:47 Dose: 30 mg Ferrous Sulfate (Feosol -) 325 mg PO TID [facility] Last Admin: 08/03/16 06:37 Dose: 325 mg Furosemide (Lasix -) 40 mg PO DAILY [facility] Last Admin: 08/03/16 09:48 Dose: 40 mg Gabapentin (Neurontin -) 100 mg PO Q12H [facility] Last Admin: 08/03/16 09:48 Dose: 100 mg Hydralazine HCl (Apresoline -) 100 mg PO TID [facility] Last Admin: 08/03/16 06:37 Dose: 100 mg Oxycodone HCl (Roxicodone -) 5 mg PO DAILY PRN PRN Reason: PAIN Last Admin: 08/03/16 06:36 Dose: 5 mg Pantoprazole Sodium (Protonix -) 40 mg PO DAILY [facility] Last Admin: 08/03/16 09:48 Dose: 40 mg Sevelamer Carbonate (Renvela -) 800 mg PO TID [facility] Last Admin: 08/03/16 06:37 Dose: 800 mg Thiamine HCl (Vitamin B1 -) 100 mg PO [facility] Last Admin: 08/02/16 21:57 Dose: 100 mg - Objective Vital Signs: Vital Signs Temperature 98.6 F 08/03/16 09:44 Pulse Rate 83 08/03/16 09:44 Respiratory Rate 18 08/03/16 09:44 Blood Pressure 133/68 08/03/16 09:44 O2 Sat by Pulse Oximetry (%) 100 08/02/16 21:00 Constitutional: Yes: No Distress Cardiovascular: Yes: Regular Rate and Rhythm Respiratory: Yes: CTA Bilaterally Gastrointestinal: Yes: Normal Bowel Sounds, Soft. No: Distention, Palpable Mass , Tenderness Edema: No Labs: CBC, BMP 08/02/16 06:00 08/02/16 06:00 INR, PTT INR 1.28 (0.82-1.09) H 08/01/16 15:31 Problem List - Problems (1) ESRD (end stage renal disease) Code(s): N18.6 - END STAGE RENAL DISEASE (2) Transfusion of blood during current hospitalization Code(s): [id number] - (3) Essential hypertension Code(s): I10 - ESSENTIAL (PRIMARY) HYPERTENSION (4) Anemia Code(s): D64.9 - ANEMIA, UNSPECIFIED Assessment/Plan PLAN -- s/p PRBC -- check CBC tomorrow -- stool guaic is positive -- DVT prophylaxis-- SCD -- PPI -- dialysis per renal
--- NOTE | 2016-08-03 13:07 | PN ---
Progress Note (short form) - Note Progress Note: RENAL pt is awake and alert comfortable hungry, thinks he is not getting enough food Last Vital Signs Temp Pulse Resp BP Pulse Ox 98.6 F 83 18 133/68 100 08/03/16 09:44 08/03/16 09:44 08/03/16 09:44 08/03/16 09:44 08/02/16 21:00 lungs clear cvs s1s2 rr abd soft ext karina cesar neuro a+ox3 CBC, BMP 08/02/16 06:00 08/02/16 06:00 Current Medications Generic Name Dose Route Start Last Admin Trade Name Freq PRN Reason Stop Dose Admin Acetaminophen 325 mg 08/01/16 22:28 08/03/16 06:36 Tylenol - PO 325 mg DAILY PRN Administration PAIN Acetaminophen 650 mg 08/01/16 22:31 Tylenol - PO Q6H PRN PAIN Amlodipine Besylate 10 mg 08/02/16 10:00 08/03/16 09:48 Norvasc - PO 10 mg DAILY TUNG Administration Cinacalcet 30 mg 08/02/16 10:00 08/03/16 09:47 Sensipar - PO 30 mg DAILY TUNG Administration Ferrous Sulfate 325 mg 08/02/16 06:00 08/03/16 06:37 Feosol - PO 325 mg TID TUNG Administration Furosemide 40 mg 08/02/16 10:00 08/03/16 09:48 Lasix - PO 40 mg DAILY TUNG Administration Gabapentin 100 mg 08/01/16 22:30 08/03/16 09:48 Neurontin - PO 100 mg Q12H TUNG Administration Hydralazine HCl 100 mg 08/02/16 06:00 08/03/16 06:37 Apresoline - PO 100 mg TID TUNG Administration Oxycodone HCl 5 mg 08/01/16 22:28 08/03/16 06:36 Roxicodone - PO 5 mg DAILY PRN Administration PAIN Pantoprazole Sodium 40 mg 08/02/16 10:00 08/03/16 09:48 Protonix - PO 40 mg DAILY TUNG Administration Sevelamer Carbonate 800 mg 08/02/16 06:00 08/03/16 06:37 Renvela - PO 800 mg TID TUNG Administration Thiamine HCl 100 mg 08/02/16 22:00 08/02/16 21:57 Vitamin B1 - PO 100 mg HS TUNG Administration IMPRESSION esrd htn anemia- guaiac positive stools PLAN will dialyze again tomorrow GI consulted. Will need work up MV
[2016-08-03 13:29] LABS: URINE MARIJUANA THC NEGATIVE ng/ml (CUTOFF=50)
[2016-08-03] MEDS: THIAMINE HCL 100 MG TABLET (FP) PO SCH (21:33)
--- NOTE | 2016-08-03 22:06 | EKG ---
Test Reason : Blood Pressure : / mmHG Vent. Rate : 088 BPM Atrial Rate : 088 BPM P-R Int : 174 ms QRS Dur : 086 ms QT Int : 408 ms P-R-T Axes : 035 025 041 degrees QTc Int : 493 ms NORMAL SINUS RHYTHM PROLONGED QT ABNORMAL ECG WHEN COMPARED WITH ECG OF 17-JUN-2016 18:48, T WAVE AMPLITUDE HAS DECREASED IN ANTEROLATERAL LEADS Confirmed by KATINA BRADSHAW MD ([id number]) on 08/03/2016 10:06:07 PM Referred By: Confirmed By:KATINA BRADSHAW MD
[2016-08-04] MEDS: FERROUS SO4 325 MG TABLET (FP) PO SCH ×3 (06:15→21:34)
[2016-08-04] MEDS: hydrALAZINE HCL 50 MG TABLET (FP) PO SCH ×3 (06:15→21:34)
[2016-08-04] MEDS: SEVELAMER CARBONATE 800 MG TAB (FP) PO SCH ×2 (06:15→15:03)
[2016-08-04] MEDS ORDERED: INSULIN (NOVOLOG) ASPART 100 UNITS/ML 10ML VIAL ONE (07:03)
--- NOTE | 2016-08-04 08:53 | PN ---
Progress Note (short form) - Note Progress Note: Pt seen/ examined in dialysis no complains feels ok. denies pain. Vital Signs Period Temp Pulse Resp BP Sys/Galaviz Pulse Ox Last 24 Hr 98.1 F-98.8 F 80-89 18-20 129-137/67-76 100 Active Medications Acetaminophen (Tylenol -) 325 mg PO DAILY PRN PRN Reason: PAIN Last Admin: 08/03/16 06:36 Dose: 325 mg Acetaminophen (Tylenol -) 650 mg PO Q6H PRN PRN Reason: PAIN Amlodipine Besylate (Norvasc -) 10 mg PO DAILY [facility] Last Admin: 08/03/16 09:48 Dose: 10 mg Cinacalcet (Sensipar -) 30 mg PO DAILY [facility] Last Admin: 08/03/16 09:47 Dose: 30 mg Epoetin Mario (Epogen -) 4,000 units SQ ONCE ONE Stop: 08/04/16 11:01 Ferrous Sulfate (Feosol -) 325 mg PO TID [facility] Last Admin: 08/04/16 06:15 Dose: 325 mg Furosemide (Lasix -) 40 mg PO DAILY [facility] Last Admin: 08/03/16 09:48 Dose: 40 mg Gabapentin (Neurontin -) 100 mg PO Q12H [facility] Last Admin: 08/03/16 21:33 Dose: 100 mg Hydralazine HCl (Apresoline -) 100 mg PO TID [facility] Last Admin: 08/04/16 06:15 Dose: 100 mg Iron Sucrose 100 mg/ Sodium (Chloride) 100 mls @ 200 mls/hr IVPB ONCE ONE Stop: 08/04/16 11:29 Oxycodone HCl (Roxicodone -) 5 mg PO DAILY PRN PRN Reason: PAIN Last Admin: 08/03/16 06:36 Dose: 5 mg Pantoprazole Sodium (Protonix -) 40 mg PO DAILY [facility] Last Admin: 08/03/16 09:48 Dose: 40 mg Sevelamer Carbonate (Renvela -) 800 mg PO TID [facility] Last Admin: 08/04/16 06:15 Dose: 800 mg Thiamine HCl (Vitamin B1 -) 100 mg PO HS [facility] Last Admin: 08/03/16 21:33 Dose: 100 mg CBC, BMP 08/04/16 09:00 08/04/16 09:00 Physical Exam. Constitutional: Yes: No Distress Cardiovascular: Yes: Regular Rate and Rhythm Respiratory: Yes: CTA Bilaterally Gastrointestinal: Yes: Normal Bowel Sounds, Soft. No: Distention, Palpable Mass , Tenderness Edema: No Problem List - Problems (1) ESRD (end stage renal disease) Code(s): N18.6 - END STAGE RENAL DISEASE (2) Transfusion of blood during current hospitalization Code(s): [id number] - (3) Essential hypertension Code(s): I10 - ESSENTIAL (PRIMARY) HYPERTENSION (4) Anemia Code(s): D64.9 - ANEMIA, UNSPECIFIED Assessment/Plan stable -- will transfuse with dialysis today -- stool guaic is positive -- DVT prophylaxis-- SCD -- PPI -- avoid nsaids - check cbc in am - will follow
[2016-08-04 09:38] LABS: MCH 31.2 pg (25.7-33.7); MCHC 32.9 g/dl (32.0-35.9); MEAN CELL VOLUME 94.8 fl (80-96); MEAN PLT VOLUME 6.2 fl (7.5-11.1); PLATELET COUNT 516 K/MM3 (134-434); RDW 17.9 % (11.9-15.9); WHITE BLOOD COUNT 12.6 K/mm3 (4.0-10.0)
[2016-08-04 10:07] LABS: ALBUMIN 1.9 g/dl (3.4-5.0); CALCIUM 9.2 mg/dL (8.5-10.1)
[2016-08-04 10:17] LABS: BILIRUBIN,TOTAL 0.5 mg/dL (0.2-1.0)
[2016-08-04 10:27] LABS: CREATININE 8.9 mg/dL (0.7-1.3)
[2016-08-04] MEDS ORDERED: IRON SUCROSE INJECTION 100 MG in SODIUM CHLORIDE 95 ML IVPB ONE (11:00)
[2016-08-04] MEDS: EPOETIN ALFA 2,000 UNITS/1 ML VIAL SQ ONE ×2 (12:00→15:10)
--- NOTE | 2016-08-04 13:17 | PN ---
Progress Note, Physician History of Present Illness: Pt seen and examined at bedside. He is currently getting HD. He denies shortness of breath. - Current Medication List Current Medications: Active Medications Acetaminophen (Tylenol -) 325 mg PO DAILY PRN PRN Reason: PAIN Last Admin: 08/03/16 06:36 Dose: 325 mg Acetaminophen (Tylenol -) 650 mg PO Q6H PRN PRN Reason: PAIN Amlodipine Besylate (Norvasc -) 10 mg PO DAILY [facility] Last Admin: 08/03/16 09:48 Dose: 10 mg Cinacalcet (Sensipar -) 30 mg PO DAILY [facility] Last Admin: 08/03/16 09:47 Dose: 30 mg Ferrous Sulfate (Feosol -) 325 mg PO TID [facility] Last Admin: 08/04/16 06:15 Dose: 325 mg Furosemide (Lasix -) 40 mg PO DAILY [facility] Last Admin: 08/03/16 09:48 Dose: 40 mg Gabapentin (Neurontin -) 100 mg PO Q12H [facility] Last Admin: 08/03/16 21:33 Dose: 100 mg Hydralazine HCl (Apresoline -) 100 mg PO TID [facility] Last Admin: 08/04/16 06:15 Dose: 100 mg Oxycodone HCl (Roxicodone -) 5 mg PO DAILY PRN PRN Reason: PAIN Last Admin: 08/03/16 06:36 Dose: 5 mg Pantoprazole Sodium (Protonix -) 40 mg PO DAILY [facility] Last Admin: 08/03/16 09:48 Dose: 40 mg Sevelamer Carbonate (Renvela -) 800 mg PO TID [facility] Last Admin: 08/04/16 06:15 Dose: 800 mg Thiamine HCl (Vitamin B1 -) 100 mg PO HS [facility] Last Admin: 08/03/16 21:33 Dose: 100 mg - Objective Vital Signs: Vital Signs Temperature 98.8 F 08/03/16 22:00 Pulse Rate 81 08/04/16 10:35 Respiratory Rate 18 08/04/16 10:35 Blood Pressure 132/76 08/04/16 10:35 O2 Sat by Pulse Oximetry (%) 100 08/03/16 21:00 Constitutional: Yes: Calm Eyes: Yes: Conjunctiva Clear HENT: Yes: Atraumatic Neck: Yes: Supple Cardiovascular: Yes: S1, S2 Respiratory: Yes: CTA Bilaterally Gastrointestinal: Yes: Soft Genitourinary: Yes: WNL Musculoskeletal: Yes: WNL Edema: No Neurological: Yes: Oriented Psychiatric: Yes: Oriented Labs: CBC, BMP 08/04/16 09:00 08/04/16 09:00 INR, PTT INR 1.28 (0.82-1.09) H 08/01/16 15:31 Problem List - Problems (1) ESRD (end stage renal disease) Code(s): N18.6 - END STAGE RENAL DISEASE (2) Transfusion of blood during current hospitalization Code(s): [id number] - (3) CHF (congestive heart failure) Code(s): I50.9 - HEART FAILURE, UNSPECIFIED (4) Gout Code(s): M10.9 - GOUT, UNSPECIFIED Assessment/Plan Current Medications Generic Name Dose Route Start Last Admin Trade Name Freq PRN Reason Stop Dose Admin Acetaminophen 325 mg 08/01/16 22:28 08/03/16 06:36 Tylenol - PO 325 mg DAILY PRN Administration PAIN Acetaminophen 650 mg 08/01/16 22:31 Tylenol - PO Q6H PRN PAIN Amlodipine Besylate 10 mg 08/02/16 10:00 08/03/16 09:48 Norvasc - PO 10 mg DAILY TUNG Administration Cinacalcet 30 mg 08/02/16 10:00 08/03/16 09:47 Sensipar - PO 30 mg DAILY TUNG Administration Ferrous Sulfate 325 mg 08/02/16 06:00 08/04/16 06:15 Feosol - PO 325 mg TID TUNG Administration Furosemide 40 mg 08/02/16 10:00 08/03/16 09:48 Lasix - PO 40 mg DAILY TUNG Administration Gabapentin 100 mg 08/01/16 22:30 08/03/16 21:33 Neurontin - PO 100 mg Q12H TUNG Administration Hydralazine HCl 100 mg 08/02/16 06:00 08/04/16 06:15 Apresoline - PO 100 mg TID TUNG Administration Oxycodone HCl 5 mg 08/01/16 22:28 08/03/16 06:36 Roxicodone - PO 5 mg DAILY PRN Administration PAIN Pantoprazole Sodium 40 mg 08/02/16 10:00 08/03/16 09:48 Protonix - PO 40 mg DAILY TUNG Administration Sevelamer Carbonate 800 mg 08/02/16 06:00 08/04/16 06:15 Renvela - PO 800 mg TID TUNG Administration Thiamine HCl 100 mg 08/02/16 22:00 08/03/16 21:33 Vitamin B1 - PO 100 mg HS TUNG Administration Impression 1. ESRD 2. anemia 3. HTN 4. non compliance 5. DM Plan - HD today, pt is tolerating - pt is getting a blood transfusion on HD - cont u current meds - monitor hg - will need anemia workup Dr Almazan
[2016-08-04 14:28] LABS: CREATININE 3.1 mg/dL (0.7-1.3)
[2016-08-04] MEDS: FUROSEMIDE 40 MG TABLET (FP) PO SCH (14:49)
[2016-08-04] MEDS: PANTOPRAZOLE 40 MG TABLET (FP) PO SCH (15:01)
[2016-08-04] MEDS: amLODIPine BESYLATE 10 MG TABLET (FP) PO SCH (15:02)
[2016-08-04] MEDS ORDERED: PT OWN MED DRAWER 7, Y5N ONE (15:05)
[2016-08-04] MEDS: CINACALCET HCL 30 MG TAB (FP) PO SCH (15:05)
[2016-08-04] MEDS: GABAPENTIN 100 MG CAPSULE (FP) PO SCH ×2 (15:07→21:34)
[2016-08-04] MEDS: THIAMINE HCL 100 MG TABLET (FP) PO SCH (21:34)
[2016-08-05] MEDS: hydrALAZINE HCL 50 MG TABLET (FP) PO SCH ×3 (06:33→21:45)
[2016-08-05] MEDS: FERROUS SO4 325 MG TABLET (FP) PO SCH ×3 (06:33→21:44)
[2016-08-05] MEDS: SEVELAMER CARBONATE 800 MG TAB (FP) PO SCH ×3 (08:38→17:58)
[2016-08-05 08:47] LABS: BASOPHIL 1.3 % (0-2.0); EOSINOPHIL 1.3 % (0-4.5); MCH 30.9 pg (25.7-33.7); MCHC 32.7 g/dl (32.0-35.9); MEAN CELL VOLUME 94.3 fl (80-96); NEUTROPHILS 74.4 % (42.8-82.8); PLATELET COUNT 584 K/MM3 (134-434); RDW 17.8 % (11.9-15.9); WHITE BLOOD COUNT 12.9 K/mm3 (4.0-10.0)
[2016-08-05] MEDS ORDERED: PT OWN MED DRAWER 7, Y5N ONE (10:37)
[2016-08-05] MEDS: FUROSEMIDE 40 MG TABLET (FP) PO SCH (10:39)
[2016-08-05] MEDS: amLODIPine BESYLATE 10 MG TABLET (FP) PO SCH (10:39)
[2016-08-05] MEDS: PANTOPRAZOLE 40 MG TABLET (FP) PO SCH (10:39)
[2016-08-05] MEDS: CINACALCET HCL 30 MG TAB (FP) PO SCH (10:39)
[2016-08-05] MEDS: GABAPENTIN 100 MG CAPSULE (FP) PO SCH ×3 (10:39→21:45)
--- NOTE | 2016-08-05 10:43 | PN ---
Progress Note, Physician Chief Complaint: s/p 1 unit PRBC yesterday No distress No dark bm today - Current Medication List Current Medications: Active Medications Acetaminophen (Tylenol -) 325 mg PO DAILY PRN PRN Reason: PAIN Last Admin: 08/03/16 06:36 Dose: 325 mg Acetaminophen (Tylenol -) 650 mg PO Q6H PRN PRN Reason: PAIN Amlodipine Besylate (Norvasc -) 10 mg PO DAILY [facility] Last Admin: 08/05/16 10:39 Dose: 10 mg Cinacalcet (Sensipar -) 30 mg PO DAILY [facility] Last Admin: 08/05/16 10:39 Dose: 30 mg Ferrous Sulfate (Feosol -) 325 mg PO TID [facility] Last Admin: 08/05/16 06:33 Dose: 325 mg Furosemide (Lasix -) 40 mg PO DAILY [facility] Last Admin: 08/05/16 10:39 Dose: 40 mg Gabapentin (Neurontin -) 100 mg PO Q12H [facility] Last Admin: 08/05/16 10:39 Dose: 100 mg Hydralazine HCl (Apresoline -) 100 mg PO TID [facility] Last Admin: 08/05/16 06:33 Dose: 100 mg Oxycodone HCl (Roxicodone -) 5 mg PO DAILY PRN PRN Reason: PAIN Last Admin: 08/03/16 06:36 Dose: 5 mg Pantoprazole Sodium (Protonix -) 40 mg PO DAILY [facility] Last Admin: 08/05/16 10:39 Dose: 40 mg Sevelamer Carbonate (Renvela -) 800 mg PO TIDCM [facility] Last Admin: 08/05/16 08:38 Dose: 800 mg Thiamine HCl (Vitamin B1 -) 100 mg PO HS [facility] Last Admin: 08/04/16 21:34 Dose: 100 mg - Objective Vital Signs: Vital Signs Temperature 99.2 F 08/05/16 10:31 Pulse Rate 91 H 08/05/16 10:31 Respiratory Rate 20 08/05/16 10:31 Blood Pressure 140/76 08/05/16 10:31 O2 Sat by Pulse Oximetry (%) 99 08/05/16 09:00 Constitutional: Yes: No Distress Cardiovascular: Yes: Regular Rate and Rhythm Respiratory: Yes: CTA Bilaterally Gastrointestinal: Yes: Normal Bowel Sounds, Soft. No: Distention, Tenderness Edema: No Labs: CBC, BMP 08/05/16 08:25 08/04/16 12:40 INR, PTT INR 1.28 (0.82-1.09) H 08/01/16 15:31 Problem List - Problems (1) ESRD (end stage renal disease) Code(s): N18.6 - END STAGE RENAL DISEASE (2) Transfusion of blood during current hospitalization Code(s): [id number] - (3) Essential hypertension Code(s): I10 - ESSENTIAL (PRIMARY) HYPERTENSION (4) Anemia Code(s): D64.9 - ANEMIA, UNSPECIFIED Assessment/Plan PLAN -- s/p PRBC -- check CBC tomorrow -- DVT prophylaxis-- SCD -- PPI -- dialysis per renal -- will dc tomorrow after dialysis if Hb stable
--- NOTE | 2016-08-05 17:16 | PN ---
Progress Note, Physician History of Present Illness: Pt seen and examined at bedside. He is awake and alert. He denies shortness of breath. - Current Medication List Current Medications: Active Medications Acetaminophen (Tylenol -) 325 mg PO DAILY PRN PRN Reason: PAIN Last Admin: 08/03/16 06:36 Dose: 325 mg Acetaminophen (Tylenol -) 650 mg PO Q6H PRN PRN Reason: PAIN Amlodipine Besylate (Norvasc -) 10 mg PO DAILY [facility] Last Admin: 08/05/16 10:39 Dose: 10 mg Cinacalcet (Sensipar -) 30 mg PO DAILY [facility] Last Admin: 08/05/16 10:39 Dose: 30 mg Ferrous Sulfate (Feosol -) 325 mg PO TID [facility] Last Admin: 08/05/16 13:58 Dose: 325 mg Furosemide (Lasix -) 40 mg PO DAILY [facility] Last Admin: 08/05/16 10:39 Dose: 40 mg Gabapentin (Neurontin -) 100 mg PO TID [facility] Last Admin: 08/05/16 13:58 Dose: 100 mg Hydralazine HCl (Apresoline -) 100 mg PO TID [facility] Last Admin: 08/05/16 13:58 Dose: 100 mg Oxycodone HCl (Roxicodone -) 5 mg PO DAILY PRN PRN Reason: PAIN Last Admin: 08/03/16 06:36 Dose: 5 mg Pantoprazole Sodium (Protonix -) 40 mg PO DAILY [facility] Last Admin: 08/05/16 10:39 Dose: 40 mg Sevelamer Carbonate (Renvela -) 800 mg PO TIDCM [facility] Last Admin: 08/05/16 13:57 Dose: 800 mg Thiamine HCl (Vitamin B1 -) 100 mg PO HS [facility] Last Admin: 08/04/16 21:34 Dose: 100 mg - Objective Vital Signs: Vital Signs Temperature 98.9 F 08/05/16 14:43 Pulse Rate 84 08/05/16 14:43 Respiratory Rate 20 08/05/16 14:43 Blood Pressure 137/73 08/05/16 13:58 O2 Sat by Pulse Oximetry (%) 99 08/05/16 09:00 Constitutional: Yes: Calm Eyes: Yes: Conjunctiva Clear Cardiovascular: Yes: S1, S2 Respiratory: Yes: CTA Bilaterally Gastrointestinal: Yes: Soft Musculoskeletal: Yes: WNL Edema: No Neurological: Yes: Oriented Psychiatric: Yes: Oriented Labs: CBC, BMP 08/05/16 08:25 08/04/16 12:40 INR, PTT INR 1.28 (0.82-1.09) H 08/01/16 15:31 Problem List - Problems (1) ESRD (end stage renal disease) Code(s): N18.6 - END STAGE RENAL DISEASE (2) Transfusion of blood during current hospitalization Code(s): [id number] - (3) CHF (congestive heart failure) Code(s): I50.9 - HEART FAILURE, UNSPECIFIED (4) Gout Code(s): M10.9 - GOUT, UNSPECIFIED Assessment/Plan Current Medications Generic Name Dose Route Start Last Admin Trade Name Freq PRN Reason Stop Dose Admin Acetaminophen 325 mg 08/01/16 22:28 08/03/16 06:36 Tylenol - PO 325 mg DAILY PRN Administration PAIN Acetaminophen 650 mg 08/01/16 22:31 Tylenol - PO Q6H PRN PAIN Amlodipine Besylate 10 mg 08/02/16 10:00 08/05/16 10:39 Norvasc - PO 10 mg DAILY TUNG Administration Cinacalcet 30 mg 08/02/16 10:00 08/05/16 10:39 Sensipar - PO 30 mg DAILY TUNG Administration Ferrous Sulfate 325 mg 08/02/16 06:00 08/05/16 13:58 Feosol - PO 325 mg TID TUNG Administration Furosemide 40 mg 08/02/16 10:00 08/05/16 10:39 Lasix - PO 40 mg DAILY TUNG Administration Gabapentin 100 mg 08/05/16 14:00 08/05/16 13:58 Neurontin - PO 100 mg TID TUNG Administration Hydralazine HCl 100 mg 08/02/16 06:00 08/05/16 13:58 Apresoline - PO 100 mg TID [facility]UNG Administration Oxycodone HCl 5 mg 08/01/16 22:28 08/03/16 06:36 Roxicodone - PO 5 mg DAILY PRN Administration PAIN Pantoprazole Sodium 40 mg 08/02/16 10:00 08/05/16 10:39 Protonix - PO 40 mg DAILY TUNG Administration Sevelamer Carbonate 800 mg 08/05/16 08:00 08/05/16 13:57 Renvela - PO 800 mg TIDCM TUNG Administration Thiamine HCl 100 mg 08/02/16 22:00 08/04/16 21:34 Vitamin B1 - PO 100 mg HS TUNG Administration Laboratory Tests 08/02/16 23:05 Stool Occult Blood Positive Impression 1. ESRD 2. anemia 3. HTN 4. non compliance 5. DM Plan - will arrange for HD in am - check CBC - will cont epogen - avoid nsaid use - cont current meds Dr Almazan
[2016-08-05] MEDS: THIAMINE HCL 100 MG TABLET (FP) PO SCH (21:45)
[2016-08-06 00:07] LABS: HEP B SURFACE AB Reactive (.)
[2016-08-06] MEDS: FERROUS SO4 325 MG TABLET (FP) PO SCH ×2 (05:31→13:54)
[2016-08-06] MEDS: GABAPENTIN 100 MG CAPSULE (FP) PO SCH ×2 (05:31→13:55)
[2016-08-06] MEDS: hydrALAZINE HCL 50 MG TABLET (FP) PO SCH ×2 (05:31→13:56)
[2016-08-06 10:28] LABS: MCH 30.9 pg (25.7-33.7); MCHC 32.7 g/dl (32.0-35.9); MEAN CELL VOLUME 94.6 fl (80-96); MEAN PLT VOLUME 6.2 fl (7.5-11.1); PLATELET COUNT 528 K/MM3 (134-434); RDW 17.5 % (11.9-15.9); WHITE BLOOD COUNT 12.5 K/mm3 (4.0-10.0)
[2016-08-06] MEDS ORDERED: ALLOPURINOL 100 MG TABLET (FP) PO SCH (11:00)
[2016-08-06] MEDS ORDERED: EPOETIN ALFA 3,000 UNIT/1 ML ML IVPUSH ONE (11:30)
--- NOTE | 2016-08-06 11:39 | DS ---
Physical Examination Vital Signs: Vital Signs Temperature 98.8 F 08/06/16 09:10 Pulse Rate 73 08/06/16 09:45 Respiratory Rate 18 08/06/16 09:45 Blood Pressure 132/81 08/06/16 09:45 O2 Sat by Pulse Oximetry (%) 96 08/05/16 21:00 Constitutional: Yes: No Distress Cardiovascular: Yes: Regular Rate and Rhythm Respiratory: Yes: Diminished Gastrointestinal: Yes: Normal Bowel Sounds, Soft. No: Distention, Tenderness Edema: No Labs: CBC, BMP 08/06/16 09:45 08/04/16 12:40 Discharge Summary Reason For Visit: HYPERTENSION,ESRD Current Active Problems ESRD (end stage renal disease) (Acute) Transfusion of blood during current hospitalization (Acute) Essential hypertension (Chronic 05/16/14) Hospital Course: Admitted for severe anemia Had positive stool guaic Anemia likely due to NSAIDS use Seen by GI No active bleeding and pt responded well to blood transfusions No further interventions Pt is stable for discharge to [place] Condition: Improved - Instructions Referrals: José Browne MD [Primary Care Provider] - Disposition: INTERMEDIATE FACILITY - Home Medications Comprehensive Discharge Medication List: Ambulatory Orders Acetaminophen 650 mg PO Q6H PRN 08/01/16 Amlodipine Besylate [Norvasc -] 10 mg PO DAILY 08/01/16 Cinacalcet HCl [Sensipar] 30 mg PO DAILY 08/01/16 Ferrous Sulfate 325 mg PO TID 08/01/16 Furosemide [Lasix] 40 mg PO DAILY 08/01/16 Gabapentin 100 mg PO Q12H 08/01/16 Hydralazine HCl 100 mg PO TID 08/01/16 Magnesium Hydroxide [Milk of Magnesia] 400 mg PO PRN 08/01/16 Oxycodone HCl/Acetaminophen [Endocet 5-325 Tablet] 1 each PO DAILY PRN 08/01/16 Pantoprazole Sodium [Protonix] 40 mg PO DAILY 08/01/16 Sevelamer Carbonate [Renvela -] 800 mg PO TID 08/01/16 Thiamine HCl [B-1] 100 mg PO HS 08/01/16 Vitamin B Complex 1 each PO DAILY 08/01/16 Allopurinol [Zyloprim -] 100 mg PO BID #60 tablet 08/06/16
--- NOTE | 2016-08-06 13:38 | PN ---
Progress Note, Physician History of Present Illness: Pt seen and examined at bedside. He is awake and alert. He tolerated HD today. - Current Medication List Current Medications: Active Medications Acetaminophen (Tylenol -) 325 mg PO DAILY PRN PRN Reason: PAIN Last Admin: 08/03/16 06:36 Dose: 325 mg Acetaminophen (Tylenol -) 650 mg PO Q6H PRN PRN Reason: PAIN Allopurinol (Zyloprim -) 100 mg PO BID [facility] Amlodipine Besylate (Norvasc -) 10 mg PO DAILY [facility] Last Admin: 08/05/16 10:39 Dose: 10 mg Cinacalcet (Sensipar -) 30 mg PO DAILY [facility] Last Admin: 08/05/16 10:39 Dose: 30 mg Ferrous Sulfate (Feosol -) 325 mg PO TID [facility] Last Admin: 08/06/16 05:31 Dose: 325 mg Furosemide (Lasix -) 40 mg PO DAILY [facility] Last Admin: 08/05/16 10:39 Dose: 40 mg Gabapentin (Neurontin -) 100 mg PO TID [facility] Last Admin: 08/06/16 05:31 Dose: 100 mg Hydralazine HCl (Apresoline -) 100 mg PO TID [facility] Last Admin: 08/06/16 05:31 Dose: 100 mg Oxycodone HCl (Roxicodone -) 5 mg PO DAILY PRN PRN Reason: PAIN Last Admin: 08/03/16 06:36 Dose: 5 mg Pantoprazole Sodium (Protonix -) 40 mg PO DAILY [facility] Last Admin: 08/05/16 10:39 Dose: 40 mg Sevelamer Carbonate (Renvela -) 800 mg PO TIDCM [facility] Last Admin: 08/05/16 17:58 Dose: 800 mg Thiamine HCl (Vitamin B1 -) 100 mg PO HS [facility] Last Admin: 08/05/16 21:45 Dose: 100 mg - Objective Vital Signs: Vital Signs Temperature 98.8 F 08/06/16 09:10 Pulse Rate 78 08/06/16 12:15 Respiratory Rate 18 08/06/16 12:15 Blood Pressure 129/79 08/06/16 12:15 O2 Sat by Pulse Oximetry (%) 96 08/05/16 21:00 Constitutional: Yes: Calm Eyes: Yes: Conjunctiva Clear HENT: Yes: Atraumatic Neck: Yes: Supple Cardiovascular: Yes: S1, S2 Respiratory: Yes: CTA Bilaterally Gastrointestinal: Yes: Soft Musculoskeletal: Yes: WNL Edema: No Neurological: Yes: Oriented Psychiatric: Yes: Oriented Labs: CBC, BMP 08/06/16 09:45 08/04/16 12:40 INR, PTT INR 1.28 (0.82-1.09) H 08/01/16 15:31 Problem List - Problems (1) ESRD (end stage renal disease) Code(s): N18.6 - END STAGE RENAL DISEASE (2) Transfusion of blood during current hospitalization Code(s): [id number] - (3) CHF (congestive heart failure) Code(s): I50.9 - HEART FAILURE, UNSPECIFIED (4) Gout Code(s): M10.9 - GOUT, UNSPECIFIED Assessment/Plan Current Medications Generic Name Dose Route Start Last Admin Trade Name Freq PRN Reason Stop Dose Admin Acetaminophen 325 mg 08/01/16 22:28 08/03/16 06:36 Tylenol - PO 325 mg DAILY PRN Administration PAIN Acetaminophen 650 mg 08/01/16 22:31 Tylenol - PO Q6H PRN PAIN Allopurinol 100 mg 08/06/16 11:00 Zyloprim - PO BID TUNG Amlodipine Besylate 10 mg 08/02/16 10:00 08/05/16 10:39 Norvasc - PO 10 mg DAILY TUNG Administration Cinacalcet 30 mg 08/02/16 10:00 08/05/16 10:39 Sensipar - PO 30 mg DAILY TUNG Administration Ferrous Sulfate 325 mg 08/02/16 06:00 08/06/16 05:31 Feosol - PO 325 mg TID TUNG Administration Furosemide 40 mg 08/02/16 10:00 08/05/16 10:39 Lasix - PO 40 mg DAILY TUNG Administration Gabapentin 100 mg 08/05/16 14:00 08/06/16 05:31 Neurontin - PO 100 mg TID TUNG Administration Hydralazine HCl 100 mg 08/02/16 06:00 08/06/16 05:31 Apresoline - PO 100 mg TID TUNG Administration Oxycodone HCl 5 mg 08/01/16 22:28 08/03/16 06:36 Roxicodone - PO 5 mg DAILY PRN Administration PAIN Pantoprazole Sodium 40 mg 08/02/16 10:00 08/05/16 10:39 Protonix - PO 40 mg DAILY TUNG Administration Sevelamer Carbonate 800 mg 08/05/16 08:00 08/05/16 17:58 Renvela - PO 800 mg TIDCM TUNG Administration Thiamine HCl 100 mg 08/02/16 22:00 08/05/16 21:45 Vitamin B1 - PO 100 mg HS TUNG Administration Impression 1. ESRD 2. anemia 3. HTN 4. non compliance 5. DM Plan - HD today - monitor hemoglobin - avoid nsaids - discussed with pmd - HD scheduled as outpt Dr Almazan
[2016-08-06] MEDS ORDERED: PT OWN MED DRAWER 7, Y5N ONE (13:51)
[2016-08-06] MEDS: FUROSEMIDE 40 MG TABLET (FP) PO SCH (13:54)
[2016-08-06] MEDS: PANTOPRAZOLE 40 MG TABLET (FP) PO SCH (13:54)
[2016-08-06] MEDS: CINACALCET HCL 30 MG TAB (FP) PO SCH (13:55)
[2016-08-06] MEDS: SEVELAMER CARBONATE 800 MG TAB (FP) PO SCH ×2 (13:55)
[2016-08-06 13:59] VITALS: BP 139/86; PULSE 87; TEMP 97.8
[2016-08-06] MEDS: amLODIPine BESYLATE 10 MG TABLET (FP) PO SCH (13:59)
== END 2016-08-06 18:14 | DRG 811 ==
LOC: JER 14:22 → JERBED 16:02 → J7W 18:18
PROVIDERS: ADMIT Internal Medicine; ATTEND Internal Medicine
PROC: 30233N1 Transfusion of Nonautologous Red Blood Cells into Peripheral Vein, Percutaneous Approach (ICD-10-PCS; principal; 2016-08-01)
DX: D64.9 Anemia, unspecified (principal); N18.6 End stage renal disease; I12.0 Hypertensive chronic kidney disease with stage 5 chronic kidney disease or end stage renal disease; M10.9 Gout, unspecified; E78.5 Hyperlipidemia, unspecified; E11.9 Type 2 diabetes mellitus without complications; Z91.14 Patient's other noncompliance with medication regimen; Z99.2 Dependence on renal dialysis
CPT/HCPCS: 36415; 36430; 71010-TC; 80048; 80053; 80307; 82272; 82550; 82565; 83735; 83880; 84484; 84520; 85025; 85027; 85610; 86704; 86706; 86708; 86850; 86900; 86901; 86922; 87340; 93005; 93010; 99285-25; J0885; J1756; P9038; P9058

== ENCOUNTER 2016-09-22 12:19 | Observation (INO) | payer OTHER ==
[2016-09-22 13:01] VITALS: BMI 26.9
[2016-09-22 13:32] LABS: BASOPHIL 0.4 % (0-2.0); EOSINOPHIL 2.4 % (0-4.5); MCH 31.4 pg (25.7-33.7); MCHC 32.8 g/dl (32.0-35.9); MEAN CELL VOLUME 95.7 fl (80-96); MEAN PLT VOLUME 7.2 fl (7.5-11.1); NEUTROPHILS 65.8 % (42.8-82.8); PLATELET COUNT 267 K/MM3 (134-434); RDW 18.1 % (11.9-15.9); WHITE BLOOD COUNT 9.8 K/mm3 (4.0-10.0)
--- NOTE | 2016-09-22 13:34 | PDOC ---
History of Present Illness - General History Source: Patient, Old Records Exam Limitations: No Limitations - History of Present Illness Initial Comments: 09/22/16 15:42 The patient is a 56 year old male brought via EMS from [facility], with a significant past medical history of anemia, HTN, diabetes, ESRD dialysis M, W, F, who presents to the emergency department with a malfunctioning left upper extremity AV fistula. He reports that his last dialysis was Thursday, without any complications. He notes that he attempted to go to dialysis today but was told that his shunt was not working and sent to the ED for evaluation. He patient has been on dialysis for the past year and a half. He denies any kind of symptoms. He states that he has had problems with his fistula in the past, where the fistula had collapsed. The patient denies chest pain, shortness of breath, headache and dizziness. Denies fever, chills, nausea, vomit, diarrhea and constipation. Denies dysuria, frequency, urgency and hematuria. Allergies: None Past surgical history: Left upper extremity AV fistula Social history: No alcohol, tobacco or drug use reported PMD - Dr. Chandrakant Browne Surgeon - Dr. Kim <Kirk Molina - Last Filed: 09/22/16 15:41> <Tee Tovar - Last Filed: 09/25/16 09:21> - General Chief Complaint: Dialysis Shunt Problem Stated Complaint: Dialysis Shunt Problem Time Seen by Provider: 09/22/16 12:52 Past History <Kirk Molina - Last Filed: 09/22/16 15:41> - Past Medical History Anemia: Yes (NOT ON SUPPLEMENT CURRENTLY) Asthma: No Cancer: No Cardiac Disorders: No CVA: No COPD: No CHF: No Dementia: No Diabetes: Yes (Patient reported history of diabetes, but not on medication at this time,) GI Disorders: No Disorders: Yes (ESRD. DIALYSIS .) HTN: Yes Hypercholesterolemia: No Kidney Stones: No Liver Disease: No Suicide Attempt (Hx): No Seizures: No Thyroid Disease: No - Surgical History Abdominal Surgery: No Appendectomy: No Cardiac Surgery: No Cholecystectomy: No Lung Surgery: No Neurologic Surgery: No Orthopedic Surgery: Yes [facility]; left rotator cuff sx) - Reproductive History Testicular Surgery: No - Immunization History Immunization Up to Date: No - Psycho/Social/Smoking Cessation Hx Anxiety: No Suicidal Ideation: No Smoking History: Never smoked Have you smoked in the past 12 months: No Information on smoking cessation initiated: No 'Breaking Loose' booklet given: 05/15/14 Hx Alcohol Use: No Drug/Substance Use Hx: No Substance Use Type: None Hx Substance Use Treatment: Yes <Tee Tovar - Last Filed: 09/25/16 09:21> - Past Medical History Allergies/Adverse Reactions: Allergies Allergy/AdvReac Type Severity Reaction Status Date / Time No Known Drug Allergies Allergy Unknown Verified 09/22/16 13:01 lactose AdvReac Unknown LACTOSE Verified 09/22/16 13:01 INTOLERANCE Home Medications: Ambulatory Orders Acetaminophen 650 mg PO Q6H PRN 08/01/16 Amlodipine Besylate [Norvasc -] 10 mg PO DAILY 08/01/16 Cinacalcet HCl [Sensipar] 30 mg PO DAILY 08/01/16 Ferrous Sulfate 325 mg PO TID 08/01/16 Furosemide [Lasix] 40 mg PO DAILY 08/01/16 Gabapentin 100 mg PO Q12H 08/01/16 Hydralazine HCl 100 mg PO TID 08/01/16 Magnesium Hydroxide [Milk of Magnesia] 400 mg PO PRN 08/01/16 Oxycodone HCl/Acetaminophen [Endocet 5-325 Tablet] 1 each PO DAILY PRN 08/01/16 Pantoprazole Sodium [Protonix] 40 mg PO DAILY 08/01/16 Sevelamer Carbonate [Renvela -] 800 mg PO TID 08/01/16 Thiamine HCl [B-1] 100 mg PO HS 08/01/16 Vitamin B Complex 1 each PO DAILY 08/01/16 Allopurinol [Zyloprim -] 100 mg PO BID #60 tablet 08/06/16 Review of Systems - Review of Systems Able to Perform ROS?: Yes Comments:: 09/22/16 15:42 CONSTITUTIONAL: No reported: Fever, Chills, Diaphoresis, Generalized Weakness, Malaise, Loss of Appetite HEENT: No reported: Rhinorrhea, Nasal Congestion, Throat Pain, Throat Swelling, Difficulty Swallowing, Mouth Swelling, Ear Pain, Eye Pain, Visual Changes CARDIOVASCULAR: No reported: Chest Pain, Syncope, Palpitations, Irregular Heart Rate, Lightheadedness, Peripheral Edema RESPIRATORY: No reported: Cough, Shortness of Breath, SOB with Exertion, Orthopnea, Wheezing , Stridor, Hemoptysis GASTROINTESTINAL: No reported: Abdominal pain, Abdominal Distension, Nausea, Vomiting, Diarrhea, Constipation, Melena, Hematochezia GENITOURINARY: No reported: Dysuria, Frequency, Urgency, Hesitancy, Flank Pain, Genital Pain MUSCULOSKELETAL: No reported: Myalgia, Arthralgia, Joint Swelling, Back pain, Neck Pain SKIN: No reported: Rash, Itching, Pallor HEMEATOLOGIC/IMMUNOLOGIC: No reported: Easy Bleeding, Easy Bruising, Lymphadenopathy, Frequent infections ENDOCRINE: No reported: Unexplained Weight Gain, Unexplained Weight Loss, Heat Intolerance , Cold Intolerance NEUROLOGIC: No reported: Headache, Focal Weakness, Paresthesias, Vertigo, Lightheadedness, Unsteady Gait, Seizure, Mental Status Changes, Incontinence PSYCHIATRIC: No reported: Anxiety, Depression <Kirk Molina - Last Filed: 09/22/16 15:41> *Physical Exam - Vital Signs Last Vital Signs Temp Pulse Resp BP Pulse Ox 98.4 F 81 18 128/73 99 09/22/16 13:21 09/22/16 13:21 09/22/16 13:21 09/22/16 13:21 09/22/16 14:03 - Physical Exam Comments: 09/22/16 15:42 GENERAL: The patient is awake, alert, and fully oriented, Nontoxic - in no acute distress. HEAD: Normocephalic, atraumatic. EYES: extraocular movements intact, sclera anicteric, conjunctiva clear. ENT: Normal voice, Moist mucous membranes. NECK: Normal range of motion, supple LUNGS: Breath sounds equal, clear to auscultation bilaterally. No wheezes, no rhonchi, no rales. HEART: Regular rate and rhythm, without murmur, rub or gallop. ABDOMEN: Soft, nontender, normoactive bowel sounds. No guarding, no rebound.No CVA tenderness EXTREMITIES: +AV graft in left upper extremity without a thrill. Normal range of motion, no LE edema NEUROLOGICAL: No facial assymetry, Normal speech, PSYCH: Normal mood, normal affect. SKIN: Warm, Dry, normal turgor <Kirk Molina - Last Filed: 09/22/16 15:41> - Vital Signs Last Vital Signs Temp Pulse Resp BP Pulse Ox 98.4 F 81 18 128/73 98 09/22/16 13:21 09/22/16 13:21 09/22/16 13:21 09/22/16 13:21 09/22/16 13:21 <Tee Tovar - Last Filed: 09/25/16 09:21> Heart Score/ECG Review - ECG Impressions Comment:: 09/22/16 17:25 Twelve-lead EKG was performed and reviewed by me. There is normal sinus rhythm with a normal rate. rate of 79 The axis is normal. The intervals are normal. There is abnormal R wave progression There are no ST or T wave abnormalities. <Tee Tovar - Last Filed: 09/25/16 09:21> ED Treatment Course - LABORATORY CBC & Chemistry Diagram: 09/22/16 13:15 09/22/16 13:15 - ADDITIONAL ORDERS Additional order review: Laboratory Results 09/22/16 09/22/16 09/22/16 13:15 13:15 13:15 INR 1.00 Sodium 136 Potassium 4.4 Chloride 93 L D Carbon Dioxide 28 Anion Gap 15 BUN 93 H D Creatinine 11.9 H* D Creat Clearance w eGFR 4.42 Random Glucose 118 H Calcium 9.5 Magnesium 1.7 L Total Bilirubin 0.3 D AST 10 L D ALT 10 L D Alkaline Phosphatase 96 D Total Protein 8.0 D Albumin 3.8 D Blood Type A POSITIVE Antibody Screen Negative 09/22/16 13:15 RBC 3.98 L D MCV 95.7 MCHC 32.8 RDW 18.1 H MPV 7.2 L D Neutrophils % 65.8 Lymphocytes % 24.5 D Monocytes % 6.9 D Eosinophils % 2.4 D Basophils % 0.4 <Kirk Molina - Last Filed: 09/22/16 15:41> - LABORATORY CBC & Chemistry Diagram: 09/22/16 13:15 09/23/16 16:30 - RADIOLOGY Radiology Studies Ordered: Category Date Time Status CHEST X-RAY PORTABLE* [RAD] Stat Radiology 09/22/16 13:04 Completed <Tee Tovar - Last Filed: 09/25/16 09:21> Medical Decision Making - Medical Decision Making 56y M presents with clotted fistula. case dw. dr. moon agreed will take pt to OR later today pt is NPO case dw dr. browne agreed with admission for further management Case discussed in detail with admitting physician including history, physical exam and ancillary studies. Admitting physician has assumed care for the patient, will follow all pending diagnostics and will complete the evaluation and treatment. A portion of this note was documented by scribe services under my direction. I have reviewed the details of the note, within reason, and agree with the documentation with the following case summary and management plan written by me <Tee Tovar - Last Filed: 09/25/16 09:21> *DC/Admit/Observation/Transfer - Attestations Scribe Attestion: 09/22/16 15:42 Documentation prepared by Kirk Molina, acting as medical transcription supervisor for Tee Tovar MD <Kirk Molina - Last Filed: 09/22/16 15:41> - Discharge Dispostion Admit: Yes <Tee Tovar - Last Filed: 09/25/16 09:21> Diagnosis at time of Disposition: ESRD (end stage renal disease) on dialysis AV shunt malfunction Qualifiers: Encounter type: initial encounter Qualified Code(s): T82.591A - Other mechanical complication of surgically created arteriovenous shunt, initial encounter - Discharge Dispostion Disposition: RESIDENTIAL FACILITY Condition at time of disposition: Good
[2016-09-22] MEDS ORDERED: OXYCODONE/APAP 5/325MG COMBO TABLET PO PRN (13:39)
[2016-09-22] MEDS ORDERED: ACETAMINOPHEN 325 MG TABLET (FP) PO PRN ×4 (13:39→21:19)
--- NOTE | 2016-09-22 13:41 | HP ---
Admitting History and Physical - Primary Care Physician PCP: José Browne - Admission Chief Complaint: clotted shunt History of Present Illness: The patient is a 56 year old male, with a significant past medical history of anemia, hypertension, diabetes, and ESRD (on dialysis MWF), who presents to the emergency department via EMS from [facility] for evaluation and likely admission for clotted fistula.. The patient reports that he could not have dialysis this morning. The patient denies fever, chills, nausea, vomiting. patient being admitted to the hospital Vascular consult has been requested by your physician patient seen by me in the emergency room and Discussed case with the ER physician also. Patient well known to me from previous admissions as well as from [facility] Patient has such denies chest pain or shortness of breath or abdominal pain No headache or dizziness. No fever or chills History Source: Patient Limitations to Obtaining History: No Limitations - Past Medical History Cardiovascular: Yes: HTN, Hyperlipdemia Renal/: Yes: Renal Inusuff, Hemodialysis Heme/Onc: Yes: Anemia Endocrine: Yes: Diabetes Mellitus - Past Surgical History Past Surgical History: Yes: AV Fistula/Graft - Smoking History Smoking history: Never smoked Have you smoked in the past 12 months: No - Alcohol/Substance Use Hx Alcohol Use: No History of Substance Use: reports: Cocaine, Heroin, Marijuana Home Medications - Allergies Allergies/Adverse Reactions: Allergies Allergy/AdvReac Type Severity Reaction Status Date / Time No Known Drug Allergies Allergy Unknown Verified 09/22/16 13:01 lactose AdvReac Unknown LACTOSE Verified 09/22/16 13:01 INTOLERANCE - Home Medications Home Medications: Ambulatory Orders Acetaminophen 650 mg PO Q6H PRN 08/01/16 Amlodipine Besylate [Norvasc -] 10 mg PO DAILY 08/01/16 Cinacalcet HCl [Sensipar] 30 mg PO DAILY 08/01/16 Ferrous Sulfate 325 mg PO TID 08/01/16 Furosemide [Lasix] 40 mg PO DAILY 08/01/16 Gabapentin 100 mg PO Q12H 08/01/16 Hydralazine HCl 100 mg PO TID 08/01/16 Magnesium Hydroxide [Milk of Magnesia] 400 mg PO PRN 08/01/16 Oxycodone HCl/Acetaminophen [Endocet 5-325 Tablet] 1 each PO DAILY PRN 08/01/16 Pantoprazole Sodium [Protonix] 40 mg PO DAILY 08/01/16 Sevelamer Carbonate [Renvela -] 800 mg PO TID 08/01/16 Thiamine HCl [B-1] 100 mg PO HS 08/01/16 Vitamin B Complex 1 each PO DAILY 08/01/16 Allopurinol [Zyloprim -] 100 mg PO BID #60 tablet 08/06/16 Family Disease History - Family Disease History Family Disease History: Diabetes: Mother (ESRD), Brother (ESRD), CA: Father ( stomach,), Other: Mother, Brother Review of Systems Unable to obtain ROS, reason: see [place] Physical Examination Vital Signs: Vital Signs Temperature 98.4 F 09/22/16 13:21 Pulse Rate 81 09/22/16 13:21 Respiratory Rate 18 09/22/16 13:21 Blood Pressure 128/73 09/22/16 13:21 O2 Sat by Pulse Oximetry (%) 98 09/22/16 13:21 Constitutional: Yes: No Distress, Calm Eyes: Yes: Conjunctiva Clear Neck: Yes: Supple Cardiovascular: Yes: Regular Rate and Rhythm Respiratory: Yes: CTA Bilaterally Gastrointestinal: Yes: Normal Bowel Sounds, Soft Extremities: Yes: Other (lue--no bruie +) Edema: No Neurological: Yes: Alert Imaging - Results EKG: Pending Other: Pending (labs are pending) Problem List - Problems (1) Hemodialysis catheter malfunction Code(s): T82.41XA - BREAKDOWN (MECHANICAL) OF VASCULAR DIALYSIS CATHETER, INIT Qualifiers: Encounter type: initial encounter Qualified Code(s): T82.41XA - Breakdown (mechanical) of vascular dialysis catheter, initial encounter (2) ESRD (end stage renal disease) on dialysis Code(s): N18.6 - END STAGE RENAL DISEASE Z99.2 - DEPENDENCE ON RENAL DIALYSIS (3) HTN (hypertension) Code(s): I10 - ESSENTIAL (PRIMARY) HYPERTENSION Assessment/Plan Clotted av fistula Vascular consult has been requested Labs has been ordered Will admit--- likely keep in observation Await vascular evaluation Further recommendations will be guided by clinical course Will follow
[2016-09-22 13:53] LABS: ALBUMIN 3.8 g/dl (3.4-5.0); BILIRUBIN,TOTAL 0.3 mg/dL (0.2-1.0); CALCIUM 9.5 mg/dL (8.5-10.1); MAGNESIUM 1.7 mg/dL (1.8-2.4)
[2016-09-22] MEDS ORDERED: oxyCODONE HCL 5 MG TABLET PO PRN ×2 (13:53→21:19)
[2016-09-22 13:58] LABS: COCKROFT - GAULT 8.26
[2016-09-22] MEDS ORDERED: GABAPENTIN 100 MG CAPSULE (FP) PO SCH (14:00)
[2016-09-22] MEDS ORDERED: FERROUS SO4 325 MG TABLET (FP) PO SCH (14:00)
[2016-09-22] MEDS ORDERED: hydrALAZINE HCL 50 MG TABLET (FP) PO SCH (14:00)
[2016-09-22 14:02] LABS: CREATININE 11.9 mg/dL (0.7-1.3)
[2016-09-22] MEDS ORDERED: FERROUS SO4 325 MG TABLET (FP) ONE (14:13)
[2016-09-22] MEDS ORDERED: GABAPENTIN 100 MG CAPSULE (FP) ONE (14:13)
--- NOTE | 2016-09-22 14:34 | SPA.PREOP ---
- PRE-OP NOTE Dx: Clotted LUE AVF Planned Procedure: Thrombectomy LUE AVF Surgeon: Nick Torrez Consent: To be obtained by surgeon explained risks, benefits and alternatives explained to patient. Last Vital Signs Temp Pulse Resp BP Pulse Ox 98.4 F 81 18 128/73 99 09/22/16 13:21 09/22/16 13:21 09/22/16 13:21 09/22/16 13:21 09/22/16 14:03 Lab Results WBC 9.8 K/mm3 (4.0-10.0) 09/22/16 13:15 RBC 3.98 M/mm3 (4.00-5.60) L D 09/22/16 13:15 Hgb 12.5 GM/dL (11.7-16.9) D 09/22/16 13:15 Hct 38.0 % (35.4-49) D 09/22/16 13:15 MCV 95.7 fl (80-96) 09/22/16 13:15 MCHC 32.8 g/dl (32.0-35.9) 09/22/16 13:15 RDW 18.1 % (11.9-15.9) H 09/22/16 13:15 Plt Count 267 K/MM3 (134-434) D 09/22/16 13:15 Sodium 136 mmol/L (136-145) 09/22/16 13:15 Potassium 4.4 mmol/L (3.5-5.1) 09/22/16 13:15 Chloride 93 mmol/L (98-107) L D 09/22/16 13:15 Carbon Dioxide 28 mmol/L (21-32) 09/22/16 13:15 Anion Gap 15 (8-16) 09/22/16 13:15 BUN 93 mg/dL (7-18) H D 09/22/16 13:15 Creatinine 11.9 mg/dL (0.7-1.3) H* D 09/22/16 13:15 Random Glucose 118 mg/dL (74-106) H 09/22/16 13:15 Calcium 9.5 mg/dL (8.5-10.1) 09/22/16 13:15 Blood Type A POSITIVE 09/22/16 13:15 Antibody Screen Negative 09/22/16 13:15 INR 1.00 (0.82-1.09) 09/22/16 13:15 - ASSESSMENT/PLAN 1. Make NPO 2. Medical optimization / clearance Visit type - Case Type Case Type: ED Admission - Emergency Emergency Visit: Yes Care time: The patient presented to the Emergency Department on the above date and was hospitalized for further evaluation of their emergent condition. - New patient This patient is new to me today: Yes Date on this admission: 09/22/16
[2016-09-22] MEDS ORDERED: HEMOQUE TEST 1 EACH EACH ONE (15:11)
[2016-09-22] MEDS ORDERED: HEPARIN NA (PORCINE) 5,000 UNITS/ML 1ML VIAL ONE ×2 (16:37→19:07)
[2016-09-22] MEDS ORDERED: LIDOCAINE HCL 1%, 10 MG/ML (20ML VIAL) ONE (16:37)
[2016-09-22] MEDS ORDERED: SEVELAMER CARBONATE 800 MG TAB (FP) PO SCH (17:30)
[2016-09-22] MEDS ORDERED: ALTEPLASE IVPB ONE (18:30)
[2016-09-22] MEDS ORDERED: SODIUM CHLORIDE IVPB ONE (18:30)
--- NOTE | 2016-09-22 19:01 | CONSULT ---
Consult - History of Present Illness History of Present Illness: 56 year old man with ESRD on HD. He has a left arm fistula, last dialysis Thursday. Today fistula found thrombosed. - History Source History Provided By: Patient - Past Medical History Cardio/Vascular: Yes: HTN, Hyperlipdemia Renal/: Yes: Renal Inusuff, Hemodialysis Endocrine: Yes: Diabetes Mellitus Additional Medical History: polysubstance abuse - Past Surgical History Past Surgical History: Yes: AV Fistula/Graft - Alcohol/Substance Use Hx Alcohol Use: No History of Substance Use: reports: Cocaine, Heroin, Marijuana - Smoking History Smoking history: Never smoked Have you smoked in the past 12 months: No - Social History Usual Living Arrangement: Assisted Living Home Medications - Allergies Allergies/Adverse Reactions: Allergies Allergy/AdvReac Type Severity Reaction Status Date / Time No Known Drug Allergies Allergy Unknown Verified 09/22/16 13:01 lactose AdvReac Unknown LACTOSE Verified 09/22/16 13:01 INTOLERANCE - Home Medications Home Medications: Ambulatory Orders Acetaminophen 650 mg PO Q6H PRN 08/01/16 Amlodipine Besylate [Norvasc -] 10 mg PO DAILY 08/01/16 Cinacalcet HCl [Sensipar] 30 mg PO DAILY 08/01/16 Ferrous Sulfate 325 mg PO TID 08/01/16 Furosemide [Lasix] 40 mg PO DAILY 08/01/16 Gabapentin 100 mg PO Q12H 08/01/16 Hydralazine HCl 100 mg PO TID 08/01/16 Magnesium Hydroxide [Milk of Magnesia] 400 mg PO PRN 08/01/16 Oxycodone HCl/Acetaminophen [Endocet 5-325 Tablet] 1 each PO DAILY PRN 08/01/16 Pantoprazole Sodium [Protonix] 40 mg PO DAILY 08/01/16 Sevelamer Carbonate [Renvela -] 800 mg PO TID 08/01/16 Thiamine HCl [B-1] 100 mg PO HS 08/01/16 Vitamin B Complex 1 each PO DAILY 08/01/16 Allopurinol [Zyloprim -] 100 mg PO BID #60 tablet 08/06/16 Family Disease History - Family Disease History Family Disease History: Diabetes: Mother (ESRD), Brother (ESRD), CA: Father ( stomach,), Other: Mother, Brother Physical Exam Vital Signs: Vital Signs Temperature 98.4 F 09/22/16 18:02 Pulse Rate 78 09/22/16 18:02 Respiratory Rate 18 09/22/16 18:02 Blood Pressure 115/68 09/22/16 18:02 O2 Sat by Pulse Oximetry (%) 96 09/22/16 15:41 Extremities: Yes: Other (Left upper arm fistula with no thrill or bruit) Problem List - Problems (1) ESRD (end stage renal disease) on dialysis Code(s): N18.6 - END STAGE RENAL DISEASE Z99.2 - DEPENDENCE ON RENAL DIALYSIS (2) Clotted renal dialysis arteriovenous graft Assessment/Plan: For thrombolysis and thrombectomy AV fistula, venogram and venoplasty Code(s): T82.868A - THROMBOSIS DUE TO VASCULAR PROSTH DEV/GRFT, INIT
[2016-09-22] MEDS ORDERED: MIDAZOLAM HCL 2 MG/2 ML SINGLE DOSE VIAL ONE ×2 (19:25→19:34)
[2016-09-22] MEDS ORDERED: PROPOFOL 20 ML ONE ×2 (19:32→20:10)
[2016-09-22] MEDS ORDERED: LIDOCAINE HCL 1%, 10 MG/ML (20ML VIAL) IJ ONE (19:37)
--- NOTE | 2016-09-22 20:59 | OP ---
Operative Note - Note: Operative Date: 09/22/16 Pre-Operative Diagnosis: Thrombosed AV fistula Operation: Percutaneous thrombectomy/thrombolysis left arm fistula, venogram and venoplasty Findings: Thrombosed fistula. Diffuse stenosis of proximal fistula. Post-Operative Diagnosis: Same as Pre-op Surgeon: Nick Torrez Anesthesiologist/NETWORKING ADMINISTRATOR: Ashley Gaxiola Anesthesia: Fractional
[2016-09-22] MEDS ORDERED: ONDANSETRON 4 MG/2 ML VIAL IVPUSH PRN (21:11)
[2016-09-22] MEDS ORDERED: SODIUM CHLORIDE 1,000 ML IV SCH (21:15)
[2016-09-22] MEDS ORDERED: THIAMINE HCL 100 MG TABLET (FP) PO SCH ×2 (22:00)
[2016-09-22] MEDS ORDERED: ALLOPURINOL 100 MG TABLET (FP) PO SCH (22:00)
[2016-09-22] MEDS ORDERED: HEPARIN NA (PORCINE) 5,000 UNITS/ML 1ML VIAL SQ SCH (22:00)
[2016-09-22] MEDS: ALLOPURINOL 100 MG TABLET (FP) PO SCH (22:59)
[2016-09-22] MEDS: FERROUS SO4 325 MG TABLET (FP) PO SCH (22:59)
[2016-09-22] MEDS: hydrALAZINE HCL 50 MG TABLET (FP) PO SCH (22:59)
[2016-09-22] MEDS: HEPARIN NA (PORCINE) 5,000 UNITS/ML 1ML VIAL SQ SCH (23:00)
[2016-09-22] MEDS: GABAPENTIN 100 MG CAPSULE (FP) PO SCH (23:00)
[2016-09-23] MEDS: hydrALAZINE HCL 50 MG TABLET (FP) PO SCH ×2 (05:43→14:14)
[2016-09-23] MEDS: FERROUS SO4 325 MG TABLET (FP) PO SCH ×2 (05:43→14:14)
--- NOTE | 2016-09-23 08:35 | PN ---
Progress Note (short form) - Note Progress Note: POD 1 VSS Left arm fistula with pulse No swelling. He should be dialysed here before transfer back to [facility] to be sure there is no problem with access. I will see in my office next week if no issues. Problem List - Problems (1) ESRD (end stage renal disease) on dialysis Code(s): N18.6 - END STAGE RENAL DISEASE Z99.2 - DEPENDENCE ON RENAL DIALYSIS (2) Clotted renal dialysis arteriovenous graft Code(s): T82.868A - THROMBOSIS DUE TO VASCULAR PROSTH DEV/GRFT, INIT
[2016-09-23] MEDS ORDERED: VITAMIN B COMPLEX W/C COMBO TABLET (FP) PO SCH ×2 (10:00)
[2016-09-23] MEDS ORDERED: amLODIPine BESYLATE 10 MG TABLET (FP) PO SCH ×2 (10:00)
[2016-09-23] MEDS ORDERED: PANTOPRAZOLE 40 MG TABLET (FP) PO SCH ×2 (10:00)
[2016-09-23] MEDS ORDERED: FUROSEMIDE 40 MG TABLET (FP) PO SCH ×2 (10:00)
[2016-09-23] MEDS ORDERED: CINACALCET HCL 30 MG TAB (FP) PO SCH ×2 (10:00)
[2016-09-23] MEDS ORDERED: PT OWN MED DRAWER 7, Y5N ONE (10:13)
[2016-09-23] MEDS: HEPARIN NA (PORCINE) 5,000 UNITS/ML 1ML VIAL SQ SCH (10:17)
[2016-09-23] MEDS: GABAPENTIN 100 MG CAPSULE (FP) PO SCH (10:17)
[2016-09-23] MEDS: SEVELAMER CARBONATE 800 MG TAB (FP) PO SCH ×3 (10:17→17:15)
[2016-09-23] MEDS: ALLOPURINOL 100 MG TABLET (FP) PO SCH (10:18)
--- NOTE | 2016-09-23 11:18 | DS ---
Physical Examination Vital Signs: Vital Signs Temperature 98.2 F 09/23/16 06:00 Pulse Rate 74 09/23/16 06:00 Respiratory Rate 20 09/23/16 06:00 Blood Pressure 130/88 09/23/16 06:00 O2 Sat by Pulse Oximetry (%) 99 09/22/16 22:35 Constitutional: Yes: No Distress Cardiovascular: Yes: Regular Rate and Rhythm Respiratory: Yes: Diminished Gastrointestinal: Yes: Normal Bowel Sounds, Soft. No: Distention, Palpable Mass , Tenderness Extremities: Yes: Other (left arm AVF- thrill+) Edema: No Discharge Summary Reason For Visit: MALFUNCTION OF ARTERIOVENOUS SHUNT Current Active Problems AV shunt malfunction (Acute) Clotted dialysis access (Acute) Clotted renal dialysis arteriovenous graft (Acute) ESRD (end stage renal disease) on dialysis (Acute) Hospital Course: ADmitted for thrombosed AVF left arm No SOB He was seen by Vascular surgeon and had thrombectomy done 09/22/16 - had HD today stable for dc to NH Condition: Good - Instructions Referrals: José Browne MD [Primary Care Provider] - Nick Torrez MD [Staff Physician] - 1 Week (Call for appointment) Disposition: [facility] - Home Medications Comprehensive Discharge Medication List: Ambulatory Orders Acetaminophen 650 mg PO Q6H PRN 08/01/16 Amlodipine Besylate [Norvasc -] 10 mg PO DAILY 08/01/16 Cinacalcet HCl [Sensipar] 30 mg PO DAILY 08/01/16 Ferrous Sulfate 325 mg PO TID 08/01/16 Furosemide [Lasix] 40 mg PO DAILY 08/01/16 Gabapentin 100 mg PO Q12H 08/01/16 Hydralazine HCl 100 mg PO TID 08/01/16 Magnesium Hydroxide [Milk of Magnesia] 400 mg PO PRN 08/01/16 Oxycodone HCl/Acetaminophen [Endocet 5-325 Tablet] 1 each PO DAILY PRN 08/01/16 Pantoprazole Sodium [Protonix] 40 mg PO DAILY 08/01/16 Sevelamer Carbonate [Renvela -] 800 mg PO TID 08/01/16 Thiamine HCl [B-1] 100 mg PO HS 08/01/16 Vitamin B Complex 1 each PO DAILY 08/01/16 Allopurinol [Zyloprim -] 100 mg PO BID #60 tablet 08/06/16
[2016-09-23 13:08] LABS: CALCIUM 8.6 mg/dL (8.5-10.1); COCKROFT - GAULT 8.26
[2016-09-23 13:25] LABS: CREATININE 12.1 mg/dL (0.7-1.3)
--- NOTE | 2016-09-23 15:03 | CONSULT ---
Consult Consult Specialty:: Nephrology Reason for Consultation:: ESRD - History of Present Illness Chief Complaint: malfunctioning av fistula History of Present Illness: Pt is a 56 year old male with pmhx of anemia, HTN, DM, and ESRD who was admitted for malfunctioning av fistula. Pt missed his HD treatment yesterday. Pt had a thrombectomy yesterday. I was called to arrange for HD as he missed his session. Pt is awake and alert. He denies chest pain or shortness of breath. He denies fevers or chills. He agrees to go for an HD treatment today. - History Source History Provided By: Patient, Medical Record - Past Medical History Cardio/Vascular: Yes: HTN, Hyperlipdemia Renal/: Yes: Renal Inusuff, Hemodialysis Endocrine: Yes: Diabetes Mellitus Additional Medical History: polysubstance abuse - Past Surgical History Past Surgical History: Yes: AV Fistula/Graft - Alcohol/Substance Use Hx Alcohol Use: No History of Substance Use: reports: Cocaine, Heroin, Marijuana - Smoking History Smoking history: Never smoked Have you smoked in the past 12 months: No - Social History Usual Living Arrangement: Assisted Living Home Medications - Allergies Allergies/Adverse Reactions: Allergies Allergy/AdvReac Type Severity Reaction Status Date / Time No Known Drug Allergies Allergy Unknown Verified 09/22/16 13:01 lactose AdvReac Unknown LACTOSE Verified 09/22/16 13:01 INTOLERANCE - Home Medications Home Medications: Ambulatory Orders Acetaminophen 650 mg PO Q6H PRN 08/01/16 Amlodipine Besylate [Norvasc -] 10 mg PO DAILY 08/01/16 Cinacalcet HCl [Sensipar] 30 mg PO DAILY 08/01/16 Ferrous Sulfate 325 mg PO TID 08/01/16 Furosemide [Lasix] 40 mg PO DAILY 08/01/16 Gabapentin 100 mg PO Q12H 08/01/16 Hydralazine HCl 100 mg PO TID 08/01/16 Magnesium Hydroxide [Milk of Magnesia] 400 mg PO PRN 08/01/16 Oxycodone HCl/Acetaminophen [Endocet 5-325 Tablet] 1 each PO DAILY PRN 08/01/16 Pantoprazole Sodium [Protonix] 40 mg PO DAILY 08/01/16 Sevelamer Carbonate [Renvela -] 800 mg PO TID 08/01/16 Thiamine HCl [B-1] 100 mg PO HS 08/01/16 Vitamin B Complex 1 each PO DAILY 08/01/16 Allopurinol [Zyloprim -] 100 mg PO BID #60 tablet 08/06/16 Family Disease History - Family Disease History Family Disease History: Diabetes: Mother (ESRD), Brother (ESRD), CA: Father ( stomach,), Other: Mother, Brother Review of Systems - Review of Systems Constitutional: reports: No Symptoms Eyes: reports: No Symptoms HENT: reports: No Symptoms Neck: reports: No Symptoms Cardiovascular: reports: No Symptoms Respiratory: reports: No Symptoms Gastrointestinal: reports: No Symptoms Genitourinary: reports: No Symptoms Musculoskeletal: reports: No Symptoms Integumentary: reports: No Symptoms Neurological: reports: No Symptoms Endocrine: reports: No Symptoms Hematology/Lymphatic: reports: No Symptoms Physical Exam Vital Signs: Vital Signs Temperature 97.8 F 09/23/16 08:00 Pulse Rate 79 09/23/16 14:00 Respiratory Rate 18 09/23/16 14:00 Blood Pressure 120/74 09/23/16 14:00 O2 Sat by Pulse Oximetry (%) 99 09/23/16 08:00 Constitutional: Yes: Calm Eyes: Yes: Conjunctiva Clear HENT: Yes: Atraumatic Neck: Yes: Supple Cardiovascular: Yes: S1, S2 Respiratory: Yes: CTA Bilaterally Gastrointestinal: Yes: WNL Renal/: Yes: WNL Musculoskeletal: Yes: WNL Extremities: Yes: Other (fistula with thrill and bruit) Neurological: Yes: Oriented Psychiatric: Yes: Oriented Labs: CBC, BMP 09/23/16 11:30 Laboratory Tests 09/22/16 09/22/16 09/23/16 13:15 13:15 11:30 Hgb 12.5 D Sodium 136 134 L Potassium 4.4 5.0 Chloride 93 L D 97 L Carbon Dioxide 28 23 Anion Gap 15 14 BUN 93 H D 98 H Creatinine 11.9 H* D 12.1 H* Imaging - Results Chest X-ray: Report Reviewed Problem List - Problems (1) AV shunt malfunction Code(s): T82.591A - [facility] COMPL OF SURGICALLY CREATED ARTERIOVENOUS SHUNT, INIT Qualifiers: Encounter type: initial encounter Qualified Code(s): T82.591A - Other mechanical complication of surgically created arteriovenous shunt, initial encounter (2) ESRD (end stage renal disease) on dialysis Code(s): N18.6 - END STAGE RENAL DISEASE Z99.2 - DEPENDENCE ON RENAL DIALYSIS (3) CHF (congestive heart failure) Code(s): I50.9 - HEART FAILURE, UNSPECIFIED (4) ESRD (end stage renal disease) Code(s): N18.6 - END STAGE RENAL DISEASE (5) HTN (hypertension) Code(s): I10 - ESSENTIAL (PRIMARY) HYPERTENSION (6) Anemia Code(s): D64.9 - ANEMIA, UNSPECIFIED Assessment/Plan Current Medications Generic Name Dose Route Start Last Admin Trade Name Freq PRN Reason Stop Dose Admin Acetaminophen 650 mg 09/22/16 21:19 Tylenol - PO Q6H PRN PAIN Acetaminophen 325 mg 09/22/16 21:19 Tylenol - PO DAILY PRN PAIN Allopurinol 100 mg 09/22/16 22:00 09/23/16 10:18 Zyloprim - PO 100 mg BID TUNG Administration Amlodipine Besylate 10 mg 09/23/16 10:00 09/23/16 10:18 Norvasc - PO 10 mg DAILY TUNG Administration Cinacalcet 30 mg 09/23/16 10:00 09/23/16 11:15 Sensipar - PO Not Given DAILY [facility] Ferrous Sulfate 325 mg 09/22/16 22:00 09/23/16 14:14 Feosol - PO Not Given TID [facility] Furosemide 40 mg 09/23/16 10:00 09/23/16 10:17 Lasix - PO 40 mg DAILY TUNG Administration Gabapentin 100 mg 09/22/16 22:00 09/23/16 10:17 Neurontin - PO 100 mg BID TUNG Administration Heparin Sodium (Porcine) 5,000 unit 09/22/16 22:00 09/23/16 10:17 Heparin - SQ 5,000 unit BID TUNG Administration Hydralazine HCl 100 mg 09/22/16 22:00 09/23/16 14:14 Apresoline - PO Not Given TID [facility] Multivitamins 1 each 09/23/16 10:00 09/23/16 10:18 Total B With C - PO 1 each DAILY TUNG Administration Oxycodone HCl 5 mg 09/22/16 21:19 Roxicodone - PO DAILY PRN PAIN Pantoprazole Sodium 40 mg 09/23/16 10:00 09/23/16 10:18 Protonix - PO 40 mg DAILY TUNG Administration Sevelamer Carbonate 800 mg 09/23/16 08:00 09/23/16 11:15 Renvela - PO Not Given TIDCM TUNG Thiamine HCl 100 mg 09/22/16 22:00 09/22/16 22:59 Vitamin B1 - PO 100 mg HS TUNG Administration Impression 1. ESRD 2. anemia 3. HTN 4. AV fistula malfunction 5. DM Plan - HD today - ersume home meds - pt should go to HD tomorrow as outpt as scheduled - will follow while in hospital - vascular follow up for fistula maintenance as outpt Dr Almazan
[2016-09-23 15:16] VITALS: TEMP 98.6
[2016-09-23 15:30] VITALS: BP 132/72; PULSE 82
--- NOTE | 2016-09-24 08:22 | EKG ---
Test Reason : Blood Pressure : / mmHG Vent. Rate : 079 BPM Atrial Rate : 079 BPM P-R Int : 180 ms QRS Dur : 084 ms QT Int : 390 ms P-R-T Axes : 048 014 025 degrees QTc Int : 447 ms NORMAL SINUS RHYTHM CANNOT RULE OUT ANTERIOR INFARCT , AGE UNDETERMINED ABNORMAL ECG WHEN COMPARED WITH ECG OF 01-AUG-2016 16:07, NO SIGNIFICANT CHANGE WAS FOUND Confirmed by BRIANNA MAY MD ([id number]) on 09/24/2016 8:21:41 AM Referred By: Confirmed By:BRIANNA MAY MD
[2016-09-25 00:06] LABS: HEP B SURFACE AB Reactive (.)
--- NOTE | 2016-09-30 08:47 | OP ---
DATE OF OPERATION: 09/22/2016 SURGEON: Nick Torrez MD PROCEDURE: Percutaneous thrombolysis and thrombectomy of left arm arteriovenous fistula with venogram and venoplasty. PREOPERATIVE DIAGNOSIS: Thrombosed arteriovenous fistula. POSTOPERATIVE DIAGNOSIS: Thrombosed arteriovenous fistula. ANESTHESIA: Fractional. ANESTHESIOLOGIST: Ashley Gaxiola MD OPERATIVE FINDINGS: The left brachial basilic fistula was thrombosed. Following thrombectomy, there was stenosis of the proximal portion of the fistula up to the axillary vein. OPERATIVE PROCEDURE: Following routine patient identification with side and site verification, intravenous sedation was established. The left arm was prepped with ChloraPrep. Using real-time duplex imaging, the AV fistula was identified and subcutaneous tissues. Xylocaine was infiltrated in the skin over the distal end of the fistula and was cannulated with a micropuncture needle directed centrally. A fine wire was passed through the needle into the fistula, and then, the needle was exchanged for a 5-Indonesian catheter. An angle-tip Glidewire was advanced proximally, and a 7-Indonesian sheath was placed over the wire into the fistula. A Nitric Bioenstein catheter and wire were then advanced proximally into the subclavian vein. Contrast was injected to document patency. The catheter was pulled back until the occluded segment was reached. TPA 5 mg and 50 mL of saline was then administered to the fistula through the catheter. Approximately 1 mg was saved. A 2nd sheath was placed in the proximal fistula directed distally, and the wire and catheter were passed down to the arteriovenous anastomosis, and the additional TPA was then administered. Approximately 20 minutes later, a suction thrombectomy was performed with an AngioJet AVX catheter. Repeat venography revealed diffuse stenosis in the proximal portion of the fistula, and this was balloon dilated with an 8 mm x 6 mm balloon. Repeat imaging of the proximal fistula showed improved diameter and flow. The AngioJet treatment of the distal fistula was then performed. A No. 4 Taryn catheter was used to complete the thrombectomy and restore arterial inflow. Completion imaging revealed pulsatile flow within the fistula with good flow into the axillary vein. Sheaths were removed, and bleeding controlled with sutures of nylon. Sterile dressings were applied, and the patient was taken to the recovery room in stable condition. Cassie [id number]
== END 2016-09-23 18:56 ==
LOC: JER 12:19 → JERBED 14:44 → J6S 21:55
PROVIDERS: ADMIT Internal Medicine; ATTEND Internal Medicine
PROC: 05CY3ZZ Extirpation of Matter from Upper Vein, Percutaneous Approach (ICD-10-PCS; principal; 2016-09-22 16:45)
DX: T82.868A Thrombosis due to vascular prosthetic devices, implants and grafts, initial encounter (principal); T82.41XA Breakdown (mechanical) of vascular dialysis catheter, initial encounter; I12.0 Hypertensive chronic kidney disease with stage 5 chronic kidney disease or end stage renal disease; N18.6 End stage renal disease; I50.9 Heart failure, unspecified; E78.5 Hyperlipidemia, unspecified; Z99.2 Dependence on renal dialysis; Z86.2 Personal history of diseases of the blood and blood-forming organs and certain disorders involving the immune mechanism; Z86.39 Personal history of other endocrine, nutritional and metabolic disease; Y83.9 Surgical procedure, unspecified as the cause of abnormal reaction of the patient, or of later complication, without mention of misadventure at the time of the procedure; Y92.9 Unspecified place or not applicable
CPT/HCPCS: 36415; 71010-TC; 76000-TC; 80048; 80053; 82565; 83735; 84520; 85025; 85610; 86704; 86706; 86708; 86850; 86900; 86901; 87340; 93005; 93010; 94760; 99285-25; G0378; J1644

== ENCOUNTER 2017-10-10 06:26 | Observation (INO) | payer OTHER ==
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
[2017-10-10 08:20] LABS: BASO % 0.9 % (0-2.0); EOS % 0.1 % (0-4.5); HEMATOCRIT 36.1 % (35.4-49); HEMOGLOBIN 11.9 GM/dL (11.7-16.9); LYMPH % 10.9 % (8-40); MCH 31.8 pg (25.7-33.7); MEAN CELL VOLUME 96.3 fl (80-96); MONO % 7.9 % (3.8-10.2); NEUT % 80.2 % (42.8-82.8); PLATELET COUNT 368 K/MM3 (134-434); RBC 3.75 M/mm3 (4.00-5.60); RDW 15.4 % (11.9-15.9); WHITE BLOOD COUNT 14.9 K/mm3 (4.0-10.0)
--- NOTE | 2017-10-10 09:20 | EKG ---
Test Reason : Blood Pressure : / mmHG Vent. Rate : 088 BPM Atrial Rate : 088 BPM P-R Int : 190 ms QRS Dur : 094 ms QT Int : 376 ms P-R-T Axes : -27 051 039 degrees QTc Int : 454 ms POOR DATA QUALITY, INTERPRETATION MAY BE ADVERSELY AFFECTED NORMAL SINUS RHYTHM POSSIBLE ANTERIOR INFARCT (CITED ON OR BEFORE 22-SEP-2016) ABNORMAL ECG WHEN COMPARED WITH ECG OF 22-SEP-2016 13:45, NO SIGNIFICANT CHANGE WAS FOUND Confirmed by ASHU KENNEY, DARBY ([id number]) on 10/10/2017 9:20:30 AM Referred By: Confirmed By:DARBY WAKEFIELD MD
[2017-10-10 09:51] LABS: ANION GAP 12 (8-16); BILIRUBIN,TOTAL 0.4 mg/dL (0.2-1.0); BLOOD UREA NITROGEN 81 mg/dL (7-18); CALCIUM 8.8 mg/dL (8.5-10.1); CHLORIDE 94 mmol/L (98-107); CO2 26 mmol/L (21-32); GLUCOSE,RANDOM 88 mg/dL (74-106); SGOT/AST 19 U/L (15-37); SGPT/ALT 18 U/L (12-78); SODIUM 132 mmol/L (136-145); TOT PROT 9.1 g/dl (6.4-8.2)
[2017-10-10 09:57] LABS: ALK PHOS 125 U/L (45-117); SALICYLATE < 1.700 mg/dL
[2017-10-10 10:05] LABS: ACETAMINOPHEN <2.0 ug/mL
[2017-10-10 10:08] LABS: POTASSIUM 6.2 mmol/L (3.5-5.1)
[2017-10-10] MEDS ORDERED: CALCIUM GLUCONATE 10% - 1,000 MG/10 ML VIAL IVPUSH ONE (10:11)
[2017-10-10] MEDS ORDERED: INSULIN REGULAR HUMAN 100 UNITS/ML *VIAL IVPUSH ONE ×2 (10:13→10:15)
[2017-10-10] MEDS ORDERED: DEXTROSE 5%-WATER - 1,000 ML IV ONE (10:15)
[2017-10-10] MEDS ORDERED: DEXTROSE 50%-WATER - 25 GM/50 ML VIAL IVPUSH ONE (10:15)
[2017-10-10] MEDS ORDERED: CALCIUM GLUCONATE 10% - 1,000 MG/10 ML VIAL ONE (11:22)
[2017-10-10] MEDS ORDERED: INSULIN (NOVOLOG) ASPART 100 UNITS/ML 10ML VIAL ONE (11:23)
[2017-10-10] MEDS ORDERED: HEPARIN NA (PORCINE) 5,000 UNITS/ML 1ML VIAL IVPUSH ONE (12:16)
[2017-10-10] MEDS ORDERED: PARICALCITOL 5 MCG/ML VIAL IVPUSH ONE (12:16)
[2017-10-10] MEDS ORDERED: SODIUM CHLORIDE 250 ML IV PRN (12:16)
--- NOTE | 2017-10-10 12:20 | CONSULT ---
Consult Consult Specialty:: Nephrology Reason for Consultation:: ESRD - History of Present Illness Chief Complaint: brought in for change in mental status History of Present Illness: Pt is a 57 year old male with pmhx of ESRD, HTN and DM who presented to the ER from [facility] after an episode of non-responsiveness. They were unable to wake him up for HD. EMS gave him narcan and he woke up. He is now alert and awake. He says he tool his oxycodone but has not eaten much. He denies shortness of breath. He denies dysuria. He denies headache. He missed HD today and was found to be hyperkalemic. - History Source History Provided By: Patient - Past Medical History Cardio/Vascular: Yes: HTN, Hyperlipdemia Renal/: Yes: Renal Inusuff, Hemodialysis Endocrine: Yes: Diabetes Mellitus Additional Medical History: polysubstance abuse - Past Surgical History Past Surgical History: Yes: AV Fistula/Graft - Alcohol/Substance Use Hx Alcohol Use: No History of Substance Use: reports: Cocaine, Heroin, Marijuana - Smoking History Smoking history: Never smoked Have you smoked in the past 12 months: No - Social History Usual Living Arrangement: Assisted Living Home Medications - Allergies Allergies/Adverse Reactions: Allergies Allergy/AdvReac Type Severity Reaction Status Date / Time No Known Drug Allergies Allergy Unknown Verified 10/10/17 06:30 lactose AdvReac Unknown LACTOSE Verified 10/10/17 06:30 INTOLERANCE - Home Medications Home Medications: Ambulatory Orders Albuterol 2.5/Ipratropium 0.5 [Duoneb -] 1 neb IH QID 10/10/17 Allopurinol [Zyloprim -] 100 mg PO BID 10/10/17 Amlodipine Besylate [Norvasc -] 10 mg PO DAILY 10/10/17 Cyclobenzaprine HCl 5 mg PO DAILY 10/10/17 Ferrous Sulfate [Feosol] 325 mg PO TID 10/10/17 Furosemide [Lasix] 40 mg PO DAILY 10/10/17 Gabapentin 100 mg PO DAILY 10/10/17 Oxycodone HCl 5 mg PO BID 10/10/17 Pantoprazole Sodium [Protonix] 40 mg PO DAILY 10/10/17 Sennosides [Senna] 8.6 mg PO HS 10/10/17 Sevelamer Carbonate [Renvela] 800 mg PO TID 10/10/17 Thiamine HCl 100 mg PO DAILY 10/10/17 Vitamin B Complex 1 each PO DAILY 10/10/17 hydrALAZINE HCL [Apresoline -] 100 mg PO TID 10/10/17 Family Disease History - Family Disease History Family Disease History: Diabetes: Mother (ESRD), Brother (ESRD), CA: Father ( stomach,), Other: Mother, Brother Review of Systems - Review of Systems Constitutional: reports: No Symptoms Eyes: reports: No Symptoms HENT: reports: No Symptoms Neck: reports: No Symptoms Cardiovascular: reports: No Symptoms Respiratory: reports: No Symptoms Gastrointestinal: reports: No Symptoms Genitourinary: reports: No Symptoms Musculoskeletal: reports: No Symptoms Integumentary: reports: No Symptoms Neurological: reports: No Symptoms Endocrine: reports: No Symptoms Hematology/Lymphatic: reports: No Symptoms Psychiatric: reports: No Symptoms Physical Exam Vital Signs: Vital Signs Temperature 97.8 F 10/10/17 06:30 Pulse Rate 81 10/10/17 06:30 Respiratory Rate 16 10/10/17 06:30 Blood Pressure 131/90 10/10/17 06:30 O2 Sat by Pulse Oximetry (%) 100 10/10/17 06:30 Constitutional: Yes: Calm Eyes: Yes: Conjunctiva Clear HENT: Yes: Atraumatic Neck: Yes: Supple Cardiovascular: Yes: S1, S2 Respiratory: Yes: CTA Bilaterally Gastrointestinal: Yes: Normal Bowel Sounds, Soft Musculoskeletal: Yes: WNL Extremities: Yes: Other (left arm fistula) Neurological: Yes: Oriented Psychiatric: Yes: Oriented Labs: CBC, BMP 10/10/17 07:55 10/10/17 07:55 Imaging - Results Chest X-ray: Report Reviewed Cat Scan: Report Reviewed Problem List - Problems (1) ESRD (end stage renal disease) on dialysis Code(s): N18.6 - END STAGE RENAL DISEASE; Z99.2 - DEPENDENCE ON RENAL DIALYSIS (2) Hyperkalemia Code(s): E87.5 - HYPERKALEMIA Assessment/Plan Current Medications Generic Name Dose Route Start Last Admin Trade Name Freq PRN Reason Stop Dose Admin Albuterol/Ipratropium amp 10/10/17 14:00 Duoneb - NEB QID TUNG Allopurinol 100 mg 10/10/17 22:00 Zyloprim - PO BID TUNG Amlodipine Besylate 10 mg 10/11/17 10:00 Norvasc - PO DAILY TUNG Cyclobenzaprine HCl 5 mg 10/11/17 10:00 Cyclobenzaprine Hcl PO DAILY TUNG Furosemide 40 mg 10/11/17 10:00 Lasix - PO DAILY TUNG Gabapentin 100 mg 10/11/17 10:00 Neurontin - PO DAILY [facility] Heparin Sodium (Porcine) 500 unit 10/10/17 12:30 Heparin - IVPUSH 10/10/17 14:31 Q1H TUNG Hydralazine HCl 100 mg 10/10/17 14:00 Apresoline - PO TID [facility] Sodium Chloride 250 mls @ 3,000 mls/hr 10/10/17 12:16 Normal Saline - IV 10/11/17 12:16 PRN PRN Hypotension during Dialysis Non-Formulary Medication 325 mg 10/10/17 14:00 Ferrous Sulfate [Feosol] PO TID TUNG Non-Formulary Medication 100 mg 10/11/17 10:00 Thiamine Hcl [Thiamine Hcl] PO DAILY [facility] Non-Formulary Medication 1 each 10/11/17 10:00 Vitamin B Complex [Vitamin B Complex] PO DAILY [facility] Pantoprazole Sodium 40 mg 10/11/17 10:00 Protonix - PO DAILY [facility] Senna tab 10/10/17 22:00 Senna - PO HS [facility] Sevelamer Carbonate 800 mg 10/10/17 14:00 Renvela - PO TID TUNG Impression 1. ESRD 2. anemia 3. HTN 4. non compliance 5. DM 6. hyperkalemia 7. change in mental status Plan - HD today - avoid sedatives for now - monitor bp - pt to be dialyzed at bedside in Tele - discussed with ER team Dr Almazan
[2017-10-10 13:29] VITALS: BMI 24.0
[2017-10-10] MEDS ORDERED: ACETAMINOPHEN 325 MG TABLET (FP) PO PRN (13:51)
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
[2017-10-10] MEDS: HEPARIN NA (PORCINE) 5,000 UNITS/ML 1ML VIAL IVPUSH SCH (15:18)
[2017-10-10] MEDS: ALBUTEROL SO4 2.5/IPRATROPIUM 0.5 INH SOL 3 ML VIAL.NEB. NEB SCH ×2 (16:00→20:50)
[2017-10-10] MEDS: FERROUS SO4 325 MG TABLET (FP) PO SCH ×2 (17:50→21:01)
[2017-10-10] MEDS: hydrALAZINE HCL 50 MG TABLET (FP) PO SCH ×2 (17:50→21:01)
[2017-10-10] MEDS: SEVELAMER CARBONATE 800 MG TAB (FP) PO SCH ×2 (17:51→21:02)
[2017-10-10 17:55] LABS: ANION GAP 10 (8-16); BLOOD UREA NITROGEN 22 mg/dL (7-18); CALCIUM 8.4 mg/dL (8.5-10.1); CHLORIDE 100 mmol/L (98-107); CO2 31 mmol/L (21-32); CREATININE 3.5 mg/dL (0.7-1.3); GLUCOSE,RANDOM 147 mg/dL (74-106); POTASSIUM 3.7 mmol/L (3.5-5.1); SODIUM 141 mmol/L (136-145)
[2017-10-10] MEDS: HEPARIN NA (PORCINE) 5,000 UNITS/ML 1ML VIAL SQ SCH (21:01)
[2017-10-10] MEDS: ALLOPURINOL 100 MG TABLET (FP) PO SCH (21:01)
[2017-10-10] MEDS: SENNOSIDES 8.6MG TABLET (FP) PO SCH (21:02)
[2017-10-11] MEDS: SEVELAMER CARBONATE 800 MG TAB (FP) PO SCH ×4 (06:32→17:20)
[2017-10-11] MEDS: hydrALAZINE HCL 50 MG TABLET (FP) PO SCH ×3 (06:36→21:00)
[2017-10-11] MEDS: FERROUS SO4 325 MG TABLET (FP) PO SCH ×3 (06:36→21:00)
[2017-10-11] MEDS: ALBUTEROL SO4 2.5/IPRATROPIUM 0.5 INH SOL 3 ML VIAL.NEB. NEB SCH ×4 (07:30→20:00)
[2017-10-11] MEDS: CYCLOBENZAPRINE HCL 10 MG TABLET (FP) PO SCH (09:32)
[2017-10-11] MEDS: FUROSEMIDE 40 MG TABLET (FP) PO SCH (09:34)
[2017-10-11] MEDS: GABAPENTIN 100 MG CAPSULE (FP) PO SCH (09:34)
[2017-10-11] MEDS: amLODIPine BESYLATE 10 MG TABLET (FP) PO SCH (09:34)
[2017-10-11] MEDS: PANTOPRAZOLE 40 MG TABLET (FP) PO SCH (09:34)
[2017-10-11] MEDS: HEPARIN NA (PORCINE) 5,000 UNITS/ML 1ML VIAL SQ SCH ×2 (09:34→21:00)
[2017-10-11] MEDS: ALLOPURINOL 100 MG TABLET (FP) PO SCH ×2 (09:35→21:00)
[2017-10-11] MEDS: THIAMINE HCL 100 MG TABLET (FP) PO SCH (09:35)
[2017-10-11] MEDS: VITAMIN B COMPLEX W/C COMBO TABLET (FP) PO SCH (09:35)
--- NOTE | 2017-10-11 12:33 | PN ---
Progress Note (short form) - Note Progress Note: Pt seen/ examined. comfortable no complains denies cp/ sob. Mild elevation of troponins Likley due to ckd ekg - ok will get cardiology eval stress test 2014- reviewed- essentially ok Vital Signs Temp 98 F 10/11/17 09:00 Pulse 88 10/11/17 09:00 Resp 20 10/11/17 09:00 BP 164/74 10/11/17 09:00 Pulse Ox 96 10/11/17 05:00 Intake & Output 10/10/17 10/11/17 10/11/17 23:59 11:59 23:59 Intake Total 370 Balance 370 Intake: IV 10 Normal Saline - 250 ml @ 10 3000 mls/hr IV PRN PRN Rx #:[id number] Oral 360 Other: Voiding Method Urinal Toilet # Unmeasured Voids Void 1 1 Active Medications Acetaminophen (Tylenol -) 650 mg PO Q4H PRN PRN Reason: PAIN LEVEL 1-5 Albuterol/Ipratropium (Duoneb -) 1 amp NEB RQID [facility] Last Admin: 10/11/17 11:35 Dose: Not Given Allopurinol (Zyloprim -) 100 mg PO BID [facility] Last Admin: 10/11/17 09:35 Dose: 100 mg Amlodipine Besylate (Norvasc -) 10 mg PO DAILY [facility] Last Admin: 10/11/17 09:34 Dose: 10 mg Cyclobenzaprine HCl (Flexeril -) 5 mg PO DAILY [facility] Last Admin: 10/11/17 09:32 Dose: 5 mg Ferrous Sulfate (Feosol -) 325 mg PO TID [facility] Last Admin: 10/11/17 06:36 Dose: 325 mg Furosemide (Lasix -) 40 mg PO DAILY [facility] Last Admin: 10/11/17 09:34 Dose: 40 mg Gabapentin (Neurontin -) 100 mg PO DAILY [facility] Last Admin: 10/11/17 09:34 Dose: 100 mg Heparin Sodium (Porcine) (Heparin -) 5,000 unit SQ BID [facility] Last Admin: 10/11/17 09:34 Dose: 5,000 unit Hydralazine HCl (Apresoline -) 100 mg PO TID [facility] Last Admin: 10/11/17 06:36 Dose: 100 mg Multivitamins (Total B With C -) 1 each PO DAILY [facility] Last Admin: 10/11/17 09:35 Dose: 1 each Pantoprazole Sodium (Protonix -) 40 mg PO DAILY [facility] Last Admin: 10/11/17 09:34 Dose: 40 mg Senna (Senna -) 2 tab PO HS [facility] Last Admin: 10/10/17 21:02 Dose: Not Given Sevelamer Carbonate (Renvela -) 800 mg PO TIDCM [facility] Last Admin: 10/11/17 08:31 Dose: 800 mg Thiamine HCl (Vitamin B1 -) 100 mg PO DAILY [facility] Last Admin: 10/11/17 09:35 Dose: 100 mg CBC, BMP 10/10/17 07:55 10/10/17 16:30 Abnormal Lab Results 10/10/17 10/11/17 16:30 05:30 BUN 22 H D Creatinine 3.5 H D Random Glucose 147 H D Calcium 8.4 L Troponin I 0.13 H Physical Examination Constitutional: Yes: No Distress, Calm. comfortbale Eyes: Yes: Conjunctiva Clear Neck: Yes: Supple. no jvd Cardiovascular: Yes: Regular Rate and Rhythm Respiratory: Yes: Diminished Gastrointestinal: Yes: Soft Extremities: Yes: Other (lue - fistula)- mild redness Edema: No Neurological: Yes: Alert Assessment/Plan stable avoid narcotics d/c planning - likely tomorrow cardiology eval -- +ve troponins Discussed with nursing staff also. will follow. Problem List - Problems (1) Altered mental state Code(s): R41.82 - ALTERED MENTAL STATUS, UNSPECIFIED (2) ESRD (end stage renal disease) on dialysis Code(s): N18.6 - END STAGE RENAL DISEASE; Z99.2 - DEPENDENCE ON RENAL DIALYSIS (3) Hyperkalemia Code(s): E87.5 - HYPERKALEMIA
--- NOTE | 2017-10-11 13:45 | PN ---
Progress Note, Physician History of Present Illness: Pt seen and examined at bedside. He is awake and alert. He has no complaints. - Current Medication List Current Medications: Active Medications Acetaminophen (Tylenol -) 650 mg PO Q4H PRN PRN Reason: PAIN LEVEL 1-5 Albuterol/Ipratropium (Duoneb -) 1 amp NEB RQID [facility] Last Admin: 10/11/17 11:35 Dose: Not Given Allopurinol (Zyloprim -) 100 mg PO BID [facility] Last Admin: 10/11/17 09:35 Dose: 100 mg Amlodipine Besylate (Norvasc -) 10 mg PO DAILY [facility] Last Admin: 10/11/17 09:34 Dose: 10 mg Bacitracin (Bacitracin -) 1 applic TP DAILY [facility] Cyclobenzaprine HCl (Flexeril -) 5 mg PO DAILY [facility] Last Admin: 10/11/17 09:32 Dose: 5 mg Ferrous Sulfate (Feosol -) 325 mg PO TID [facility] Last Admin: 10/11/17 06:36 Dose: 325 mg Furosemide (Lasix -) 40 mg PO DAILY [facility] Last Admin: 10/11/17 09:34 Dose: 40 mg Gabapentin (Neurontin -) 100 mg PO DAILY [facility] Last Admin: 10/11/17 09:34 Dose: 100 mg Heparin Sodium (Porcine) (Heparin -) 5,000 unit SQ BID [facility] Last Admin: 10/11/17 09:34 Dose: 5,000 unit Hydralazine HCl (Apresoline -) 100 mg PO TID [facility] Last Admin: 10/11/17 06:36 Dose: 100 mg Multivitamins (Total B With C -) 1 each PO DAILY [facility] Last Admin: 10/11/17 09:35 Dose: 1 each Pantoprazole Sodium (Protonix -) 40 mg PO DAILY [facility] Last Admin: 10/11/17 09:34 Dose: 40 mg Senna (Senna -) 2 tab PO HS [facility] Last Admin: 10/10/17 21:02 Dose: Not Given Sevelamer Carbonate (Renvela -) 800 mg PO TIDCM [facility] Last Admin: 10/11/17 08:31 Dose: 800 mg Thiamine HCl (Vitamin B1 -) 100 mg PO DAILY [facility] Last Admin: 10/11/17 09:35 Dose: 100 mg - Objective Vital Signs: Vital Signs Temperature 98 F 10/11/17 09:00 Pulse Rate 88 10/11/17 09:00 Respiratory Rate 20 10/11/17 09:00 Blood Pressure 164/74 10/11/17 09:00 O2 Sat by Pulse Oximetry (%) 96 10/11/17 05:00 Constitutional: Yes: Calm Eyes: Yes: Conjunctiva Clear HENT: Yes: Atraumatic Neck: Yes: Supple Cardiovascular: Yes: S1, S2 Respiratory: Yes: CTA Bilaterally Gastrointestinal: Yes: Soft Genitourinary: Yes: WNL Musculoskeletal: Yes: WNL Extremities: Yes: WNL Edema: No Neurological: Yes: Oriented Psychiatric: Yes: Oriented Labs: CBC, BMP 10/10/17 07:55 10/10/17 16:30 Problem List - Problems (1) ESRD (end stage renal disease) on dialysis Code(s): N18.6 - END STAGE RENAL DISEASE; Z99.2 - DEPENDENCE ON RENAL DIALYSIS (2) Hyperkalemia Code(s): E87.5 - HYPERKALEMIA Assessment/Plan Current Medications Generic Name Dose Route Start Last Admin Trade Name Freq PRN Reason Stop Dose Admin Acetaminophen 650 mg 10/10/17 13:51 Tylenol - PO Q4H PRN PAIN LEVEL 1-5 Albuterol/Ipratropium 1 amp 10/10/17 16:00 10/11/17 11:35 Duoneb - NEB Not Given RQID TUNG Allopurinol 100 mg 10/10/17 22:00 10/11/17 09:35 Zyloprim - PO 100 mg BID TUNG Administration Amlodipine Besylate 10 mg 10/11/17 10:00 10/11/17 09:34 Norvasc - PO 10 mg DAILY TUNG Administration Bacitracin 1 applic 10/11/17 12:45 Bacitracin - TP DAILY TUNG Cyclobenzaprine HCl 5 mg 10/11/17 10:00 10/11/17 09:32 Flexeril - PO 5 mg DAILY TUNG Administration Ferrous Sulfate 325 mg 10/10/17 14:00 10/11/17 06:36 Feosol - PO 325 mg TID TUNG Administration Furosemide 40 mg 10/11/17 10:00 10/11/17 09:34 Lasix - PO 40 mg DAILY TUNG Administration Gabapentin 100 mg 10/11/17 10:00 10/11/17 09:34 Neurontin - PO 100 mg DAILY TUNG Administration Heparin Sodium (Porcine) 5,000 unit 10/10/17 22:00 10/11/17 09:34 Heparin - SQ 5,000 unit BID TUNG Administration Hydralazine HCl 100 mg 10/10/17 14:00 10/11/17 06:36 Apresoline - PO 100 mg TID TUNG Administration Multivitamins 1 each 10/11/17 10:00 10/11/17 09:35 Total B With C - PO 1 each DAILY [facility]UNG Administration Pantoprazole Sodium 40 mg 10/11/17 10:00 10/11/17 09:34 Protonix - PO 40 mg DAILY TUNG Administration Senna 2 tab 10/10/17 22:00 10/10/17 21:02 Senna - PO Not Given HS TUNG Sevelamer Carbonate 800 mg 10/11/17 08:00 10/11/17 08:31 Renvela - PO 800 mg TIDCM TUNG Administration Thiamine HCl 100 mg 10/11/17 10:00 10/11/17 09:35 Vitamin B1 - PO 100 mg DAILY TUNG Administration Impression 1. ESRD 2. anemia 3. HTN 4. non compliance 5. DM 6. hyperkalemia 7. change in mental status Plan - pt tolerated HD yesterday - next HD on Thursday - mental status improved, he says he may have taken 3 pills of oxycodone before he had the episode - avoid sedatives for now - will follow Dr Almazan
[2017-10-11] MEDS: BACITRACIN 15 GM TUBE TOPICAL OINTMENT TP SCH (13:56)
[2017-10-11] MEDS: SENNOSIDES 8.6MG TABLET (FP) PO SCH (21:01)
[2017-10-12] MEDS: hydrALAZINE HCL 50 MG TABLET (FP) PO SCH ×2 (06:00→14:12)
[2017-10-12] MEDS: FERROUS SO4 325 MG TABLET (FP) PO SCH ×2 (06:00→14:12)
[2017-10-12] MEDS: ALBUTEROL SO4 2.5/IPRATROPIUM 0.5 INH SOL 3 ML VIAL.NEB. NEB SCH ×3 (07:43→15:23)
[2017-10-12] MEDS: SEVELAMER CARBONATE 800 MG TAB (FP) PO SCH ×2 (08:37→12:26)
--- NOTE | 2017-10-12 09:30 | PN ---
Progress Note, Physician Chief Complaint: cardio - Current Medication List Current Medications: Active Medications Acetaminophen (Tylenol -) 650 mg PO Q4H PRN PRN Reason: PAIN LEVEL 1-5 Last Admin: 10/12/17 03:44 Dose: 650 mg Albuterol/Ipratropium (Duoneb -) 1 amp NEB RQID [facility] Last Admin: 10/12/17 07:43 Dose: 1 amp Allopurinol (Zyloprim -) 100 mg PO BID [facility] Last Admin: 10/11/17 21:00 Dose: 100 mg Amlodipine Besylate (Norvasc -) 10 mg PO DAILY [facility] Last Admin: 10/11/17 09:34 Dose: 10 mg Bacitracin (Bacitracin -) 1 applic TP DAILY [facility] Last Admin: 10/11/17 13:56 Dose: 1 applic Cyclobenzaprine HCl (Flexeril -) 5 mg PO DAILY [facility] Last Admin: 10/11/17 09:32 Dose: 5 mg Ferrous Sulfate (Feosol -) 325 mg PO TID [facility] Last Admin: 10/12/17 06:00 Dose: 325 mg Furosemide (Lasix -) 40 mg PO DAILY [facility] Last Admin: 10/11/17 09:34 Dose: 40 mg Gabapentin (Neurontin -) 100 mg PO DAILY [facility] Last Admin: 10/11/17 09:34 Dose: 100 mg Heparin Sodium (Porcine) (Heparin -) 5,000 unit SQ BID [facility] Last Admin: 10/11/17 21:00 Dose: 5,000 unit Hydralazine HCl (Apresoline -) 100 mg PO TID [facility] Last Admin: 10/12/17 06:00 Dose: 100 mg Multivitamins (Total B With C -) 1 each PO DAILY [facility] Last Admin: 10/11/17 09:35 Dose: 1 each Pantoprazole Sodium (Protonix -) 40 mg PO DAILY [facility] Last Admin: 10/11/17 09:34 Dose: 40 mg Senna (Senna -) 2 tab PO HS [facility] Last Admin: 10/11/17 21:01 Dose: Not Given Sevelamer Carbonate (Renvela -) 800 mg PO TIDCM [facility] Last Admin: 10/12/17 08:37 Dose: 800 mg Thiamine HCl (Vitamin B1 -) 100 mg PO DAILY [facility] Last Admin: 10/11/17 09:35 Dose: 100 mg - Objective Vital Signs: Vital Signs Temperature 98.0 F 10/12/17 08:09 Pulse Rate 82 10/12/17 08:09 Respiratory Rate 20 10/12/17 08:09 Blood Pressure 143/70 10/12/17 08:09 O2 Sat by Pulse Oximetry (%) 95 10/11/17 19:42 Labs: CBC, BMP 10/10/17 07:55 10/10/17 16:30 Assessment/Plan Echo 2015: nl LV/EF, no RWMA; nl RV; nl valve fxn; nl ao root; no peric eff--dr [place] review: moderate concentric LVH with E:A ratio <1 MPI (persantine) 2015: prob no ischemia normal LVF HTN: -h/o HTN emergency (sec to cocaine) 2014 with flash pulm edema/resp failure -bp controled at that time with amlodip, clonidine, hydralazine, nitrates h/o NSTEMI, ? coronary vasospasm event sec to cocaine: -trop of 3.6 2015 in setting of HTN emergency/cocaine-->flash pulm edema, felt likely type 2 NC -rx'd ASA, iatorva 40 -deferred BB given active cocaine abuse and clinical suspicion of possible coronary vasospasm as cause of NC (normal perfusion scans) ESRD on HD: -per renal h/o polysubstance abuse -pt counselled on CV and other risks (incl ) and benefits of abstinence
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
[2017-10-12] MEDS: amLODIPine BESYLATE 10 MG TABLET (FP) PO SCH (09:57)
[2017-10-12] MEDS: CYCLOBENZAPRINE HCL 10 MG TABLET (FP) PO SCH (09:58)
[2017-10-12] MEDS: ALLOPURINOL 100 MG TABLET (FP) PO SCH (09:58)
[2017-10-12] MEDS: PANTOPRAZOLE 40 MG TABLET (FP) PO SCH (09:58)
[2017-10-12] MEDS: GABAPENTIN 100 MG CAPSULE (FP) PO SCH (09:58)
[2017-10-12] MEDS: FUROSEMIDE 40 MG TABLET (FP) PO SCH (09:58)
[2017-10-12] MEDS: HEPARIN NA (PORCINE) 5,000 UNITS/ML 1ML VIAL SQ SCH (09:58)
[2017-10-12] MEDS: THIAMINE HCL 100 MG TABLET (FP) PO SCH (09:58)
[2017-10-12] MEDS ORDERED: PT OWN MED DRAWER 7, Y5N ONE (12:19)
[2017-10-12] MEDS: VITAMIN B COMPLEX W/C COMBO TABLET (FP) PO SCH (12:26)
[2017-10-12] MEDS: BACITRACIN 15 GM TUBE TOPICAL OINTMENT TP SCH (12:27)
--- NOTE | 2017-10-12 13:54 | DS ---
Physical Examination Vital Signs: Vital Signs Temperature 98.0 F 10/12/17 08:09 Pulse Rate 82 10/12/17 08:09 Respiratory Rate 20 10/12/17 08:09 Blood Pressure 143/70 10/12/17 08:09 O2 Sat by Pulse Oximetry (%) 95 10/11/17 19:42 Labs: CBC, BMP 10/10/17 07:55 10/10/17 16:30 Discharge Summary Reason For Visit: ESRD ON DIALYSIS, HYPERKALEMIA Current Active Problems Altered mental state (Acute) ESRD (end stage renal disease) on dialysis (Acute) Hyperkalemia (Acute) - Instructions - Home Medications Comprehensive Discharge Medication List: Ambulatory Orders Albuterol 2.5/Ipratropium 0.5 [Duoneb -] 1 neb IH QID 10/10/17 Allopurinol [Zyloprim -] 100 mg PO BID 10/10/17 Amlodipine Besylate [Norvasc -] 10 mg PO DAILY 10/10/17 Cyclobenzaprine HCl 5 mg PO DAILY 10/10/17 Ferrous Sulfate [Feosol] 325 mg PO TID 10/10/17 Furosemide [Lasix] 40 mg PO DAILY 10/10/17 Gabapentin 100 mg PO DAILY 10/10/17 Pantoprazole Sodium [Protonix] 40 mg PO DAILY 10/10/17 Sennosides [Senna] 8.6 mg PO HS 10/10/17 Sevelamer Carbonate [Renvela -] 800 mg PO TID 10/10/17 Thiamine HCl 100 mg PO DAILY 10/10/17 Vitamin B Complex 1 each PO DAILY 10/10/17 hydrALAZINE HCL [Apresoline -] 100 mg PO TID 10/10/17 Acetaminophen [Tylenol .Regular Strength -] 650 mg PO Q4H PRN tablet 10/12/17 Bacitracin - [Bacitracin Topical Ointment -] 1 applic TP DAILY #1 tube 10/12/17 Thiamine HCl [Vitamin B1 -] 100 mg PO DAILY tablet 10/12/17
[2017-10-12 15:32] VITALS: BP 149/61; PULSE 78; TEMP 98
--- NOTE | 2017-10-12 15:35 | PN ---
Progress Note, Physician History of Present Illness: Pt seen and examined at bedside. He is awake and alert. He denies shortness of breath. - Current Medication List Current Medications: Active Medications Acetaminophen (Tylenol -) 650 mg PO Q4H PRN PRN Reason: PAIN LEVEL 1-5 Last Admin: 10/12/17 03:44 Dose: 650 mg Albuterol/Ipratropium (Duoneb -) 1 amp NEB RQID [facility] Last Admin: 10/12/17 15:23 Dose: 1 amp Allopurinol (Zyloprim -) 100 mg PO BID [facility] Last Admin: 10/12/17 09:58 Dose: 100 mg Amlodipine Besylate (Norvasc -) 10 mg PO DAILY [facility] Last Admin: 10/12/17 09:57 Dose: 10 mg Bacitracin (Bacitracin -) 1 applic TP DAILY [facility] Last Admin: 10/12/17 12:27 Dose: Not Given Cyclobenzaprine HCl (Flexeril -) 5 mg PO DAILY [facility] Last Admin: 10/12/17 09:58 Dose: 5 mg Ferrous Sulfate (Feosol -) 325 mg PO TID [facility] Last Admin: 10/12/17 14:12 Dose: 325 mg Furosemide (Lasix -) 40 mg PO DAILY [facility] Last Admin: 10/12/17 09:58 Dose: 40 mg Gabapentin (Neurontin -) 100 mg PO DAILY [facility] Last Admin: 10/12/17 09:58 Dose: 100 mg Heparin Sodium (Porcine) (Heparin -) 5,000 unit SQ BID [facility] Last Admin: 10/12/17 09:58 Dose: 5,000 unit Hydralazine HCl (Apresoline -) 100 mg PO TID [facility] Last Admin: 10/12/17 14:12 Dose: 100 mg Multivitamins (Total B With C -) 1 each PO DAILY [facility] Last Admin: 10/12/17 12:26 Dose: 1 each Pantoprazole Sodium (Protonix -) 40 mg PO DAILY [facility] Last Admin: 10/12/17 09:58 Dose: 40 mg Senna (Senna -) 2 tab PO HS [facility] Last Admin: 10/11/17 21:01 Dose: Not Given Sevelamer Carbonate (Renvela -) 800 mg PO TIDCM [facility] Last Admin: 10/12/17 12:26 Dose: 800 mg Thiamine HCl (Vitamin B1 -) 100 mg PO DAILY [facility] Last Admin: 10/12/17 09:58 Dose: 100 mg - Objective Vital Signs: Vital Signs Temperature 98 F 10/12/17 15:21 Pulse Rate 78 10/12/17 15:21 Respiratory Rate 18 10/12/17 15:21 Blood Pressure 149/61 10/12/17 15:21 O2 Sat by Pulse Oximetry (%) 95 10/12/17 13:00 Constitutional: Yes: Calm Eyes: Yes: Conjunctiva Clear HENT: Yes: Atraumatic Neck: Yes: Supple Cardiovascular: Yes: S1, S2 Respiratory: Yes: CTA Bilaterally Gastrointestinal: Yes: Normal Bowel Sounds, Soft Genitourinary: Yes: WNL Musculoskeletal: Yes: WNL Edema: No Neurological: Yes: Oriented Psychiatric: Yes: Oriented Labs: CBC, BMP 10/10/17 07:55 10/10/17 16:30 Problem List - Problems (1) ESRD (end stage renal disease) on dialysis Code(s): N18.6 - END STAGE RENAL DISEASE; Z99.2 - DEPENDENCE ON RENAL DIALYSIS (2) Hyperkalemia Code(s): E87.5 - HYPERKALEMIA Assessment/Plan Current Medications Generic Name Dose Route Start Last Admin Trade Name Freq PRN Reason Stop Dose Admin Acetaminophen 650 mg 10/10/17 13:51 10/12/17 03:44 Tylenol - PO 650 mg Q4H PRN Administration PAIN LEVEL 1-5 Albuterol/Ipratropium 1 amp 10/10/17 16:00 10/12/17 15:23 Duoneb - NEB 1 amp RQID TUNG Administration Allopurinol 100 mg 10/10/17 22:00 10/12/17 09:58 Zyloprim - PO 100 mg BID TUNG Administration Amlodipine Besylate 10 mg 10/11/17 10:00 10/12/17 09:57 Norvasc - PO 10 mg DAILY TUNG Administration Bacitracin 1 applic 10/11/17 12:45 10/12/17 12:27 Bacitracin - TP Not Given DAILY [facility] Cyclobenzaprine HCl 5 mg 10/11/17 10:00 10/12/17 09:58 Flexeril - PO 5 mg DAILY TUNG Administration Ferrous Sulfate 325 mg 10/10/17 14:00 10/12/17 14:12 Feosol - PO 325 mg TID TUNG Administration Furosemide 40 mg 10/11/17 10:00 10/12/17 09:58 Lasix - PO 40 mg DAILY TUNG Administration Gabapentin 100 mg 10/11/17 10:00 10/12/17 09:58 Neurontin - PO 100 mg DAILY TUNG Administration Heparin Sodium (Porcine) 5,000 unit 10/10/17 22:00 10/12/17 09:58 Heparin - SQ 5,000 unit BID TUNG Administration Hydralazine HCl 100 mg 10/10/17 14:00 10/12/17 14:12 Apresoline - PO 100 mg TID TUNG Administration Multivitamins 1 each 10/11/17 10:00 10/12/17 12:26 Total B With C - PO 1 each DAILY TUNG Administration Pantoprazole Sodium 40 mg 10/11/17 10:00 10/12/17 09:58 Protonix - PO 40 mg DAILY TUNG Administration Senna 2 tab 10/10/17 22:00 10/11/17 21:01 Senna - PO Not Given HS TUNG Sevelamer Carbonate 800 mg 10/11/17 08:00 10/12/17 12:26 Renvela - PO 800 mg TIDCM TUNG Administration Thiamine HCl 100 mg 10/11/17 10:00 10/12/17 09:58 Vitamin B1 - PO 100 mg DAILY TUNG Administration Impression 1. ESRD 2. anemia 3. HTN 4. non compliance 5. DM 6. hyperkalemia 7. change in mental status Plan - next HD tomorrow, pt has HD set up as outpt - will dialyze here if he does not leave - avoid sedatives - will follow Dr Almazan
[2017-10-13 00:07] LABS: HBSAG SCREEN Negative (Negative); HEP A AB, IGM Negative (Negative); HEP B CORE AB, TOT Negative (Negative)
[2017-10-13 06:06] LABS: HBSAG SCREEN Negative (Negative); HEP A AB, IGM Negative (Negative); HEP B CORE AB, TOT Negative (Negative)
--- NOTE | 2017-10-14 16:07 | EKG ---
Test Reason : Blood Pressure : / mmHG Vent. Rate : 090 BPM Atrial Rate : 090 BPM P-R Int : 182 ms QRS Dur : 078 ms QT Int : 380 ms P-R-T Axes : 028 060 026 degrees QTc Int : 464 ms POOR DATA QUALITY, INTERPRETATION MAY BE ADVERSELY AFFECTED NORMAL SINUS RHYTHM CANNOT RULE OUT ANTERIOR INFARCT (CITED ON OR BEFORE 22-SEP-2016) ABNORMAL ECG WHEN COMPARED WITH ECG OF 10-OCT-2017 07:51, NO SIGNIFICANT CHANGE WAS FOUND Confirmed by DARBY WAKEFIELD MD ([id number]) on 10/14/2017 4:06:49 PM Referred By: Confirmed By:DARBY WAKEFIELD MD
== END 2017-10-12 17:35 ==
LOC: JER 06:26 → JERBED 11:09 → J4W 12:32
PROVIDERS: ADMIT Internal Medicine; ATTEND Internal Medicine
PROC: 3E033VG Introduction of Insulin into Peripheral Vein, Percutaneous Approach (ICD-10-PCS; principal; 2017-10-10)
PROC: 3E033GC Introduction of Other Therapeutic Substance into Peripheral Vein, Percutaneous Approach (ICD-10-PCS; 2017-10-10)
PROC: 3E0F7GC Introduction of Other Therapeutic Substance into Respiratory Tract, Via Natural or Artificial Opening (ICD-10-PCS; 2017-10-10)
DX: E87.5 Hyperkalemia (principal); R41.82 Altered mental status, unspecified; E11.22 Type 2 diabetes mellitus with diabetic chronic kidney disease; I12.0 Hypertensive chronic kidney disease with stage 5 chronic kidney disease or end stage renal disease; N18.6 End stage renal disease; Z99.2 Dependence on renal dialysis; I25.2 Old myocardial infarction; D64.9 Anemia, unspecified; Z91.19 Patient's noncompliance with other medical treatment and regimen; Z91.011 Allergy to milk products
CPT/HCPCS: 36415; 70450-TC; 71045-TC-FY; 80048; 80053; 80307; 82550; 82553; 83735; 84484; 85025; 86704; 86706; 86708; 87340; 93005; 93010; 93306-TC; 94640; 96372; 96374; 96375; 96376; 99283-25; G0378; J1644; J7620

== ENCOUNTER 2019-06-16 11:10 | Inpatient (IN) | payer OTHER ==
[2019-06-16 11:25] VITALS: BMI 25.1
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
[2019-06-16 14:08] LABS: BASO % 1.4 % (0-2.0); EOS % 5.3 % (0-4.5); HEMOGLOBIN 12.5 GM/dL (11.7-16.9); MCH 31.2 pg (25.7-33.7); MEAN CELL VOLUME 97.5 fl (80-96); MEAN PLT VOLUME 8.2 fl (7.5-11.1); MONO % 9.4 % (3.8-10.2); NEUT % 50.9 % (42.8-82.8); PLATELET COUNT 233 K/MM3 (134-434); RDW 16.7 % (11.9-15.9); WHITE BLOOD COUNT 11.7 K/mm3 (4.0-10.0)
[2019-06-16 15:22] LABS: ALBUMIN 3.6 g/dl (3.4-5.0); BILIRUBIN,TOTAL 0.4 mg/dL (0.2-1); CALCIUM 8.5 mg/dL (8.5-10.1); TOT PROT 8.5 g/dl (6.4-8.2)
[2019-06-16 15:25] LABS: CREATININE 10.3 mg/dL (0.55-1.3)
[2019-06-16 15:26] LABS: POTASSIUM 6.3 mmol/L (3.5-5.1)
--- NOTE | 2019-06-16 15:27 | CONSULT ---
Consult Consult Specialty:: Nephrology Reason for Consultation:: ESRD - History of Present Illness Chief Complaint: av fistula not working History of Present Illness: Pt is a 59 year old male with pmhx of esrd who is on a TTS schedule. He presents to the ER saying that his fistula is not working. He says that he HD machine kept alarming on Thursday and he did not get his full treatment. He denies chest pain or shortness of breath. He denies palpitations. He denies fever or chills. He goes to [facility] for HD. - History Source History Provided By: Patient - Past Medical History Cardio/Vascular: Yes: HTN, Hyperlipdemia Renal/: Yes: Renal Inusuff, Hemodialysis Endocrine: Yes: Diabetes Mellitus Additional Medical History: polysubstance abuse - Past Surgical History Past Surgical History: Yes: AV Fistula/Graft - Alcohol/Substance Use Hx Alcohol Use: No History of Substance Use: reports: Cocaine, Heroin, Marijuana - Smoking History Smoking history: Never smoked Have you smoked in the past 12 months: No - Social History Usual Living Arrangement: Assisted Living Home Medications - Allergies Allergies/Adverse Reactions: Allergies Allergy/AdvReac Type Severity Reaction Status Date / Time No Known Drug Allergies Allergy Unknown Verified 10/10/17 06:30 lactose AdvReac Unknown LACTOSE Verified 10/10/17 06:30 INTOLERANCE - Home Medications Home Medications: Ambulatory Orders Ferrous Sulfate [Feosol] 325 mg PO DAILY 10/10/17 Furosemide [Lasix] 40 mg PO DAILY 10/10/17 Gabapentin 300 mg PO DAILY 10/10/17 Sennosides [Senna] 8.6 mg PO HS 10/10/17 Sevelamer Carbonate [Renvela -] 800 mg PO TID 10/10/17 Acetaminophen [Tylenol .Regular Strength -] 650 mg PO Q4H PRN tablet 10/12/17 Bacitracin - [Bacitracin Topical Ointment -] 1 applic TP DAILY #1 tube 10/12/17 Thiamine HCl [Vitamin B1 -] 100 mg PO DAILY tablet 10/12/17 Oxycodone HCl/Acetaminophen [Oxycodone-Acetaminophen 5-325] 1 tab PO BID PRN Family Medical History Family History: Denies Review of Systems - Review of Systems Constitutional: reports: No Symptoms Eyes: reports: No Symptoms HENT: reports: No Symptoms Neck: reports: No Symptoms Cardiovascular: reports: No Symptoms Respiratory: reports: No Symptoms Gastrointestinal: reports: No Symptoms Genitourinary: reports: No Symptoms Musculoskeletal: reports: No Symptoms Integumentary: reports: No Symptoms Neurological: reports: No Symptoms Endocrine: reports: No Symptoms Hematology/Lymphatic: reports: No Symptoms Psychiatric: reports: No Symptoms Physical Exam Vital Signs: Vital Signs Temperature 98.1 F 06/16/19 11:20 Pulse Rate 61 06/16/19 11:20 Respiratory Rate 16 06/16/19 11:20 Blood Pressure 154/73 06/16/19 11:20 O2 Sat by Pulse Oximetry (%) 99 06/16/19 11:20 Constitutional: Yes: Calm Eyes: Yes: Conjunctiva Clear HENT: Yes: Atraumatic Neck: Yes: Supple Cardiovascular: Yes: S1, S2 Respiratory: Yes: CTA Bilaterally Gastrointestinal: Yes: Normal Bowel Sounds, Soft Renal/: Yes: WNL Musculoskeletal: Yes: WNL Extremities: Yes: Other (fistula with thrill and bruit) Edema: No Neurological: Yes: Oriented Psychiatric: Yes: Oriented Labs: CBC, BMP 06/16/19 13:49 Problem List - Problems (1) AV fistula Code(s): I77.0 - ARTERIOVENOUS FISTULA, ACQUIRED Assessment/Plan Impression 1. ESRD 2. anemia 3. HTN 4. non compliance 5. DM 6. avf dysfunction Plan - follow bmp - check ultrasound of access - discussed with ER - will wait for labs - fistula with thrill and bruit
[2019-06-16] MEDS ORDERED: INSULIN REGULAR HUMAN 100 UNITS/ML *VIAL IVPUSH ONE (15:32)
[2019-06-16] MEDS ORDERED: DEXTROSE 50%-WATER - 25 GM/50 ML VIAL IVPUSH ONE (15:33)
[2019-06-16] MEDS ORDERED: SODIUM BICARBONATE 8.4% 50 MEQ/50 ML DISP.SYRIN IVPUSH ONE (15:35)
--- NOTE | 2019-06-16 15:36 | PN ---
Progress Note (short form) - Note Progress Note: Laboratory Tests 06/16/19 06/16/19 13:49 13:49 WBC 11.7 H Potassium 6.3 H* - spoke to vascular, they evaluated ultrasound and recommend to use the fistula - treat potassium medically in er - discussed with er as well Problem List - Problems (1) AV fistula Code(s): I77.0 - ARTERIOVENOUS FISTULA, ACQUIRED
--- NOTE | 2019-06-16 18:04 | PN ---
Teaching Attending Note Name of Resident: Daniel Salmeron ATTENDING PHYSICIAN STATEMENT I saw and evaluated the patient. I reviewed the resident's note and discussed the case with the resident. I agree with the resident's findings and plan as documented. SUBJECTIVE: Feels well, complains of mild discomfort at LUE AV fistula site. No erythema/exudate/fever/chills. OBJECTIVE: Afebrile, Hemodynamically stable. Last Vital Signs Temp Pulse Resp BP Pulse Ox 98.1 F 61 16 154/73 99 06/16/19 11:20 06/16/19 11:20 06/16/19 11:20 06/16/19 11:06/16/19 11:20 HEENT - Atraumatic, normocephalic. Heart - S1, S2, RRR Lungs - clear to auscultation Abdomen - soft, non-tender. Bowel Sounds normal. Extremities - No edema, no calf tenderness. LUE AVF - no erythema/exudate. Bruit /Thrill present. Neuro - AAO x 3. Tone/Power normal all extremities. Laboratory Results - last 24 hr 06/16/19 06/16/19 13:49 13:49 WBC 11.7 H RBC 4.00 Hgb 12.5 Hct 39.0 MCV 97.5 H MCH 31.2 MCHC 32.0 RDW 16.7 H Plt Count 233 D MPV 8.2 D Absolute Neuts (auto) 5.9 Neutrophils % 50.9 D Lymphocytes % 33.0 D Monocytes % 9.4 Eosinophils % 5.3 H D Basophils % 1.4 Nucleated RBC % 0 Sodium 139 Potassium 6.3 H* Chloride 107 Carbon Dioxide 26 Anion Gap 6 L BUN 77.0 H Creatinine 10.3 H* Est GFR (CKD-EPI)AfAm 5.63 Est GFR (CKD-EPI)NonAf 4.86 Random Glucose 65 L Calcium 8.5 Total Bilirubin 0.4 AST 19 ALT 14 Alkaline Phosphatase 179 H Total Protein 8.5 H Albumin 3.6 Current Medications Generic Name Dose Route Start Last Admin Trade Name Freq PRN Reason Stop Dose Admin Heparin Sodium (Porcine) 1,000 unit 06/16/19 15:36 Heparin - IVPUSH 06/16/19 15:37 ONCE ONE Heparin Sodium (Porcine) 500 unit 06/16/19 15:45 Heparin - IVPUSH 06/16/19 17:46 Q1H TUNG Sodium Chloride 250 mls @ 3,000 mls/hr 06/16/19 15:36 Normal Saline - IV 06/17/19 15:36 PRN PRN Hypotension during Dialysis Home Medications Medication Instructions Recorded Ferrous Sulfate [Feosol] 325 mg PO DAILY 10/10/17 Furosemide [Lasix] 40 mg PO DAILY 10/10/17 Gabapentin 300 mg PO DAILY 10/10/17 Sennosides [Senna] 8.6 mg PO HS 10/10/17 Sevelamer Carbonate [Renvela -] 800 mg PO TID 10/10/17 Acetaminophen [Tylenol .Regular 650 mg PO Q4H PRN tablet 10/12/17 Strength -] Bacitracin - [Bacitracin Topical 1 applic TP DAILY #1 tube 10/12/17 Ointment -] Thiamine HCl [Vitamin B1 -] 100 mg PO DAILY tablet 10/12/17 Oxycodone HCl/Acetaminophen 1 tab PO BID PRN 12/22/18 [Oxycodone-Acetaminophen 5-325] ASSESSMENT AND PLAN: 59 year old male with history of prior substance abuse (heroin, cocaine, MJ), ESRD on HD TTS reports that his fistula is not working. Mild tenderness over fistula but no discharge from fistula. No fever/chills. 1. Hyperkalemia sec to ESRD on HD TTS Duplex UE - patent AV fistula with mural thrombus but no evidence of hemodnamically significant stenosis Eval by Nephrology - for HD today Insulin/Dextrose as temporizing measure for hyperkalemia. Vascular Surgery consulted. 2. HTN - does not appear to be on anti-hypertensives, needs formal med rec. 3. Reported DM 2 - patient denies having DM 2, all prior A1Cs < 6.0. Serum Glu 65 on admission. Not on Insulin. Will monitor. 4. History of Substance abuse (heroin, cocaine, MJ) - not used for > 1 year. No evidence of withdrawal currently. DVT Px - Heparin SQ
--- NOTE | 2019-06-16 18:23 | HP ---
PCP: Dr. Mendez/Pavan HISTORY OF PRESENT ILLNESS: This is a 59 y/o gentleman w a PMH of ESRD (T,Th,Sat ), HLD, HTN, polysubstance abuse hx (heroin, cocaine, marijuana), who presents from [facility] for investigation of LUE AV fistula. Pt was at dialysis on thursday and his AV fistula was not working properly stating that the dialysis machine alarms kept going off and it only laste less than 5 mins. Patient states he had been told there was something wrong at [facility] previously when he presented there but refused to elaborate on it. Pt denies any other acute complaints. ER course was notable for: (1)K-6.3, insulin d50, kayexalate given, Glu- 65 prior to insulin (2)Cr- 10.3 (3)DVT of LUE showing ? mural thrombus vs plaque without hemodynamically significant stenosis PAST SURGICAL HISTORY: AV fistula (Lt), ganglion cyst, left big toe amputation, splenectomy Social History: Smoking:denies tobacco, admits to marijuana use in past Alcohol:denies Drugs: past use doesnt wish to elaborate on how long hes been using heroin, cocaine- he snorted both Allergies No Known Drug Allergies Allergy (Unknown, Verified 10/10/17 06:30) lactose Adverse Reaction (Unknown, Verified 10/10/17 06:30) LACTOSE INTOLERANCE LACTOSE INTOLERANCE HOME MEDICATIONS: Home Medications Medication Instructions Recorded Ferrous Sulfate [Feosol] 325 mg PO DAILY 10/10/17 Furosemide [Lasix] 40 mg PO DAILY 10/10/17 Gabapentin 300 mg PO DAILY 10/10/17 Sennosides [Senna] 8.6 mg PO HS 10/10/17 Sevelamer Carbonate [Renvela -] 800 mg PO TID 10/10/17 Acetaminophen [Tylenol .Regular 650 mg PO Q4H PRN tablet 10/12/17 Strength -] Bacitracin - [Bacitracin Topical 1 applic TP DAILY #1 tube 10/12/17 Ointment -] Thiamine HCl [Vitamin B1 -] 100 mg PO DAILY tablet 10/12/17 Oxycodone HCl/Acetaminophen 1 tab PO BID PRN 12/22/18 [Oxycodone-Acetaminophen 5-325] REVIEW OF SYSTEMS negative except above PHYSICAL EXAMINATION Vital Signs - 24 hr 06/16/19 11:20 Temperature 98.1 F Pulse Rate 61 Respiratory 16 Rate Blood Pressure 154/73 O2 Sat by Pulse 99 Oximetry (%) GENERAL: Awake, alert, and fully oriented, in no acute distress. LUNGS: Breath sounds equal, clear to auscultation bilaterally. No wheezes, and no crackles. HEART: Regular rate and rhythm, normal S1 and S2 without murmur, rub or gallop. UPPER EXTREMITIES: 2+ pulses, warm, throbbing pulse in AV fistula consistent w prior per patient, no discharge or swelling LOWER EXTREMITIES: 2+ pulses, warm, big toe partial amputation on rt side, No calf tenderness. No peripheral edema. PSYCHIATRIC: Cooperative. Good eye contact. Appropriate mood and affect. SKIN: Warm, dry, normal turgor, no rashes or lesions noted, normal capillary refill. Laboratory Results - last 24 hr 06/16/19 06/16/19 13:49 13:49 WBC 11.7 H RBC 4.00 Hgb 12.5 Hct 39.0 MCV 97.5 H MCH 31.2 MCHC 32.0 RDW 16.7 H Plt Count 233 D MPV 8.2 D Absolute Neuts (auto) 5.9 Neutrophils % 50.9 D Lymphocytes % 33.0 D Monocytes % 9.4 Eosinophils % 5.3 H D Basophils % 1.4 Nucleated RBC % 0 Sodium 139 Potassium 6.3 H* Chloride 107 Carbon Dioxide 26 Anion Gap 6 L BUN 77.0 H Creatinine 10.3 H* Est GFR (CKD-EPI)AfAm 5.63 Est GFR (CKD-EPI)NonAf 4.86 Random Glucose 65 L Calcium 8.5 Total Bilirubin 0.4 AST 19 ALT 14 Alkaline Phosphatase 179 H Total Protein 8.5 H Albumin 3.6 ASSESSMENT/PLAN: This is a 59 y/o gentleman w a PMH of ESRD (T,Th,Sat), HLD, HTN, polysubstance abuse hx (heroin, cocaine, marijuana), who presents from [facility] for investigation of LUE AV fistula. #ESRD #AV fistula malfunction #Hyperkalemia #Hypoglycemia #Leukocytosis - ESRD -> dialysis with Dr. Patel today, evaluate in AM for response. - Hyperkalemia 2/2 ESRD likely will resolve after dialysis, Insulin D50, kayexalate already given, will rpt in AM - AV fistula -> duplex LUE showing no hemodynamically significant stenosis with ?mural thrombus vs plaque, will still use for dialysis. - Shan consulted for investigation of AV fistula will wait for recs. - Hypoglycemia-> unclear if hx of DM, A1C in 2017 was <6 will send rpt, and BGM q6H, wont place him on insulin, continue to monitor, not on home DM meds. - continue all home meds including lasix - leuocytosis -> likely 2/2 acute stress from ESRD, F/U Cxr in AM DVT PPX: Hep 5K BID Visit type - Emergency Visit Emergency Visit: Yes ED Registration Date: 06/16/19 Care time: The patient presented to the Emergency Department on the above date and was hospitalized for further evaluation of their emergent condition. - New Patient This patient is new to me today: Yes Date on this admission: 06/16/19 - Critical Care Critical Care patient: No ATTENDING PHYSICIAN STATEMENT I saw and evaluated the patient. I reviewed the resident's note and discussed the case with the resident. I agree with the resident's findings and plan as documented. SUBJECTIVE: OBJECTIVE: ASSESSMENT AND PLAN:
[2019-06-16] MEDS: MINERAL OIL/PET HY-PHL TOPICAL OINTMENT 454 GM JAR TP SCH (18:40)
[2019-06-16] MEDS ORDERED: LIDOCAINE 2.5%/PRILOCAINE 2.5% (5 Gram/TUBE) TP ONE (18:50)
[2019-06-16] MEDS ORDERED: SODIUM CHLORIDE 250 ML IV PRN (19:48)
[2019-06-16] MEDS ORDERED: HEPARIN NA (PORCINE) 5,000 UNITS/ML 1ML VIAL IVPUSH ONE (20:00)
[2019-06-16] MEDS: HEPARIN NA (PORCINE) 5,000 UNITS/ML 1ML VIAL IVPUSH SCH ×3 (20:35→21:39)
[2019-06-16 21:27] LABS: CALCIUM 8.1 mg/dL (8.5-10.1); POTASSIUM 5.5 mmol/L (3.5-5.1)
[2019-06-16 21:29] LABS: CREATININE 10.3 mg/dL (0.55-1.3)
[2019-06-16] MEDS: HEPARIN NA (PORCINE) 5,000 UNITS/ML 1ML VIAL SQ SCH (22:11)
[2019-06-17] MEDS ORDERED: hydrALAZINE HCL 20 MG/ML VIAL IVPUSH ONE (00:29)
[2019-06-17 07:10] LABS: BASO % 1.1 % (0-2.0); EOS % 5.9 % (0-4.5); HEMATOCRIT 35.2 % (35.4-49); HEMOGLOBIN 11.9 GM/dL (11.7-16.9); LYMPH % 23.2 % (8-40); MCH 32.1 pg (25.7-33.7); MEAN CELL VOLUME 94.3 fl (80-96); MEAN PLT VOLUME 7.7 fl (7.5-11.1); MONO % 11.3 % (3.8-10.2); NEUT % 58.5 % (42.8-82.8); PLATELET COUNT 220 K/MM3 (134-434); RBC 3.73 M/mm3 (4.00-5.60); RDW 16.3 % (11.9-15.9); WHITE BLOOD COUNT 8.3 K/mm3 (4.0-10.0)
[2019-06-17] MEDS: MINERAL OIL/PET HY-PHL TOPICAL OINTMENT 454 GM JAR TP SCH (10:24)
[2019-06-17] MEDS: HEPARIN NA (PORCINE) 5,000 UNITS/ML 1ML VIAL SQ SCH (10:24)
--- NOTE | 2019-06-17 12:02 | DS ---
Physical Examination Vital Signs: Vital Signs Temperature 98.9 F 06/17/19 10:00 Pulse Rate 100 H 06/17/19 10:00 Respiratory Rate 17 06/17/19 10:00 Blood Pressure 175/71 H 06/17/19 10:00 O2 Sat by Pulse Oximetry (%) 98 06/17/19 09:00 Findings/Remarks: pt seen/ examined feels well no complains wants to go home had dialysis without any difficulty. Constitutional: Yes: No Distress, Calm Eyes: Yes: Conjunctiva Clear Neck: Yes: Supple Cardiovascular: Yes: Regular Rate and Rhythm Respiratory: Yes: CTA Bilaterally Gastrointestinal: Yes: Soft Edema: No Neurological: Yes: Alert Psychiatric: Yes: Alert Labs: CBC, BMP 06/17/19 06:08 06/16/19 19:30 Discharge Summary Problems reviewed: Yes Reason For Visit: HYPERKALEMIA Current Active Problems ESRD (end stage renal disease) (Acute) Hyperkalemia (Acute) Hospital Course: 59-year-old male with history of end-stage renal disease currently receiving dialysis on Thursday and Thursday presents to ED for an occluded left AV fistula. Patient states on Thursday went to dialysis and was told it was occluded and needed to be seen by vascular surgeon. Events noted u/s done- no acute issues Had successful dialysis medically stable BP elevated will add amlodipine Stable for d/c f/u with pmd/ renal as out pt meds reconcilled - Instructions Referrals: Ben Lunsford MD [Primary Care Provider] - Disposition: HOME - Home Medications Comprehensive Discharge Medication List: Ambulatory Orders Ferrous Sulfate [Feosol] 325 mg PO DAILY 10/10/17 Furosemide [Lasix] 40 mg PO DAILY 10/10/17 Gabapentin 300 mg PO DAILY 10/10/17 Sennosides [Senna] 8.6 mg PO HS 10/10/17 Sevelamer Carbonate [Renvela -] 800 mg PO TID 10/10/17 Acetaminophen [Tylenol .Regular Strength -] 650 mg PO Q4H PRN tablet 10/12/17 Bacitracin - [Bacitracin Topical Ointment -] 1 applic TP DAILY #1 tube 10/12/17 Thiamine HCl [Vitamin B1 -] 100 mg PO DAILY tablet 10/12/17 Oxycodone HCl/Acetaminophen [Oxycodone-Acetaminophen 5-325] 1 tab PO BID PRN Amlodipine Besylate [Norvasc -] 5 mg PO DAILY #30 tablet 06/17/19
--- NOTE | 2019-06-17 12:29 | PN ---
Progress Note, Physician History of Present Illness: Pt seen and examined at bedside. he is awake and alert. He denies shortness of breath. He tolerated HD last night. - Current Medication List Current Medications: Active Medications Emollient Ointment (Aquaphor -) 1 applic TP DAILY TUNG Last Admin: 06/17/19 10:24 Dose: Not Given Heparin Sodium (Porcine) (Heparin -) 5,000 unit SQ BID TUNG Last Admin: 06/17/19 10:24 Dose: 5,000 unit Sodium Chloride (Normal Saline -) 250 mls @ 3,000 mls/hr IV PRN PRN PRN Reason: Hypotension during Dialysis Stop: 06/17/19 19:47 - Objective Vital Signs: Vital Signs Temperature 98.9 F 06/17/19 10:00 Pulse Rate 100 H 06/17/19 10:00 Respiratory Rate 17 06/17/19 10:00 Blood Pressure 175/71 H 06/17/19 10:00 O2 Sat by Pulse Oximetry (%) 98 06/17/19 09:00 Constitutional: Yes: Calm Eyes: Yes: Conjunctiva Clear HENT: Yes: Atraumatic Neck: Yes: Supple Cardiovascular: Yes: S1, S2 Respiratory: Yes: CTA Bilaterally Gastrointestinal: Yes: Normal Bowel Sounds, Soft Genitourinary: Yes: WNL Musculoskeletal: Yes: WNL Extremities: Yes: Other (fistula with thrill and bruit) Edema: No Neurological: Yes: Oriented Psychiatric: Yes: Oriented Labs: CBC, BMP 06/17/19 06:08 06/16/19 19:30 Problem List - Problems (1) AV fistula Code(s): I77.0 - ARTERIOVENOUS FISTULA, ACQUIRED Assessment/Plan Current Medications Generic Name Dose Route Start Last Admin Trade Name Freq PRN Reason Stop Dose Admin Emollient Ointment 1 applic 06/16/19 18:30 06/17/19 10:24 Aquaphor - TP Not Given DAILY TUNG Heparin Sodium (Porcine) 5,000 unit 06/16/19 22:00 06/17/19 10:24 Heparin - SQ 5,000 unit BID TUNG Administration Sodium Chloride 250 mls @ 3,000 mls/hr 06/16/19 19:48 Normal Saline - IV 06/17/19 19:47 PRN PRN Hypotension during Dialysis Impression 1. ESRD 2. anemia 3. HTN 4. non compliance 5. DM 6. avf dysfunction Plan - pt had HD yesterday - follow bmp to see if improvement - pt has HD set up as outpt - lab called to draw the bmp - fistula with thrill and bruit
[2019-06-17 13:16] LABS: BLOOD UREA NITROGEN 41.9 mg/dL (7-18); CREATININE 6.4 mg/dL (0.55-1.3)
--- NOTE | 2019-06-17 13:35 | PN ---
Progress Note (short form) - Note Progress Note: Laboratory Tests 06/17/19 12:35 Sodium 137 Potassium 5.0 BUN 41.9 H Creatinine 6.4 H labs reviewed Problem List - Problems (1) AV fistula Code(s): I77.0 - ARTERIOVENOUS FISTULA, ACQUIRED
--- NOTE | 2019-06-17 13:48 | EKG ---
Test Reason : Blood Pressure : / mmHG Vent. Rate : 056 BPM Atrial Rate : 056 BPM P-R Int : 190 ms QRS Dur : 088 ms QT Int : 450 ms P-R-T Axes : 062 021 056 degrees QTc Int : 434 ms SINUS BRADYCARDIA CANNOT RULE OUT ANTERIOR INFARCT (CITED ON OR BEFORE 22-SEP-2016) ABNORMAL ECG WHEN COMPARED WITH ECG OF 10-OCT-2017 10:20, VENT. RATE HAS DECREASED BY 34 BPM Confirmed by SIGRID AUSTIN MD ([id number]) on 06/17/2019 1:47:32 PM Referred By: Confirmed By:SIGRID AUSTIN MD
[2019-06-17 15:25] VITALS: BP 186/92; PULSE 66; TEMP 97.7
== END 2019-06-17 16:50 | disposition home or self-care (01) | DRG 640 ==
LOC: JER 11:10 → JERBED 15:54 → J4W 06-17 12:07
PROVIDERS: ATTEND Internal Medicine
PROC: 5A1D70Z Performance of Urinary Filtration, Intermittent, Less than 6 Hours Per Day (ICD-10-PCS; principal; 2019-06-16)
DX: E87.5 Hyperkalemia (principal); N18.6 End stage renal disease; I12.0 Hypertensive chronic kidney disease with stage 5 chronic kidney disease or end stage renal disease; T82.591A Other mechanical complication of surgically created arteriovenous shunt, initial encounter; E78.5 Hyperlipidemia, unspecified; E11.22 Type 2 diabetes mellitus with diabetic chronic kidney disease; D64.9 Anemia, unspecified; E11.649 Type 2 diabetes mellitus with hypoglycemia without coma; D72.829 Elevated white blood cell count, unspecified; Z91.14 Patient's other noncompliance with medication regimen
CPT/HCPCS: 36415; 71045-TC-FY; 80048; 80053; 83036; 85025; 86803; 87340; 93005; 93010; 93971; 99285-25; J1644

== ENCOUNTER 2021-07-02 17:24 | Emergency (ER) | payer OTHER ==
[2021-07-02 17:45] VITALS: BP 126/50; PULSE 67; TEMP 97.9; BMI 28.7
[2021-07-02 18:40] LABS: BASO % 0.5 % (0-2.0); HEMATOCRIT 30.4 % (35.4-49); HEMOGLOBIN 10.2 GM/dL (11.7-16.9); LYMPH % 38.2 % (8-40); MCH 33.6 pg (25.7-33.7); MCHC 33.7 g/dl (32.0-35.9); MEAN CELL VOLUME 99.6 fl (80-96); NEUT % 48.3 % (42.8-82.8); PLATELET COUNT 148 10^3/uL (134-434); RBC 3.05 M/mm3 (4.00-5.60); RDW 16.2 % (11.9-15.9); WHITE BLOOD COUNT 8.6 K/mm3 (4.0-10.0)
[2021-07-02 18:56] LABS: CHLORIDE 97 mmol/L (98-107); SODIUM 137 mmol/L (136-145)
[2021-07-02 18:58] LABS: CALCIUM 9.4 mg/dL (8.5-10.1)
[2021-07-02 18:59] LABS: ANION GAP 12 MMOL/L (8-16); BLOOD UREA NITROGEN 30.2 mg/dL (7-18); CO2 28 mmol/L (21-32); GLUCOSE,RANDOM 67 mg/dL (74-106)
[2021-07-02 19:02] LABS: SGOT/AST 11 U/L (15-37); SGPT/ALT 13 U/L (13-61)
[2021-07-02 19:03] LABS: BILIRUBIN,TOTAL 0.8 mg/dL (0.2-1); TOT PROT 7.9 g/dl (6.4-8.2)
[2021-07-02 19:05] LABS: ALK PHOS 71 U/L (45-117)
[2021-07-02 19:36] LABS: CREATININE 8.5 mg/dL (0.55-1.3)
== END 2021-07-02 21:00 | disposition home or self-care (01) ==
LOC: JER 17:24
DX: J02.9 Acute pharyngitis, unspecified (principal); N18.6 End stage renal disease; Z99.2 Dependence on renal dialysis
CPT/HCPCS: 36415; 71046-TC-FY; 80053; 82550; 82553; 84484; 85025; 87804; 93005; 93010; 99285-25; C9803; U0003; U0005